=== PATIENT | male | born 1940 | race Caucasian/White ===

== ENCOUNTER 2017-10-29 14:15 | Inpatient (IN) | payer MEDICARE ==
[2017-10-29] VITALS: BP 128/65
[~2017-10-29] VITALS: Ht 185.4 cm; Wt 152.4 kg
[~2017-10-29 14:15] MED LIST: ATORVASTATIN CA20 MG PO; CARVEDILOL12.5 MG PO; DIAZEPAM10 MG; GEMFIBROZIL600 MG PO; HYDRALAZINE HCL25 MG PO; HYDROCODONE-AP1 EA23 PO; K DUR10 MEQ PO; LISINOPRIL10 MG PO; MULTAQ 400MG T400 MG PO; Z.0.DIAZEPAM5 MG PO; Z.0.GEMFIBROZIL600 M PO; Z.0.LIPITOR20 MG PO; Z.0.LOPRESSOR50 MG PO; Z.0.VOLTAREN100 GM TP; [UNRECOGNIZED DRUG - OTHER] PO; [UNRECOGNIZED DRUG - OTHER] PO; [UNRECOGNIZED DRUG - OTHER] PO
[2017-10-29 15:42] LABS: BASOPHILS % 0.2 % (0.0-1.0); EOSINOPHILS % 0.4 % (0.0-6.0); HEMATOCRIT 32.8 % (38.2-49.6); HEMOGLOBIN 10.8 g/dL (14.0-18.0); LYMPHOCYTES # (AUTO) 1.2 (1.0-3.2); MEAN CORPUSCULAR HEMOGLOBIN 31.5 pg (28-32); MEAN CORPUSCULAR HGB CONC 32.9 g/dL (31-35); MEAN CORPUSCULAR VOLUME 95.6 fL (81-99); MONOCYTES % 9.3 % (4.4-11.3); NEUTROPHILS # (AUTO) 8.6 (2.1-6.9); NEUTROPHILS % 78.4 % (38.7-80.0); PLATELET COUNT 163 x10e3/uL (140-360); RED BLOOD COUNT 3.43 x10e6/uL (4.3-5.7); RED CELL DISTRIBUTION WIDTH 16.7 % (11.7-14.4)
[2017-10-29] MEDS ORDERED: SODIUM CHLORIDE 0.9% 1000ML 1,000 ML IV SCH (15:46)
[2017-10-29] MEDS ORDERED: ONDANSETRON HCL INJ 2 MG/ML VIAL IV PRN (16:00)
[2017-10-29 16:04] LABS: ALBUMIN 3.3 g/dL (3.5-5.0); ALBUMIN/GLOBULIN RATIO 0.6 (0.8-2.0); ANION GAP 15.8 mmol/L (8-16); CALCIUM 9.1 mg/dL (8.4-10.2); CREATININE, SERUM 1.32 mg/dL (0.72-1.25); POTASSIUM 3.8 mmol/L (3.5-5.1)
[2017-10-29] MEDS: VANCOMYCIN 1GM/NS 250 ML 250 ML IV SCH (17:04)
[2017-10-29] MEDS ORDERED: RANITIDINE HCL300 M1 PO (17:07)
[2017-10-29] MEDS ORDERED: CLINDAMYCIN HC150 MG PO (17:07)
[2017-10-29] MEDS ORDERED: ASPIR 8181 MG PO (17:07)
[2017-10-29] MEDS ORDERED: DIAZEPAM5 MG PO (17:07)
[2017-10-29] MEDS ORDERED: LIPITOR20 MG PO (17:07)
[2017-10-29] MEDS ORDERED: BUMETANIDE1 MG PO (17:08)
[2017-10-29] MEDS: HYDRALAZINE HCL 25 MG TAB PO SCH (20:32)
[2017-10-29] MEDS ORDERED: NON-FORMULARY MEDICATION (Ranitidine Hcl 300 MG) PO SCH (21:00)
[2017-10-30] VITALS (7 sets, daily range): BP systolic 128–177; BP diastolic 56–86
[2017-10-30] MEDS: ACETAMINOPHEN 325 MG TAB PO PRN ×2 (00:19→17:00)
[2017-10-30] MEDS: DIAZEPAM 5 MG TAB PO SCH ×2 (00:19→21:58)
[2017-10-30] MEDS ORDERED: SODIUM CHLORIDE 0.9% 250ML 250 ML ONE (04:17)
[2017-10-30] MEDS: VANCOMYCIN 1GM/NS 250 ML 250 ML IV SCH ×2 (04:25→16:00)
--- NOTE | 2017-10-30 07:37 | History and Physical ---
A 77-year-old male comes in with right lower extremity redness, pain, tenderness, and also chills and fever. HISTORY OF PRESENT ILLNESS: This is . Kanu Baig with a history of paraplegia, history of hypertension, and history of atrial fibrillation, who was in his usual state of health until he started out with pain and redness in his left lower extremity. The patient got clindamycin and did get better. The patient came in yesterday with right lower extremity redness, erythema, and extremity swelling too. The patient also had apparent chills and fever along with this. With this in mind, the patient was admitted to the hospital for possible cellulitis of the lower extremities, right lower extremity. PAST MEDICAL HISTORY: History of back injury with paraplegia, history of hypertension, history of hyperlipidemia, history of incontinence, history of self-catheterizations, history of anxiety, history of congestive heart failure too. MEDICINES 1. Aspirin 81 mg. 2. Atorvastatin 20 mg. 3. Bumetanide 1 mg. 4. Carvedilol 12.5 mg. 5. Clindamycin which was stopped. 6. Valium 10 mg daily. 7. Gemfibrozil 600 mg twice a day. 8. Hydralazine 25 mg 3 times a day. 9. Lisinopril 10 mg daily. 10. Ranitidine 300 mg daily. SURGICAL HISTORY: Bladder surgery and also back surgery. Otherwise, negative. REVIEW OF SYSTEMS: Negative for chest pain. Positive for some shortness of breath. Positive for constipation. No rectal bleeding. No diarrhea. Positive for constipation. No diplopia. No blurry vision. No headache. Positive for paraplegia in the lower extremities. FAMILY HISTORY: Positive for hypertension and history of cancer in the family too. PHYSICAL EXAMINATION GENERAL: The patient is alert and oriented times 3. Very uncomfortable on his back. HEENT: Normocephalic and atraumatic. Face with seborrheic dermatitis. LUNGS: Clear to auscultation. ABDOMEN: Nontender and nondistended. CARDIAC: S1 and S2 normal. Regular rate and rhythm at this time. EXTREMITIES: Right lower extremity with increased swelling. Increased erythema. Increased tenderness. Increased pain. Increased redness and warmth. LABORATORY VALUES: Initial white count was 10.96, hemoglobin 10.8, hematocrit 32.8. Chemistry: Sodium was 145, potassium 3.8, BUN 41, creatinine 1.32. Estimated GFR of 52, which is baseline for the patient. Albumin is 3.3. Dopplers are pending and has been done. ASSESSMENT: Right lower extremity cellulitis. The patient has been started on vancomycin. Will go ahead and do peak and troughs on the 3rd dose. Get the patient also an air mattress. Will work on that. Will continue also on home medications. For chronic kidney disease, will continue monitoring it. Further recommendations per clinical course. Will continue monitoring the patient in the hospital. Also, Dr. Aguirre will be involved also. Put the patient on telemetry with a history of atrial fibrillation. Lovenox for DVT prophylaxis. Job#: [id number] CORY
[2017-10-30] MEDS ORDERED: BISACODYL 5 MG TAB EC PO PRN (08:00)
[2017-10-30] MEDS ORDERED: LISINOPRIL 10 MG TAB PO SCH (09:00)
[2017-10-30] MEDS ORDERED: DIAZEPAM 5 MG TAB PO SCH (09:00)
[2017-10-30] MEDS: HYDRALAZINE HCL 25 MG TAB PO SCH ×3 (09:40→21:57)
[2017-10-30] MEDS: BUMETANIDE 1 MG TAB PO SCH (09:40)
[2017-10-30] MEDS: CARVEDILOL 12.5 MG TAB PO SCH ×2 (09:40→17:27)
[2017-10-30] MEDS: ASPIRIN 81 MG CHEW TAB PO SCH (09:40)
[2017-10-30] MEDS: LISINOPRIL 20 MG TAB PO SCH (09:41)
[2017-10-30] MEDS: ATORVASTATIN 20 MG TAB PO SCH (09:41)
[2017-10-30] MEDS: FAMOTIDINE 20 MG TAB PO SCH ×2 (09:41→21:57)
[2017-10-30] MEDS: GEMFIBROZIL 600 MG TAB PO SCH ×2 (09:41→17:27)
[2017-10-30] MEDS: ENOXAPARIN SOD INJ 40 MG/0.4 ML SYR SC SCH (17:27)
[2017-10-31] VITALS: BP 142/76
[2017-10-31 04:00] VITALS: BP 149/89
[2017-10-31] MEDS: VANCOMYCIN 1GM/NS 250 ML 250 ML IV SCH ×2 (04:03→16:20)
[2017-10-31] MEDS: ACETAMINOPHEN 325 MG TAB PO PRN (07:50)
[2017-10-31 07:54] VITALS: BP 192/85
[2017-10-31] MEDS: CARVEDILOL 12.5 MG TAB PO SCH ×2 (09:22→17:49)
[2017-10-31] MEDS: BUMETANIDE 1 MG TAB PO SCH (09:22)
[2017-10-31] MEDS: HYDRALAZINE HCL 25 MG TAB PO SCH ×4 (09:22→21:40)
[2017-10-31] MEDS: ASPIRIN 81 MG CHEW TAB PO SCH (09:22)
[2017-10-31] MEDS: ATORVASTATIN 20 MG TAB PO SCH (09:22)
[2017-10-31] MEDS: GEMFIBROZIL 600 MG TAB PO SCH ×2 (09:22→17:49)
[2017-10-31] MEDS: LISINOPRIL 20 MG TAB PO SCH (09:23)
[2017-10-31 11:36] VITALS: BP 159/82
[2017-10-31] MEDS ORDERED: MINERAL OIL 132 ML BTL PR PRN (15:45)
[2017-10-31 16:06] VITALS: BP 128/63
[2017-10-31] MEDS: ENOXAPARIN SOD INJ 40 MG/0.4 ML SYR SC SCH (17:49)
[2017-10-31 20:00] VITALS: BP 137/66
[2017-10-31] MEDS: FAMOTIDINE 20 MG TAB PO SCH (21:39)
[2017-10-31] MEDS: DIAZEPAM 5 MG TAB PO SCH (21:39)
[2017-11-01] VITALS: BP 124/62
[2017-11-01] MEDS: VANCOMYCIN 1GM/NS 250 ML 250 ML IV SCH (03:11)
[2017-11-01 05:00] VITALS: BP 121/60
[2017-11-01 07:34] VITALS: BP 106/51
[2017-11-01] MEDS: LISINOPRIL 20 MG TAB PO SCH (09:00)
[2017-11-01] MEDS: HYDRALAZINE HCL 25 MG TAB PO SCH ×3 (09:00→20:10)
[2017-11-01] MEDS: CARVEDILOL 12.5 MG TAB PO SCH ×2 (09:00→17:14)
[2017-11-01] MEDS: GEMFIBROZIL 600 MG TAB PO SCH ×2 (09:22→17:14)
[2017-11-01] MEDS: BUMETANIDE 1 MG TAB PO SCH (09:22)
[2017-11-01] MEDS: ASPIRIN 81 MG CHEW TAB PO SCH (09:22)
[2017-11-01] MEDS: ATORVASTATIN 20 MG TAB PO SCH (09:22)
[2017-11-01 11:18] VITALS: BP 114/46
[2017-11-01] MEDS ORDERED: DOXYCYCLINE 100MG/NS 100ML 100 ML IV SCH (13:00)
[2017-11-01 15:32] VITALS: BP 141/78
[2017-11-01] MEDS: ENOXAPARIN SOD INJ 40 MG/0.4 ML SYR SC SCH (17:14)
[2017-11-01 20:00] VITALS: BP 143/73
[2017-11-01] MEDS: FAMOTIDINE 20 MG TAB PO SCH (20:10)
[2017-11-01] MEDS: DIAZEPAM 5 MG TAB PO SCH (20:11)
[2017-11-02] VITALS (7 sets, daily range): BP systolic 113–163; BP diastolic 58–85
[2017-11-02] MEDS: VANCOMYCIN 1GM/NS 250 ML 250 ML IV SCH ×2 (00:01→22:41)
[2017-11-02] MEDS: CEFEPIME HCL 1 GM VIAL IV SCH ×3 (00:01→22:40)
--- NOTE | 2017-11-02 00:39 | Diagnostic Imaging Report ---
FOOT RIGHT COMPLETE Comparison: None Clinical history: Osteomyelitis Findings: Decreased bone mineralization limits evaluation. No definite acute fracture or dislocation or bony destruction seen. Severe mid foot and hindfoot degenerative changes. Vascular calcifications. Diffuse soft tissues swelling. Impression: No definite radiographic evidence of osteomyelitis. If there is ongoing clinical concern, consider nonemergent MRI with and without IV contrast or follow-up radiographs. Signed by: Dr Kasey Cronin MD on 11/02/2017 12:36 AM
--- NOTE | 2017-11-02 03:58 | Consultation ---
DATE OF CONSULTATION: November 01, 2017 INFECTIOUS DISEASE CONSULT REASON FOR CONSULT: Cellulitis. HPI: This is a 77-year-old gentleman with history of paraplegia secondary to spinal injury, who presented to [facility] with bilateral leg cellulitis, left more than the right. He attests that he had erythema for several weeks. REVIEW OF SYSTEMS CONSTITUTIONAL: Fevers. No chills. CHEST: No chest pain or palpitations. RESPIRATORY: No cough. GASTROINTESTINAL: No nausea or vomiting. SKIN: Normal. MUSCULOSKELETAL: Paraplegic. PAST MEDICAL HISTORY: Paraplegia secondary to back injury, urinary incontinence with the need of self-catheterization, morbid obesity, and CHF. PAST SURGICAL HISTORY: History of bladder surgery and back surgery. FAMILY HISTORY: Hypertension. SOCIAL HISTORY: No drug use. MEDICATIONS: Includes vancomycin. PHYSICAL EXAMINATION VITAL SIGNS: Afebrile. GENERAL: Alert and in no apparent distress. NECK: Supple. HEART: Normal. ABDOMEN: Obese and nontender. EXTREMITIES: Tender and erythema with no draining wounds. LABS: Reviewed. White count 10, hemoglobin 10 and platelets 163,000. Sodium 145, potassium 3.8, creatinine 1.3. Vancomycin trough on October 30, 2017, was 5. Blood cultures all negative for 48 hours. IMPRESSION 1. Bilateral leg cellulitis. 2. Paraplegia secondary to back injury. 3. Urinary retention with the need for self-catheterization. RECOMMENDATIONS: There is no draining wounds for culture. I will add empiric doxycycline. Dr. Aguirre to follow. Thank you for the consult. Job#: [id number] IA
[2017-11-02] MEDS: ACETAMINOPHEN 325 MG TAB PO PRN ×3 (05:08→23:04)
--- NOTE | 2017-11-02 07:55 | Consultation ---
DATE OF CONSULTATION: INFECTIOUS DISEASE CONSULTATION REASON FOR CONSULTATION: Osteomyelitis. HISTORY OF PRESENT ILLNESS: This is a 77-year-old gentleman who has right lower extremity chronic dermatitis. The patient comes in with redness and swelling of his right leg, worsening condition, fever, chills. He does have history of paraplegia, hypertension, atrial fibrillation. The patient started to have this swelling to the lower extremities. He originally got clindamycin without any improvement. He came with worsening condition; so, he was admitted. PAST MEDICAL HISTORY: He has back injury and paraplegia, hypertension, hyperlipidemia, urinary incontinence, self-catheterization, anxiety, congestive heart failure. MEDICATION: He is on aspirin, atorvastatin, carvedilol, clindamycin, lisinopril. SOCIAL HISTORY: No smoking, drug abuse, alcohol abuse. PAST SURGICAL HISTORY: Bladder surgery, back surgery. REVIEW OF SYSTEMS: HEENT: There is no headache, visual change, hearing change. GI: There is no nausea, no vomiting, no diarrhea. CARDIAC: There is no arrhythmia. NEURO: No seizure activity. SKIN: There is no other rash. LABORATORY DATA: Reviewed. His white count is 10.9, hemoglobin 10.8. Creatinine 1.3. PHYSICAL EXAMINATION: GENERAL: He is alert, oriented, does not appear in acute distress. VITAL SIGNS: Stable. Currently afebrile. HEENT: Not icteric. NECK: Supple. CHEST: Clear. EXTREMITIES: The leg: There is erythema. There is edema. The foot: There is an ulcer noted on his right leg. IMPRESSION: Concerned about osteomyelitis in a patient who has right lower extremity cellulitis. Agree with vancomycin. Agree with Zosyn. Will obtain an x-ray. Will adjust for his kidney function. Recheck CBC. Recheck chem panel. May need an MRI. Concerned about osteomyelitis. Further recommendations to follow. Can discontinue doxycycline. Will follow with you. Job#: [id number] EV
[2017-11-02] MEDS: CARVEDILOL 12.5 MG TAB PO SCH ×2 (09:28→17:15)
[2017-11-02] MEDS: ATORVASTATIN 20 MG TAB PO SCH (09:28)
[2017-11-02] MEDS: HYDRALAZINE HCL 25 MG TAB PO SCH ×3 (09:28→21:02)
[2017-11-02] MEDS: BUMETANIDE 1 MG TAB PO SCH (09:28)
[2017-11-02] MEDS: ASPIRIN 81 MG CHEW TAB PO SCH (09:28)
[2017-11-02] MEDS: GEMFIBROZIL 600 MG TAB PO SCH ×2 (09:29→17:15)
[2017-11-02] MEDS: LACTOBACILLUS ACIDOPHILUS CAPSULE PO SCH ×3 (09:29→21:02)
[2017-11-02] MEDS: LISINOPRIL 20 MG TAB PO SCH (09:29)
--- NOTE | 2017-11-02 10:14 | Diagnostic Imaging Report ---
Portable chest x-ray CPT code 71104 INDICATION: Line placement COMPARISON: Chest x-ray 03/31/2016 FINDINGS: Frontal view of the chest obtained at 0728 hours. The cardiac silhouette is enlarged and stable in morphology. Right PICC line terminates in the subclavian vein, just proximal to the SVC. No pneumothorax. The pulmonary vascular marking are prominent, more severe compared to previous exam The lungs demonstrate no confluent infiltrates. Mild eventration of the right diaphragm is stable. The costophrenic angles are sharp. The osseous structures are stable. IMPRESSION: 1. Right PICC line approximates the SVC. Recommend advancement by proximally 3 cm. No pneumothorax. 2. Worsening pulmonary vascular congestion. Stable cardiomegaly. Signed by: Dr. Andreas Brewster MD on 11/02/2017 10:11 AM
[2017-11-02 10:15] LABS: BASOPHILS % 0.7 % (0.0-1.0); EOSINOPHILS # (AUTO) 0.2 (0.0-0.4); EOSINOPHILS % 4.1 % (0.0-6.0); HEMATOCRIT 29.9 % (38.2-49.6); HEMOGLOBIN 9.5 g/dL (14.0-18.0); LYMPHOCYTES % 16.7 % (18.0-39.1); MEAN CORPUSCULAR HEMOGLOBIN 30.4 pg (28-32); MEAN CORPUSCULAR HGB CONC 31.8 g/dL (31-35); MEAN CORPUSCULAR VOLUME 95.8 fL (81-99); MONOCYTES # (AUTO) 0.6 (0.2-0.8); MONOCYTES % 9.7 % (4.4-11.3); NEUTROPHILS % 67.3 % (38.7-80.0); PLATELET COUNT 169 x10e3/uL (140-360); RED BLOOD COUNT 3.12 x10e6/uL (4.3-5.7); RED CELL DISTRIBUTION WIDTH 16.1 % (11.7-14.4)
[2017-11-02 10:20] LABS: ALANINE AMINOTRANSFERASE 13 IU/L (0-55); ALBUMIN 2.4 g/dL (3.5-5.0); ALBUMIN/GLOBULIN RATIO 0.5 (0.8-2.0); ALKALINE PHOSPHATASE 78 IU/L (40-150); ANION GAP 11.9 mmol/L (8-16); BLOOD UREA NITROGEN 24 mg/dL (7-26); BUN/CREATININE RATIO 24 (6-25); CALCIUM 8.3 mg/dL (8.4-10.2); CARBON DIOXIDE 29 mmol/L (22-29); CREATININE, SERUM 1.02 mg/dL (0.72-1.25); EST GLOMERULAR FILTRATION RATE > 60 ML/MIN (60-); GLUCOSE 115 mg/dL (74-118)
[2017-11-02 10:51] LABS: CHLORIDE 103 mmol/L (98-107); SODIUM 142 mmol/L (136-145)
--- NOTE | 2017-11-02 11:34 | Diagnostic Imaging Report ---
Portable chest x-ray CPT code 59946 INDICATION: Line placement COMPARISON: X-ray 0728 hours FINDINGS: Frontal view of the chest obtained at 0903 hours. The cardiac silhouette is stable. Right PICC line has been advanced into the SVC without pneumothorax. Pulmonary vascular congestion is stable. The lungs demonstrate no new findings. The costophrenic angles are sharp. The osseous structures are stable. IMPRESSION: 1. Right PICC line terminates in the SVC. 2. Stable pulmonary vascular congestion. Signed by: Dr. Andreas Brewster MD on 11/02/2017 11:31 AM
[2017-11-02] MEDS: METRONIDAZOLE 500MG/NS 100ML 100 ML IV SCH ×2 (14:45→21:02)
[2017-11-02 17:28] LABS: BILIRUBIN,URINE NEGATIVE (NEGATIVE); KETONES,URINE NEGATIVE (NEGATIVE); LEUKOCYTE ESTERASE ,URINE NEGATIVE (NEGATIVE); NITRITE,URINE NEGATIVE (NEGATIVE); PROTEIN,URINE DIPSTICK NEGATIVE (NEGATIVE); URINE UROBILINOGEN 0.2 mg/dL (0.2 - 1)
[2017-11-02 17:37] LABS: CLARITY,URINE SL CLOUDY (CLEAR); COLOR,URINE YELLOW (YELLOW)
[2017-11-02 17:48] LABS: BACTERIA,URINE FEW /HPF; EPITHELIAL CELLS,URINE FEW /LPF; RBC,URINE >50 /HPF (0-5); WBC,URINE (MAN) 0-5 /HPF (0-5)
[2017-11-02] MEDS: DIAZEPAM 5 MG TAB PO SCH (21:02)
[2017-11-02] MEDS: FAMOTIDINE 20 MG TAB PO SCH (21:02)
[2017-11-03] VITALS: BP 145/72
[2017-11-03 04:00] VITALS: BP 145/82
[2017-11-03] MEDS: METRONIDAZOLE 500MG/NS 100ML 100 ML IV SCH ×3 (06:11→21:10)
[2017-11-03 06:38] LABS: BASOPHILS % 0.5 % (0.0-1.0); EOSINOPHILS # (AUTO) 0.3 (0.0-0.4); EOSINOPHILS % 4.9 % (0.0-6.0); HEMATOCRIT 29.1 % (38.2-49.6); HEMOGLOBIN 9.3 g/dL (14.0-18.0); LYMPHOCYTES # (AUTO) 1.3 (1.0-3.2); LYMPHOCYTES % 24.1 % (18.0-39.1); MEAN CORPUSCULAR HEMOGLOBIN 30.7 pg (28-32); MONOCYTES # (AUTO) 0.6 (0.2-0.8); MONOCYTES % 11.2 % (4.4-11.3); NEUTROPHILS # (AUTO) 3.2 (2.1-6.9); NEUTROPHILS % 57.5 % (38.7-80.0); PLATELET COUNT 180 x10e3/uL (140-360); RED BLOOD COUNT 3.03 x10e6/uL (4.3-5.7); RED CELL DISTRIBUTION WIDTH 16.2 % (11.7-14.4)
[2017-11-03 07:14] LABS: ANION GAP 9.8 mmol/L (8-16); BLOOD UREA NITROGEN 24 mg/dL (7-26); BUN/CREATININE RATIO 24 (6-25); CALCIUM 8.3 mg/dL (8.4-10.2); CREATININE, SERUM 1.01 mg/dL (0.72-1.25); EST GLOMERULAR FILTRATION RATE > 60 ML/MIN (60-); GLUCOSE 92 mg/dL (74-118)
[2017-11-03 07:55] LABS: CARBON DIOXIDE 30 mmol/L (22-29); CHLORIDE 104 mmol/L (98-107); SODIUM 143 mmol/L (136-145)
[2017-11-03 07:57] LABS: POTASSIUM 2.7 mmol/L (3.5-5.1)
[2017-11-03 08:00] VITALS: BP 154/74
[2017-11-03] MEDS: ATORVASTATIN 20 MG TAB PO SCH (08:15)
[2017-11-03] MEDS: BUMETANIDE 1 MG TAB PO SCH (08:15)
[2017-11-03] MEDS: LACTOBACILLUS ACIDOPHILUS CAPSULE PO SCH ×3 (08:15→21:00)
[2017-11-03] MEDS: GEMFIBROZIL 600 MG TAB PO SCH ×2 (08:15→16:54)
[2017-11-03] MEDS: HYDRALAZINE HCL 25 MG TAB PO SCH ×3 (08:15→21:00)
[2017-11-03] MEDS: CARVEDILOL 12.5 MG TAB PO SCH ×2 (08:15→16:54)
[2017-11-03] MEDS: ASPIRIN 81 MG CHEW TAB PO SCH (08:15)
[2017-11-03] MEDS: LISINOPRIL 20 MG TAB PO SCH (08:15)
[2017-11-03 09:00] VITALS: BP 148/77
[2017-11-03] MEDS ORDERED: POTASSIUM CHLORIDE 20 MEQ TAB CR PO ONE (09:15)
[2017-11-03] MEDS ORDERED: POTASSIUM CHL 40 MEQ in WATER STERILE 2 80 ML IV ONE (09:15)
[2017-11-03] MEDS: CEFEPIME HCL 1 GM VIAL IV SCH ×2 (12:00→23:10)
[2017-11-03 16:00] VITALS: BP 165/78
--- NOTE | 2017-11-03 17:39 | Consultation ---
DATE OF CONSULTATION: November 02, 2017 UROLOGY CONSULTATION REASON FOR CONSULTATION: Urethral trauma. HISTORY OF PRESENT ILLNESS: Kanu Baig is a 77-year-old man who has been a paraplegic since 1993 due to disk disease. The patient was initially seen by Dr. Nilson Payan; however, his office could not accommodate the patient's wheelchair and the patient changed care to Dr. Gavin Leonardo in the [facility]. Patient has been managed with intermittent catheterizations which he does utilizing a 14-Georgian catheter. The patient is admitted with bilateral lower extremity edema and cellulitis, and Pat catheter was placed on Friday. The Pat catheter did not drain today. It was irrigated and it did not drain properly; so, Pat catheter was removed with a resultant gross hematuria. The patient was attempted to be catheterized and obtained only blood. Patient has had history of urinary tract infections. He denies any previous history of urolithiasis. The patient had an excision of a right testicular tumor but reports that not the entire testicle was removed. PAST MEDICAL AND SURGICAL HISTORY 1. Paraplegia. 2. Hypertension. 3. Atrial fibrillation. 4. Bilateral lower extremity cellulitis for which he is currently admitted. 5. Status post back surgery in 1993. 6. Hyperlipidemia. 7. Anxiety. 8. Congestive heart failure. 9. Morbid obesity. ALLERGIES: PENICILLIN. SOCIAL HISTORY: The patient denies smoking, ethanol, or drug use. 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 He has supportive at the bedside. FAMILY HISTORY: Noncontributory to active urological problems. REVIEW OF SYSTEMS: As discussed above in the history of present illness and past medical history, otherwise negative for all systems. CURRENT MEDICATIONS: Please refer to the MAR. PHYSICAL EXAMINATION GENERAL: A very pleasant 77-year-old man, lying in bed in no apparent distress. VITAL SIGNS: He is currently afebrile. Vital signs are currently stable. ABDOMEN: Soft, obese, nondistended, and nontender without costovertebral angle tenderness. Kidneys are not palpable. No hepatosplenomegaly. The bladder is not palpable. GENITOURINARY: The left testis is descended and normal. In the right hemiscrotum, there is a nubbin from resection of a testicular tumor performed many years ago according to the patient at [facility]. Patient has a normal uncircumcised male phallus with normal meatus without any lesion. Digital rectal examination is deferred at the present time. EXTREMITIES: There is bilateral lower extremity cellulitis as well as edema. For the remaining physical examination of systems, please refer to the admission history and physical in the chart. PROCEDURE NOTE: I utilized [facility] coude-tip catheter and I was able to catheterize the patient's bladder. I obtained 300 mL of clear urine output upon immediate catheterization. There was blood at the urethral meatus and I expect bleeding around the catheter to continue. LABORATORY STUDIES: blood culture resulted as positive. White blood cell count is 5880, it was above 10,000, but has since normalized. The patient's hemoglobin is low at 9.5. Platelets are normal at 169,000. Patient's creatinine was elevated upon admission at 1.32, but it has since normalized at 1.02. Patient's calcium is low at 8.3. There is no urologically relevant radiographic study in the computer at the present time. ASSESSMENT 1. Neurogenic bladder. 2. Chronic urinary retention. 3. Obstructive BPH as evidenced by the fact that only a very small amount of catheter is sticking out the urethral meatus once I placed the Pat catheter into the patient's bladder. 4. Urinary tract infections. 5. Gross hematuria. 6. Bilateral lower extremity edema. 7. Leukocytosis that improved. 8. Mild anemia. 9. Acute renal failure that improved. 10. Hypocalcemia. 11. Morbid obesity. 12. Urethral trauma. PLAN 1. Leave the Pat catheter in place for at least 7 to 10 days prior to resuming intermittent catheterization. 2. The patient needs ongoing urological followup. 3. At some point, a cystoscopic examination should be considered. 4. Long-term followup including upper tract imaging is in order. Thank you very much for involving us in the care of your patient. We will be happy to follow him along with you as well as assume his ongoing urological care due to the fact that it would be more convenient for the patient to travel locally to my office than stringer the traffic in and out of the [facility]. The patient and his are eager to switch care. Despite Dr. Leonardo's excellent care, the cumbersome nature of transportation at his age is becoming a challenge. Job#: [id number] cc:ELMER GAONA MD
[2017-11-03 20:00] VITALS: BP 146/64
[2017-11-03] MEDS: FAMOTIDINE 20 MG TAB PO SCH (21:00)
[2017-11-03] MEDS: DIAZEPAM 5 MG TAB PO SCH (21:00)
[2017-11-03] MEDS: VANCOMYCIN 1GM/NS 250 ML 250 ML IV SCH (23:10)
[2017-11-04] VITALS: BP 153/73
[2017-11-04 04:00] VITALS: BP 169/77
[2017-11-04] MEDS: METRONIDAZOLE 500MG/NS 100ML 100 ML IV SCH ×2 (05:57→14:00)
[2017-11-04] MEDS: ACETAMINOPHEN 325 MG TAB PO PRN (07:30)
[2017-11-04 08:00] VITALS: BP 150/76
[2017-11-04] MEDS: HYDRALAZINE HCL 25 MG TAB PO SCH ×2 (08:49→15:00)
[2017-11-04] MEDS: ATORVASTATIN 20 MG TAB PO SCH (08:50)
[2017-11-04] MEDS: ASPIRIN 81 MG CHEW TAB PO SCH (08:50)
[2017-11-04] MEDS: BUMETANIDE 1 MG TAB PO SCH (08:50)
[2017-11-04] MEDS: LISINOPRIL 20 MG TAB PO SCH (08:50)
[2017-11-04] MEDS: CARVEDILOL 12.5 MG TAB PO SCH ×2 (08:50→17:00)
[2017-11-04] MEDS: GEMFIBROZIL 600 MG TAB PO SCH ×2 (08:50→17:00)
[2017-11-04] MEDS: LACTOBACILLUS ACIDOPHILUS CAPSULE PO SCH ×2 (08:51→15:00)
[2017-11-04] MEDS: CEFEPIME HCL 1 GM VIAL IV SCH (11:15)
[2017-11-04 12:00] VITALS: BP_SYST 146; BP_SYST 154; BP_DIAS 77; BP_DIAS 79
[2017-11-04 20:00] VITALS: BP 147/70
--- NOTE | 2017-11-05 09:30 | Diagnostic Imaging Report ---
MRI of the right foot with and without contrast. History: Cellulitis. Swelling. Decreased range of motion. Redness. Pain. Technique: Multiplanar multisequence MRI of the right foot with and without intravenous contrast. 10 cc IV gadolinium contrast material was administered Comparison: Radiographs 11/01/2017 Findings: There is no acute fracture, subluxation or avascular necrosis. No ligamentous or tendon tear is seen. Scattered degenerative changes are seen. There is diffuse muscle atrophy. There is a tibiotalar joint effusion and synovitis. There is diffuse soft tissue edema most pronounced at the dorsal lateral aspect of the foot/ankle. There is associated skin thickening. This is best seen on series 4 image 10. No well-formed drainable fluid collection/abscess is seen. No abnormal enhancing masses are seen. Impression: Findings which could be due to cellulitis. No well-formed drainable fluid collection/abscess is seen. No focal bone marrow edema or cortical destruction is seen to suggest osteomyelitis at this time. Signed by: Dr. Vishnu Suarez M.D. on 11/05/2017 9:27 AM
== END 2017-11-04 20:55 | DRG 603 ==
LOC: ER 14:15 → ERHOLD 16:13 → MED/SURG3 21:30
PROVIDERS: ADMIT Family Medicine; ATTEND Family Medicine
PROC: 02HV33Z Insertion of Infusion Device into Superior Vena Cava, Percutaneous Approach (ICD-10-PCS; principal; 2017-11-02)
PROC: 0T9B70Z Drainage of Bladder with Drainage Device, Via Natural or Artificial Opening (ICD-10-PCS; 2017-11-02)
DX: L03.116 Cellulitis of left lower limb (principal); N17.9 Acute kidney failure, unspecified; G82.20 Paraplegia, unspecified; I13.0 Hypertensive heart and chronic kidney disease with heart failure and stage 1 through stage 4 chronic kidney disease, or unspecified chronic kidney disease; I50.9 Heart failure, unspecified; Z68.41 Body mass index [BMI] 40.0-44.9, adult; L97.911 Non-pressure chronic ulcer of unspecified part of right lower leg limited to breakdown of skin; L03.115 Cellulitis of right lower limb; I48.91 Unspecified atrial fibrillation; N18.9 Chronic kidney disease, unspecified; E78.5 Hyperlipidemia, unspecified; K59.00 Constipation, unspecified; F41.9 Anxiety disorder, unspecified; E66.01 Morbid (severe) obesity due to excess calories; N40.1 Benign prostatic hyperplasia with lower urinary tract symptoms; R33.8 Other retention of urine; R31.9 Hematuria, unspecified; I89.0 Lymphedema, not elsewhere classified; N31.9 Neuromuscular dysfunction of bladder, unspecified; I25.10 Atherosclerotic heart disease of native coronary artery without angina pectoris; Z79.82 Long term (current) use of aspirin; Z88.0 Allergy status to penicillin
CPT/HCPCS: 36415; 36569; 71010; 80048; 80053; 80202; 81001; 82948; 85025; 87040; 87071; 87086; 87186; 87205; 93970; 96367; 96372; 96376; 97139; 99284; J0692; J1650; J3370; J3480; J7030; J7050

== ENCOUNTER 2018-04-07 18:18 | Inpatient (IN) | payer MEDICARE ==
[~2018-04-07] VITALS: Ht 185.4 cm; Wt 112.0 kg
[~2018-04-07 18:18] MED LIST changes: +ASPIR 8181 MG PO; +BUMETANIDE1 MG PO; +CLINDAMYCIN HC150 MG PO; +DIAZEPAM5 MG PO; +LIPITOR20 MG PO; +RANITIDINE HCL300 M1 PO
--- OUTSIDE RECORDS SUMMARY | 2018-04-07 18:21 | XMS REPORT | Clinical Summary ---
Author Author [facility] Organization [facility] Address Unknown Phone Unavailable Care Team Providers Care Assembler Crimper Name Role Phone Asked, Pcp PCP Unavailable Allergies No Known Allergies Current Medications Prescription Sig. Disp. Refills Start End Date Status Date atorvastatin (LIPITOR) 20 Take 20 mg by mouth once 5 06/03/20 Active MG tablet daily. 17 BUMETanide (BUMEX) 2 MG Take 2 mg by mouth once 10 06/24/20 Active tablet daily. 17 carvedilol (COREG) 25 MG TAKE 1&1/2 TABLETS BY 11 07/12/20 Active tablet MOUTH TWICE DAILY 17 diazePAM (VALIUM) 10 MG Take 10 mg by mouth daily 0 05/12/20 Active tablet as needed. 17 gemfibrozil (LOPID) 600 Take 600 mg by mouth 2 5 04/29/20 Active MG tablet (two) times a day. 17 hydrALAZINE (APRESOLINE) Take 100 mg by mouth 3 04/29/20 Active 100 MG tablet every 8 (eight) hours. 17 lisinopril Take 40 mg by mouth once 2 07/04/20 Active (PRINIVIL,ZESTRIL) 40 mg daily. 17 tablet Active Problems Problem Noted Date Neurogenic bladder, NOS 05/29/2016 Encounters Date Type Specialty Care Team Description 07/23/2017 Office Visit Urology Gavin Leonardo MD Urinary retention (Primary Dx); Neurogenic bladder after 04/06/2017 Family History Relation Name Status Comments Father Mother Social History Tobacco Use Types Packs/Day Years Used Date Never Smoker Smokeless Tobacco: Never Used Alcohol Use Drinks/Week oz/Week Comments No Sex Assigned at Date Recorded Not on file Last Filed Vital Signs Not on file Plan of Treatment Health Maintenance Due Date Last Done Comments SHINGRIX VACCINE (#1) 1989 ZOSTER VACCINE 1999 PNEUMOCOCCAL 01/08/2004 POLYSACCHARIDE VACCINE AGE 65 AND OVER PNEUMOCOCCAL-13 01/08/2004 INFLUENZA VACCINE 06/03/2018 Results * POC urinalysis dipstick (07/23/2017 1:30 PM) Component Value Ref Range Color urine, POC Yellow Clarity urine, POC Clear Glucose urine, POC Negative Negative Bilirubin urine, POC Negative Negative Ketones urine, POC Negative Negative Specific gravity urine, 1.015 1.005 - 1.030 POC Blood urine, POC Negative Negative pH urine, POC 7.0 5.0, 5.5, 6.0, 6.5, 7.0, 7.5, 8.0, 8.5 Protein urine, POC Negative Negative Urobilinogen urine, POC <2.0 <2.0 Nitrite urine, POC Negative Negative Leukocyte esterase urine, Negative Negative POC Specimen Performing Laboratory Urine after 04/06/2017 Insurance Payer Benefit Subscriber ID Type Phone Address Plan / Group MEDICARE MEDICARE xxxxxxxxxx Medicare [place], [place] PART A AND B AARP AARP xxxxxxxxxxx Commercial SUPPLEMENT
--- OUTSIDE RECORDS SUMMARY | 2018-04-07 18:22 | XMS REPORT ---
Author Author [facility] Address Unknown Phone Unavailable Care Team Providers Care Enamel Cracker Name Role Phone ELMER GAONA Unavailable Unavailable Problems This patient has no known problems. Allergies, Adverse Reactions, Alerts This patient has no known allergies or adverse reactions. Medications This patient has no known medications. Results Test Description Test Time Test Comments Text Results Atomic Results Result Comments MRI FOOT RIGHT WOW [place] [address] Patient Name: JHONATHAN DOMINGO MR #: [id number] : 1940 Age/Sex: 77/M Req #: [id number] [facility] Physician: ELMER GAONA MD Ordered by: MARGARITA CASTAÑEDA MD Report #: [id number] Location: MED/SURG3 Room/Bed: [facility] [facility] [employer] Procedure: [id number] MRI/MRI FOOT RIGHT WOW Exam Date: Exam Time: REPORT STATUS: Signed MRI of the right foot with and without contrast. History: Cellulitis. Swelling. Decreased range of motion. Redness. Pain. Technique: Multiplanar multisequence MRI of the right foot with and without intravenous contrast. 10 cc IV gadolinium contrast material was administered Comparison: Radiographs 11/01/2017 Findings: There is no acute fracture, subluxation or avascular necrosis. No ligamentous or tendon tear is seen. Scattered degenerative changes are seen. There is diffuse muscle atrophy. There is a tibiotalar joint effusion and synovitis. There is diffuse soft tissue edema most pronounced at the dorsal lateral aspect of the foot/ankle. There is associated skin thickening. This is best seen on series 4 image 10. No well-formed drainable fluid collection/abscess is seen. No abnormal enhancing masses are seen. Impression: Findings which could be due to cellulitis. No well-formed drainable fluid collection/abscess is seen. No focal bone marrow edema or cortical destruction is seen to suggest osteomyelitis at this time. Signed by: Dr. Vishnu Suarez M.D. on 2017 9:27 AM Dictated By: VISHNU SUAREZ MD, MD 6 Transcribed By: CHRIS on 11/05/17926 COPY TO: MARGARITA CASTAÑEDA MD CHEST XRAY LINE PLACEMENT [place] [address] Patient Name: JHONATHAN DOMINGO MR #: [id number] : 1940 Age/Sex: 77/M Req #: [id number] Adm Physician: ELMER GAONA MD Ordered by: MARGARITA CASTAÑEDA MD Report #: [id number] Location: [facility] Room/Bed: [employer] [facility] [employer] Procedure: [id number] DX/CHEST XRAY LINE PLACEMENT Exam Date: 11/02/17 Exam Time: 1120 REPORT STATUS: Signed Portable chest x-ray CPT code 85623 INDICATION: Line placement COMPARISON: X-ray 0728 hours FINDINGS: Frontal view of the chest obtained at 0903 hours. The cardiac silhouette is stable. Right PICC line has been advanced into the SVC without pneumothorax. Pulmonary vascular congestion is stable. The lungs demonstrate no new findings. The costophrenic angles are sharp. The osseous structures are stable. IMPRESSION: 1. Right PICC line terminates in the SVC. 2. Stable pulmonary vascular congestion. Signed by: Dr. Ignacio Brewster MD on 11:31 AM Dictated By: IGNACIO BREWSTER MD 1131 Transcribed By: CHRIS on 1131 COPY TO: MARGARITA CASTAÑEDA MD CHEST XRAY LINE PLACEMENT [place] [address] Patient Name: JHONATHAN DOMINGO MR #: [id number] : 1940 Age/Sex: 77/M Req #: [id number] Adm Physician: ELMER GAONA MD Ordered by: MARGARITA CASTAÑEDA MD Report #: [id number] Location: [facility]/SURG3 Room/Bed: [employer] [facility] Procedure: [id number] DX/CHEST XRAY LINE PLACEMENT Exam Date: 11/02/17 Exam Time: 0945 REPORT STATUS: Signed Portable chest x-ray CPT code 72890 INDICATION: Line placement COMPARISON: Chest x-ray 03/31/2016 FINDINGS: Frontal view of the chest obtained at 0728 hours. The cardiac silhouette is enlarged and stable in morphology. Right PICC line terminates in the subclavian vein, just proximal to the SVC. No pneumothorax. The pulmonary vascular marking are prominent, more severe compared to previous exam The lungs demonstrate no confluent infiltrates. Mild eventration of the right diaphragm is stable. The costophrenic angles are sharp. The osseous structures are stable. IMPRESSION: 1. Right PICC line approximates the SVC. Recommend advancement by proximally 3 cm. No pneumothorax. 2. Worsening pulmonary vascular congestion. Stable cardiomegaly. Signed by: Dr. Ignacio Brewster MD on 11/02/2017 10:11 AM Dictated By: IGNACIO BREWSTER MD Transcribed By : CHRIS on 11/02/171 COPY TO: MARGARITA CASTAÑEDA MD FOOT RIGHT COMPLETE [place] [address] Patient Name: JHONATHAN DOMINGO MR #: [id number] : 1940 Age/Sex: 77/M Req #: [id number] Adm Physician: ELMER GAONA MD Ordered by: MARGARITA CASTAÑEDA MD Report #: [id number] Location: [facility] Room/Bed: [employer] [facility] Procedure: [id number] DX/FOOT RIGHT COMPLETE Exam Date: 11/02/17 Exam Time: 1150 REPORT STATUS: Signed FOOT RIGHT COMPLETE Comparison: None Clinical history: Osteomyelitis Findings: Decreased bone mineralization limits evaluation. No definite acute fracture or dislocation or bony destruction seen. Severe mid foot and hindfoot degenerative changes. Vascular calcifications. Diffuse soft tissues swelling. Impression: No definite radiographic evidence of osteomyelitis. If there is ongoing clinical concern, consider nonemergent MRI with and without IV contrast or follow-up radiographs. Signed by: Dr Clark Cronin MD on 11/02/2017 12:36 AM Dictated By: CLARK CRONIN MD Transcribed By: CHRIS on 11/02/1735 COPY TO: MARGARITA CASTAÑEDA MD
[2018-04-07] MEDS ORDERED: SODIUM CHLORIDE 0.9% 1000ML 1,000 ML IV STA (18:28)
--- NOTE | 2018-04-07 19:00 | Diagnostic Imaging Report ---
PROCEDURE: A single AP view of the chest. COMPARISON: Patients [facility], DX, CHEST XRAY LINE PLACEMENT, 11/02/2017, 9:03. INDICATIONS: LOW OXYGEN, UTI FINDINGS: See Impression. IMPRESSION: 1. mildly hypoinflated lungs. No consolidation or effusion. 2. Mild prominence of the cardiac silhouette, which may be partly due to AP projection and is stable. Central pulmonary venous congestion and mild perihilar opacities, likely reflecting mild edema 3. No acute bony abnormalities.. Alejandro Foley M.D. Dictated by: Alejandro Foley M.D. on 04/07/2018 at 19:03 Electronically approved by: Alejandro Foley M.D. on 04/07/2018 at 19:03
[2018-04-07] MEDS ORDERED: IBUPROFEN 600 MG TAB PO STA (19:29)
[2018-04-07 20:25] LABS: BASOPHILS % 0.2 % (0.0-1.0); HEMOGLOBIN 10.2 g/dL (14.0-18.0); LYMPHOCYTES # (AUTO) 0.9 (1.0-3.2); LYMPHOCYTES % 6.9 % (18.0-39.1); MEAN CORPUSCULAR HEMOGLOBIN 31.9 pg (28-32); MEAN CORPUSCULAR HGB CONC 32.9 g/dL (31-35); MEAN CORPUSCULAR VOLUME 96.9 fL (81-99); MONOCYTES # (AUTO) 1.2 (0.2-0.8); MONOCYTES % 9.5 % (4.4-11.3); NEUTROPHILS # (AUTO) 10.3 (2.1-6.9); NEUTROPHILS % 82.4 % (38.7-80.0); PLATELET COUNT 116 x10e3/uL (140-360); RED CELL DISTRIBUTION WIDTH 15.2 % (11.7-14.4)
[2018-04-07 20:34] LABS: INR 1.65; PROTHROMBIN TIME 18.3 seconds (11.9-14.5)
[2018-04-07 20:35] LABS: PARTIAL THROMBOPLASTIN TIME 52.2 seconds (23.8-35.5)
[2018-04-07 20:42] LABS: ALBUMIN 3.2 g/dL (3.5-5.0); ALBUMIN/GLOBULIN RATIO 0.7 (0.8-2.0); ANION GAP 16.5 mmol/L (8-16); CALCIUM 9.2 mg/dL (8.4-10.2); CREATININE, SERUM 2.36 mg/dL (0.72-1.25); MAGNESIUM 1.8 MG/DL (1.3-2.1); POTASSIUM 3.5 mmol/L (3.5-5.1)
[2018-04-07 20:48] LABS: CREATINE KINASE MB 1.7 ng/mL (0-5.0)
[2018-04-07] MEDS ORDERED: SODIUM CHLORIDE 0.9% 1000ML 1,000 ML ONE (22:06)
[2018-04-07 22:09] LABS: CLARITY,URINE CLOUDY (CLEAR); COLOR,URINE YELLOW (YELLOW); KETONES,URINE NEGATIVE (NEGATIVE); LEUKOCYTE ESTERASE ,URINE 2+ (NEGATIVE); NITRITE,URINE NEGATIVE (NEGATIVE); PROTEIN,URINE DIPSTICK 2+ (NEGATIVE)
[2018-04-07 22:10] LABS: BILIRUBIN,URINE NEGATIVE (NEGATIVE); URINE UROBILINOGEN 0.2 mg/dL (0.2 - 1)
[2018-04-07 22:12] LABS: BACTERIA,URINE MANY /HPF; WBC,URINE (MAN) >50 /HPF (0-5)
[2018-04-07] MEDS ORDERED: FUROSEMIDE INJ 10 MG/ML 4 ML VIAL IV ONE (22:30)
[2018-04-07] MEDS ORDERED: DEXTROSE 50% SYRINGE 50 ML IV PRN (22:30)
[2018-04-07] MEDS ORDERED: CEFTRIAXONE SOD 1 GM VIAL IV ONE (22:30)
[2018-04-07] MEDS ORDERED: SODIUM CHLORIDE FLUSH 10 ML SYR INJ PRN (22:30)
[2018-04-07] MEDS ORDERED: ASPIRIN 81 MG CHEW TAB PO ONE (22:30)
--- OUTSIDE RECORDS SUMMARY | 2018-04-07 22:52 | XMS REPORT | Clinical Summary ---
Author Author [facility] Organization [facility] Address Unknown Phone Unavailable Care Team Providers Care Natural Sciences Manager Name Role Phone Asked, Pcp PCP Unavailable [...] Plan / Group MEDICARE MEDICARE xxxxxxxxxx Medicare [place], [place] PART A AND B AARP AARP xxxxxxxxxxx Commercial SUPPLEMENT
[2018-04-07] MEDS: CEFTRIAXONE SOD 1 GM VIAL IV SCH (23:33)
[2018-04-08] VITALS (9 sets, daily range): BP systolic 104–120; BP diastolic 50–63
[2018-04-08 06:24] LABS: BASOPHILS % 0.2 % (0.0-1.0); HEMATOCRIT 28.1 % (38.2-49.6); HEMOGLOBIN 8.9 g/dL (14.0-18.0); LYMPHOCYTES # (AUTO) 0.9 (1.0-3.2); LYMPHOCYTES % 6.6 % (18.0-39.1); MEAN CORPUSCULAR HEMOGLOBIN 31.7 pg (28-32); MEAN CORPUSCULAR HGB CONC 31.7 g/dL (31-35); MONOCYTES # (AUTO) 1.5 (0.2-0.8); MONOCYTES % 11.6 % (4.4-11.3); NEUTROPHILS # (AUTO) 10.5 (2.1-6.9); NEUTROPHILS % 80.5 % (38.7-80.0); PLATELET COUNT 114 x10e3/uL (140-360); RED BLOOD COUNT 2.81 x10e6/uL (4.3-5.7); RED CELL DISTRIBUTION WIDTH 15.5 % (11.7-14.4)
[2018-04-08 06:59] LABS: ALBUMIN 2.9 g/dL (3.5-5.0); ALBUMIN/GLOBULIN RATIO 0.7 (0.8-2.0); ANION GAP 13.4 mmol/L (8-16); CALCIUM 8.9 mg/dL (8.4-10.2); CREATININE, SERUM 2.54 mg/dL (0.72-1.25); POTASSIUM 3.4 mmol/L (3.5-5.1)
[2018-04-08 07:05] LABS: CREATINE KINASE MB 1.4 ng/mL (0-5.0)
[2018-04-08] MEDS ORDERED: INSULIN REGULAR, HUMAN 100 UNIT/1 ML 3ML VIAL SQ SCH (07:30)
[2018-04-08 08:15] LABS: BAND NEUTROPHILS % (MANUAL) 10 %; LYMPHOCYTES % (MANUAL) 6 % (19-48); MONOCYTES % (MANUAL) 2 % (3.4-9.0); NEUTROPHILS % (MANUAL) 81 % (40-74)
[2018-04-08 08:16] LABS: HYPOCHROMASIA SLIGHT; PLATELET ESTIMATE SLIGHTLY DECREASED; PLATELET MORPHOLOGY COMMENT NORMAL; RBC MORPHOLOGY COMMENT NORMAL
[2018-04-08] MEDS: FUROSEMIDE INJ 10 MG/ML 4 ML VIAL IV SCH ×2 (09:40→20:10)
[2018-04-08] MEDS: ACETAMINOPHEN 325 MG TAB PO PRN ×3 (13:40→23:35)
[2018-04-08 15:18] LABS: CREATINE KINASE MB 1.3 ng/mL (0-5.0)
[2018-04-08] MEDS ORDERED: POTASSIUM CHLORIDE 20 MEQ TAB CR PO ONE (19:04)
--- NOTE | 2018-04-08 20:18 | History and Physical ---
This patient is admitted to the hospital, sent from the clinic for urinary tract infection and hypoxia, history of exacerbation. HISTORY OF PRESENTING ILLNESS: Mr. Мария Baig came to the office yesterday with hypoxia and shortness of breath and also with fever. He was found to have a urinary tract infection and was sent to the emergency room for sepsis and also admitted for UTI and congestive heart failure. PAST MEDICAL HISTORY: History of hypertension, history of hyperlipidemia, history of CHF, history of anxiety, history of reflux esophagitis and also history of hyperlipidemia. History of paraplegia. HOME MEDICATIONS: Aspirin 81, atorvastatin 20, Bumex 2 mg daily, carvedilol 12.5 mg, Valium 5 mg daily, 600 mg, 25 mg, lisinopril 10 mg and ranitidine 300 mg nightly. ALLERGIES: NO KNOWN DRUG ALLERGIES. SOCIAL HISTORY: Not a smoker, no ETOH, no IV drug abuse either. REVIEW OF SYSTEMS: Negative for chest pain. No cough, no shortness of breath, no nausea, vomiting or diarrhea. No constipation. No rectal bleeding. No hematochezia, no hematemesis. No blurry vision. No diplopia. Positive for some confusion also. PHYSICAL EXAMINATION GENERAL: The patient is alert and oriented x2. The patient does have some confusion when he presented to the clinic yesterday. HEENT: Normocephalic, atraumatic. Pupils are reactive to light and accommodation. CVS: S1 and S2 normal. Irregularly irregular rate. ABDOMEN: Nontender. EXTREMITIES: No clubbing. Positive for edema and positive for erythema in the lower extremities. NEUROLOGIC: Alert and oriented x2. Positive for sensory deficits. The patient has paraplegia. LABORATORY DATA: White count 12.5 with left shift. Chemistries showed mild hyperglycemia of 148. Lactic acid negative. BUN ___, creatinine 2.36. CK and CK-MB and troponins were negative. Urinalysis showed 50,000 to 100,000 cells. ASSESSMENT: Urosepsis, possible encephalopathy, fever, chronic urinary tract infection, chronic history of catheterization, paraplegia, diabetes mellitus, hypertension and congestive heart failure, acute and chronic. PLAN: Continue with antibiotics. The patient has been started on Rocephin 1 gram. I will continue with that. White count was 13,000 today. Will probably change it to Zosyn. Microbiology preliminary urine shows no findings yet. Plan is to continue with fluid restriction and IV Lasix has been started. Will continue on with his vitals and also CBC, CMP and continue with Pat catheter. Dr. Silveira has been consulted. Further recommendations depending on clinical course. Job#: [id number]
[2018-04-08] MEDS: CEFTRIAXONE SOD 1 GM VIAL IV SCH (21:30)
[2018-04-09] VITALS (7 sets, daily range): BP systolic 98–115; BP diastolic 50–68
[2018-04-09 05:49] LABS: HEMATOCRIT 27.5 % (38.2-49.6); HEMOGLOBIN 8.8 g/dL (14.0-18.0); MEAN CORPUSCULAR HEMOGLOBIN 31.7 pg (28-32); MEAN CORPUSCULAR VOLUME 98.9 fL (81-99); NEUTROPHILS % 76.9 % (38.7-80.0); PLATELET COUNT 113 x10e3/uL (140-360); RED BLOOD COUNT 2.78 x10e6/uL (4.3-5.7); RED CELL DISTRIBUTION WIDTH 15.7 % (11.7-14.4)
[2018-04-09 05:50] LABS: BASOPHILS % 0.2 % (0.0-1.0); EOSINOPHILS % 0.1 % (0.0-6.0); LYMPHOCYTES # (AUTO) 1.1 (1.0-3.2); MONOCYTES # (AUTO) 1.1 (0.2-0.8); MONOCYTES % 11.1 % (4.4-11.3); NEUTROPHILS # (AUTO) 7.9 (2.1-6.9)
[2018-04-09 06:28] LABS: ANION GAP 14.6 mmol/L (8-16); CALCIUM 8.8 mg/dL (8.4-10.2); CREATININE, SERUM 2.72 mg/dL (0.72-1.25); POTASSIUM 3.6 mmol/L (3.5-5.1)
[2018-04-09] MEDS: POLYETHYLENE GLYCOL 3350 17 GM PACK PO SCH ×2 (09:00→17:00)
[2018-04-09] MEDS: FUROSEMIDE INJ 10 MG/ML 4 ML VIAL IV SCH ×2 (09:29→21:20)
[2018-04-09 10:30] LABS: BAND NEUTROPHILS % (MANUAL) 3 %; LYMPHOCYTES % (MANUAL) 6 % (19-48); MONOCYTES % (MANUAL) 12 % (3.4-9.0); NEUTROPHILS % (MANUAL) 79 % (40-74)
[2018-04-09 10:32] LABS: ANISOCYTOSIS SLIGHT; HYPOCHROMASIA SLIGHT; PLATELET ESTIMATE SLIGHTLY DECREASED; PLATELET MORPHOLOGY COMMENT NORMAL; RBC MORPHOLOGY COMMENT NORMAL
[2018-04-09] MEDS: ASPIRIN 81 MG CHEW TAB PO SCH (16:30)
[2018-04-09] MEDS: GEMFIBROZIL 600 MG TAB PO SCH (17:30)
[2018-04-09] MEDS ORDERED: NON-FORMULARY MEDICATION (Ranitidine Hcl 300 MG) PO SCH (21:00)
[2018-04-09] MEDS: ATORVASTATIN 20 MG TAB PO SCH (21:20)
[2018-04-09] MEDS: FAMOTIDINE 20 MG TAB PO SCH (21:20)
[2018-04-09] MEDS: CEFTRIAXONE SOD 1 GM VIAL IV SCH (21:21)
[2018-04-09] MEDS: ACETAMINOPHEN 325 MG TAB PO PRN (23:12)
[2018-04-10] VITALS (7 sets, daily range): BP systolic 113–144; BP diastolic 57–68
[2018-04-10 05:37] LABS: BASOPHILS % 0.1 % (0.0-1.0); EOSINOPHILS # (AUTO) 0.1 (0.0-0.4); EOSINOPHILS % 1.2 % (0.0-6.0); HEMOGLOBIN 8.7 g/dL (14.0-18.0); LYMPHOCYTES # (AUTO) 1.1 (1.0-3.2); LYMPHOCYTES % 13.8 % (18.0-39.1); MEAN CORPUSCULAR HEMOGLOBIN 31.8 pg (28-32); MEAN CORPUSCULAR HGB CONC 32.2 g/dL (31-35); MEAN CORPUSCULAR VOLUME 98.5 fL (81-99); MONOCYTES # (AUTO) 0.9 (0.2-0.8); MONOCYTES % 12.1 % (4.4-11.3); NEUTROPHILS # (AUTO) 5.6 (2.1-6.9); NEUTROPHILS % 71.9 % (38.7-80.0); PLATELET COUNT 117 x10e3/uL (140-360); RED BLOOD COUNT 2.74 x10e6/uL (4.3-5.7); RED CELL DISTRIBUTION WIDTH 15.5 % (11.7-14.4)
[2018-04-10 06:04] LABS: CALCIUM 8.7 mg/dL (8.4-10.2); CREATININE, SERUM 2.5 mg/dL (0.72-1.25)
[2018-04-10 06:17] LABS: THYROID STIMULATING HORMONE 1.18 uIU/mL (0.350-4.940)
[2018-04-10] MEDS: FUROSEMIDE INJ 10 MG/ML 4 ML VIAL IV SCH ×2 (09:19→21:13)
[2018-04-10] MEDS: POLYETHYLENE GLYCOL 3350 17 GM PACK PO SCH ×2 (09:19→16:33)
[2018-04-10] MEDS: GEMFIBROZIL 600 MG TAB PO SCH ×2 (09:19→16:33)
[2018-04-10] MEDS: ASPIRIN 81 MG CHEW TAB PO SCH (09:19)
[2018-04-10] MEDS ORDERED: POTASSIUM CHLORIDE 20 MEQ TAB CR PO NR ×2 (10:00→18:00)
[2018-04-10] MEDS: ATORVASTATIN 20 MG TAB PO SCH (21:13)
[2018-04-10] MEDS: FAMOTIDINE 20 MG TAB PO SCH (21:15)
[2018-04-10] MEDS: CEFTRIAXONE SOD 1 GM VIAL IV SCH (22:41)
[2018-04-11] VITALS (8 sets, daily range): BP systolic 129–138; BP diastolic 60–67
[2018-04-11 05:57] LABS: ANION GAP 17.5 mmol/L (8-16); CREATININE, SERUM 2.11 mg/dL (0.72-1.25); POTASSIUM 3.5 mmol/L (3.5-5.1)
[2018-04-11 06:02] LABS: CALCIUM 9.2 mg/dL (8.4-10.2)
[2018-04-11] MEDS: LISINOPRIL 20 MG TAB PO SCH (08:46)
[2018-04-11] MEDS: CARVEDILOL 12.5 MG TAB PO SCH ×2 (08:46→17:12)
[2018-04-11] MEDS: ASPIRIN 81 MG CHEW TAB PO SCH (08:46)
[2018-04-11] MEDS: FUROSEMIDE INJ 10 MG/ML 4 ML VIAL IV SCH ×2 (08:46→20:37)
[2018-04-11] MEDS: POLYETHYLENE GLYCOL 3350 17 GM PACK PO SCH ×2 (08:46→17:12)
[2018-04-11] MEDS: GEMFIBROZIL 600 MG TAB PO SCH ×2 (08:46→17:11)
[2018-04-11] MEDS ORDERED: DIAZEPAM 5 MG TAB PO SCH (09:00)
[2018-04-11] MEDS: ATORVASTATIN 20 MG TAB PO SCH (20:37)
[2018-04-11] MEDS: FAMOTIDINE 20 MG TAB PO SCH (20:38)
[2018-04-11] MEDS: CEFTRIAXONE SOD 1 GM VIAL IV SCH (22:16)
[2018-04-12 00:52] VITALS: BP 113/67
[2018-04-12 04:00] VITALS: BP 128/68
[2018-04-12 05:48] LABS: BASOPHILS % 0.5 % (0.0-1.0); EOSINOPHILS # (AUTO) 0.2 (0.0-0.4); EOSINOPHILS % 2.6 % (0.0-6.0); HEMATOCRIT 30.2 % (38.2-49.6); HEMOGLOBIN 9.5 g/dL (14.0-18.0); LYMPHOCYTES # (AUTO) 1.1 (1.0-3.2); LYMPHOCYTES % 18.5 % (18.0-39.1); MEAN CORPUSCULAR HEMOGLOBIN 31.6 pg (28-32); MEAN CORPUSCULAR HGB CONC 31.5 g/dL (31-35); MEAN CORPUSCULAR VOLUME 100.3 fL (81-99); MONOCYTES # (AUTO) 0.7 (0.2-0.8); MONOCYTES % 12.9 % (4.4-11.3); NEUTROPHILS # (AUTO) 3.5 (2.1-6.9); NEUTROPHILS % 61.5 % (38.7-80.0); PLATELET COUNT 167 x10e3/uL (140-360); RED BLOOD COUNT 3.01 x10e6/uL (4.3-5.7); RED CELL DISTRIBUTION WIDTH 15.2 % (11.7-14.4)
[2018-04-12 06:10] LABS: ANION GAP 13.3 mmol/L (8-16); CALCIUM 9.2 mg/dL (8.4-10.2); CREATININE, SERUM 1.79 mg/dL (0.72-1.25); POTASSIUM 3.3 mmol/L (3.5-5.1)
[2018-04-12 07:27] LABS: BAND NEUTROPHILS % (MANUAL) 2 %; EOSINOPHILS % (MANUAL) 7 % (0-7); LYMPHOCYTES % (MANUAL) 27 % (19-48); MONOCYTES % (MANUAL) 14 % (3.4-9.0); NEUTROPHILS % (MANUAL) 49 % (40-74)
[2018-04-12 07:28] LABS: PLATELET ESTIMATE ADEQUATE; PLATELET MORPHOLOGY COMMENT FEW GIANT; RBC MORPHOLOGY COMMENT NORMAL
[2018-04-12 08:00] VITALS: BP 119/73
[2018-04-12] MEDS: CARVEDILOL 12.5 MG TAB PO SCH (08:27)
[2018-04-12] MEDS: GEMFIBROZIL 600 MG TAB PO SCH (08:27)
[2018-04-12] MEDS: POLYETHYLENE GLYCOL 3350 17 GM PACK PO SCH (08:27)
[2018-04-12] MEDS: FUROSEMIDE INJ 10 MG/ML 4 ML VIAL IV SCH (08:27)
[2018-04-12] MEDS: ASPIRIN 81 MG CHEW TAB PO SCH (08:27)
[2018-04-12] MEDS: LISINOPRIL 20 MG TAB PO SCH (08:28)
[2018-04-12] MEDS ORDERED: DIAZEPAM 5 MG TAB PO PRN (09:00)
[2018-04-12 09:30] VITALS: BP 119/73
[2018-04-12] MEDS ORDERED: POTASSIUM CHLORIDE 20 MEQ TAB CR PO ONE (09:30)
[2018-04-12 12:00] VITALS: BP 110/61
[2018-04-12] MEDS ORDERED: CIPRO500 MG PO (12:51)
== END 2018-04-12 13:38 | disposition home or self-care (01) | DRG 871 ==
LOC: ER 18:18 → ERHOLD 22:49 → MED/SURG3 23:13
PROVIDERS: ADMIT Family Medicine; ATTEND Family Medicine
DX: A41.9 Sepsis, unspecified organism (principal); G93.41 Metabolic encephalopathy; I50.23 Acute on chronic systolic (congestive) heart failure; N39.0 Urinary tract infection, site not specified; G82.20 Paraplegia, unspecified; I13.0 Hypertensive heart and chronic kidney disease with heart failure and stage 1 through stage 4 chronic kidney disease, or unspecified chronic kidney disease; N17.9 Acute kidney failure, unspecified; T83.83XA Hemorrhage due to genitourinary prosthetic devices, implants and grafts, initial encounter; E78.5 Hyperlipidemia, unspecified; K21.9 Gastro-esophageal reflux disease without esophagitis; E66.9 Obesity, unspecified; Z68.32 Body mass index [BMI] 32.0-32.9, adult; E87.6 Hypokalemia; N18.9 Chronic kidney disease, unspecified; E11.22 Type 2 diabetes mellitus with diabetic chronic kidney disease; R33.9 Retention of urine, unspecified; I27.20 Pulmonary hypertension, unspecified; D64.9 Anemia, unspecified; M21.379 Foot drop, unspecified foot; E11.65 Type 2 diabetes mellitus with hyperglycemia; R09.02 Hypoxemia
CPT/HCPCS: 36415; 51700; 71045; 80048; 80053; 81001; 82550; 82553; 83605; 83735; 84443; 84484; 85025; 85610; 85730; 87040; 87086; 87186; 93005; 93306; 97139; 99284; J0696; J1940; J7030

== ENCOUNTER 2018-09-21 17:23 | Inpatient (IN) | payer MEDICARE ==
[~2018-09-21] VITALS: Ht 185.4 cm; Wt 142.9 kg
[~2018-09-21 17:23] MED LIST changes: +CIPRO500 MG PO
--- OUTSIDE RECORDS SUMMARY | 2018-09-21 17:26 | XMS REPORT | Clinical Summary ---
Author Author [facility] Address Unknown Phone Unavailable Care Team Providers Care Physiotherapy Aide Name Role Phone Justin Ryan MD PCP Allergies Comments Active Allergy Reactions Severity Noted Date Penicillins Anaphylaxis, High 08/30/2018 Hives Medications End Date Status Medication Sig Dispensed Refills Start Date Active atorvastatin (LIPITOR) 20 Take 20 mg by 5 MG tablet mouth once 7 daily. Active diazePAM (VALIUM) 10 MG Take 10 mg by 0 tablet mouth nightly 7 as needed for muscle spasms. Active gemfibrozil (LOPID) 600 Take 600 mg 5 MG tablet by mouth 2 7 (two) times a day. Active hydrALAZINE (APRESOLINE) Take 100 mg 3 100 MG tablet by mouth 7 every 8 (eight) hours. Active aspirin (ECOTRIN) 81 MG Take 81 mg by 0 enteric coated tablet mouth daily. Active polyethylene glycol Take 17 g by 0 (MIRALAX) 17 gram/dose mouth powder nightly. Active sennosides/docusate Take 1 tablet 0 sodium (SENOKOT-S ORAL) by mouth nightly. 10/03/2018 Active carvedilol (COREG) 6.25 Take 1 tablet 60 tablet 0 MG tabletIndications: (6.25 mg 8 Acute on chronic total) by congestive heart failure, mouth 2 (two) unspecified heart failure times a day type (HCC) for 30 days. 10/03/2018 Active lisinopril Take 1 tablet 30 tablet 0 (PRINIVIL,ZESTRIL) 10 mg (10 mg total) 8 tabletIndications: Acute by mouth on chronic congestive daily for 30 heart failure, days. unspecified heart failure type (HCC) 10/03/2018 Active ferrous sulfate 325 (65 Take 1 tablet 60 tablet 0 FE) MG tablet (325 mg 8 total) by mouth 2 (two) times a day with meals for 30 days. 10/03/2018 Active furosemide (LASIX) 40 mg Take 1 tablet 60 tablet 0 tablet (40 mg total) 8 by mouth 2 (two) times a day for 30 days. 09/03/2018 Discontinued BUMETanide (BUMEX) 2 MG Take 2 mg by 10 tablet mouth once 7 daily. 08/30/2018 Discontinued carvedilol (COREG) 25 MG TAKE 1&1/2 tablet TABLETS BY 7 MOUTH TWICE DAILY 09/03/2018 Discontinued lisinopril Take 40 mg by 2 (PRINIVIL,ZESTRIL) 40 mg mouth once 7 tablet daily. 09/03/2018 Discontinued carvedilol (COREG) 25 MG Take 37.5 mg 0 tablet by mouth 2 (two) times a day. 09/03/2018 Discontinued cefpodoxime (VANTIN) 200 Take 200 mg 0 MG tablet by mouth 2 (two) times a day. x14 days. Start on 08/30 in pm. Active Problems Problem Noted Date Acute exacerbation of CHF (congestive heart failure) 08/30/2018 Neurogenic bladder 05/29/2016 Encounters Care Team Description Date Type Specialty Gavin Leonardo MD 09/16/2018 Telephone Urology Chelsie Watson RN 09/03/2018 Patient Quality Outreach Emma Loredo RN 09/03/2018 [facility] [place] [facility] Jere Del Castillo Ethan A., MD Acute on chronic congestive heart failure, unspecified heart failure type (HCC) (Primary Dx); Acute on chronic combined systolic and diastolic congestive heart failure (HCC); Neurogenic bladder 08/30/2018 [facility] General Internal Medicine - Encounter 09/03/2018 Gavin Leonardo MD 04/16/2018 Telephone Urology after 09/20/2017 Family History Relation Name Status Comments Father Mother Social History Date Tobacco Use Types Packs/Day Years Used Never Smoker Smokeless Tobacco: Never Used Alcohol Use Drinks/Week oz/Week Comments No Sex Assigned at Date Recorded Not on file Industry Job Start Date Occupation Not on file Not on file Not on file Travel End Travel History Travel Start No recent travel history available. Last Filed Vital Signs Time Taken Vital Sign Reading 09/03/2018 8:00 AM CDT Blood Pressure 155/73 09/03/2018 8:00 AM CDT Pulse 62 09/03/2018 8:00 AM CDT Temperature 36.2 C (97.2 F) 09/03/2018 8:00 AM CDT Respiratory Rate 19 09/03/2018 8:00 AM CDT Oxygen Saturation 96% - Inhaled Oxygen - Concentration 09/03/2018 8:20 AM CDT Weight 139 kg (306 lb) 08/30/2018 9:50 AM CDT Height 185.4 cm (6' 1") 09/03/2018 8:20 AM CDT Body Mass Index 40.37 Plan of Treatment Health Maintenance Due Date Last Done Comments SHINGRIX VACCINE (1 of 2) 1989 ZOSTER VACCINE 1999 PNEUMOCOCCAL 01/08/2004 POLYSACCHARIDE VACCINE AGE 65 AND OVER PNEUMOCOCCAL-13 01/08/2004 INFLUENZA VACCINE 06/03/2018 Procedures Comments Procedure Name Priority Date/Time Associated Diagnosis MANUAL DIFFERENTIAL Routine 09/03/2018 4:45 AM CDT CBC WITH PLATELET AND Routine 09/03/2018 DIFFERENTIAL 4:45 AM CDT ESTIMATED GFR Routine 09/03/2018 4:00 AM CDT MAGNESIUM LEVEL Routine 09/03/2018 4:00 AM CDT BASIC METABOLIC PANEL Routine 09/03/2018 4:00 AM CDT MANUAL DIFFERENTIAL Routine 09/02/2018 6:08 AM CDT ESTIMATED GFR Routine 09/02/2018 6:08 AM CDT MAGNESIUM LEVEL Routine 09/02/2018 6:08 AM CDT BASIC METABOLIC PANEL Routine 09/02/2018 6:08 AM CDT CBC WITH PLATELET AND Routine 09/02/2018 DIFFERENTIAL 6:08 AM CDT ESTIMATED GFR Routine 09/01/2018 4:29 AM CDT MAGNESIUM LEVEL Routine 09/01/2018 4:29 AM CDT BASIC METABOLIC PANEL Routine 09/01/2018 4:29 AM CDT HC COMPLETE BLD COUNT Routine 09/01/2018 W/AUTO DIFF 4:29 AM CDT ESTIMATED GFR Routine 08/31/2018 2:38 PM CDT LACTIC ACID LEVEL, SEPSIS Timed 08/31/2018 - NOW AND REPEAT 2X EVERY 2:38 PM CDT 3 HOURS LIPID PANEL Routine 08/31/2018 2:38 PM CDT TRANSFERRIN LEVEL Routine 08/31/2018 2:38 PM CDT VITAMIN B12 LEVEL Routine 08/31/2018 2:38 PM CDT FERRITIN LEVEL Routine 08/31/2018 2:38 PM CDT TOTAL IRON BINDING Routine 08/31/2018 CAPACITY 2:38 PM CDT FRACTIONAL EXCRETION OF Routine 08/31/2018 SODIUM 2:38 PM CDT ECHOCARDIOGRAM 2D Routine 08/31/2018 COMPLETE W MMODE SPECTRAL 7:43 AM CDT COLOR DOPPLER ([id number]) MANUAL DIFFERENTIAL Routine 08/31/2018 4:30 AM CDT ESTIMATED GFR Routine 08/31/2018 4:30 AM CDT B NATRIURETIC PEPTIDE Routine 08/31/2018 4:30 AM CDT MAGNESIUM LEVEL Routine 08/31/2018 4:30 AM CDT BASIC METABOLIC PANEL Routine 08/31/2018 4:30 AM CDT PROTHROMBIN TIME WITH INR Routine 08/31/2018 4:30 AM CDT CBC WITH PLATELET AND Routine 08/31/2018 DIFFERENTIAL 4:30 AM CDT US RENAL STAT 08/30/2018 1:20 PM CDT US SCROTAL STAT 08/30/2018 1:20 PM CDT URINALYSIS SCREEN AND Routine 08/30/2018 MICROSCOPY, WITH REFLEX 11:00 AM CDT TO CULTURE URINE CULTURE Routine 08/30/2018 11:00 AM CDT ARTERIAL BLOOD GAS STAT 08/30/2018 10:55 AM CDT RESPIRATORY PATHOGEN Routine 08/30/2018 PANEL 10:55 AM CDT INFLUENZA ANTIGEN Routine 08/30/2018 10:55 AM CDT BLOOD CULTURE, AEROBIC & Routine 08/30/2018 ANAEROBIC 10:55 AM CDT ECG ED PRELIMINARY Routine 08/30/2018 INTERPRETATION 10:33 AM CDT MT CRITICAL CARE, E/M Routine 08/30/2018 30-74 MINUTES 10:33 AM CDT XR CHEST 1 VW PORTABLE STAT 08/30/2018 10:31 AM CDT ESTIMATED GFR STAT 08/30/2018 10:15 AM CDT B NATRIURETIC PEPTIDE STAT 08/30/2018 10:15 AM CDT TROPONIN STAT 08/30/2018 10:15 AM CDT LACTIC ACID LEVEL, SEPSIS STAT 08/30/2018 - NOW AND REPEAT 2X EVERY 10:15 AM CDT 3 HOURS COMPREHENSIVE METABOLIC STAT 08/30/2018 PANEL 10:15 AM CDT PARTIAL THROMBOPLASTIN STAT 08/30/2018 TIME (PTT) 10:15 AM CDT PROTHROMBIN TIME WITH INR STAT 08/30/2018 10:15 AM CDT HC COMPLETE BLD COUNT STAT 08/30/2018 W/AUTO DIFF 10:15 AM CDT BLOOD CULTURE, AEROBIC & Routine 08/30/2018 ANAEROBIC 10:15 AM CDT ECG 12-LEAD STAT 08/30/2018 10:14 AM CDT after 09/20/2017 Results * Manual differential (09/03/2018 4:45 AM CDT) Only the most recent of 3 results within the time period is included. Manual differential PERFORMED [facility] DEPARTMENT OF PATHOLOGY AND GENOMIC MEDICINE Neutrophils 52.0 39.0 - 69.0 % [facility] DEPARTMENT OF PATHOLOGY AND GENOMIC MEDICINE Lymphocytes 30.0 25.0 - 45.0 % [facility] DEPARTMENT OF PATHOLOGY AND GENOMIC MEDICINE Monocytes 14.0 (H) 0.0 - 10.0 % [facility] DEPARTMENT OF PATHOLOGY AND GENOMIC MEDICINE Eosinophils 2.0 0.0 - 5.0 % [facility] DEPARTMENT OF PATHOLOGY AND GENOMIC MEDICINE Basophils 0.0 0.0 - 1.0 % [facility] DEPARTMENT OF PATHOLOGY AND GENOMIC MEDICINE Metamyelocytes 1 % [facility] DEPARTMENT OF PATHOLOGY AND GENOMIC MEDICINE Promyelocytes 0 % [facility] DEPARTMENT OF PATHOLOGY AND GENOMIC MEDICINE Platelet slide review Christina adequate [facility] DEPARTMENT OF PATHOLOGY AND GENOMIC MEDICINE Anisocytosis Moderate [facility] DEPARTMENT OF PATHOLOGY AND GENOMIC MEDICINE Enlarged platelets Moderate (A) [facility] DEPARTMENT OF PATHOLOGY AND GENOMIC MEDICINE Performing Organization Address City/State/Zipcode Phone Number [facility] DEPARTMENT OF [address] [place] [address] PATHOLOGY AND GENOMIC MEDICINE * CBC with platelet and differential (09/03/2018 4:45 AM CDT) Only the most recent of 5 results within the time period is included. WBC 7.81 4.50 - 11.00 k/uL [facility] DEPARTMENT OF PATHOLOGY AND GENOMIC MEDICINE RBC 3.51 (L) 4.40 - 6.00 m/uL [facility] DEPARTMENT OF PATHOLOGY AND GENOMIC MEDICINE HGB 10.9 (L) 14.0 - 18.0 g/dL [facility] DEPARTMENT OF PATHOLOGY AND GENOMIC MEDICINE HCT 34.5 (L) 41.0 - 51.0 % [facility] DEPARTMENT OF PATHOLOGY AND GENOMIC MEDICINE MCV 98.3 82.0 - 100.0 fL [facility] DEPARTMENT OF PATHOLOGY AND GENOMIC MEDICINE MCH 31.1 27.0 - 34.0 pg [facility] DEPARTMENT OF PATHOLOGY AND GENOMIC MEDICINE MCHC 31.6 31.0 - 37.0 g/dL [facility] DEPARTMENT OF PATHOLOGY AND GENOMIC MEDICINE RDW - SD 55.4 (H) 37.0 - 55.0 fL [facility] DEPARTMENT OF PATHOLOGY AND GENOMIC MEDICINE MPV 10.9 8.8 - 13.2 fL [facility] DEPARTMENT OF PATHOLOGY AND GENOMIC MEDICINE Platelet count 267 150 - 400 k/uL [facility] DEPARTMENT OF PATHOLOGY AND GENOMIC MEDICINE Nucleated RBC 0.00 /100 WBC [facility] DEPARTMENT OF PATHOLOGY AND GENOMIC MEDICINE Neutrophils 52.0 39.0 - 69.0 % [facility] DEPARTMENT OF PATHOLOGY AND GENOMIC MEDICINE Lymphocytes 30.0 25.0 - 45.0 % [facility] DEPARTMENT OF PATHOLOGY AND GENOMIC MEDICINE Monocytes 14.0 (H) 0.0 - 10.0 % [facility] DEPARTMENT OF PATHOLOGY AND GENOMIC MEDICINE Eosinophils 2.0 0.0 - 5.0 % [facility] DEPARTMENT OF PATHOLOGY AND GENOMIC MEDICINE Basophils 0.0 0.0 - 1.0 % [facility] DEPARTMENT OF PATHOLOGY AND GENOMIC MEDICINE Specimen Blood Performing Organization Address City/[facility] [address] PATHOLOGY AND [employer] MEDICINE * Estimated GFR (09/03/2018 4:00 AM CDT) Only the most recent of 6 results within the time period is included. Estimated GFR 45 (A) mL/min/1.73 m2 [facility] DEPARTMENT OF Comment: PATHOLOGY AND [employer] GENOMIC MEDICINE rpretation G1 >=90 Normal or high G2 60-89Mildly decreased [id number] Mildly to moderately decreased [id number] Moderately to severely decreased G4 15-29Severely decreased G5 <15Kidney failure The eGFR was calculated using the Chronic Kidney Disease Epidemiology Collaboration (CKD-EPI) equation. Interpretation is based on recommendations of the National Kidney Foundation-Kidney Disease Outcomes Quality Initiative (NKF-KDOQI) published in 2014. Specimen Plasma specimen Performing Organization Address City/[facility] Phone Number [facility] [place] [address] PATHOLOGY AND [employer] [facility] * Magnesium level (09/03/2018 4:00 AM CDT) Only the most recent of 4 results within the time period is included. Magnesium 2.3 1.6 - 2.4 mg/dL [facility] DEPARTMENT PATHOLOGY AND GENOMIC MEDICINE Specimen Plasma specimen Performing Organization Address City/[facility] [place] [address] PATHOLOGY AND GENOMIC MEDICINE * Basic metabolic panel (09/03/2018 4:00 AM CDT) Only the most recent of 4 results within the time period is included. Sodium 142 135 - 148 mEq/L [facility] DEPARTMENT OF PATHOLOGY AND GENOMIC MEDICINE Potassium 3.8 3.5 - 5.0 mEq/L [facility] DEPARTMENT OF PATHOLOGY AND GENOMIC MEDICINE Chloride 96 (L) 98 - 112 mEq/L [facility] DEPARTMENT OF PATHOLOGY AND GENOMIC MEDICINE CO2 33 (H) 24 - 31 mEq/L [facility] DEPARTMENT OF PATHOLOGY AND GENOMIC MEDICINE Anion gap 13@ANIO 7 - 15 mEq/L [facility] DEPARTMENT OF PATHOLOGY AND GENOMIC MEDICINE BUN 59 (H) 8 - 23 mg/dL [facility] DEPARTMENT OF PATHOLOGY AND GENOMIC MEDICINE Creatinine 1.46 (H) 0.70 - 1.20 mg/dL [facility] DEPARTMENT OF PATHOLOGY AND GENOMIC MEDICINE Glucose 102 (H) 65 - 99 mg/dL [facility] DEPARTMENT OF PATHOLOGY AND GENOMIC MEDICINE Calcium 9.4 8.8 - 10.2 mg/dL [facility] DEPARTMENT OF PATHOLOGY AND GENOMIC MEDICINE Specimen Plasma specimen Performing Organization Address [facility] [place] [address] PATHOLOGY AND [employer] MEDICINE * Lactic acid level, SEPSIS - Now and repeat 2x every 3 hours (08/31/2018 2:38 PM CDT) Only the most recent of 2 results within the time period is included. Lactic acid 1.7 0.5 - 2.2 mmol/L [facility] DEPARTMENT OF PATHOLOGY AND GENOMIC MEDICINE Specimen Blood Performing Organization Address City/[facility] [place] [address] PATHOLOGY AND [employer] [facility] * Total iron binding capacity (08/31/2018 2:38 PM CDT) Iron level 36 (L) 59 - 158 ug/dL [facility] DEPARTMENT OF PATHOLOGY AND GENOMIC MEDICINE Iron binding capacity 222 200 - 400 ug/dL [facility] DEPARTMENT OF PATHOLOGY AND GENOMIC MEDICINE % Saturation 16.2 (L) 20.0 - 40.0 % [facility] DEPARTMENT OF PATHOLOGY AND GENOMIC MEDICINE Specimen Plasma specimen Performing Organization Address [facility]/[place] [address] PATHOLOGY AND GENOMIC MEDICINE * Transferrin level (08/31/2018 2:38 PM CDT) Transferrin 173 (L) 200 - 360 mg/dL [facility] DEPARTMENT OF PATHOLOGY AND GENOMIC MEDICINE Specimen Plasma specimen Performing Organization Address City/[facility] [place] [address] PATHOLOGY AND GENOMIC MEDICINE * Ferritin level (08/31/2018 2:38 PM CDT) Ferritin level 330 30 - 400 ng/mL [facility] DEPARTMENT OF PATHOLOGY AND GENOMIC MEDICINE Specimen Plasma specimen Performing Organization Address City/[facility] [place] [address] PATHOLOGY AND GENOMIC MEDICINE * Vitamin B12 level (08/31/2018 2:38 PM CDT) Vitamin B12 1,065 (H) 211 - 946 pg/mL [facility] DEPARTMENT OF Comment: PATHOLOGY AND Significant overlap exists GENOMIC MEDICINE between normal and deficiency states. However, most patients with deficiencies will have Serum B12 <200 pg/mL. Specimen Serum Performing Organization Address [facility] Phone Number [facility] [place] [address] PATHOLOGY AND GENOMIC MEDICINE * Lipid panel (08/31/2018 2:38 PM CDT) Cholesterol 137 <200 mg/dL [facility] DEPARTMENT OF PATHOLOGY AND GENOMIC MEDICINE Triglycerides 86 <150 mg/dL [facility] DEPARTMENT OF PATHOLOGY AND GENOMIC MEDICINE HDL cholesterol 39 (L) >40 mg/dL [facility] DEPARTMENT OF PATHOLOGY AND GENOMIC MEDICINE LDL cholesterol 92Comment: Result obtained by <100 mg/dL [facility] DEPARTMENT OF direct LDL measurement PATHOLOGY AND GENOMIC MEDICINE Lipid panel SeeBelow [facility] DEPARTMENT OF interpretation Comment: PATHOLOGY AND Total Cholesterol GENOMIC MEDICINE (mg/dL) <200 Desirable 200-239Borderline -high >=240High Triglycerides (mg/dL) <150 Normal 150-199Borderline -high 200-499High >=500Very high HDL Cholesterol (mg/dL) <40Low (male) <40Low (female) LDL Cholesterol (mg/dL) <100 Optimal 100-129Near or above optimal 130-159Borderline -high 160-189High >=190Very high Risk Catergories that modify LDL goals. Risk Catergories LDL goal (mg/dL) CHD and CHD risk equivalent<100 (10-year risk >20%) Multiple (2+) risk factors <130 (10-year risk=<20%) 0-1 risk factors <160 (<10-year risk) Defining levels of lipids in metabolic syndrome Triglycerides >=150 mg/dL HDL Cholesterol Men <40 mg/dL Women <40 mg/dL Non-HDL cholesterol is a second target for therapy in persons with high triglycerides (>=200 mg/dL) Specimen Plasma specimen Performing Organization Address City/State/Zipcode Phone Number [facility] DEPARTMENT OF [address] [place] [address] PATHOLOGY AND GENOMIC MEDICINE * Echocardiogram complete w contrast and 3D if needed (08/31/2018 7:43 AM CDT) Narrative Performed At [facility] Echocardiography Report [address] [place] [address] Pat.Name:KANU PITTS Pat.ID:[id number] St.Date: 08/31/2018Refer.MD:BERTA LYNN MD Exam Time: 7:07:00 AMStudy Type:Routine Echo Height:71inWeight:300lb BSA: 2.51 m2 DOBAge:1940,78Y Sex: MALEBP:133/64 HR:78 bpmSonogrphr: Dickson Lynn RDCS Pat. Stat.:Inpatient Room:[address] Study Status:Final Echo Event ID:[id number] Order ID:[id number] Reason for Study:CHF Exacerbation Procedures:2D Echo, Colorflow Doppler, Intravenous Definity Contrast SUMMARY: LV EF is normal. RV systolic function is normal. Aortic root diameter is mildly enlarged. LV filling pressure is elevated. FINDINGS: LV: LV size is upper limits of normal. There is mild concentric LVhypertrophy. LV EF is normal. Overall wall motion is normal.Estimated EF is 65-69% RV: RV size is normal. RV systolic function is normal. RV wall motionis normal. LA: LA volume is difficult to assess. RA: RA volume is difficult to assess. AO: Aortic root diameter is mildly enlarged. VIV: No pericardial effusion. AV: No structural AV abnormalities noted. Mild aortic regurgitation. MV: No structural MV abnormalities noted. Mild mitral regurgitation. PV: No structural PV abnormalities noted. A trace of pulmonic regurgitation. TV: No structural TV abnormalities noted. A trace of tricuspid regurgitation Garber: LV relaxation is impaired. LV filling pressure is elevated. Other:Estimated PA systolic pressure is 38 mmHg, assuming a mean RAPof 15 mmHg. MEASUREMENTS: 2D [place] LVOT 2.3 cmLA Ds4.1 cm LVIDd5.2 cmIndex2.1 cm/m Ao Rtd 4 cm Index1.6 cm/m LVIDs2.6 cm LV Bmqp465.7 g(122-174) LV%fs 49.5 % LVM Xtsjh049.2 g/m2 IVSd 1.4 cmRWT0.6 LVPWd1.4 cm DOPPLER LVOT Stroke Vol LVOT 2.3 cmLVOT CO5.4 l/min LVOT TVI22.2 cmLVOT CI2.1 l/m/m2 LVOT Tm343 gwfzVQ70 bpm LVOT SV 92.3 ml TV Pressure Gradient TV PkVel 242.7 cm/sTV PG 23.6 mmHg Signed 08/31/2018 12:24 PM Ania Castillo M.D. Procedure Note Interface, Radiology Results In - 08/31/2018 12:24 PM CDT Echocardiography Report [address] [address], [place] [address] [facility].Name: KANU PITTS.ID: [id number] .Date: 08/31/2018 Refer.MD: BERTA LYNN MD Exam Time: 7:07:00 AM Study Type:Routine Echo Height: 71in Weight: 300lb BSA: 2.51 m2 Age: 3 1940,78Y Sex: MALE BP: 133/64 HR: 78 bpm Sonogrphr: Dickson Lynn RDCS Pat. Stat.:Inpatient Room: [address] Study Status:Final Echo Event ID:[id number] Order ID: [id number] Reason for Study:CHF Exacerbation Procedures:2D Echo, Colorflow Doppler, Intravenous Definity Contrast SUMMARY: LV EF is normal. RV systolic function is normal. Aortic root diameter is mildly enlarged. LV filling pressure is elevated. FINDINGS: LV: LV size is upper limits of normal. There is mild concentric LV hypertrophy. LV EF is normal. Overall wall motion is normal. Estimated EF is 65-69% RV: RV size is normal. RV systolic function is normal. RV wall motion is normal. LA: LA volume is difficult to assess. RA: RA volume is difficult to assess. AO: Aortic root diameter is mildly enlarged. VIV: No pericardial effusion. AV: No structural AV abnormalities noted. Mild aortic regurgitation. MV: No structural MV abnormalities noted. Mild mitral regurgitation. PV: No structural PV abnormalities noted. A trace of pulmonic regurgitation. TV: No structural TV abnormalities noted. A trace of tricuspid regurgitation Garber: LV relaxation is impaired. LV filling pressure is elevated. Other: Estimated PA systolic pressure is 38 mmHg, assuming a mean RAP of 15 mmHg. MEASUREMENTS: 2D [place] LVOT 2.3 cm LA Ds 4.1 cm LVIDd 5.2 cm Index 2.1 cm/m Ao Rtd 4 cm Index 1.6 cm/m LVIDs 2.6 cm LV Mass 306.7 g (122-174) LV%fs 49.5 % LVM Index 122.2 g/m2 IVSd 1.4 cm RWT 0.6 LVPWd 1.4 cm DOPPLER LVOT Stroke Vol LVOT 2.3 cm LVOT CO 5.4 l/min LVOT TVI 22.2 cm LVOT CI 2.1 l/m/m2 LVOT Tm 343 msec HR 58 bpm LVOT SV 92.3 ml TV Pressure Gradient TV PkVel 242.7 cm/s TV PG 23.6 mmHg Signed 08/31/2018 12:24 PM Ania Castillo M.D. Performing Organization Address [facility] Phone Number [facility] [address] [place] [address] * Prothrombin time with INR (08/31/2018 4:30 AM CDT) Only the most recent of 2 results within the time period is included. Prothrombin time 16.9 (H) 12.0 - 15.0 sec [facility] DEPARTMENT OF PATHOLOGY AND GENOMIC MEDICINE INR 1.4 [facility] DEPARTMENT OF Comment: PATHOLOGY AND The International Normalized GENOMIC MEDICINE Ratio (INR) is a therapeutic monitoring tool for patients who are stable on oral anticoagulant therapy. An INR of 2.0-3.0 is suggested for deep vein thrombosis/pulmonary embolism. Specimen Blood Performing Organization Address [facility] Phone Number [facility] DEPARTMENT OF [address] [place] [address] PATHOLOGY AND GENOMIC MEDICINE * B natriuretic peptide (08/31/2018 4:30 AM CDT) Only the most recent of 2 results within the time period is included. BNP 618 (H) 0 - 100 pg/mL [facility] DEPARTMENT OF PATHOLOGY AND GENOMIC MEDICINE Specimen Blood Narrative Performed At results called to and read back by VIKASH CORCORAN at 08/31/2018 05:40 by [facility]. [facility] DEPARTMENT OF PATHOLOGY AND GENOMIC MEDICINE Performing Organization Address [facility] Phone Number [facility] DEPARTMENT OF [address] [place] [address] PATHOLOGY AND GENOMIC MEDICINE * US Renal (08/30/2018 1:20 PM CDT) Narrative Performed At [facility]AMIN[facility]:LIANE with hx of neurogenic bladder COMPARISON:None. FINDINGS: The kidneys are normal in size and echogenicity. There is no evidence of renal mass, calculi, or hydronephrosis. The right kidney measures 9.8 x 5.3 x 6.9 cm. The left kidney measures 12.2 x 5.8 x 6.1 cm. Incidental note is made of a 1.9 cm simple appearing renal cyst.. Pat catheter is within the bladder. IMPRESSION: Negative renal ultrasound examination. [facility]-[id number] Procedure Note Interface, Radiology Results Incoming - 08/30/2018 1:26 PM CDT EXAMINATION: US RENAL CLINICAL HISTORY: LIANE with hx of neurogenic bladder COMPARISON: None. FINDINGS: The kidneys are normal in size and echogenicity. There is no evidence of renal mass, calculi, or hydronephrosis. The right kidney measures 9.8 x 5.3 x 6.9 cm. The left kidney measures 12.2 x 5.8 x 6.1 cm. Incidental note is made of a 1.9 cm simple appearing renal cyst.. Pat catheter is within the bladder. IMPRESSION: Negative renal ultrasound examination. [facility]-[id number] Performing Organization Address [facility] [facility] Phone Number [facility] [address] [place] [address] * US Scrotal (08/30/2018 1:20 PM CDT) Narrative Performed At EXAMINATION[facility] CL[facility]ICAL H[facility]ORY: 78 years MaleScrotal painnontraumatic possible torsion COMPARISON:05/04/2014 TECHNIQUE:Sonographic evaluation of the scrotum. Real-time B mode grayscale, Doppler spectral analysis and Doppler color flow imaging was used to assess testicular vasculature. FINDINGS: RIGHT HEMISCROTUM: Status post right orchiectomy. LEFT HEMISCROTUM: The left testicle measures 3.4 x 2.8 x 2.3 cm. Testicular echogenicity is normal. No intratesticular masses are identified. There is normal color and duplex Doppler flow. An 8 mm cyst is present in the left epididymis. There is a small hydrocele. There is no evidence of varicocele. IMPRESSION: 1.No evidence of left testicular torsion. 2.8 mm epididymal cyst. No suspicious left testicular mass. 3.Status post right orchiectomy. [facility]-[id number] Procedure Note Interface, Radiology Results Incoming - 08/30/2018 1:31 PM CDT EXAMINATION: US SCROTAL CLINICAL HISTORY: 78 years Male Scrotal pain nontraumatic possible torsion COMPARISON: 05/04/2014 TECHNIQUE: Sonographic evaluation of the scrotum. Real-time B mode grayscale, Doppler spectral analysis and Doppler color flow imaging was used to assess testicular vasculature. FINDINGS: RIGHT HEMISCROTUM: Status post right orchiectomy. LEFT HEMISCROTUM: The left testicle measures 3.4 x 2.8 x 2.3 cm. Testicular echogenicity is normal. No intratesticular masses are identified. There is normal color and duplex Doppler flow. An 8 mm cyst is present in the left epididymis. There is a small hydrocele. There is no evidence of varicocele. IMPRESSION: 1. No evidence of left testicular torsion. 2. 8 mm epididymal cyst. No suspicious left testicular mass. 3. Status post right orchiectomy. [facility]-[id number] Performing Organization Address City/State/Zipcode Phone Number [facility] [address] [place] [address] * Urinalysis screen and microscopy, with reflex to culture (08/30/2018 11:00 AM CDT) Specimen site Pat [facility] DEPARTMENT OF PATHOLOGY AND GENOMIC MEDICINE Color, UA Straw [facility] DEPARTMENT OF PATHOLOGY AND GENOMIC MEDICINE Appearance, UA Clear [facility] DEPARTMENT OF PATHOLOGY AND GENOMIC MEDICINE Specific gravity, UA 1.006 1.001 - 1.035 [facility] DEPARTMENT OF PATHOLOGY AND GENOMIC MEDICINE pH, UA 6.0 5.0 - 8.5 [facility] DEPARTMENT OF PATHOLOGY AND GENOMIC MEDICINE Protein, UA Negative Negative [facility] DEPARTMENT OF PATHOLOGY AND GENOMIC MEDICINE Glucose, UA Negative Negative [facility] DEPARTMENT OF PATHOLOGY AND GENOMIC MEDICINE Ketones, UA Negative Negative [facility] DEPARTMENT OF PATHOLOGY AND GENOMIC MEDICINE Bilirubin, UA Negative Negative [facility] DEPARTMENT OF PATHOLOGY AND GENOMIC MEDICINE Blood, UA Negative Negative [facility] DEPARTMENT OF PATHOLOGY AND GENOMIC MEDICINE Nitrite, UA Negative Negative [facility] DEPARTMENT OF PATHOLOGY AND GENOMIC MEDICINE Urobilinogen, UA <2.0 <2.0 [facility] DEPARTMENT OF PATHOLOGY AND GENOMIC MEDICINE Leukocyte esterase, UA Negative Negative [facility] DEPARTMENT OF PATHOLOGY AND GENOMIC MEDICINE Epithelial cells, UA <1 /HPF [facility] DEPARTMENT OF PATHOLOGY AND GENOMIC MEDICINE WBC, UA 1 0 - 1 /HPF [facility] DEPARTMENT OF PATHOLOGY AND GENOMIC MEDICINE RBC, UA <1 0 - 5 /HPF [facility] DEPARTMENT OF PATHOLOGY AND GENOMIC MEDICINE Bacteria, UA None seen None seen [facility] DEPARTMENT OF PATHOLOGY AND GENOMIC MEDICINE Yeast, UA None seen [facility] DEPARTMENT OF PATHOLOGY AND GENOMIC MEDICINE Yeast with pseudohyphae, None seen [facility] DEPARTMENT OF UA PATHOLOGY AND GENOMIC MEDICINE Specimen Urine Performing Organization Address City/[facility] [place] [address] PATHOLOGY AND GENOMIC MEDICINE * Urine culture (08/30/2018 11:00 AM CDT) Urine culture SEE COMMENTComment: [facility] DEPARTMENT OF Bacteriuria screen negative. PATHOLOGY AND GENOMIC MEDICINE Performing Organization Address City/[facility] [place] [address] PATHOLOGY AND GENOMIC MEDICINE * Respiratory pathogen panel (08/30/2018 10:55 AM CDT) Respiratory pathogen Negative for all pathogens [facility] DEPARTMENT OF panel tested: PATHOLOGY AND Negative for Adenovirus GENOMIC MEDICINE Negative for Coronavirus HKU1 Negative for Coronavirus NL63 Negative for Coronavirus 229E Negative for Coronavirus OC43 Negative for Human Metapneumovirus Negative for Rhinovirus/Enterovirus Negative for Influenza A Negative for Influenza A/H1 Negative for Influenza A/H3 Negative for Influenza A/H1-2009 Negative for Influenza B Negative for Parainfluenza Virus 1 Negative for Parainfluenza Virus 2 Negative for Parainfluenza Virus 3 Negative for Parainfluenza Virus 4 Negative for Respiratory Syncytial Virus Negative for Bordetella pertussis Negative for Chlamydophila pneumoniae Negative for Mycoplasma pneumoniae This real-time PCR assay detects the presence of nucleic acids (RNA or DNA) for the respiratory pathogens listed. A result of "Not-detected" does not exclude the possibility of the presence of one or more pathogens at concentrations less than the detectable limits of the assay. Comment: Specimen Information Specimen Source: Nares Specimen Site: Right Specimen Nares - Right Performing Organization Address City/[facility] Phone Number [facility] [place] [address] PATHOLOGY AND GENOMIC MEDICINE * Blood culture, aerobic & anaerobic (08/30/2018 10:55 AM CDT) Only the most recent of 2 results within the time period is included. Blood culture isolate No growth after 5 days of [facility] DEPARTMENT OF incubation. PATHOLOGY AND Comment: GENOMIC MEDICINE Specimen Information Specimen Source: Blood Specimen Site: Radial, left Specimen Blood - Radial, left Performing Organization Address [facility] Phone Number [facility] [place] [address] PATHOLOGY AND GENOMIC MEDICINE * Influenza antigen (08/30/2018 10:55 AM CDT) Influenza antigen Negative for Influenza A/B [facility] DEPARTMENT OF antigen. PATHOLOGY AND Comment: GENOMIC MEDICINE Specimen Information Specimen Source: Nares Specimen Site: Right Specimen Nares - Right Performing Organization Address [facility] [place] [address] PATHOLOGY AND GENOMIC MEDICINE * Arterial blood gas (08/30/2018 10:55 AM CDT) pH, arterial 7.40 7.35 - 7.45 [facility] DEPARTMENT OF PATHOLOGY AND GENOMIC MEDICINE pCO2, arterial 38 35 - 45 mmHg [facility] DEPARTMENT OF PATHOLOGY AND GENOMIC MEDICINE pO2, arterial 151 (H) 80 - 90 mmHg [facility] DEPARTMENT OF PATHOLOGY AND GENOMIC MEDICINE Bicarbonate, arterial 23.6 21.0 - 28.0 mmol/L [facility] DEPARTMENT OF PATHOLOGY AND GENOMIC MEDICINE Base excess, arterial 0 -2 - 2 mEq/L [facility] DEPARTMENT OF PATHOLOGY AND GENOMIC MEDICINE O2 saturation, arterial 99 95 - 100 % [facility] DEPARTMENT OF PATHOLOGY AND GENOMIC MEDICINE Specimen Blood Performing Organization Address [facility] [place] Phone Number [facility] [place] [address] PATHOLOGY AND GENOMIC MEDICINE * ECG ED Preliminary Interpretation - NOT AN ORDER (08/30/2018 10:33 AM CDT) Narrative Performed At [facility] Berta Lynn MD 09/02/2018 12:24 PM ECG ED Preliminary Interpretation - Not an Order Performed by: DOROTA LYNNBERTA BERTA Authorized by: [facility] ECG reviewed by ED Physician in the absence of a management specialist: yes Previous ECG: Previous ECG:Unavailable Interpretation: Interpretation: abnormal Rate: ECG rate:68 ECG rate assessment: normal Rhythm: Rhythm: atrial fibrillation Ectopy: Ectopy: none QRS: QRS axis:Normal QRS intervals:Normal Conduction: Conduction: normal ST segments: ST segments:Normal T waves: T waves: normal * CRITICAL CARE (08/30/2018 10:33 AM CDT) Narrative Performed At [facility] MD Shane 09/02/2018 12:24 PM Critical Care Performed by: [facility] Authorized by: [facility] Critical care provider statement: Critical care time (minutes):35 Critical care start time:08/30/2018 10:35 AM Critical care end time:08/30/2018 11:10 AM Critical care time was exclusive of:Separately billable procedures and treating other patients Critical care was necessary to treat or prevent imminent or life-threatening deterioration of the following conditions:Respiratory failure Critical care was time spent personally by me on the following activities:Blood draw for specimens, development of treatment plan with patient or surrogate, discussions with consultants, evaluation of patient's response to treatment, examination of patient, interpretation of cardiac output measurements, obtaining history from patient or surrogate, ordering and performing treatments and interventions, ordering and review of laboratory studies, ordering and review of radiographic studies, pulse oximetry, re-evaluation of patient's condition and review of old charts * XR Chest 1 Vw Portable (08/30/2018 10:31 AM CDT) Narrative Performed At EXAMINATION: [facility] XR CHEST 1 VW PORTABLE CLINICAL HISTORY: Shortness of breath COMPARISON: Portable chest, obtained on 06/12/2014 at 2313 hours. FINDINGS: Bedside examination again demonstrates less than full inspiration, accentuating the bronchovascular markings and cardiac silhouette. Allowing for this, the heart remains enlarged. Pulmonary vascular congestion and interstitial edema has developed. Pleural fluid and pneumothorax are not seen. Infiltrative changes are greatest in the right upper lobe. IMPRESSION: Findings suggest volume overload or congestive heart failure. With the findings greatest in the right upper lobe, the possibility of superimposed pneumonia is raised. [facility]-[id number] Procedure Note Interface, Radiology Results Incoming - 08/30/2018 10:37 AM CDT EXAMINATION: XR CHEST 1 VW PORTABLE CLINICAL HISTORY: Shortness of breath COMPARISON: Portable chest, obtained on 06/12/2014 at 2313 hours. FINDINGS: Bedside examination again demonstrates less than full inspiration, accentuating the bronchovascular markings and cardiac silhouette. Allowing for this, the heart remains enlarged. Pulmonary vascular congestion and interstitial edema has developed. Pleural fluid and pneumothorax are not seen. Infiltrative changes are greatest in the right upper lobe. IMPRESSION: Findings suggest volume overload or congestive heart failure. With the findings greatest in the right upper lobe, the possibility of superimposed pneumonia is raised. [facility]-[id number] Performing Organization Address [facility]/[place] [address] * Troponin (08/30/2018 10:15 AM CDT) Troponin <0.30 0.00 - 0.30 ng/mL [facility] DEPARTMENT OF Comment: PATHOLOGY AND 0.30 - 1.49 GENOMIC MEDICINE ng/mlMay indicate increased risk of acute coronary syndrome. >=1.5 ng/ml Consistent with acute myocardial infarction. The diagnostic value of a single normal or non-diagnostic result is questionable.Serial samples at 2-6 hour intervals are required to rule out acute myocardial injury. Specimen Plasma specimen Performing Organization Address [facility] Hospital[place] [address] PATHOLOGY AND [employer] MEDICINE * Partial thromboplastin time, activated (08/30/2018 10:15 AM CDT) PTT 45.0 (H) 23.0 - 36.0 sec [facility] DEPARTMENT OF Comment: PATHOLOGY AND PTT therapeutic range for [facility] unfractionated heparin is 61.0-112.0 seconds which corresponds to Anti-Xa 0.3-0.7 U/ml. Specimen Blood Performing Organization Address [facility] Phone Number [facility] DEPARTMENT [facility] [place] [address] PATHOLOGY AND GENOMIC MEDICINE * Comprehensive metabolic panel (08/30/2018 10:15 AM CDT) Sodium 141 135 - 148 mEq/L [facility] DEPARTMENT OF PATHOLOGY AND GENOMIC MEDICINE Potassium 3.6 3.5 - 5.0 mEq/L [facility] DEPARTMENT OF PATHOLOGY AND GENOMIC MEDICINE Chloride 101 98 - 112 mEq/L [facility] DEPARTMENT OF PATHOLOGY AND GENOMIC MEDICINE CO2 22 (L) 24 - 31 mEq/L [facility] DEPARTMENT OF PATHOLOGY AND GENOMIC MEDICINE Anion gap 18@ANIO (H) 7 - 15 mEq/L [facility] DEPARTMENT OF PATHOLOGY AND GENOMIC MEDICINE BUN 65 (H) 8 - 23 mg/dL [facility] DEPARTMENT OF PATHOLOGY AND GENOMIC MEDICINE Creatinine 1.49 (H) 0.70 - 1.20 mg/dL [facility] DEPARTMENT OF PATHOLOGY AND GENOMIC MEDICINE Glucose 106 (H) 65 - 99 mg/dL [facility] DEPARTMENT OF PATHOLOGY AND GENOMIC MEDICINE Calcium 9.2 8.8 - 10.2 mg/dL [facility] DEPARTMENT OF PATHOLOGY AND GENOMIC MEDICINE Protein 7.5 6.3 - 8.3 g/dL [facility] DEPARTMENT OF Comment: PATHOLOGY AND [place] GENOMIC MEDICINE 4.6-7.0 g/dL 1 week 4.4-7.6 g/dL 7 months-1year 5.1-7.3 g/dL 1-2 years5.6-7 .5 g/dL >3 years6.0-8 .0 g/dL 18-150 6.3-8.3 g/dL Albumin 2.9 (L) 3.5 - 5.0 g/dL [facility] DEPARTMENT OF PATHOLOGY AND GENOMIC MEDICINE A/G ratio 0.6 (L) 0.7 - 3.8 [facility] DEPARTMENT OF PATHOLOGY AND GENOMIC MEDICINE Alkaline phosphatase 105 40 - 129 U/L [facility] DEPARTMENT OF PATHOLOGY AND GENOMIC MEDICINE AST 17 10 - 50 U/L [facility] DEPARTMENT OF PATHOLOGY AND GENOMIC MEDICINE ALT 15 5 - 50 U/L [facility] DEPARTMENT OF PATHOLOGY AND GENOMIC MEDICINE Total bilirubin 0.4 0.0 - 1.2 mg/dL [facility] DEPARTMENT OF PATHOLOGY AND GENOMIC MEDICINE Specimen Plasma specimen Performing Organization Address City[place]State[place] [place] Phone Number [facility] DEPARTMENT OF [address] [place] [address] PATHOLOGY AND GENOMIC MEDICINE * ECG 12 lead (08/30/2018 10:14 AM CDT) Ventricular rate 68 [facility] Atrial rate 250 [facility] QRSD interval 98 [facility] QT interval 422 [facility] QTC interval 448 [facility] QRS axis 1 6 [facility] MUSE T wave axis 33 [facility] EKG impression Atrial fibrillation-Abnormal [facility] ECG-In automated comparison with ECG of 30-JUN-2014 10:22,-Atrial fibrillation has replaced Sinus rhythm- Performing Organization Address City/State/Zipcode Phone Number [facility] [address] [place] [address] after 09/20/2017 Insurance Payer Benefit Subscriber ID Type Phone Address Plan / Group MEDICARE MEDICARE xxxxxxxxxx Medicare [place], [place] PART A AND B AARP AARP xxxxxxxxxxx Commercial SUPPLEMENT Advance Directives Patient has advance care planning documents on file. For more information, issac alvarado contact: Popeye Zendejas [address] [place] [address]
--- OUTSIDE RECORDS SUMMARY | 2018-09-21 17:26 | XMS REPORT | Continuity of Care Document ---
Author Author [facility] Interface Address Unknown Phone Unavailable Problems Problem Status Onset Date Classification Date Reported Comments Source FEVER Active 08/23/2018 [facility] BACTERIAL SEPSIS, COMPLICATED UTI (URINA Active 08/23/2018 [facility] SEPSIS, UNSPECIFIED ORGANISM Active [facility] URINARY TRACT INFECTION, SITE NOT SPECIF Active [facility] ELEVATED WHITE BLOOD CELL COUNT, UNSPECI Active [facility] Medications Medication Details Route Status Patient Instructions Ordering Provider Order Date Source Allergies, Adverse Reactions, Alerts Substance Category Reaction Severity Reaction type Status Date Reported Comments Source Immunizations Immunization Date Given Site Status Last Updated Comments Source Results Order Name Results Value Reference Range Date Interpretation Comments Source Chest 1view DX Chest 1view DX Clinical Indication: - fever Comparison: None FINDINGS: Single frontal radiograph of the chest is performed. Heart size is upper limits of normal. Mediastinal contours are unremarkable. Lungs are clear without infiltrate or mass. No pleural effusion or pneumothorax. No acute osseous abnormality. IMPRESSION: Borderline heart size. Otherwise no radiographic evidence for acute process in the chest. SL: [id number] 08/23/2018 - - Read by: Jaspal Murry MD Dictated Date/time: 08/23/18 23:11 Electronically Signed by: Jaspal Murry MD 08/23/18 23:11 FINAL REPORT [facility] Vital Signs Vital Sign Value Date Comments Source Encounters Location Location Details Encounter Type Encounter Number Reason For Visit Attending Provider ADM Date DC Date Status Source Procedures Procedure Code Date Perfomer Comments Source
[2018-09-21] MEDS ORDERED: FERROUS SULFAT325 MG PO (17:52)
[2018-09-21] MEDS ORDERED: HYDRALAZINE HC100 MG PO (17:52)
[2018-09-21] MEDS ORDERED: CIPROFLOXACIN250 MG PO (17:52)
[2018-09-21] MEDS ORDERED: MIRALAX17 GM (17:53)
[2018-09-21] MEDS ORDERED: SENOKOT-S TABL1 EACH (17:53)
[2018-09-21 20:26] LABS: BASOPHILS % 0.1 % (0.0-1.0); EOSINOPHILS # (AUTO) 0.1 (0.0-0.4); EOSINOPHILS % 0.9 % (0.0-6.0); HEMATOCRIT 21.9 % (38.2-49.6); HEMOGLOBIN 7.3 g/dL (14.0-18.0); LYMPHOCYTES # (AUTO) 1.6 (1.0-3.2); LYMPHOCYTES % 22.8 % (18.0-39.1); MEAN CORPUSCULAR HEMOGLOBIN 31.5 pg (28-32); MEAN CORPUSCULAR HGB CONC 33.3 g/dL (31-35); MEAN CORPUSCULAR VOLUME 94.4 fL (81-99); MONOCYTES # (AUTO) 0.6 (0.2-0.8); MONOCYTES % 9.3 % (4.4-11.3); NEUTROPHILS # (AUTO) 4.5 (2.1-6.9); NEUTROPHILS % 65.2 % (38.7-80.0); PLATELET COUNT 169 x10e3/uL (140-360); RED BLOOD COUNT 2.32 x10e6/uL (4.3-5.7); RED CELL DISTRIBUTION WIDTH 16.4 % (11.7-14.4)
[2018-09-21 20:34] LABS: INR 1.02; PROTHROMBIN TIME 14.3 seconds (11.9-14.5)
[2018-09-21 20:35] LABS: PARTIAL THROMBOPLASTIN TIME 30.3 seconds (23.8-35.5)
--- NOTE | 2018-09-21 20:47 | NUR ---
PT BOUGHT TO ER # 9 VIA WHEELCHAIR, PT ASSISTED TO TYLER, PT A&OX3, RESP EVEN AND UNLABORED, SKIN W&D AND NORMAL COLOR, NO CHANGE TO IV SITE, PT AWARE OF PLAN OF CARE AND DENIES ANY CONCERNS, WILL CONTINUE TO MONITOR
[2018-09-21 20:53] LABS: ALBUMIN 3.5 g/dL (3.5-5.0); ALBUMIN/GLOBULIN RATIO 0.9 (0.8-2.0); ANION GAP 20.6 mmol/L (8-16); CALCIUM 9.5 mg/dL (8.4-10.2); CREATININE, SERUM 2.54 mg/dL (0.72-1.25); POTASSIUM 3.6 mmol/L (3.5-5.1)
--- NOTE | 2018-09-21 21:20 | NUR ---
PT WAS STRAIGHT CATH AND 1000CC WAS DRAINED, PT TOLERATED WELL. WILL CONTINUE TO MONITOR
[2018-09-21 21:50] LABS: BILIRUBIN,URINE NEGATIVE (NEGATIVE); CLARITY,URINE CLEAR (CLEAR); COLOR,URINE YELLOW (YELLOW); KETONES,URINE NEGATIVE (NEGATIVE); LEUKOCYTE ESTERASE ,URINE NEGATIVE (NEGATIVE); NITRITE,URINE NEGATIVE (NEGATIVE); PROTEIN,URINE DIPSTICK NEGATIVE (NEGATIVE); URINE UROBILINOGEN 0.2 mg/dL (0.2 - 1)
[2018-09-21 21:51] LABS: RBC,URINE 0-5 /HPF (0-5); WBC,URINE (MAN) 0-5 /HPF (0-5)
[2018-09-21] MEDS ORDERED: FUROSEMIDE INJ 10 MG/ML 2 ML VIAL IV SCH (22:00)
[2018-09-21] MEDS ORDERED: SODIUM CHLORIDE 0.9% 250ML 250 ML IV ONE (22:00)
--- NOTE | 2018-09-21 22:37 | Diagnostic Imaging Report ---
EXAMINATION: CHEST SINGLE (PORTABLE) INDICATION: Shortness of breath COMPARISON: 11/02/2017 FINDINGS: AP view TUBES and LINES: None. LUNGS: Lungs are moderately inflated. Lungs are clear. There is no evidence of pneumonia or pulmonary edema. PLEURA: No pleural effusion or pneumothorax. HEART AND MEDIASTINUM: The cardiomediastinal silhouette is unremarkable. BONES AND SOFT TISSUES: No acute osseous lesion. Soft tissues are unremarkable. UPPER ABDOMEN: No free air under the diaphragm. IMPRESSION: No acute thoracic abnormality. Signed by: DR. Franky Garcia MD on 09/21/2018 10:34 PM
[2018-09-21] MEDS ORDERED: SODIUM CHLORIDE 0.9% 1000ML 1,000 ML IV ONE (23:00)
--- OUTSIDE RECORDS SUMMARY | 2018-09-21 23:00 | XMS REPORT | Clinical Summary ---
Author Author [facility] Address Unknown Phone Unavailable Care Team Providers Care Limb Driver Name Role Phone Justin Ryan MD PCP [...] Loredo RN 09/03/2018 [facility] Jere Del Castillo Ethan A., MD Acute on chronic congestive heart failure, unspecified heart failure type (HCC) (Primary Dx); Acute on chronic combined systolic and diastolic congestive heart failure (HCC); Neurogenic bladder 08/30/2018 [facility] General Internal Medicine - Encounter 09/03/2018 [...] MMODE SPECTRAL 7:43 AM CDT COLOR DOPPLER ([id number]) MANUAL DIFFERENTIAL Routine 08/31/2018 4:30 AM CDT [...] PRELIMINARY Routine 08/30/2018 INTERPRETATION 10:33 AM CDT DC CRITICAL CARE, E/M Routine 08/30/2018 30-74 MINUTES [...] time period is included. Manual differential PERFORMED [facility] DEPARTMENT OF PATHOLOGY AND GENOMIC MEDICINE Neutrophils 52.0 39.0 - 69.0 % [facility]PARTMENT OF PATHOLOGY AND GENOMIC MEDICINE Lymphocytes 30.0 25.0 - 45.0 % [facility] DEPARTMENT OF PATHOLOGY AND GENOMIC MEDICINE Monocytes 14.0 (H) 0.0 - 10.0 % [facility] DEPARTMENT OF PATHOLOGY AND GENOMIC MEDICINE Eosinophils 2.0 0.0 - 5.0 % [facility] DEPARTMENT OF PATHOLOGY AND GENOMIC MEDICINE Basophils 0.0 0.0 - 1.0 % [facility] DEPARTMENT OF PATHOLOGY AND GENOMIC MEDICINE Metamyelocytes 1 % [facility] DEPARTMENT OF PATHOLOGY AND GENOMIC MEDICINE Promyelocytes 0 % [facility] OF PATHOLOGY AND GENOMIC MEDICINE Platelet slide review Christina adequate [facility] OF PATHOLOGY AND GENOMIC MEDICINE Anisocytosis Moderate [facility] DEPARTMENT OF PATHOLOGY AND GENOMIC MEDICINE Enlarged platelets Moderate (A) [facility] DEPARTMENT OF PATHOLOGY AND GENOMIC MEDICINE Performing Organization Address City/State/Zipcode Phone Number [facility] DEPARTMENT OF [address] [place] [address] PATHOLOGY AND GENOMIC MEDICINE * CBC with platelet and differential (09/03/2018 4:45 AM CDT) Only the most recent of 5 results within the time period is included. WBC 7.81 4.50 - 11.00 k/uL [facility] DEPARTMENT OF PATHOLOGY AND GENOMIC MEDICINE RBC 3.51 (L) 4.40 - 6.00 m/uL [facility] DEPARTMENT OF PATHOLOGY AND GENOMIC MEDICINE HGB 10.9 (L) 14.0 - 18.0 g/dL [facility] DEPARTMENT OF PATHOLOGY AND GENOMIC MEDICINE HCT 34.5 (L) 41.0 - 51.0 % [facility] DEPARTMENT OF PATHOLOGY AND GENOMIC MEDICINE MCV 98.3 82.0 - 100.0 fL [facility] DEPARTMENT OF PATHOLOGY AND GENOMIC MEDICINE MCH 31.1 27.0 - 34.0 pg [facility] DEPARTMENT OF PATHOLOGY AND GENOMIC MEDICINE MCHC 31.6 31.0 - 37.0 g/dL [facility] DEPARTMENT OF PATHOLOGY AND GENOMIC MEDICINE RDW - SD 55.4 (H) 37.0 - 55.0 fL [facility] DEPARTMENT OF PATHOLOGY AND GENOMIC MEDICINE MPV 10.9 8.8 - 13.2 fL [facility] DEPARTMENT OF PATHOLOGY AND GENOMIC MEDICINE Platelet count 267 150 - 400 k/uL [facility] DEPARTMENT OF PATHOLOGY AND GENOMIC MEDICINE Nucleated RBC 0.00 /100 WBC [facility] DEPARTMENT OF PATHOLOGY AND GENOMIC MEDICINE Neutrophils 52.0 39.0 - 69.0 % [facility] DEPARTMENT OF PATHOLOGY AND GENOMIC MEDICINE Lymphocytes 30.0 25.0 - 45.0 % [facility] DEPARTMENT OF PATHOLOGY AND GENOMIC MEDICINE Monocytes 14.0 (H) 0.0 - 10.0 % [facility] DEPARTMENT OF PATHOLOGY AND GENOMIC MEDICINE Eosinophils 2.0 0.0 - 5.0 % [facility] DEPARTMENT OF PATHOLOGY AND GENOMIC MEDICINE Basophils 0.0 0.0 - 1.0 % [facility] DEPARTMENT OF PATHOLOGY AND GENOMIC MEDICINE Specimen Blood Performing Organization Address City/[facility] [place] [address] PATHOLOGY AND [facility] * Estimated GFR (09/03/2018 4:00 AM CDT) Only the most recent of 6 results within the time period is included. Estimated GFR 45 (A) mL/min/1.73 m2 [facility] DEPARTMENT OF Comment: PATHOLOGY AND CatergoryUnitsInte GENOMIC MEDICINE rpretation G1 >=90 Normal or high G2 60-89Mildly decreased W5a70-27 Mildly to moderately decreased P5w03-12 Moderately to severely decreased G4 15-29Severely decreased G5 <15Kidney failure The eGFR was calculated using the Chronic Kidney Disease Epidemiology Collaboration (CKD-EPI) equation. Interpretation is based on recommendations of the National Kidney Foundation-Kidney Disease Outcomes Quality Initiative (NKF-KDOQI) published in 2014. Specimen Plasma specimen Performing Organization Address City/[facility] Cent[facility]ode Phone Number [facility] [place] [address] PATHOLOGY AND [facility] * Magnesium level (09/03/2018 4:00 AM CDT) Only the most recent of 4 results within the time period is included. Magnesium 2.3 1.6 - 2.4 mg/dL [facility] DEPARTMENT PATHOLOGY AND GENOMIC MEDICINE Specimen Plasma specimen Performing Organization Address City/[facility] [place] [address] PATHOLOGY AND GENOMIC MEDICINE * Basic metabolic panel (09/03/2018 4:00 AM CDT) Only the most recent of 4 results within the time period is included. Sodium 142 135 - 148 mEq/L [facility] DEPARTMENT OF PATHOLOGY AND GENOMIC MEDICINE Potassium 3.8 3.5 - 5.0 mEq/L [facility] DEPARTMENT OF PATHOLOGY AND GENOMIC MEDICINE Chloride 96 (L) 98 - 112 mEq/L [facility] DEPARTMENT OF PATHOLOGY AND GENOMIC MEDICINE CO2 33 (H) 24 - 31 mEq/L [facility] DEPARTMENT OF PATHOLOGY AND GENOMIC MEDICINE Anion gap 13@ANIO 7 - 15 mEq/L [facility] DEPARTMENT OF PATHOLOGY AND GENOMIC MEDICINE BUN 59 (H) 8 - 23 mg/dL [facility] DEPARTMENT OF PATHOLOGY AND GENOMIC MEDICINE Creatinine 1.46 (H) 0.70 - 1.20 mg/dL [facility] DEPARTMENT OF PATHOLOGY AND GENOMIC MEDICINE Glucose 102 (H) 65 - 99 mg/dL [facility] DEPARTMENT OF PATHOLOGY AND GENOMIC MEDICINE Calcium 9.4 8.8 - 10.2 mg/dL [facility] DEPARTMENT OF PATHOLOGY AND GENOMIC MEDICINE Specimen Plasma specimen Performing Organization Address [facility] [place] [address] PATHOLOGY AND [facility] * Lactic acid level, SEPSIS - Now and repeat 2x every 3 hours (08/31/2018 2:38 PM CDT) Only the most recent of 2 results within the time period is included. Lactic acid 1.7 0.5 - 2.2 mmol/L [facility] DEPARTMENT OF PATHOLOGY AND GENOMIC MEDICINE Specimen Blood Performing Organization Address City/[facility] [place] [address] PATHOLOGY AND [facility] * Total iron binding capacity (08/31/2018 2:38 PM CDT) Iron level 36 (L) 59 - 158 ug/dL [facility] DEPARTMENT OF PATHOLOGY AND GENOMIC MEDICINE Iron binding capacity 222 200 - 400 ug/dL [facility] DEPARTMENT OF PATHOLOGY AND GENOMIC MEDICINE % Saturation 16.2 (L) 20.0 - 40.0 % [facility] DEPARTMENT OF PATHOLOGY AND GENOMIC MEDICINE Specimen Plasma specimen Performing Organization Address [facility]/[place] [address] PATHOLOGY AND GENOMIC MEDICINE * Transferrin level (08/31/2018 2:38 PM CDT) Transferrin 173 (L) 200 - 360 mg/dL [facility] DEPARTMENT OF PATHOLOGY AND GENOMIC MEDICINE Specimen Plasma specimen Performing Organization Address City/[facility] [place] [address] PATHOLOGY AND GENOMIC MEDICINE * Ferritin level (08/31/2018 2:38 PM CDT) Ferritin level 330 30 - 400 ng/mL [facility] DEPARTMENT OF PATHOLOGY AND GENOMIC MEDICINE Specimen Plasma specimen Performing Organization Address City/[facility] [place] [address] PATHOLOGY AND GENOMIC MEDICINE * Vitamin B12 level (08/31/2018 2:38 PM CDT) Vitamin B12 1,065 (H) 211 - 946 pg/mL [facility] DEPARTMENT OF Comment: PATHOLOGY AND Significant overlap exists GENOMIC MEDICINE between normal and deficiency states. However, most patients with deficiencies will have Serum B12 <200 pg/mL. Specimen Serum Performing Organization Address [facility] Centercode Phone Number [facility] [place] [address] PATHOLOGY AND GENOMIC MEDICINE * Lipid panel (08/31/2018 2:38 PM CDT) Cholesterol 137 <200 mg/dL [facility] DEPARTMENT OF PATHOLOGY AND GENOMIC MEDICINE Triglycerides 86 <150 mg/dL [facility] DEPARTMENT OF PATHOLOGY AND GENOMIC MEDICINE HDL cholesterol 39 (L) >40 mg/dL [facility] DEPARTMENT OF PATHOLOGY AND GENOMIC MEDICINE LDL cholesterol 92Comment: Result obtained by <100 mg/dL [facility] DEPARTMENT OF direct LDL measurement PATHOLOGY AND GENOMIC MEDICINE Lipid panel SeeBelow [facility] DEPARTMENT OF interpretation Comment: PATHOLOGY AND Total [...] specimen Performing Organization Address City/State/Zipcode Phone Number [facility] DEPARTMENT OF [address] [place] [address] PATHOLOGY AND GENOMIC MEDICINE * Echocardiogram complete w contrast and 3D if needed (08/31/2018 7:43 AM CDT) Narrative Performed At [facility] Echocardiography Report [address] [place] [address] Pat.Name:KANU PITTS Pat.ID:[id number] St.Date: 08/31/2018Refer.MD:BERTA LYNN MD Exam Time: 7:07:00 AMStudy Type:Routine Echo Height:71inWeight:300lb BSA: 2.51 m2 DOBAge:1940,78Y Sex: MALEBP:133/64 HR:78 bpmSonogrphr: Dickson Lynn RDCS Pat. Stat.:Inpatient Room:[address] Study Status:Final Echo Event ID:[id number] Order ID:[id number] Reason for Study:CHF Exacerbation Procedures:2D Echo, Colorflow [...] RAPof 15 mmHg. MEASUREMENTS: 2D Parasternal [place] LVOT 2.3 cmLA Ds4.1 cm LVIDd5.2 cmIndex2.1 cm/m Ao Rtd 4 cm Index1.6 cm/m LVIDs2.6 cm LV Oxkt424.7 g(122-174) LV%fs 49.5 % LVM Zawcy747.2 g/m2 IVSd 1.4 cmRWT0.6 LVPWd1.4 cm DOPPLER LVOT Stroke Vol LVOT 2.3 cmLVOT CO5.4 l/min LVOT TVI22.2 cmLVOT CI2.1 l/m/m2 LVOT Tm343 muklWC45 bpm LVOT SV 92.3 ml TV Pressure Gradient TV PkVel 242.7 cm/sTV PG 23.6 mmHg Signed 08/31/2018 12:24 PM Ania Castillo M.D. Procedure Note Interface, Radiology Results In - 08/31/2018 12:24 PM CDT Echocardiography Report [address] [address], [place] [address] [facility].Name: KANU PITTS.ID: [id number] .Date: 08/31/2018 Refer.MD: BERTA LYNN MD Exam Time: 7:07:00 AM Study Type:Routine Echo Height: 71in Weight: 300lb BSA: 2.51 m2 Age: 3 1940,78Y Sex: MALE BP: 133/64 HR: 78 bpm Sonogrphr: Dickson Lynn RDCS Pat. Stat.:Inpatient Room: [address] Study Status:Final Echo Event ID:[id number] Order ID: [id number] Reason for Study:CHF Exacerbation Procedures:2D Echo, Colorflow [...] of 15 mmHg. MEASUREMENTS: 2D Parasternal [place] LVOT 2.3 cm LA Ds 4.1 cm [...] PM Ania Castillo M.D. Performing Organization Address [facility] Centercode Phone Number [facility] [address] [place] [address] * Prothrombin time with INR (08/31/2018 4:30 AM CDT) Only the most recent of 2 results within the time period is included. Prothrombin time 16.9 (H) 12.0 - 15.0 sec [facility] DEPARTMENT OF PATHOLOGY AND GENOMIC MEDICINE INR 1.4 [facility] DEPARTMENT OF Comment: PATHOLOGY AND The International Normalized GENOMIC MEDICINE Ratio (INR) is a therapeutic monitoring tool for patients who are stable on oral anticoagulant therapy. An INR of 2.0-3.0 is suggested for deep vein thrombosis/pulmonary embolism. Specimen Blood Performing Organization Address [facility] Centercode Phone Number [facility] DEPARTMENT OF [address] [place] [address] PATHOLOGY AND GENOMIC MEDICINE * B natriuretic peptide (08/31/2018 4:30 AM CDT) Only the most recent of 2 results within the time period is included. BNP 618 (H) 0 - 100 pg/mL [facility] DEPARTMENT OF PATHOLOGY AND GENOMIC MEDICINE Specimen Blood Narrative Performed At results called to and read back by VIKASH CORCORAN at 08/31/2018 05:[address] [facility] DEPARTMENT OF PATHOLOGY AND GENOMIC MEDICINE Performing Organization Address [facility] Centercopa Phone Number [facility] DEPARTMENT OF [address] [place] [address] PATHOLOGY AND GENOMIC MEDICINE * US Renal (08/30/2018 1:20 PM CDT) Narrative Performed At [facility] CLINICAL [facility]:LIANE with hx of neurogenic bladder [...] the bladder. IMPRESSION: Negative renal ultrasound examination. [facility]-[id number] Procedure Note Interface, Radiology Results Incoming - [...] the bladder. IMPRESSION: Negative renal ultrasound examination. [facility]-[id number] Performing Organization Address [facility] Centercode Phone Number [facility] [address] [place] [address] * US Scrotal (08/30/2018 1:20 PM CDT) Narrative Performed At EXAMINATION[facility] CLINICAL H[facility]: 78 years MaleScrotal painnontraumatic possible [...] left testicular mass. 3.Status post right orchiectomy. [facility]-[id number] Procedure Note Interface, Radiology Results Incoming - [...] testicular mass. 3. Status post right orchiectomy. [facility]-[id number] Performing Organization Address City/State/Zipcode Phone Number [facility] [address] [place] [address] * Urinalysis screen and microscopy, with reflex to culture (08/30/2018 11:00 AM CDT) Specimen site Pat [facility] DEPARTMENT OF PATHOLOGY AND GENOMIC MEDICINE Color, UA Straw [facility] DEPARTMENT OF PATHOLOGY AND GENOMIC MEDICINE Appearance, UA Clear [facility] DEPARTMENT OF PATHOLOGY AND GENOMIC MEDICINE Specific gravity, UA 1.006 1.001 - 1.035 [facility] DEPARTMENT OF PATHOLOGY AND GENOMIC MEDICINE pH, UA 6.0 5.0 - 8.5 [facility] DEPARTMENT OF PATHOLOGY AND GENOMIC MEDICINE Protein, UA Negative Negative [facility] DEPARTMENT OF PATHOLOGY AND GENOMIC MEDICINE Glucose, UA Negative Negative [facility] DEPARTMENT OF PATHOLOGY AND GENOMIC MEDICINE Ketones, UA Negative Negative [facility] DEPARTMENT OF PATHOLOGY AND GENOMIC MEDICINE Bilirubin, UA Negative Negative [facility] DEPARTMENT OF PATHOLOGY AND GENOMIC MEDICINE Blood, UA Negative Negative [facility] DEPARTMENT OF PATHOLOGY AND GENOMIC MEDICINE Nitrite, UA Negative Negative [facility] DEPARTMENT OF PATHOLOGY AND GENOMIC MEDICINE Urobilinogen, UA <2.0 <2.0 [facility] DEPARTMENT OF PATHOLOGY AND GENOMIC MEDICINE Leukocyte esterase, UA Negative Negative [facility] DEPARTMENT OF PATHOLOGY AND GENOMIC MEDICINE Epithelial cells, UA <1 /HPF [facility] DEPARTMENT OF PATHOLOGY AND GENOMIC MEDICINE WBC, UA 1 0 - 1 /HPF [facility] DEPARTMENT OF PATHOLOGY AND GENOMIC MEDICINE RBC, UA <1 0 - 5 /HPF [facility] DEPARTMENT OF PATHOLOGY AND GENOMIC MEDICINE Bacteria, UA None seen None seen [facility] DEPARTMENT OF PATHOLOGY AND GENOMIC MEDICINE Yeast, UA None seen [facility] DEPARTMENT OF PATHOLOGY AND GENOMIC MEDICINE Yeast with pseudohyphae, None seen [facility] DEPARTMENT OF UA PATHOLOGY AND GENOMIC MEDICINE Specimen Urine Performing Organization Address City/[facility] [place] [address] PATHOLOGY AND GENOMIC MEDICINE * Urine culture (08/30/2018 11:00 AM CDT) Urine culture SEE COMMENTComment: [facility] DEPARTMENT OF Bacteriuria screen negative. PATHOLOGY AND GENOMIC MEDICINE Performing Organization Address City/[facility] [place] [address] PATHOLOGY AND GENOMIC MEDICINE * Respiratory pathogen panel (08/30/2018 10:55 AM CDT) Respiratory pathogen Negative for all pathogens [facility] DEPARTMENT OF panel tested: PATHOLOGY AND Negative [...] Specimen Nares - Right Performing Organization Address City/[facility] Centercode Phone Number [facility] [place] [address] PATHOLOGY AND GENOMIC MEDICINE * Blood culture, aerobic & anaerobic (08/30/2018 10:55 AM CDT) Only the most recent of 2 results within the time period is included. Blood culture isolate No growth after 5 days of [facility] DEPARTMENT OF incubation. PATHOLOGY AND Comment: GENOMIC MEDICINE Specimen Information Specimen Source: Blood Specimen Site: Radial, left Specimen Blood - Radial, left Performing Organization Address [facility] Centercode Phone Number [facility] [place] [address] PATHOLOGY AND GENOMIC MEDICINE * Influenza antigen (08/30/2018 10:55 AM CDT) Influenza antigen Negative for Influenza A/B [facility] DEPARTMENT OF antigen. PATHOLOGY AND Comment: GENOMIC MEDICINE Specimen Information Specimen Source: Nares Specimen Site: Right Specimen Nares - Right Performing Organization Address [facility] [place] [address] PATHOLOGY AND GENOMIC MEDICINE * Arterial blood gas (08/30/2018 10:55 AM CDT) pH, arterial 7.40 7.35 - 7.45 [facility] DEPARTMENT OF PATHOLOGY AND GENOMIC MEDICINE pCO2, arterial 38 35 - 45 mmHg [facility] DEPARTMENT OF PATHOLOGY AND GENOMIC MEDICINE pO2, arterial 151 (H) 80 - 90 mmHg [facility] DEPARTMENT OF PATHOLOGY AND GENOMIC MEDICINE Bicarbonate, arterial 23.6 21.0 - 28.0 mmol/L [facility] DEPARTMENT OF PATHOLOGY AND GENOMIC MEDICINE Base excess, arterial 0 -2 - 2 mEq/L [facility] DEPARTMENT OF PATHOLOGY AND GENOMIC MEDICINE O2 saturation, arterial 99 95 - 100 % [facility] DEPARTMENT OF PATHOLOGY AND GENOMIC MEDICINE Specimen Blood Performing Organization Address [facility] Phone Number [facility] [place] [address] PATHOLOGY AND GENOMIC MEDICINE * ECG ED Preliminary Interpretation - NOT AN ORDER (08/30/2018 10:33 AM CDT) Narrative Performed At [facility] Berta Lynn MD 09/02/2018 12:24 PM ECG ED Preliminary Interpretation - Not an Order Performed by: DOROTA LYNNBERTA BERTA Authorized by: [facility] ECG reviewed by ED Physician in the absence of a neurophysiologist: yes Previous ECG: Previous ECG:Unavailable Interpretation: Interpretation: abnormal Rate: ECG rate:68 ECG rate assessment: normal Rhythm: Rhythm: atrial fibrillation Ectopy: Ectopy: none QRS: QRS axis:Normal QRS intervals:Normal Conduction: Conduction: normal ST segments: ST segments:Normal T waves: T waves: normal * CRITICAL CARE (08/30/2018 10:33 AM CDT) Narrative Performed At [facility] MD Shane 09/02/2018 12:24 PM Critical Care Performed by: [facility] Authorized by: [facility] Critical care provider statement: Critical care [...] 10:31 AM CDT) Narrative Performed At EXAMINATION: [facility] XR CHEST 1 VW PORTABLE [...] the possibility of superimposed pneumonia is raised. [facility]-[id number] Procedure Note Interface, Radiology Results Incoming - [...] the possibility of superimposed pneumonia is raised. [facility]-[id number] Performing Organization Address [facility]/[place] [address] * Troponin (08/30/2018 10:15 AM CDT) Troponin <0.30 0.00 - 0.30 ng/mL [facility] DEPARTMENT OF Comment: PATHOLOGY AND 0.30 - 1.49 GENOMIC MEDICINE ng/mlMay indicate increased risk of acute coronary syndrome. >=1.5 ng/ml Consistent with acute myocardial infarction. The diagnostic value of a single normal or non-diagnostic result is questionable.Serial samples at 2-6 hour intervals are required to rule out acute myocardial injury. Specimen Plasma specimen Performing Organization Address [facility] [place] [address] PATHOLOGY AND [facility]IC[facility] * Partial thromboplastin time, activated (08/30/2018 10:15 AM CDT) PTT 45.0 (H) 23.0 - 36.0 sec [facility] DEPARTMENT OF Comment: PATHOLOGY AND PTT therapeutic range for [facility] MEDICINE unfractionated heparin is 61.0-112.0 seconds which corresponds to Anti-Xa 0.3-0.7 U/ml. Specimen Blood Performing Organization Address [facility] Centercode Phone Number [facility] DEPARTMENT [facility] [place] [address] PATHOLOGY AND GENOMIC MEDICINE * Comprehensive metabolic panel (08/30/2018 10:15 AM CDT) Sodium 141 135 - 148 mEq/L [facility] DEPARTMENT OF PATHOLOGY AND GENOMIC MEDICINE Potassium 3.6 3.5 - 5.0 mEq/L [facility] DEPARTMENT OF PATHOLOGY AND GENOMIC MEDICINE Chloride 101 98 - 112 mEq/L [facility] DEPARTMENT OF PATHOLOGY AND GENOMIC MEDICINE CO2 22 (L) 24 - 31 mEq/L [facility] DEPARTMENT OF PATHOLOGY AND GENOMIC MEDICINE Anion gap 18@ANIO (H) 7 - 15 mEq/L [facility] DEPARTMENT OF PATHOLOGY AND GENOMIC MEDICINE BUN 65 (H) 8 - 23 mg/dL [facility] DEPARTMENT OF PATHOLOGY AND GENOMIC MEDICINE Creatinine 1.49 (H) 0.70 - 1.20 mg/dL [facility] DEPARTMENT OF PATHOLOGY AND GENOMIC MEDICINE Glucose 106 (H) 65 - 99 mg/dL [facility] DEPARTMENT OF PATHOLOGY AND GENOMIC MEDICINE Calcium 9.2 8.8 - 10.2 mg/dL [facility] DEPARTMENT OF PATHOLOGY AND GENOMIC MEDICINE Protein 7.5 6.3 - 8.3 g/dL [facility] DEPARTMENT OF Comment: PATHOLOGY AND [place] GENOMIC MEDICINE 4.6-7.0 g/dL 1 week 4.4-7.6 g/dL 7 months-1year 5.1-7.3 g/dL 1-2 years5.6-7 .5 g/dL >3 years6.0-8 .0 g/dL 18-150 6.3-8.3 g/dL Albumin 2.9 (L) 3.5 - 5.0 g/dL [facility] DEPARTMENT OF PATHOLOGY AND GENOMIC MEDICINE A/G ratio 0.6 (L) 0.7 - 3.8 [facility] DEPARTMENT OF PATHOLOGY AND GENOMIC MEDICINE Alkaline phosphatase 105 40 - 129 U/L [facility] DEPARTMENT OF PATHOLOGY AND GENOMIC MEDICINE AST 17 10 - 50 U/L [facility] DEPARTMENT OF PATHOLOGY AND GENOMIC MEDICINE ALT 15 5 - 50 U/L [facility] DEPARTMENT OF PATHOLOGY AND GENOMIC MEDICINE Total bilirubin 0.4 0.0 - 1.2 mg/dL [facility] DEPARTMENT OF PATHOLOGY AND GENOMIC MEDICINE Specimen Plasma specimen Performing Organization Address City/State/[facility] Phone Number [facility] DEPARTMENT OF [address] [place] [address] PATHOLOGY AND GENOMIC MEDICINE * ECG 12 lead (08/30/2018 10:14 AM CDT) Ventricular rate 68 [facility] Atrial rate 250 [facility] QRSD interval 98 [facility] QT interval 422 [facility] QTC interval 448 [facility] QRS axis 1 6 [facility] MUSE T wave axis 33 [facility] EKG impression Atrial fibrillation-Abnormal [facility] ECG-In automated comparison with ECG of 30-JUN-2014 10:22,-Atrial fibrillation has replaced Sinus rhythm- Performing Organization Address City/State/Zipcode Phone Number [facility] [address] [place] [address] after 09/20/2017 Insurance Payer Benefit Subscriber ID Type Phone Address Plan / Group MEDICARE MEDICARE xxxxxxxxxx Medicare [place], [place] PART A AND B AARP AARP xxxxxxxxxxx Commercial SUPPLEMENT Advance Directives Patient has advance care planning documents on file. For more information, issac alvarado contact: Popeye Zendejas [address] [place] [address]
[2018-09-22] VITALS (8 sets, daily range): BP systolic 88–127; BP diastolic 45–67
[2018-09-22] MEDS: PANTOPRAZOLE INJ 80 MG in SODIUM CHLORIDE 0.9% 100 ML IV SCH ×2 (00:30→09:00)
--- NOTE | 2018-09-22 00:36 | NUR ---
received report from daria morales rn
--- NOTE | 2018-09-22 00:46 | NUR ---
PT SIGNED CONSENT TO FOR BLOOD TRANSFUSION
--- NOTE | 2018-09-22 02:05 | NUR ---
PT PLACED IN HOSPTIAL BED, PT TOLERATED WELL. WILL CONTINUE TO MONITOR
--- NOTE | 2018-09-22 03:30 | NUR ---
BLOOD TRANSFUSION STARTED TO THE 20G IN LFA INFUSION @ 75CC/HR. PT TOLERATING WELL, NO CHANGE TO IV SITE. WILL CONTINUE TO MONITOR
--- NOTE | 2018-09-22 03:45 | NUR ---
BLOOD INFUSION INCREASED TO 100CC/HR. NO CHANGE TO IV SITE, PT TOLERATING WELL. WILL CONTINUE TO MONITOR
--- NOTE | 2018-09-22 04:00 | NUR ---
PT BLOOD TRANFUSION INCREASED TO 100CC HR, PT TOLERATING WELL, NO CHANGE TO IV SITE, WILL CONTINUE TO MONITOR
--- NOTE | 2018-09-22 04:30 | NUR ---
PT BLOOD TRANFUSION INCREASED TO 125CC \HR, PT TOLERATING WELL, NO CHANGE TO IV SITE, WILL CONTINUE TO MONITOR
--- NOTE | 2018-09-22 05:30 | NUR ---
PT RESTING WITH EYES CLOSED, RESP EVEN AND UNLABORED, SKIN W&D AND NORMAL COLOR, NO CHANGE TO IV SITES, PT BLOOD TRANSFUSION INCREASED TO 150CC/HR, PT TOLERATING WELL, PT AWARE OF PLAN OF CARE AND DENIES ANY OTHER CONCERNS, WILL CONTINUE TO MONITOR
--- NOTE | 2018-09-22 06:48 | NUR ---
PT REPORT GIVEN TO YASH PENN
--- NOTE | 2018-09-22 07:01 | NUR ---
REPORT RECEIVED FROM ALIS BERRIOS. PT CARE ASSUMED. WOUND CARE CONSULT ORDERED FOR IMPAIRED SKIN INTEGRITY ON SACRUM AND HEEL
--- NOTE | 2018-09-22 07:42 | History and Physical ---
This is a 78-year-old gentleman that comes in with black stools. HISTORY OF PRESENT ILLNESS: Mr. Baig is a paraplegic man with a history of congestive heart failure, history of hypertension and hemorrhoids. The patient comes in with black tarry stools noticed by his . He had a couple of episodes at home. The patient has been recently treated for urinary tract infection with Cipro. Had gone to [facility]. Today, the patient feels weak, tired and came in after being called in the office and after being told to come to the emergency room. PAST MEDICAL HISTORY: History of hypertension, history of hyperlipidemia, history of congestive heart failure, history of paraplegia, history of intermittent catheterizations, history of chronic UTIs, history of hemorrhoids. MEDICATIONS: He takes at home are: 1. Aspirin 81 mg. 2. Atorvastatin 20 mg. 3. Bumex 1 mg 2 daily. 4. Carvedilol 12.5 mg. 5. Ciprofloxacin 250 mg twice a day. 6. Valium 5 mg. 7. Ferrous sulfate 325 mg for iron deficiency. 8. Lopid 600 mg twice a day. 9. Hydralazine 100 mg 3 times a day. 10. Senokot daily. 11. The patient does not take any PPI at home. SURGICAL HISTORY: History of back surgeries in the past. Also, removal of right testicle for testicular cancer. FAMILY HISTORY: Heart disease in both mother and brother, and also hypertension. No history of cancer in the family. REVIEW OF SYSTEMS: Negative for chest pain. Positive for some tachycardia. Positive for fatigue. No nausea or vomiting. No diarrhea. No constipation. Rectal bleeding and positive for black stools. The patient also has a history of musculoskeletal positive for bilateral hip pain and also low back pain. SOCIAL HISTORY: No ETOH. No IV drug abuse. is the primary embedder. The patient also has home health that attends to him. PHYSICAL EXAMINATION GENERAL: Alert and oriented times 3. VITAL SIGNS: Temperature is 97.4, pulse of 84, respirations of 18, blood pressure is 100/47. HEENT: Normocephalic and atraumatic. Pupils are reactive to light and accommodation. CV: S1 and S2 regular. ABDOMEN: Slight tenderness in the epigastric area. EXTREMITIES: No clubbing. No cyanosis. No edema. The patient does have a history of lymphedema, but currently the patient's legs have no edema. SKIN: Sacrum has a type 1 sacral ulcer. LABORATORY VALUES: The patient's white count is 6.9, hemoglobin of 7.3, hematocrit of 21.9. Chemistry: 139, potassium 3.6, BUN 140, creatinine of 2.54. Coags: PT 14.3, INR 1. Urine yellow, otherwise negative. MICROBIOLOGY: None sent. ASSESSMENT 1. Upper gastrointestinal bleed: Consult with Dr. Dexter De Leon is being done. The patient will be put on intravenous Protonix drip. 2. Urinary tract infection: Will recatheterize urine and check for sensitivities. 3. Paraplegia: The patient will need also for pressure ulcers and needing out of bed. 4. For his congestive heart failure, in's and out's to be monitored very carefully. Will continue monitoring it. BUN is elevated suggestive of upper gastrointestinal bleed. Fluids will be resuscitated and blood pressure will be monitored. Currently, the patient is hemodynamically stable. Needs endoscopy and upper EGD. The patient will get 2 units of PRBCs with Lasix after each unit. Post transfusion H and H will be done. Will continue monitoring the patient. Also, cardiology consult with Dr. Askew is done. His door liner helper, Dr. Valderrama, was not available to come to this hospital. Job#: [id number] CORY
--- NOTE | 2018-09-22 08:45 | NUR ---
RECEIVED PATIENT FROM ER PATIENT ARRIVED IN BED HE IS ALERT AND ORIENTED X3. PATIENT REPORTS HE IS PARAPLEGIC R/T TO BACK SURGERY, AND AT HOME IS WHEELCHAIR BOUND. HE BROUGHT HIS OWN WHEEL CHAIR. SKIN ASSESSMENT DONE PATIENT HAS NO OPEN AREAS APPLIED ALLEVYN DRESSING PROPHYLACTICALLY, AND WOUND ORDERS FOR WOUND CARE CONSULT IN PLACE. PLACED ON LOW AIR MATTRESS, AND ALSO ON THE WAFFLE. PAZ TO GRAVITY DRAINING CLEAR YELLOW URINE. ORIENTED TO ROOM AND USE OF CALL LIGHT MADE AWARE SECOND UNIT OF BLOOD TO BE GIVEN AND AFTER 2ND UNIT INFUSED HE WOULD BE GIVEN LASIX 20 MG IVP. ALSO INFORMED PATIENT OF OBTAINING INFORMED CONSENT PER DR. Yannick BURRIS'S ORDERS FOR EGD PATIENT VERBALIZED UNDERSTANDING, OF PROCEDURES AND TO CALL WHEN NEEDING ASSISTANCE. BELONGINGS AND CALL LIGHT WITHIN REACH, BED IN LOW POSITION, DECLINED BED ALARM, PATIENT USING CALL LIGHT APPROPRIATELY. AT BEDSIDE WILL CONTINUE TO MONITOR.
[2018-09-22] MEDS ORDERED: CARVEDILOL 12.5 MG TAB PO SCH (09:00)
[2018-09-22] MEDS ORDERED: HYDRALAZINE HCL 100 MG TABLET PO SCH (09:00)
[2018-09-22] MEDS ORDERED: ATORVASTATIN 20 MG TAB PO SCH (09:00)
--- NOTE | 2018-09-22 10:56 | Consultation ---
DATE OF CONSULTATION: September 22, 2018 REASON FOR CONSULTATION: Chronic AFib. HISTORY AND PHYSICAL: This is a 78-year-old male with a history of paraplegia, chronic CHF, hypertension, hyperlipidemia, frequent UTIs, chronic AFib, BPH. The patient self-catheterizes himself multiple times a day, and chronic kidney disease. Patient presents to [facility] ER with the complaints of black stools. Was brought to the ER by his . The patient reports has had epigastric pain, gnawing sensation and burning for several weeks. Currently, the patient is in AFib on monitor, rate controlled. Plan is for the patient to have an EGD per GI service. Patient denies any shortness of breath or any chest pains. SURGICAL HISTORY: L4 back surgery in 1993, right testicular cancer, status post removal. Patient self-catheterizes himself several times a day. SOCIAL HISTORY: He is . He denies any alcohol use or tobacco use. FAMILY HISTORY: Mother at age 55 from [place]. Father at the age of 88 of [place]. Brother at the age of 79 of [place]. HOME MEDICATIONS 1. Aspirin 81 mg once a day. 2. Atorvastatin 20 mg once a day. 3. Bumex 1 mg twice a day. 4. Coreg 12.5 mg twice a day. 5. Lopid 600 mg twice a day. 6. Hydralazine 100 mg 3 times a day. ALLERGIES: PENICILLIN. REVIEW OF SYSTEMS GENERAL: Denies any weight changes, any fatigue, weakness, fever, chills, night sweats. SKIN: Otherwise no rashes, sores, lumps, moles. HEENT: Denies any nausea, vomiting, vision changes, any tinnitus, vertigo, earaches, any epistaxis, any hoarseness, sore throat, swollen neck. CARDIAC: Denies any chest pains. Intermittent palpitations. Denies any orthopnea, PND or lower extremity edema. RESPIRATORY: Denies any shortness of breath, any wheezing, cough, sputum, any hemoptysis. GI: Good appetite. No nausea, vomiting, diarrhea, or constipation. Positive for epigastric pain, burning sensation, gnawing sensation for several weeks at least. URINARY: Positive for intermittent hematuria with self-catheterizations. Hence, the patient is not on blood thinners. Positive for frequent infections, UTIs. VASCULAR: Denies any lower extremity edema. MUSCULOSKELETAL: Paraplegic. No sensation below the knees. HEMATOLOGY: Positive for anemia. Denies any easy bruising. Positive for intermittent bleeding during self-catheterizations. ENDOCRINE: Denies any heat or cold intolerance, any polyuria, polydipsia or polyphagia. PHYSICAL EXAMINATION VITALS: Height 73 inches, weight 281 pounds, BMI 37. Current vital signs are temperature 97.4, pulse 84, respiratory rate 18, blood pressure 100/47, pulse ox 95. GENERAL: Appears stated age. Reliable informant. In no acute distress. SKIN: No rashes or bruises. HEENT: Normocephalic. Pupils are equal and reactive. Extraocular movements intact. Trachea midline. No JVD. Oral mucosa pink. No thyromegaly. HEART: Irregular rhythm. Soft systolic murmur heard in the right upper sternal border. LUNGS: Bilateral breath sounds clear to auscultation. No wheezes. No crackles. Diminished air flow throughout. ABDOMEN: Soft. Tender in the epigastric region. MUSCULOSKELETAL: Good muscle strength in bilateral upper extremities. Paraplegic. VASCULAR: Plus 2 bilateral radial pulses and +2 DP and PT pulses. NEUROLOGIC: Cranial nerves II-XII seem intact. Again, paraplegic. LABS: White count 6.9, hemoglobin 7.3, hematocrit 29, and platelets 169,000. Sodium 139, potassium 3.6, chloride 98, BUN 140, creatinine 2.5. Chest x-ray with no acute thoracic abnormalities. EKG with AFib, heart rate of 87. ASSESSMENT AND PLAN 1. Gastrointestinal bleed. 2. Chronic atrial fibrillation. 3. Chronic systolic heart failure. 4. Chronic kidney disease. 5. Hyperlipidemia. 6. Hypertension. 7. Paraplegia. 8. BPH: The patient self-catheterizes himself multiple times throughout the day. Reports intermittent bleeding with catheterizations. PLAN: The patient presents with GI bleed times 1 day. However, was reporting has had epigastric pain and gnawing sensation for several weeks at least. Has been taking aspirin therapy only. Hemoglobin on arrival was 7.3. The patient is to receive blood transfusion. GI has been consulted. The patient is to have EGD. Also, the patient has been placed on PPI IV therapy. Of course, no antiplatelets or anticoagulation given his GI bleed. Will get an echo to evaluate heart function structure. Heart rate is controlled currently. Continue tele monitoring. Will hold antihypertensives. Blood pressure is marginal. Thank you very much for this consult. Will continue to monitor the patient and adjust cardiac therapy as course dictates. DICTATED BY DARREN MANLEY NP Job#: [id number] RI
[2018-09-22] MEDS ORDERED: SODIUM CHLORIDE 0.9% 250ML 250 ML ONE (11:09)
--- NOTE | 2018-09-22 13:50 | NUR ---
Visit made by the Spiritual Care Department Pastoral Visitor, Arielle Guerrero. Pt sleeping soundly and no family present. Pastoral Visitor left a card describing availability of radio technician and instructions on how to contact a radio technician. KAT SIMON Contract Graphic Designer Spiritual Care Department O: [phone] Pager: [phone] ([phone] calling from)
--- NOTE | 2018-09-22 14:57 | NUR ---
WOUND CARE CONSULTATION. 78 YEAR OLD MALE ADMITTED TO [facility] WITH DX OF ANEMIA, CHRONIC ATRIAL FIBRILLATION AND GI BLEED. HEAD TO TOE SKIN ASSESSMENT PERFORMED TODAY. PT PRESENTS WITH 1X1CM ESCHAR TO LEFT HEEL. HEALED ULCER TO LEFT SECOND TOE AND LEFT BUTTOCKS. THERE ARE NO OTHER AREAS OF CONCERN. NO S/S OF INFECTION. LABS: WBC: 6.90 ALB: 3.5 RECOMMENDATIONS: MONITOR LEFT ESCHAR DAILY AND COVER WITH FOAM DRESSING. PROVIDE PT WITH BILATERAL HEEL PROTECTORS AND CONTINUE WITH PILLOW SUSPENSIONS. PLACE PT ON ALTERNATING LOW AIR LOSS MATTRESS. TURN PT EVERY TWO HOURS AND PRN. THANKS FOR THIS CONSULTATION. Addendum: 09/22/18 at 1503 by Teri Ponce RN Amended: Links added.
--- NOTE | 2018-09-22 16:37 | Operative Report ---
DATE OF PROCEDURE: September 22, 2018 REFERRING PHYSICIAN: Dr. Elmer Gaona PROCEDURE PERFORMED: Esophagogastroduodenoscopy with biopsies. INDICATIONS FOR EGD: Anemia, history of melena, nausea. MEDICATION: Patient was done under MAC. Please see anesthesiologist's note. PROCEDURE: With the patient in the left lateral decubitus position, the flexible fiberoptic Olympus gastroscope was introduced into the esophagus under direct visualization without any difficulty. There was some patchy erythema noted in the distal esophagus. The scope was then advanced with ease into the stomach, traversing a small sliding hiatal hernia. Mucosa overlying the antrum and the body revealed some diffuse erythema and moderate edema, and biopsies were obtained and sent to stain for H. pylori. The pylorus was of normal contour and shape. It was intubated with ease, and the scope was advanced all the way to the to the 2nd portion of the duodenum. The scope was then withdrawn slowly. An approximately 1.8 cm, sessile, polypoid lesion was noted in the proximal 2nd portion of the duodenum proximal to the ampulla. This was biopsied. A large polypoid lesion was also noted in the duodenal bulb, probably partially obstructing intermittently the pyloric channel. This was biopsied. The scope was then withdrawn back into the stomach and retroflexed. Mucosa overlying the fundus and the cardia appeared to be within normal limits. The scope was then straightened out. It was subsequently withdrawn. Patient tolerated the procedure well. IMPRESSION 1. Distal esophagitis, mild. 2. Small sliding hiatal hernia. 3. Gastritis, biopsied. Biopsies sent to stain for H. pylori. 4. Large polypoid lesion, bulb, biopsies obtained. The lesion probably is intermittently obstructing the pyloric channel. 5. Approximately 1.8 cm sessile lesion, proximal 2nd portion of the duodenum, proximal to the ampulla, biopsied. PLAN: Follow up histology. Continue PPI therapy. Findings do not necessarily explain the patient's melena or anemia. He will definitely need a colonoscopy if none has been done within the last 2 to 3 years prior to admission. The patient will also need a general surgical consultation. Job#: [id number] cc:ELMER GAONA MD
[2018-09-22] MEDS: CARVEDILOL 12.5 MG TAB PO SCH (17:00)
[2018-09-22 17:25] LABS: BASOPHILS % 0.4 % (0.0-1.0); EOSINOPHILS # (AUTO) 0.1 (0.0-0.4); EOSINOPHILS % 1.6 % (0.0-6.0); HEMATOCRIT 26.2 % (38.2-49.6); HEMOGLOBIN 8.8 g/dL (14.0-18.0); LYMPHOCYTES # (AUTO) 1.3 (1.0-3.2); LYMPHOCYTES % 25.8 % (18.0-39.1); MEAN CORPUSCULAR HEMOGLOBIN 31.5 pg (28-32); MEAN CORPUSCULAR HGB CONC 33.6 g/dL (31-35); MEAN CORPUSCULAR VOLUME 93.9 fL (81-99); MONOCYTES # (AUTO) 0.7 (0.2-0.8); MONOCYTES % 13.7 % (4.4-11.3); NEUTROPHILS # (AUTO) 2.9 (2.1-6.9); NEUTROPHILS % 56.4 % (38.7-80.0); PLATELET COUNT 146 x10e3/uL (140-360); RED BLOOD COUNT 2.79 x10e6/uL (4.3-5.7); RED CELL DISTRIBUTION WIDTH 16.3 % (11.7-14.4)
[2018-09-22 19:33] LABS: EOSINOPHILS % (MANUAL) 3 % (0-7); HYPOCHROMASIA SLIGHT; LYMPHOCYTES % (MANUAL) 37 % (19-48); MONOCYTES % (MANUAL) 13 % (3.4-9.0); NEUTROPHILS % (MANUAL) 47 % (40-74); PLATELET ESTIMATE ADEQUATE; PLATELET MORPHOLOGY COMMENT NORMAL; RBC MORPHOLOGY COMMENT NORMAL
[2018-09-22] MEDS: DIAZEPAM 5 MG TAB PO SCH (20:11)
[2018-09-22] MEDS ORDERED: PANTOPRAZOLE 40 MG 10ML VIAL ONE (20:25)
[2018-09-22] MEDS: PANTOPRAZOL 40MG/SOD CHL 0.9% 50 ML IV SCH (20:31)
[2018-09-22] MEDS: MORPHINE SULFATE 2 MG/ML SYR IV PRN (21:14)
[2018-09-23] VITALS (8 sets, daily range): BP systolic 94–123; BP diastolic 48–74
[2018-09-23] MEDS: MORPHINE SULFATE 2 MG/ML SYR IV PRN ×2 (01:29→07:20)
[2018-09-23] MEDS: PANTOPRAZOL 40MG/SOD CHL 0.9% 50 ML IV SCH ×6 (02:00→22:01)
[2018-09-23 05:01] LABS: BASOPHILS % 0.3 % (0.0-1.0); EOSINOPHILS # (AUTO) 0.1 (0.0-0.4); EOSINOPHILS % 1.8 % (0.0-6.0); HEMATOCRIT 26.7 % (38.2-49.6); HEMOGLOBIN 8.9 g/dL (14.0-18.0); LYMPHOCYTES # (AUTO) 1.7 (1.0-3.2); LYMPHOCYTES % 27.4 % (18.0-39.1); MEAN CORPUSCULAR HEMOGLOBIN 31.8 pg (28-32); MEAN CORPUSCULAR HGB CONC 33.3 g/dL (31-35); MEAN CORPUSCULAR VOLUME 95.4 fL (81-99); MONOCYTES # (AUTO) 0.7 (0.2-0.8); MONOCYTES % 11.8 % (4.4-11.3); NEUTROPHILS # (AUTO) 3.5 (2.1-6.9); NEUTROPHILS % 57.6 % (38.7-80.0); PLATELET COUNT 143 x10e3/uL (140-360); RED CELL DISTRIBUTION WIDTH 16.7 % (11.7-14.4)
[2018-09-23 05:28] LABS: ALBUMIN 3.2 g/dL (3.5-5.0); ALBUMIN/GLOBULIN RATIO 0.9 (0.8-2.0); ANION GAP 12.4 mmol/L (8-16); CALCIUM 9.2 mg/dL (8.4-10.2); CREATININE, SERUM 1.79 mg/dL (0.72-1.25)
[2018-09-23 05:31] LABS: POTASSIUM 2.4 mmol/L (3.5-5.1)
[2018-09-23 06:03] LABS: CHOL/HDL RATIO 4.9 (3.9-4.7)
[2018-09-23 06:08] LABS: THYROID STIMULATING HORMONE 2.319 uIU/mL (0.350-4.940)
[2018-09-23] MEDS ORDERED: POTASSIUM CHLORIDE 20MEQ/100ML 200 ML IV ONE ×2 (06:30→18:00)
--- NOTE | 2018-09-23 07:32 | NUR ---
REPORTED OFF TO Faith BELTRAN RN, PT STABLE AWAKE, JUST MEDICATED FOR PAIN, DR. GAONA SAW PT THIS MORNING AND WILL GET WITH OTHER PHYSICIANS REGARDING PLAN OF CARE.
[2018-09-23] MEDS: DIAZEPAM 5 MG TAB PO SCH (08:30)
[2018-09-23] MEDS: CARVEDILOL 12.5 MG TAB PO SCH ×2 (08:30→16:08)
--- NOTE | 2018-09-23 09:11 | Progress Note ---
DATE: September 23, 2018 SUBJECTIVE: This patient came in with acute GI bleed, melena with hemoglobin dropping. His hemoglobin is stable today. Underwent an upper endoscopy yesterday, found a large polyp blocking the pyloric antrum, possibly leading to some obstruction, biopsies were taken. The patient's anemia or melena could not be explained on yesterday's EGD, probably will need a capsule endoscopy and/or a colonoscopy. Patient is currently doing well. He is paraplegic. PHYSICAL EXAMINATION: VITAL SIGNS: Satting at 100%, blood pressure is 103/54, temperature is 97.8. GENERAL: The patient is alert and oriented x3, in no acute distress. Did complain of some abdominal pain. CVS: S1 and S2 normal. Irregular. ABDOMEN: Nontender, nondistended. EXTREMITIES: Trace edema in lower extremities. LABS: BUN was 97, creatinine of 1.79. White count of 6.09, hemoglobin of 8.9, hematocrit of 26.7. ASSESSMENT: 1. Upper gastrointestinal bleed. 2. Chronic atrial fibrillation. 3. Anemia. 4. Chronic kidney disease. 5. Paraplegia. 6. Urinary retention with intermittent catheterization needed. 7. Hypokalemia. PLAN: 1. To replace potassium. 2. The patient will need surgical evaluation for his antral polyp. For GI bleed, we might have to do a capsule endoscopy and also a colonoscopy and also a small bowel series. 3. Anemia. Continue monitoring his H and H. 4. Hypokalemia. Replace and check. 5. Atrial fibrillation. Will continue to avoid anticoagulation. Will continue him on his carvedilol and atorvastatin at this time. 6. Valium for anxiety and morphine for pain control. For further information, look in the chart. For medicines, look into the nurses notes. Job#: [id number]
[2018-09-23 12:14] LABS: BASOPHILS % 0.2 % (0.0-1.0); EOSINOPHILS # (AUTO) 0.1 (0.0-0.4); EOSINOPHILS % 1.3 % (0.0-6.0); HEMATOCRIT 26.6 % (38.2-49.6); HEMOGLOBIN 8.9 g/dL (14.0-18.0); LYMPHOCYTES # (AUTO) 1.2 (1.0-3.2); LYMPHOCYTES % 18.8 % (18.0-39.1); MEAN CORPUSCULAR HGB CONC 33.5 g/dL (31-35); MEAN CORPUSCULAR VOLUME 95.7 fL (81-99); MONOCYTES # (AUTO) 0.7 (0.2-0.8); MONOCYTES % 10.6 % (4.4-11.3); NEUTROPHILS # (AUTO) 4.2 (2.1-6.9); PLATELET COUNT 163 x10e3/uL (140-360); RED BLOOD COUNT 2.78 x10e6/uL (4.3-5.7); RED CELL DISTRIBUTION WIDTH 16.7 % (11.7-14.4)
[2018-09-23] MEDS: ONDANSETRON HCL INJ 2 MG/ML VIAL IV PRN (12:25)
--- NOTE | 2018-09-23 14:39 | NUR ---
Transfer report given to Yannick Tellez RN for room 101, per warehouse clerk's instructions.
--- NOTE | 2018-09-23 15:16 | NUR ---
Pt transferred to [facility] in stable condition; on tele monitoring; with all personal belongings. Spouse at bedside.
[2018-09-23 18:04] LABS: BASOPHILS % 0.2 % (0.0-1.0); EOSINOPHILS # (AUTO) 0.1 (0.0-0.4); EOSINOPHILS % 1.5 % (0.0-6.0); HEMATOCRIT 25.7 % (38.2-49.6); HEMOGLOBIN 8.3 g/dL (14.0-18.0); LYMPHOCYTES # (AUTO) 1.4 (1.0-3.2); LYMPHOCYTES % 26.2 % (18.0-39.1); MEAN CORPUSCULAR HEMOGLOBIN 31.3 pg (28-32); MEAN CORPUSCULAR HGB CONC 32.3 g/dL (31-35); MONOCYTES # (AUTO) 0.7 (0.2-0.8); MONOCYTES % 12.2 % (4.4-11.3); NEUTROPHILS # (AUTO) 3.1 (2.1-6.9); NEUTROPHILS % 58.8 % (38.7-80.0); PLATELET COUNT 154 x10e3/uL (140-360); RED BLOOD COUNT 2.65 x10e6/uL (4.3-5.7); RED CELL DISTRIBUTION WIDTH 16.7 % (11.7-14.4)
[2018-09-23] MEDS ORDERED: PROPOFOL IV EMULSION 10 MG/ML 20 ML VIAL ONE (19:26)
[2018-09-23] MEDS ORDERED: LIDOCAINE HCL 2% LOCAL INJ 5 ML SDV VIAL INJ ONE (19:26)
[2018-09-23] MEDS: ATORVASTATIN 20 MG TAB PO SCH (20:42)
--- NOTE | 2018-09-23 21:00 | NUR ---
REPORT GIVEN TO YASH ANGULO.PT IS IN STABLE CONDITION.
[2018-09-23] MEDS: ZOLPIDEM TARTRATE 5 MG TAB PO PRN (22:58)
[2018-09-24] VITALS (8 sets, daily range): BP systolic 110–144; BP diastolic 55–67
[2018-09-24] MEDS: PANTOPRAZOL 40MG/SOD CHL 0.9% 50 ML IV SCH ×5 (02:55→23:00)
[2018-09-24 05:06] LABS: BASOPHILS % 0.4 % (0.0-1.0); EOSINOPHILS # (AUTO) 0.2 (0.0-0.4); EOSINOPHILS % 3.6 % (0.0-6.0); HEMATOCRIT 24.9 % (38.2-49.6); LYMPHOCYTES # (AUTO) 1.4 (1.0-3.2); LYMPHOCYTES % 29.2 % (18.0-39.1); MEAN CORPUSCULAR HEMOGLOBIN 31.1 pg (28-32); MEAN CORPUSCULAR HGB CONC 32.1 g/dL (31-35); MEAN CORPUSCULAR VOLUME 96.9 fL (81-99); MONOCYTES # (AUTO) 0.6 (0.2-0.8); MONOCYTES % 12.3 % (4.4-11.3); NEUTROPHILS # (AUTO) 2.5 (2.1-6.9); NEUTROPHILS % 53.7 % (38.7-80.0); PLATELET COUNT 151 x10e3/uL (140-360); RED BLOOD COUNT 2.57 x10e6/uL (4.3-5.7); RED CELL DISTRIBUTION WIDTH 16.7 % (11.7-14.4)
[2018-09-24 05:28] LABS: ALBUMIN/GLOBULIN RATIO 0.9 (0.8-2.0); ANION GAP 11.2 mmol/L (8-16); CALCIUM 9.1 mg/dL (8.4-10.2); CREATININE, SERUM 1.6 mg/dL (0.72-1.25); POTASSIUM 3.2 mmol/L (3.5-5.1)
[2018-09-24 06:01] LABS: FOLATE 19.4 ng/mL (7.0-15.4)
[2018-09-24 06:22] LABS: FERRITIN 169.17 ng/mL (21.81-274.66)
--- NOTE | 2018-09-24 06:45 | NUR ---
Walking rounds done. Patient is resting in bed in NAD without any complaints voiced. POC discussed. Bed in lowest position, locked and call thomas within reach.
[2018-09-24] MEDS ORDERED: POTASSIUM CHLORIDE 20MEQ/100ML 100 ML IV ONE (07:30)
[2018-09-24] MEDS: CARVEDILOL 12.5 MG TAB PO SCH ×2 (08:00→17:00)
[2018-09-24] MEDS: DIAZEPAM 5 MG TAB PO SCH (08:56)
[2018-09-24 13:04] LABS: BASOPHILS % 0.2 % (0.0-1.0); EOSINOPHILS # (AUTO) 0.2 (0.0-0.4); EOSINOPHILS % 3.1 % (0.0-6.0); HEMATOCRIT 25.7 % (38.2-49.6); HEMOGLOBIN 8.3 g/dL (14.0-18.0); LYMPHOCYTES # (AUTO) 1.4 (1.0-3.2); MEAN CORPUSCULAR HEMOGLOBIN 31.9 pg (28-32); MEAN CORPUSCULAR HGB CONC 32.3 g/dL (31-35); MEAN CORPUSCULAR VOLUME 98.8 fL (81-99); MONOCYTES # (AUTO) 0.6 (0.2-0.8); MONOCYTES % 11.9 % (4.4-11.3); NEUTROPHILS # (AUTO) 2.9 (2.1-6.9); NEUTROPHILS % 56.4 % (38.7-80.0); PLATELET COUNT 151 x10e3/uL (140-360); RED CELL DISTRIBUTION WIDTH 16.7 % (11.7-14.4)
--- NOTE | 2018-09-24 19:10 | NUR ---
REPORT RECEIVED FROM OFF GOING NURSE, PT RESTING IN BED ALERT AND ORIENTED, PT POSITIONED FOR COMFORT AND SKIN BREAKDOWN PREVENTION, BED LOCKED AND LOW, PT DENIES NEEDS, CALL LIGHT IN REACH ,INSTRUCTED TO CALL WITH NEEDS, INDWELLING PAZ IN PLACE AND PATENT, TELEMETRY NOTED
[2018-09-24 19:54] LABS: BASOPHILS % 0.2 % (0.0-1.0); EOSINOPHILS # (AUTO) 0.1 (0.0-0.4); EOSINOPHILS % 2.6 % (0.0-6.0); HEMATOCRIT 25.4 % (38.2-49.6); HEMOGLOBIN 8.2 g/dL (14.0-18.0); LYMPHOCYTES # (AUTO) 1.4 (1.0-3.2); LYMPHOCYTES % 25.9 % (18.0-39.1); MEAN CORPUSCULAR HEMOGLOBIN 32.2 pg (28-32); MEAN CORPUSCULAR HGB CONC 32.3 g/dL (31-35); MEAN CORPUSCULAR VOLUME 99.6 fL (81-99); MONOCYTES # (AUTO) 0.6 (0.2-0.8); MONOCYTES % 10.7 % (4.4-11.3); NEUTROPHILS # (AUTO) 3.2 (2.1-6.9); NEUTROPHILS % 59.1 % (38.7-80.0); PLATELET COUNT 169 x10e3/uL (140-360); RED BLOOD COUNT 2.55 x10e6/uL (4.3-5.7); RED CELL DISTRIBUTION WIDTH 16.9 % (11.7-14.4)
[2018-09-24] MEDS: ATORVASTATIN 20 MG TAB PO SCH (21:00)
[2018-09-24] MEDS: ZOLPIDEM TARTRATE 5 MG TAB PO PRN (21:30)
[2018-09-25] MEDS ORDERED: PEG (High)/E-LYTE SOLN 4,000 ML BTL PO ONE ×3 (01:30→16:45)
[2018-09-25 04:00] VITALS: BP 122/58
[2018-09-25] MEDS: PANTOPRAZOL 40MG/SOD CHL 0.9% 50 ML IV SCH ×4 (04:05→21:15)
[2018-09-25 05:28] LABS: ANION GAP 12.4 mmol/L (8-16); CALCIUM 8.9 mg/dL (8.4-10.2); CREATININE, SERUM 1.69 mg/dL (0.72-1.25); POTASSIUM 3.4 mmol/L (3.5-5.1)
[2018-09-25 08:00] VITALS: BP 145/64
--- NOTE | 2018-09-25 08:30 | NUR ---
assessment complete no distress noted, updated on poc voiced understanding, whiting to bsds with yellow urine noted, pt on waffle bed, compression stocking in place, heel protectors in tact, redness noted to sacrum, unstageable wound noted to left heel with black eschar noted, wound care provided as per ordered, denies pain at this time, call light in reach will continue to monitor
[2018-09-25] MEDS: IRON SUCROSE 100 MG in SODIUM CHLORIDE 0.9% 100 ML 100 ML IV SCH (09:00)
[2018-09-25] MEDS: DIAZEPAM 5 MG TAB PO SCH (09:00)
[2018-09-25] MEDS: CARVEDILOL 12.5 MG TAB PO SCH ×2 (09:00→17:00)
--- NOTE | 2018-09-25 09:30 | NUR ---
20 g to right ac x2 sticks, pt tolerated. IV access patent.
[2018-09-25 12:00] VITALS: BP 130/60
[2018-09-25 16:00] VITALS: BP 111/56
--- NOTE | 2018-09-25 19:10 | NUR ---
REPORT RECEIVED FROM OFF GOING NURSE, PT RESTING IN BED ALERT AND ORIENTED, BOWEL PREP IN PROGRESS, NO NEEDS VOICED, PT DENIES NEEDS, HOB ELEVATED, INDWELLING PAZ IN PLACE AND PATENT, CALL LIGHT IN REACH, INSTRUCTED TO CALL WITH NEEDS
[2018-09-25 20:00] VITALS: BP 113/64
[2018-09-25] MEDS ORDERED: DIAZEPAM 5 MG TAB PO SCH (21:00)
[2018-09-25] MEDS: ATORVASTATIN 20 MG TAB PO SCH (21:00)
[2018-09-25] MEDS ORDERED: POTASSIUM CHLORIDE 20 MEQ TAB CR PO ONE (22:30)
[2018-09-26] VITALS (8 sets, daily range): BP systolic 124–141; BP diastolic 57–80
[2018-09-26] MEDS: PANTOPRAZOL 40MG/SOD CHL 0.9% 50 ML IV SCH ×5 (04:14→22:07)
--- NOTE | 2018-09-26 06:04 | NUR ---
PT RESTING IN BED ALERT AND ORIENTED,NO DISTRESS NOTED, DENIES NEEDS, CALL LIGHT IN REACH
[2018-09-26 06:07] LABS: BASOPHILS % 0.3 % (0.0-1.0); EOSINOPHILS # (AUTO) 0.3 (0.0-0.4); EOSINOPHILS % 4.5 % (0.0-6.0); HEMATOCRIT 24.2 % (38.2-49.6); HEMOGLOBIN 7.9 g/dL (14.0-18.0); LYMPHOCYTES # (AUTO) 1.8 (1.0-3.2); LYMPHOCYTES % 29.6 % (18.0-39.1); MEAN CORPUSCULAR HEMOGLOBIN 31.6 pg (28-32); MEAN CORPUSCULAR HGB CONC 32.6 g/dL (31-35); MEAN CORPUSCULAR VOLUME 96.8 fL (81-99); MONOCYTES # (AUTO) 0.6 (0.2-0.8); MONOCYTES % 9.7 % (4.4-11.3); NEUTROPHILS # (AUTO) 3.2 (2.1-6.9); NEUTROPHILS % 53.9 % (38.7-80.0); PLATELET COUNT 167 x10e3/uL (140-360); RED CELL DISTRIBUTION WIDTH 16.9 % (11.7-14.4)
[2018-09-26 06:26] LABS: ALANINE AMINOTRANSFERASE 11 IU/L (0-55); ALBUMIN 2.9 g/dL (3.5-5.0); ALBUMIN/GLOBULIN RATIO 0.9 (0.8-2.0); ALKALINE PHOSPHATASE 81 IU/L (40-150); ANION GAP 12.4 mmol/L (8-16); BLOOD UREA NITROGEN 29 mg/dL (7-26); BUN/CREATININE RATIO 25 (6-25); CALCIUM 8.8 mg/dL (8.4-10.2); CARBON DIOXIDE 29 mmol/L (22-29); CHLORIDE 106 mmol/L (98-107); CREATININE, SERUM 1.15 mg/dL (0.72-1.25); EST GLOMERULAR FILTRATION RATE > 60 ML/MIN (60-); GLUCOSE 86 mg/dL (74-118); POTASSIUM 3.4 mmol/L (3.5-5.1); SODIUM 144 mmol/L (136-145)
[2018-09-26] MEDS ORDERED: CITRATE OF MAGNESIA 300ML BOTTLE PO ONE ×2 (06:45→08:45)
[2018-09-26 07:13] LABS: EOSINOPHILS % (MANUAL) 3 % (0-7); LYMPHOCYTES % (MANUAL) 23 % (19-48); MONOCYTES % (MANUAL) 9 % (3.4-9.0); NEUTROPHILS % (MANUAL) 65 % (40-74); PLATELET ESTIMATE ADEQUATE; PLATELET MORPHOLOGY COMMENT NORMAL; RBC MORPHOLOGY COMMENT NORMAL
--- NOTE | 2018-09-26 07:40 | NUR ---
Spoke with Dr. Yannick De Leon regarding lab Hgb 7.2. No further orders given.
[2018-09-26] MEDS: IRON SUCROSE 100 MG in SODIUM CHLORIDE 0.9% 100 ML 100 ML IV SCH (09:00)
[2018-09-26] MEDS: CARVEDILOL 12.5 MG TAB PO SCH ×2 (09:15→17:00)
--- NOTE | 2018-09-26 15:34 | NUR ---
Nutrition Screen Note RD Recommendation for Physician: Advance diet as tolerated Plan of Care: RD following and monitoring for adequacy and tolerance Nutrition reason for involvement: LOS Primary Diagnose(s): Anemia, chronic atrial fibrillation, GIB Ht:73 in Wt:303lb BMI:40 kg/m2 IBW:184lb RD Assessment:(Date) Current Diet: clear liquid diet Malnutrition Evaluation (09/26/2018) The patient does not meet criteria for a specified degree of malnutrition at this time. Will re-evaluate at follow-up as appropriate. Diet Education Needs Assessment: Diet education not indicated. Diet Adequacy: Not meeting calorie needs, Not meeting protein needs Tolerance: Tolerating PO Nutrition Care Level:low Franklin Delgado RD, [facility], [facility] Addendum: 09/26/18 at 1543 by [address] Delgado DIET RD Assement : Initial encounter with patient. Pt denies any nausea, vomiting or diarrhea at this time Denies any difficulty chewing or swallowing. Reporting a good appetite and ready for diet to advance.
[2018-09-26] MEDS ORDERED: LIDOCAINE HCL 2% LOCAL INJ 5 ML SDV VIAL INJ ONE (17:44)
[2018-09-26] MEDS ORDERED: PROPOFOL IV EMULSION 10 MG/ML 50 ML VIAL ONE (17:44)
[2018-09-26] MEDS ORDERED: HYOSCYAMINE SULFATE 0.5 MG/ML INJ ONE (17:44)
[2018-09-26] MEDS ORDERED: FENTANYL CITRATE/PF 100MCG/2 ML INJ ONE (18:13)
--- NOTE | 2018-09-26 19:00 | NUR ---
REPORT RECEIVED FROM OFF GOING NURSE, PT DEPARTING UNIT TO OR, NO NEEDS VOICED, NO DISTRESS NOTED
--- NOTE | 2018-09-26 21:51 | NUR ---
PT ARRIVING BACK TO UNIT VIA HOSPITAL BED, PT ALERT AND ORIENTED, NO DISTRESS NOTED, INDWELLING PAZ IN PLACE, PT GIVEN PHONE TO CALL , HOB ELEVATED, OPTOMETRIST PLACED, PT DENIES NEEDS, BED LOCKED AND LOW, CALL LIGHT IN REACH, INSTRUCTED TO CALL WITH NEEDS
[2018-09-26] MEDS: DIAZEPAM 5 MG TAB PO SCH (22:00)
[2018-09-26] MEDS: ATORVASTATIN 20 MG TAB PO SCH (22:00)
[2018-09-27] VITALS (7 sets, daily range): BP systolic 105–152; BP diastolic 46–67
[2018-09-27] MEDS: PANTOPRAZOL 40MG/SOD CHL 0.9% 50 ML IV SCH ×4 (05:00→16:14)
[2018-09-27] MEDS: IRON SUCROSE 100 MG in SODIUM CHLORIDE 0.9% 100 ML 100 ML IV SCH (10:00)
[2018-09-27] MEDS: CARVEDILOL 12.5 MG TAB PO SCH ×2 (10:00→17:00)
--- NOTE | 2018-09-27 19:03 | NUR ---
Patient visited in room during nursing rounds. Patient alert and oriented x3. Patient states that he is paraplegic although patient still able to move both legs while lying in bed. Both legs noticeably very weak but left leg much weaker (in terms of movement) compared to right leg. Pat in place. Patient on Protonix drip at 10ml/hr. at bedside visiting. Patient's requests for Physical therapy to help with patient care. Nurse (Teja) to inform incoming dayshift or Dr. Ryan if he comes early in the morning. Patient being turned Q2hrs. Will continue to monitor patient.
--- NOTE | 2018-09-27 21:40 | NUR ---
Dr. Dexter De Leon came and visited patient in room. Dr. Yannick De Leon mentioned and explained to patient he is scheduled for Small Bowel Series next day (09/28/18). Patient agreed and understand MD instructions.
[2018-09-27] MEDS: DIAZEPAM 5 MG TAB PO SCH (23:23)
[2018-09-27] MEDS: ATORVASTATIN 20 MG TAB PO SCH (23:23)
[2018-09-28] VITALS: BP 143/68
[2018-09-28] MEDS: PANTOPRAZOL 40MG/SOD CHL 0.9% 50 ML IV SCH ×2 (01:20→05:46)
[2018-09-28 04:00] VITALS: BP 142/69
[2018-09-28] MEDS: MORPHINE SULFATE 2 MG/ML SYR IV PRN (06:10)
[2018-09-28 06:16] LABS: BASOPHILS % 0.4 % (0.0-1.0); EOSINOPHILS # (AUTO) 0.2 (0.0-0.4); EOSINOPHILS % 3.6 % (0.0-6.0); HEMOGLOBIN 7.4 g/dL (14.0-18.0); LYMPHOCYTES # (AUTO) 1.7 (1.0-3.2); LYMPHOCYTES % 30.2 % (18.0-39.1); MEAN CORPUSCULAR HEMOGLOBIN 31.8 pg (28-32); MEAN CORPUSCULAR HGB CONC 32.2 g/dL (31-35); MEAN CORPUSCULAR VOLUME 98.7 fL (81-99); MONOCYTES # (AUTO) 0.5 (0.2-0.8); MONOCYTES % 9.1 % (4.4-11.3); NEUTROPHILS % 54.3 % (38.7-80.0); PLATELET COUNT 166 x10e3/uL (140-360); RED BLOOD COUNT 2.33 x10e6/uL (4.3-5.7)
--- NOTE | 2018-09-28 06:20 | NUR ---
Dr. Ryan came and visited patient in room. aware of patient condition and aware pt is scheduled for Small Bowel Series.
[2018-09-28 06:34] LABS: ANION GAP 9.8 mmol/L (8-16); BLOOD UREA NITROGEN 17 mg/dL (7-26); BUN/CREATININE RATIO 15 (6-25); CALCIUM 8.8 mg/dL (8.4-10.2); CARBON DIOXIDE 27 mmol/L (22-29); CHLORIDE 109 mmol/L (98-107); CREATININE, SERUM 1.14 mg/dL (0.72-1.25); EST GLOMERULAR FILTRATION RATE > 60 ML/MIN (60-); GLUCOSE 88 mg/dL (74-118); SODIUM 143 mmol/L (136-145)
[2018-09-28 06:36] LABS: POTASSIUM 2.8 mmol/L (3.5-5.1)
[2018-09-28] MEDS ORDERED: POTASSIUM CHLORIDE 20MEQ/100ML 200 ML IV STA (06:36)
[2018-09-28] MEDS ORDERED: SODIUM CHLORIDE 0.9% 250ML 250 ML IV NR (07:00)
--- NOTE | 2018-09-28 07:13 | Progress Note ---
DATE: September 28, 2018 Patient is currently depressed. Has some abdominal pain, left lower quadrant, and also some groin pain and joint pain. OBJECTIVE VITAL SIGNS: Temperature is 97.6, pulse 66, blood pressure is 142/69, SpO2 of 97%, respirations of 18. GENERAL: Alert and oriented times 3. In no acute distress, but complains of some abdominal pain. Just received morphine. LUNGS: Clear to auscultation bilaterally. HEENT: Normocephalic and atraumatic. NECK: No JVD present. CARDIOVASCULAR: S1 and S2. Regular rate and rhythm. ABDOMEN: Tender in the left lower quadrant. EXTREMITIES: No clubbing. No cyanosis. Positive for edema. Multiple ecchymosis secondary to IV sticks. NEUROLOGIC: Paraplegia. Otherwise, no new deficits noted. LABS: Today's labs, white count is 5.9, hemoglobin 11.4, hematocrit of 23. No left shift present. Chemistry shows sodium of 144, potassium is 3.4, BUN 29, creatinine of 1.15. Vitamin B12 was 1168 and folate is 19.4. Patient's iron was 40 and percent saturation of 14. TIBC 276. Patient's potassium again is 3.4. ASSESSMENT 1. Acute gastrointestinal bleed: If the patient continues to bleed, will go ahead and get a small bowel series to see for any abnormalities. 2. Transfuse 1 unit of packed red blood cells today. 3. Acute kidney injury, which has resolved: Creatinine is 1.15 today. 4. Chronic atrial fibrillation: Will continue monitoring. No anticoagulation secondary to gastrointestinal bleed. 5. Iron deficiency anemia: Continue to monitor. 6. Paraplegia: Continue to monitor. 7. Hyperlipidemia: Will continue atorvastatin and pain control with morphine sulfate 1 mg q.4 h. The patient is on carvedilol and Zolpidem at nighttime. 8. The patient has iron sucrose for iron deficiency anemia. 9. Depression: The patient at this time does not warrant any medication. According to the patient, does not want any medicine at this time. I will go ahead and repeat his CBC and BMP tomorrow. Continue monitoring him. For further information, look into the chart. Job#: [id number]
[2018-09-28] MEDS: CARVEDILOL 12.5 MG TAB PO SCH ×2 (08:00→13:26)
[2018-09-28 08:52] VITALS: BP 140/64
[2018-09-28] MEDS: IRON SUCROSE 100 MG in SODIUM CHLORIDE 0.9% 100 ML 100 ML IV SCH (08:55)
--- NOTE | 2018-09-28 10:01 | NUR ---
SPOKE WITH JAIR WITH [facility]. REQUESTED A BARIATRIC AIR BED WITH [facility]. CONFIRMATION NUMBER [id number]. NURSING STAFF TO BE GIVEN BEDSIDE OPERATION INSTRUCTIONS UPON DELIVERY SET UP OF BED BY [facility].
[2018-09-28] MEDS: POTASSIUM CHLORIDE 20MEQ/100ML 100 ML IV SCH ×2 (11:00→20:45)
[2018-09-28 11:59] VITALS: BP 151/74
[2018-09-28 12:23] LABS: EOSINOPHILS % (MANUAL) 2 % (0-7); LYMPHOCYTES % (MANUAL) 26 % (19-48); MONOCYTES % (MANUAL) 6 % (3.4-9.0); NEUTROPHILS % (MANUAL) 66 % (40-74)
[2018-09-28 12:24] LABS: ANISOCYTOSIS SLIGHT; HYPOCHROMASIA MODERATE; PLATELET ESTIMATE ADEQUATE; POIKILOCYTOSIS SLIGHT
[2018-09-28 12:25] LABS: PLATELET MORPHOLOGY COMMENT NORMAL; RBC MORPHOLOGY COMMENT NORMAL
[2018-09-28] MEDS: SPIRONOLACTONE 25 MG TAB PO SCH (13:25)
--- NOTE | 2018-09-28 14:00 | NUR ---
PATIENT TRANSFERRED TO [facility] 3 ROOM 288. HAND OFF REPORT TO NURSE LACEY
--- NOTE | 2018-09-28 14:21 | Diagnostic Imaging Report ---
Small bowel follow-through dated 09/28/2018. History: Anemia. Discussion: The patient was given barium to drink. Multiple portable images images of the abdomen were obtained up to1 hour and 15 minutes. Fluoroscopic spot images were obtained of the terminal ileum and small bowel with and without compression. The small bowel motility, folds and caliber are normal. There is no evidence of intraluminal mass or extrinsic compression. Terminal ileum appears normal. Fluoroscopy time: 0.6 minutes Total dose: 34.51 mGy IMPRESSION: Normal upper GI with small bowel follow-through. Signed by: Dr. Natan Tillman DO on 09/28/2018 2:18 PM
--- NOTE | 2018-09-28 14:45 | NUR ---
PATIENT ARRIVED TO ROOM 288 AROUND 1430. HE IS IN STABLE CONDITION. PATIENT TRANSFERRED TO SPECIAL BED [facility], HE TOLERATED IT WELL. BED IN THE LOWEST POSITION. CALL LIGHT WITHIN REACH.
[2018-09-28] MEDS ORDERED: SODIUM CHLORIDE 0.9% 250ML 250 ML ONE ×2 (16:35→20:39)
--- NOTE | 2018-09-28 17:00 | NUR ---
UNIT OF BLOOD STARTED AT 1645. NO ADVERSE REACTIONS NOTED. POTASSIUM IV ON HOLD UNTIL UNIT IS TRANSFUSED.
[2018-09-28 17:10] VITALS: BP 134/77
[2018-09-28] MEDS ORDERED: POTASSIUM CHLORIDE 20MEQ/100ML 200 ML IV ONE (18:00)
--- NOTE | 2018-09-28 19:40 | NUR ---
REPORT GIVEN TO ONCOMING NURSE. PATIENT IS RESTING IN BED. NO S/S OF DISTRESS NOTED. NURSE NOTIFIED OF POTASSIUM NOT BEING GIVEN BUT NEEDS TO BE GIVEN AFTER BLOOD TRANSFUSION IS COMPLETED. CALL LIGHT WITHIN REACH. BED IN THE LOWEST POSITION.
--- NOTE | 2018-09-28 20:05 | NUR ---
prbc transfusion finished. vitals stable. no needs at this time.
[2018-09-28] MEDS: ATORVASTATIN 20 MG TAB PO SCH (20:09)
[2018-09-28 20:27] VITALS: BP 112/59
--- NOTE | 2018-09-28 22:57 | NUR ---
called dr warren. spoke with [employer] [facility]. called to clarify if he wants pt to receive dose of lasix post tranfusion. order was written on 09/21/18. no order for lasix entered today.
[2018-09-28] MEDS ORDERED: FUROSEMIDE INJ 10 MG/ML 2 ML VIAL IV ONE (23:15)
[2018-09-28] MEDS: DIAZEPAM 5 MG TAB PO SCH (23:29)
[2018-09-29] VITALS (7 sets, daily range): BP systolic 130–161; BP diastolic 60–71
[2018-09-29] MEDS: MORPHINE SULFATE 2 MG/ML SYR IV PRN ×2 (01:43→05:59)
[2018-09-29] MEDS: POTASSIUM CHLORIDE 20MEQ/100ML 100 ML IV SCH ×2 (01:44→05:50)
--- NOTE | 2018-09-29 04:52 | NUR ---
whiting/lakisha care performed. no needs at tyhis time.
--- NOTE | 2018-09-29 07:20 | NUR ---
RECEIVED PATIENT RESTING IN BED. NO S/S OF DISTRESS NOTED. DENIES PAIN OR DISCOMFORT AT THIS TIME. CALL LIGHT WITHIN REACH. BED IN THE LOWEST POSITION.
--- NOTE | 2018-09-29 07:40 | Progress Note ---
DATE: September 29, 2018 Patient is alert and oriented x3, is feeling fatigued, did sit by the bedside yesterday with physical therapy, has multiple questions, but is bleeding, ongoing bleeding, GI. OBJECTIVE VITAL SIGNS: Temperature 97.6, pulse 57, blood pressure is 154/71, respirations of 20, SpO2 of 99%. GENERAL: Patient is alert and oriented x3. LUNGS: Clear to auscultation. HEENT: Normocephalic, atraumatic. NECK: No JVD present. CARDIOVASCULAR: S1, S2. Regular. ABDOMEN: Nontender, nondistended. EXTREMITIES: No clubbing, no cyanosis, no edema. NEUROLOGIC: Baseline paraplegia. LABS: Pending today. Yesterday, potassium is 2.8. He got a total of 80 mEq of potassium yesterday. BUN of 17, creatinine of 1.4 yesterday. Hemoglobin 7.4, status post transfusion. Patient will get H and H done after transfusion. Liver enzymes are normal. ASSESSMENT 1. Gastrointestinal bleed. At this point of time, we still have not found the location of bleed. 2. 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 Possible needs surgical resection. 3. Small bowel series has been done yesterday, which showed no bleeding. 4. Chronic kidney disease, stable. 5. Congestive heart failure, stable. 6. Atrial fibrillation. Continue avoiding anticoagulant because of the bleed. 7. Paraplegia. Will continue helping the patient with his lower extremity. 8. Patient does have abdominal pain and seems to be in the suprapubic area. 9. Patient has urinary retention. Will consult Dr. Silveira for help with the Pat catheter and also, with the prostate. Further recommendation per clinical course. Medicines reviewed. For further information, look into the chart. We are going to repeat his H and H and potassium tomorrow. Job#: [id number] CQ
--- NOTE | 2018-09-29 07:45 | NUR ---
CALLED DR. OFELIA ELKINS FOR NEW CONSULT, SPOKE TO YUSRA WITH THE ANSWERING SERVICE.
[2018-09-29] MEDS: POLYETHYLENE GLYCOL 3350 17 GM PACK PO SCH (08:22)
[2018-09-29] MEDS: SENNOSIDES 8.6 MG TAB PO SCH (08:22)
[2018-09-29] MEDS: SPIRONOLACTONE 25 MG TAB PO SCH (08:22)
[2018-09-29] MEDS: CARVEDILOL 12.5 MG TAB PO SCH ×2 (08:24→16:30)
[2018-09-29] MEDS: IRON SUCROSE 100 MG in SODIUM CHLORIDE 0.9% 100 ML 100 ML IV SCH (10:21)
--- NOTE | 2018-09-29 10:48 | NUR ---
Pt sleeping soundly and no family present. KAT SIMON Robotic Weld Technician Spiritual Care Department O: [phone] Pager: [phone] ([phone] number calling from)
[2018-09-29 12:27] LABS: BASOPHILS % 0.2 % (0.0-1.0); EOSINOPHILS # (AUTO) 0.2 (0.0-0.4); EOSINOPHILS % 2.4 % (0.0-6.0); HEMOGLOBIN 8.9 g/dL (14.0-18.0); LYMPHOCYTES % 15.7 % (18.0-39.1); MEAN CORPUSCULAR HEMOGLOBIN 32.1 pg (28-32); MEAN CORPUSCULAR VOLUME 97.5 fL (81-99); MONOCYTES # (AUTO) 0.6 (0.2-0.8); MONOCYTES % 8.4 % (4.4-11.3); NEUTROPHILS # (AUTO) 4.8 (2.1-6.9); NEUTROPHILS % 72.4 % (38.7-80.0); PLATELET COUNT 157 x10e3/uL (140-360); RED BLOOD COUNT 2.77 x10e6/uL (4.3-5.7); RED CELL DISTRIBUTION WIDTH 16.6 % (11.7-14.4)
[2018-09-29 13:34] LABS: ALBUMIN 2.9 g/dL (3.5-5.0); ALBUMIN/GLOBULIN RATIO 0.8 (0.8-2.0); ANION GAP 12.1 mmol/L (8-16); CALCIUM 8.9 mg/dL (8.4-10.2); CREATININE, SERUM 1.28 mg/dL (0.72-1.25); POTASSIUM 4.1 mmol/L (3.5-5.1)
--- NOTE | 2018-09-29 19:24 | NUR ---
REPORT GIVEN TO ONCOMING NURSE. PATIENT IS RESTING IN BED. NO S/S OF DISTRESS NOTED. CALL LIGHT WITHIN REACH. BED IN THE LOWEST POSITION.
[2018-09-29] MEDS: ATORVASTATIN 20 MG TAB PO SCH (20:42)
[2018-09-29] MEDS ORDERED: POLYETHYLENE GLYCOL 3350 17 GM PACK PO ONE (22:45)
[2018-09-29] MEDS: DIAZEPAM 5 MG TAB PO SCH (22:56)
[2018-09-30] VITALS: BP 140/63
--- NOTE | 2018-09-30 03:00 | NUR ---
pt got a bedbath. whiting/lakisha care performed at this time.
[2018-09-30 04:00] VITALS: BP 176/66
[2018-09-30 05:21] LABS: BASOPHILS % 0.3 % (0.0-1.0); EOSINOPHILS # (AUTO) 0.2 (0.0-0.4); EOSINOPHILS % 3.2 % (0.0-6.0); HEMATOCRIT 26.5 % (38.2-49.6); HEMOGLOBIN 8.5 g/dL (14.0-18.0); LYMPHOCYTES # (AUTO) 1.1 (1.0-3.2); LYMPHOCYTES % 18.9 % (18.0-39.1); MEAN CORPUSCULAR HEMOGLOBIN 31.3 pg (28-32); MEAN CORPUSCULAR HGB CONC 32.1 g/dL (31-35); MEAN CORPUSCULAR VOLUME 97.4 fL (81-99); MONOCYTES # (AUTO) 0.5 (0.2-0.8); MONOCYTES % 8.6 % (4.4-11.3); NEUTROPHILS % 68.2 % (38.7-80.0); PLATELET COUNT 148 x10e3/uL (140-360); RED BLOOD COUNT 2.72 x10e6/uL (4.3-5.7); RED CELL DISTRIBUTION WIDTH 16.8 % (11.7-14.4)
[2018-09-30 05:43] LABS: ANION GAP 11.3 mmol/L (8-16); CALCIUM 8.8 mg/dL (8.4-10.2); CREATININE, SERUM 1.19 mg/dL (0.72-1.25); POTASSIUM 3.3 mmol/L (3.5-5.1)
--- NOTE | 2018-09-30 07:51 | Progress Note ---
DATE: September 30, 2018 SUBJECTIVE: This patient came in for GI bleed. Currently, the patient is alert and oriented x3. No complaints. Currently, the patient is doing well, asymptomatic. Periods of bradycardia noted on the telemetry. The patient is chest pain free and no shortness of breath. Has some depression going on. OBJECTIVE VITAL SIGNS: Temperature is 97.5, blood pressure is 176/66, SpO2 of 96%, pulse of 67. HEENT: Normocephalic, atraumatic. Pupils reactive to light and accommodation. CVS: S1, S2 regular. ABDOMEN: Nontender, nondistended. EXTREMITIES: No clubbing, no cyanosis. NEUROLOGIC: Paraplegia. LABS: Today, his hemoglobin is 8.5, hematocrit 26.5. BUN 15 and creatinine 1.19. ASSESSMENT 1. Gastrointestinal bleed, better. Will stay away from anticoagulation at this time. 2. Duodenal bulb mass, surgery to look into it. Possible resection. 3. Chronic kidney disease, stable. 4. Congestive heart failure, stable. 5. Atrial fibrillation. Continue monitoring the patient. 6. Paraplegia. Continue with physical therapy. 7. Abdominal pain and urinary retention. Dr. Silveira has been consulted. PLAN: Start SNF evaluation. Disposition will be going to SNF pending surgical evaluation. Further recommendation per clinical course. Job#: [id number] JAMEY
[2018-09-30 08:00] VITALS: BP 136/63
[2018-09-30] MEDS ORDERED: POTASSIUM CHLORIDE 20 MEQ TAB CR PO ONE (08:10)
[2018-09-30] MEDS: IRON SUCROSE 100 MG in SODIUM CHLORIDE 0.9% 100 ML 100 ML IV SCH (08:19)
[2018-09-30] MEDS: POLYETHYLENE GLYCOL 3350 17 GM PACK PO SCH (08:20)
[2018-09-30] MEDS: SPIRONOLACTONE 25 MG TAB PO SCH (08:20)
[2018-09-30] MEDS: CARVEDILOL 12.5 MG TAB PO SCH ×2 (08:20→17:17)
[2018-09-30] MEDS: SENNOSIDES 8.6 MG TAB PO SCH (08:20)
--- NOTE | 2018-09-30 08:20 | NUR ---
Pt received resting in bed. Alert and oriented x4 with h/o lower extremities paralysis. Pt's own wheelchair in room. Pt is on speciality bed that turns and repositions. Pt oriented to staff and surroundings, and encouraged to press call thomas if help needed. Pt verbalized understanding of teaching. All meds given as ordered. Fall precautions maintained. Call thomas within reach. Will monitor.
[2018-09-30 12:00] VITALS: BP 157/76
--- NOTE | 2018-09-30 12:49 | NUR ---
SPOKE WITH PATIENT ABOUT SNF ORDER. HE STATES HE HE HAS BEEN TO SNF BEFORE AND WAS NOT HAPPY WITH THE SERVICES, HE STATES THEY WILL NOT GIVE HIM HIS CATHS FOR HIS STRAIGHT CATHS NOR AN AIR MATTRESS DUE TO NOT QUALIFYING FOR ONE. HE STATES HE HAS ALL THE EQUIPMENT AT HOME HE NEEDS AND WOULD PREFER TO GO HOME. ADVISED CM OF CONVERSATION.
--- NOTE | 2018-09-30 15:38 | Diagnostic Imaging Report ---
Testicular/scrotal ultrasound CPT code: 59541, 88466 Indication:Left scrotal pain for one year. 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 Comparison: No prior studies for comparison. Findings: Right testicle: Absent. No mass in the visualized right hemiscrotum. Left testicle measures 2.1 x 2.2 x 3.5 cm. Epididymal head measures 8 x 9 x 7 mm. The testis is homogeneous in echo texture without mass. Vascular flow documented within. Blood flow: Normal color Doppler and spectral Doppler waveforms are present in the left testis. No hydrocele. No varicocele. Images of the left inguinal canal demonstrate no evidence of hernia. IMPRESSION: No mass or other abnormality to explain left testicular pain. Right orchiectomy. Signed by: Dr. Andreas Brewster MD on 09/30/2018 3:35 PM
[2018-09-30 16:00] VITALS: BP 141/63
--- NOTE | 2018-09-30 16:47 | NUR ---
CASE MANAGEMENT INITIAL ASSESSMENT Process Development Associate to bedside to discuss plan of care with patient/family. CM/SW role and care transitions discussed. Anticipated discharge plan discussed along with duration of care. CM/SW discussed patients right to make decisions in care. CM/SW work hours given. Patient lives: WITH IN A 1.5 STORY HOME. Admit/Transfer: FROM HOME POA/Emergency contact: ; HILARY DMOINGO Current/Previous Home Health: [facility]; SN 2X/WEEK FOR WOUND CARE, PT 3X/WEEK PCP/Follow-up Care: DR. 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 Areas of Concerns: NEEDS BM, NOT GETTING OOB TO WC; SELF CATH AT HOME, BUT HAS PAZ AT THIS TIME. Referral Needs: NONE AT THIS TIME. PT DOES NOT WANT SNF Education Needs: NONE AT THIS TIME IMM/GUZMAN given and signed (if applicable): NOT AT THIS TIME Goal for discharge: RETURN HOME. CM/SW left business card at the bedside with contact information. Name and number was also written on the patients whiteboard. Patient verbalized understanding of discussion. CM will follow-up with ongoing discharge and transition of care needs. Addendum: 09/30/18 at 1707 by Ashlee Horowitz CM PT REQUESTED THAT HE HAS A DIAPER ON, HIS COMPRESSION STOCKING AND BRACES ON PRIOR TO WORKING WITH PT.
--- NOTE | 2018-09-30 17:07 | NUR ---
SPOKE W KEELEY Geronimo PHYSICAL THERAPY ABOUT COORDINATING CARE FOR THE PT. PT HAD EXPRESSED HE GETS UP IN HIS WC AT HOME, BUT NEEDS A DIAPER ON, COMPRESSION STOCKINGS AND HIS BRACES PRIOR TO GETTING UP. STATES HIS ASSISTS HIM AT HOME. STATES HE HAD NOT HAD A BM SINCE FRIDAY, BECAUSE HE WAS NOT SUCCESSFUL AT GETTING OUT OF THE BED. STATES HE HAD ONLY SAT AT THE EDGE OF THE BED. KEELEY WENT TO THE BEDSIDE W CM. WAS PRESENT. ASSESSED THE PT'S NEEDS. PT STATES HE HAD BEEN UP IN THE WC TODAY. STATES HE WAS PASSING GAS, BUT NO BM YET. EXPRESSED HE FELT BETTER. KEELEY REMOVED THE BRACES FROM THE PT'S LEGS. PT STATES HE CAN TRANSFER HIMSELF FROM THE BED TO THE WC. THE STATES SHE HAS HAD TO HELP HIM WITH HIS STOCKINGS AND BRACES SINCE HIS NOVEMBER ADMISSION TO THE HOSPITAL. KEELEY STATES THEY WILL JUST HAVE TO COORDINATE THE PT'S PT VISITS WITH NURSING TO ASSURE HE HAS HIS BRACES AND HOSE ON. OFFERED TO ASSIST IF NEEDED. CM WILL CONT TO FOLLOW PT.
--- NOTE | 2018-09-30 19:30 | NUR ---
RECEIVED CHANGE OF SHIFT REPORT FROM am NURSE. WALKING ROUNDS COMPLETED.
[2018-09-30 20:00] VITALS: BP 133/63
[2018-09-30] MEDS: ATORVASTATIN 20 MG TAB PO SCH (21:00)
[2018-09-30] MEDS: DIAZEPAM 5 MG TAB PO SCH (21:00)
--- NOTE | 2018-09-30 22:00 | NUR ---
Patient in bed in sitting position. Eyes closed but respond when name is called. Patient AAOx3. Denies pain at this time. Patient states he need to have a BM. Will f/u with meds to promote BM. 20G to left AC dry, patent and intact. Patient repositioned q 2 hours and PRN. Continue monitor for changes in condition.
[2018-10-01] VITALS (7 sets, daily range): BP systolic 129–165; BP diastolic 59–70
[2018-10-01] MEDS ORDERED: BISACODYL 5 MG TAB EC PO ONE ×2 (02:30→03:30)
--- NOTE | 2018-10-01 02:35 | NUR ---
Dr De Leon on the floor to see patient. Orders written and completed as ordered.
[2018-10-01 05:13] LABS: BASOPHILS % 0.2 % (0.0-1.0); EOSINOPHILS # (AUTO) 0.1 (0.0-0.4); EOSINOPHILS % 1.8 % (0.0-6.0); HEMATOCRIT 25.5 % (38.2-49.6); HEMOGLOBIN 8.3 g/dL (14.0-18.0); LYMPHOCYTES # (AUTO) 1.3 (1.0-3.2); LYMPHOCYTES % 20.3 % (18.0-39.1); MEAN CORPUSCULAR HEMOGLOBIN 31.8 pg (28-32); MEAN CORPUSCULAR HGB CONC 32.5 g/dL (31-35); MEAN CORPUSCULAR VOLUME 97.7 fL (81-99); MONOCYTES # (AUTO) 0.7 (0.2-0.8); MONOCYTES % 10.5 % (4.4-11.3); NEUTROPHILS # (AUTO) 4.2 (2.1-6.9); NEUTROPHILS % 66.2 % (38.7-80.0); PLATELET COUNT 144 x10e3/uL (140-360); RED BLOOD COUNT 2.61 x10e6/uL (4.3-5.7); RED CELL DISTRIBUTION WIDTH 16.9 % (11.7-14.4)
[2018-10-01 05:30] LABS: ANION GAP 11.5 mmol/L (8-16); BLOOD UREA NITROGEN 17 mg/dL (7-26); BUN/CREATININE RATIO 16 (6-25); CALCIUM 8.5 mg/dL (8.4-10.2); CARBON DIOXIDE 24 mmol/L (22-29); CHLORIDE 108 mmol/L (98-107); CREATININE, SERUM 1.07 mg/dL (0.72-1.25); EST GLOMERULAR FILTRATION RATE > 60 ML/MIN (60-); GLUCOSE 90 mg/dL (74-118); POTASSIUM 3.5 mmol/L (3.5-5.1); SODIUM 140 mmol/L (136-145)
--- NOTE | 2018-10-01 06:36 | NUR ---
Patient resting quitly at this time.
--- NOTE | 2018-10-01 07:37 | Progress Note ---
DATE: October 01, 2018 Patient is alert and oriented. Has no complaints except for constipation and also left hip pain. Had an ultrasound of the scrotum, which was normal yesterday. The patient is scheduled for an EGD to really look into the duodenal mass. OBJECTIVE VITALS: Temperature is 97.8, pulse of 60, blood pressure is 129/59, SpO2 97%. GENERAL: The patient is alert and oriented times 3. LUNGS: Clear to auscultation bilaterally. CV: S1 and S2 irregular. NECK: No JVD present. ABDOMEN: Nontender and nondistended. EXTREMITIES: No clubbing. No cyanosis. No edema. NEUROLOGIC: Baseline paraplegia. MEDICATIONS 1. Atorvastatin 20 mg. 2. . 3. Valium 10 mg at nighttime. 4. Aldactone 25 mg. 5. Carvedilol 6.25 mg twice a day. LABS: Sodium is 140, potassium is 3.5, BUN is 17, creatinine 1.07. Hemoglobin is 8.3, hematocrit of 25.3. INR is 1.02. ASSESSMENT 1. Anemia secondary to gastrointestinal bleed: The patient's bleed type has not been noted. The patient's CBC is stable with a hemoglobin of 8.3 in that range. 2. The patient has a duodenal bulb polyp, quite enlarged: The patient is going to have an esophagogastroduodenoscopy with Dr. Velarde and Dr. Dexter De Leon in the morning. 3. Atrial fibrillation: No anticoagulation, high risk for bleeding. 4. Congestive heart failure: Continue on Lasix. 5. Hypertension. 6. Paraplegia. 7. Urinary retention: Continue with Pat catheter. Can remove the catheter before he goes home. PLAN: Again, would be to do EGD to visualize the polyp and whether it can be removed or not. Further recommendations per clinical course. The patient can go home. He transferred yesterday with physical therapy to bed once the EGD is done. Job#: [id number] CORY
--- NOTE | 2018-10-01 08:00 | NUR ---
Pt received resting in bed. Alert and oriented x4. Attempted to obtain consent for procedure (EGD), but pt stated that he already had breakfast. Refused to sign consent until "the doctor tells me why I have to do this procedure that I already had done". OR called. Will follow up
[2018-10-01] MEDS: CARVEDILOL 12.5 MG TAB PO SCH ×2 (09:00→17:27)
[2018-10-01] MEDS: POLYETHYLENE GLYCOL 3350 17 GM PACK PO SCH (09:00)
[2018-10-01] MEDS: SENNOSIDES 8.6 MG TAB PO SCH (09:00)
--- NOTE | 2018-10-01 09:50 | NUR ---
Dr. Мария Velarde spoke to pt, and pt will have procedure done tomorrow
--- NOTE | 2018-10-01 10:00 | NUR ---
EGD rescheduled for Am. NPO after Midnight order placed. Will endorse to oncoming shift
[2018-10-01] MEDS: IRON SUCROSE 100 MG in SODIUM CHLORIDE 0.9% 100 ML 100 ML IV SCH (10:02)
--- NOTE | 2018-10-01 10:56 | Diagnostic Imaging Report ---
Testicular/scrotal ultrasound CPT code: 34828, 74671 Indication:Left scrotal pain for one year. 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 Comparison: No prior studies for comparison. Findings: Right testicle: Absent. No mass in the visualized right hemiscrotum. Left testicle measures 2.1 x 2.2 x 3.5 cm. Epididymal head measures 8 x 9 x 7 mm. The testis is homogeneous in echo texture without mass. Vascular flow documented within. Blood flow: Normal color Doppler and spectral Doppler waveforms are present in the left testis. No hydrocele. No varicocele. Images of the left inguinal canal demonstrate no evidence of hernia. IMPRESSION: No mass or other abnormality to explain left testicular pain. Right orchiectomy. Signed by: Dr. Andreas Brewster MD on 09/30/2018 3:35 PM
--- NOTE | 2018-10-01 11:45 | NUR ---
Visit made by the Spiritual Care Department Pastoral Visitor, Luigi Overton. PV provided pastoral presence, prayer, hospitality, and supportive listening. Pastoral Visitor informed pt/family of the scope of [employer] Data Developer Services and availability. KAT SIMON Herb Counselor Spiritual Care Department O: [phone] Pager: [phone] ([phone] number calling from)
[2018-10-01] MEDS: SPIRONOLACTONE 25 MG TAB PO SCH (17:27)
--- NOTE | 2018-10-01 18:40 | NUR ---
Consent obtained for Procedure tomorrow
--- NOTE | 2018-10-01 19:33 | NUR ---
Report given to oncoming nurse. Emotional support given. Endorsed to next shift
--- NOTE | 2018-10-01 19:38 | NUR ---
Received change of shift report from AM nurse. Walking rounds completed.
[2018-10-01] MEDS: TRAZODONE HCL 50 MG TAB PO SCH (20:32)
[2018-10-01] MEDS: DIAZEPAM 5 MG TAB PO SCH (20:32)
[2018-10-01] MEDS: ATORVASTATIN 20 MG TAB PO SCH (20:32)
[2018-10-01] MEDS: BALSAM PERU/CASTOR OIL 60 GM OINT...G. TP SCH (20:33)
[2018-10-02] VITALS (7 sets, daily range): BP systolic 117–143; BP diastolic 54–69
--- NOTE | 2018-10-02 00:04 | NUR ---
Patient c/o of pain to left upper inter thigh = 08/12. Dr Connor benitez. No pain meds ordered at this time. Waiting for call back.
--- NOTE | 2018-10-02 01:46 | NUR ---
Received call back from . Received order for pain meds. Meds given as ordered by .
[2018-10-02] MEDS: MORPHINE SULFATE INJ 4 MG/ML INJ IV PRN (02:21)
[2018-10-02] MEDS: ONDANSETRON HCL INJ 2 MG/ML VIAL IV PRN (02:22)
--- NOTE | 2018-10-02 05:21 | NUR ---
Patient resting quitly at this time. Continue monitor.
--- NOTE | 2018-10-02 07:22 | NUR ---
PATIENT ASSISTED WITH DIAPER CHANGE AND REPOSITIONING, HAD A LARGE BM. ON SPECIALTY BED, PAZ WITH YELLOW URINE, HEEL PROTECTORS AND SCD IN PLACE, LEFT HEEL ESCHAR WITH FOAM DRESSING IN PLACE, REDNESS TO SACRUM. BED IN LOWER POSITION, CALL LIGHT AT REACH.
--- NOTE | 2018-10-02 07:28 | Progress Note ---
DATE: October 02, 2018 Patient comes in with acute GI bleed, atrial fibrillation. Patient is currently in pain from the hip, did receive 2 g of morphine last night secondary to the pain, is sleepy. OBJECTIVE GENERAL: Alert and oriented otherwise x3. VITALS: Temperature 98.6, pulse of 59, blood pressure is 117/54, respiration of 18, SpO2 of 95%. HEENT: Normocephalic, atraumatic. LUNGS: Clear to auscultation bilaterally. ABDOMEN: Nontender, nondistended. EXTREMITIES: No clubbing, no cyanosis, no edema. Paraplegia. CV: S1, S2, irregularly irregular. MEDS: Patient is on 1. Carvedilol 6.25 mg. 2. Iron sucrose every 24 hours. 3. Lasix 20 mg. 4. Atorvastatin 20. LAB VALUES: Yesterday's hemoglobin was 8.3, hematocrit of 25.4. BUN 17, creatinine of 1.07. Patient did not have EGD yesterday because he was fed. ASSESSMENT 1. Acute gastrointestinal bleed. Hemoglobin stable. Will continue monitoring it. Colonoscopy/endoscopy were essentially normal except for large duodenal polyp. Esophagogastroduodenoscopy to be done today to visualize with Dr. Velarde. 2. Hyperlipidemia. Continue on atorvastatin. 3. Atrial fibrillation. No anticoagulation secondary to bleed. 4. Paraplegia. Continue helping the patient and also, prevention of sacral ulcers and continue with carvedilol for atrial fibrillation. Morphine for pain control. Patient is transferring with help to bed, can be discharged home after EGD is done and/or depending on surgical plan. Job#: [id number]
[2018-10-02] MEDS: SPIRONOLACTONE 25 MG TAB PO SCH (09:00)
[2018-10-02] MEDS: POLYETHYLENE GLYCOL 3350 17 GM PACK PO SCH ×2 (09:00→16:30)
[2018-10-02] MEDS: CARVEDILOL 12.5 MG TAB PO SCH ×2 (09:00→17:45)
[2018-10-02] MEDS: SENNOSIDES 8.6 MG TAB PO SCH ×2 (09:00→16:30)
[2018-10-02] MEDS: BALSAM PERU/CASTOR OIL 60 GM OINT...G. TP SCH ×2 (09:22→21:50)
[2018-10-02] MEDS: IRON SUCROSE 100 MG in SODIUM CHLORIDE 0.9% 100 ML 100 ML IV SCH (09:44)
--- NOTE | 2018-10-02 11:51 | NUR ---
PATIENT IN BED RESTING WITH EYES CLOSED. REMAINED NPO FOR A PROCEDURE. CALL LIGHT AT REACH.
--- NOTE | 2018-10-02 13:30 | NUR ---
PATIENT OFF UNIT FOR A PROCEDURE.
[2018-10-02] MEDS ORDERED: PROPOFOL IV EMULSION 10 MG/ML 50 ML VIAL ONE (14:50)
--- NOTE | 2018-10-02 15:10 | NUR ---
PATIENT BACK TO UNIT, HAD AND EGD DONE. FINDINGS ARE HIATAL HERNIA, GASTRITIS, AND LARGE POLYPS BIOPSY, PER PACU NURSE. ALERT AND VERBALLY RESPONSIVE, DENIED PAIN AT THIS TIME. REQUESTED AND RECEIVED SOME WATER. V/S 97.7-71-18-135/63 AND 96% ON RA. BED IN LOWER POSITION, CALL LIGHT AT REACH.
--- NOTE | 2018-10-02 15:39 | Operative Report ---
DATE OF PROCEDURE: October 02, 2018 REFERRING PHYSICIAN: Dr. Justin Ryan. PROCEDURE PERFORMED: Esophagogastroduodenoscopy with polypectomy. INDICATIONS FOR PROCEDURE: History of large duodenal bulb lesion. Procedure is being carried out in the presence of Dr. Alberto Velarde, general surgeon, in case surgical intervention is in order. MEDICATION: Patient was done under MAC. Please see anesthesiologist's note. PROCEDURE: With the patient in the left lateral decubitus position, the flexible fiberoptic Olympus gastroscope was introduced into the esophagus under direct visualization without any difficulty. There was some patchy erythema noted in the distal esophagus. The scope was then advanced with ease into the stomach, traversing a small sliding hiatal hernia. Mucosa overlying the antrum and the body revealed some patchy areas of erythema. Pylorus was of normal contour and shape, was intubated with ease, and the scope was advanced all the way to the 2nd portion of the duodenum. The scope was then withdrawn slowly, and the previously described sessile lesion proximal 2nd portion was noted and it was partially resected with the snare electrocautery. The large polypoid lesion in the duodenal bulb was again noted, and it was wedge biopsied per cold polypectomy snare. It was the opinion of Dr. Velarde at the time that this might be a lipoma and probably would be best to watch the patient. The scope was then withdrawn back into the stomach and retroflexed. Mucosa overlying the fundus and the cardia appeared to be within normal limits. The scope was then straightened out. It was subsequently withdrawn. Patient tolerated the procedure well. IMPRESSION: 1. Mild distal esophagitis. 2. Small sliding hiatal hernia. 3. Gastritis, mild. 4. Large polypoid lesion duodenal bulb wedge biopsied per cold snare. 5. A previously described sessile polypoid lesion proximal 2nd portion partially resected per snare electrocautery. PLAN: Follow up histology. It was the opinion of Dr. Velarde that this could be a lipoma, and as long as the patient is doing better we will most likely follow the patient. Surgery currently is not indicated considering patient's comorbidities. Findings and plan discussed with patient's . Job#: [id number] EV cc:MD ALBERTO DAMICO MD
--- NOTE | 2018-10-02 18:18 | NUR ---
Nutrition Screen Note RD Recommendation for Physician -Advance to GI soft diet as medically appropriate -Encourage PO and hydration Plan of Care: RD following and monitoring for adequacy and tolerance Nutrition reason for involvement: Follow up Primary Diagnose(s): Anemia, chronic atrial fibrillation, GIB Ht:73 in Wt:303lb BMI:40 kg/m2 IBW:184lb RD Assessment: 10/02/2018: Chart reviewed. Colonoscopy/endoscopy were essentially normal except for large duodenal polyp. Visited pt in the room. Pt reports of some discomfort after EGD today. No complain of N/V. LBM- 10/01, no blood noted. ADA diet has been ordered. However, I do not see any hx of DM and his BG is WNL. Will continue to monitor and follow. : Initial encounter with patient. Pt denies any nausea, vomiting or diarrhea at this time Denies any difficulty chewing or swallowing. Reporting a good appetite and ready for diet to advance. Current Diet: ADA diet Malnutrition Evaluation (09/26/2018) The patient does not meet criteria for a specified degree of malnutrition at this time. Will re-evaluate at follow-up as appropriate. Diet Education Needs Assessment: Diet education not indicated. Diet Adequacy: N/A Tolerance: N/A Nutrition Care Level: low Gina Dias, MS, RD, LD
--- NOTE | 2018-10-02 19:13 | NUR ---
PT IS RESTING IN BED. NO RESPIRATORY DISTRESS NOTED. BED IN THE LOWEST POSITION, LOCKED, AND CALL LIGHT WITHIN REACH. WILL CONTINUE TO MONITOR.
--- NOTE | 2018-10-02 20:08 | NUR ---
SPOKE TO DR James ELKINS IN REGARD TO PICC LINE NO BEING PLACE. A MIDLINE WAS PLACE INSTEAD AND NOTIFIED HIM IF THAT WAS OKAY. PER DR ELKINS MIDLINE IS OKAY. WILL CONTINUE TO MONITOR.
[2018-10-02] MEDS: TRAZODONE HCL 50 MG TAB PO SCH (21:50)
[2018-10-02] MEDS: DIAZEPAM 5 MG TAB PO SCH (21:50)
[2018-10-02] MEDS: ATORVASTATIN 20 MG TAB PO SCH (21:50)
[2018-10-03] VITALS (7 sets, daily range): BP systolic 120–142; BP diastolic 57–65
[2018-10-03 05:12] LABS: BASOPHILS % 0.4 % (0.0-1.0); EOSINOPHILS # (AUTO) 0.1 (0.0-0.4); EOSINOPHILS % 1.5 % (0.0-6.0); HEMATOCRIT 26.9 % (38.2-49.6); HEMOGLOBIN 8.6 g/dL (14.0-18.0); LYMPHOCYTES # (AUTO) 0.9 (1.0-3.2); MEAN CORPUSCULAR HEMOGLOBIN 31.4 pg (28-32); MEAN CORPUSCULAR VOLUME 98.2 fL (81-99); MONOCYTES # (AUTO) 0.6 (0.2-0.8); MONOCYTES % 11.7 % (4.4-11.3); NEUTROPHILS # (AUTO) 3.8 (2.1-6.9); NEUTROPHILS % 69.5 % (38.7-80.0); PLATELET COUNT 154 x10e3/uL (140-360); RED BLOOD COUNT 2.74 x10e6/uL (4.3-5.7); RED CELL DISTRIBUTION WIDTH 16.6 % (11.7-14.4)
[2018-10-03 05:38] LABS: ANION GAP 11.3 mmol/L (8-16); BLOOD UREA NITROGEN 16 mg/dL (7-26); BUN/CREATININE RATIO 15 (6-25); CARBON DIOXIDE 24 mmol/L (22-29); CHLORIDE 108 mmol/L (98-107); CREATININE, SERUM 1.09 mg/dL (0.72-1.25); EST GLOMERULAR FILTRATION RATE > 60 ML/MIN (60-); GLUCOSE 86 mg/dL (74-118); POTASSIUM 3.3 mmol/L (3.5-5.1); SODIUM 140 mmol/L (136-145)
--- NOTE | 2018-10-03 06:30 | NUR ---
PT IS RESTING IN BED. NO ACUTE EVENT OCCURRED THROUGHOUT THE NIGHT. BED IN LOWEST POSITION, LOCKED, AND CALL LIGHT WITHIN REACH. WILL CONTINUE TO MONITOR.
--- NOTE | 2018-10-03 07:10 | NUR ---
PT RESTING IN BED AA0X3. PT IS IN NO S.S OF DISTRESS. DENIES PAIN. PT IS ON AN ROTATIONAL MATTRESS. UNABLE TO MOVE LOWER EXTREMITIES. SED ON. PT HAS A PAZ CATH WITH CLOUDY YELLOW URINE NOTED ON PAZ BAG. PT IS ON TELEMETRY READING A FIB AT A CONTROLLED RATE. PT HAS A LEFT FA 20 SL AND RIGHT UPPER ARM MIDLINE. BOTH SITES ARE DRY AND INTACT. WILL CONTINUE TO CARE FOR PT AT THIS TIME. SIDE RAILSX2, BED WHEELS LOCKED, CALL LIGHT IS WITHIN EASY REACH, INSTRUCTED TO CALL FOR ASSISTANCE IF NEEDED
[2018-10-03] MEDS: IRON SUCROSE 100 MG in SODIUM CHLORIDE 0.9% 100 ML 100 ML IV SCH (08:45)
[2018-10-03] MEDS: SPIRONOLACTONE 25 MG TAB PO SCH (08:45)
[2018-10-03] MEDS: CARVEDILOL 12.5 MG TAB PO SCH ×2 (08:45→17:48)
[2018-10-03] MEDS: POLYETHYLENE GLYCOL 3350 17 GM PACK PO SCH (08:46)
[2018-10-03] MEDS: SENNOSIDES 8.6 MG TAB PO SCH (08:46)
--- NOTE | 2018-10-03 08:48 | NUR ---
SPOKE WITH MD GAONA REGARDING LOW POTASSIUM. NEW ORDERS RECEIVED
[2018-10-03] MEDS ORDERED: POTASSIUM CHLORIDE 20 MEQ TAB CR PO SCH (09:00)
[2018-10-03] MEDS: BALSAM PERU/CASTOR OIL 60 GM OINT...G. TP SCH ×2 (09:00→21:00)
--- NOTE | 2018-10-03 10:19 | Progress Note ---
DATE: October 03, 2018 SUBJECTIVE: Patient is currently doing well. No complaints except for hip pain and some abdominal pain. Had EGD yesterday, snared a polyp. No rectal bleeding after that. OBJECTIVE: VITAL SIGNS: Temperature is 99.1, pulse of 62, blood pressure is 133/64, SpO2 of 99%. GENERAL: Alert and oriented times 3, paraplegic. LUNGS: Clear to auscultation. CVS: S1, S2 normal. Regular rhythm. ABDOMEN: Nontender. EXTREMITIES: No clubbing, no cyanosis, no edema. Possible atrophic changes. NEUROLOGIC: Paraplegia. Patient recently had a micro done and UA done showing pseudomonas which is sensitive to meropenem and also tobramycin and amikacin. Patient will be started on Merrem. ID consult has been done. We will continue to monitor the patient. Patient cannot be anticoagulated under atrial fibrillation secondary to his anemia. LABS: Hemoglobin is 8.6, hematocrit 26.9. PLAN: To continue with current medications, stop the Merrem. Possible discontinue if Dr. Aguirre is okay with treating him as an outpatient. Needs continuous physical therapy secondary to paraplegia and for his atrial fibrillation, we will continue on medications. For further information, look in the chart. Medicines as in medicine reconciliation sheet and patient is followed by Dr. Dexter De Leon who will follow up on his biopsy result and Dr. Askew for his atrial fibrillation. Job#: [id number]
[2018-10-03] MEDS: POTASSIUM CHLORIDE 20 MEQ TAB CR PO SCH ×2 (11:15→13:58)
--- NOTE | 2018-10-03 11:19 | NUR ---
SPOKE WITH MD CASTAÑEDA REGARDING UTI AND SENSITIVITY . NEW ORDERS RECEIVED
[2018-10-03] MEDS: MEROPENEM 500MG 500 MG in SODIUM CHLORIDE 0.9% 50ML 50 ML IV SCH ×2 (13:58→22:00)
--- NOTE | 2018-10-03 17:35 | NUR ---
ACCOUNTS PAYABLE TECHNICIAN and nurse entered room to get patient ready for transfer to with sliding board. Patient needed to be cleaned first. Nurse and ULTRASOUND TESTER cleaned patient. Patient began to have diahrrea. Will get him to Friday. Perlita Griffin PTA/Supervising PTМаиря Addendum: 10/03/18 at 1738 by Perlita Griffin PTA Amended: Links added.
--- NOTE | 2018-10-03 19:40 | NUR ---
RECEIVED REPORT FROM AM NURSE, ROUNDS DONE. NO DISTRESS NOTED. CALL LIGHT IN REACH. WILL CONTINUE TO MONITOR.
--- NOTE | 2018-10-03 19:43 | Consultation ---
DATE OF CONSULTATION: October 03, 2018 REASON FOR CONSULTATION: UTI. HISTORY OF PRESENT ILLNESS: This patient is a 78-year-old white male with history of obesity, history of hypertension, congestive heart failure. The patient was at home on aspirin, atorvastatin, Bumex, carvedilol, ciprofloxacin, Valium, iron sulfate. The patient has history of back surgery, history of testicular cancer. He was admitted on September 22 with black stools. He was diagnosed with upper GI bleed. The patient had EGD for abdominal pain. Urine culture showed Pseudomonas. Infectious disease was consulted. Patient is lying in bed. He had a Pat catheter which has really very thick yellow urine. Patient is not a good source of information, but he has no complaints at present time. PAST MEDICAL HISTORY: As above. PAST SURGERY HISTORY: As above. ALLERGIES: PENICILLIN. SOCIAL HISTORY: There is no smoking, drug abuse, or alcohol abuse. FAMILY HISTORY: Noncontributory. LABORATORY DATA: Reviewed. White count 6.64, hemoglobin 8.9. Sodium of 1.43, potassium 2.8, creatinine 1.14. REVIEW OF SYSTEMS: At the present time; HEENT: Negative. PULMONARY: Negative. CARDIAC: Negative. : Negative. SKIN: There is no rash. He does have Pat catheter. PHYSICAL EXAMINATION GENERAL: He is currently alert, oriented, obese. Does not seem to be in acute distress. VITALS: Stable, currently afebrile. HEENT: Not icteric. NECK: Supple. CHEST: Clear. HEART: S1, S2. No S3, S4. No murmur. ABDOMEN: Soft. Bowel sounds present. No tenderness. No hepatosplenomegaly. EXTREMITIES: No edema. IMPRESSION: Urinary tract infection with multidrug-resistant. RECOMMENDATION: Meropenem 500 q.8 hours for 2 weeks. She has Pat catheter. We will follow with you. Further recommendations to follow. Job#: [id number] VAS
[2018-10-03] MEDS: ATORVASTATIN 20 MG TAB PO SCH (20:53)
[2018-10-03] MEDS: TRAZODONE HCL 50 MG TAB PO SCH (20:53)
[2018-10-03] MEDS: DIAZEPAM 5 MG TAB PO SCH (21:45)
[2018-10-04] VITALS (8 sets, daily range): BP systolic 131–155; BP diastolic 61–76
[2018-10-04] MEDS: MEROPENEM 500MG 500 MG in SODIUM CHLORIDE 0.9% 50ML 50 ML IV SCH ×3 (05:46→21:10)
--- NOTE | 2018-10-04 07:18 | NUR ---
PATIENT IN BED WITH HEAD OF BED ELEVATED, NO RESPIRATORY DISTRESS OBSERVED. SCD IN PLACE, PAZ WITH CLEAR YELLOW URINE, ESCHAR TO LEFT HEEL WITH FOAM DRESSING, ON SPECIALTY BED. BED IN LOWER POSITION, CALL LIGHT AT REACH.
--- NOTE | 2018-10-04 08:27 | Progress Note ---
DATE: October 04, 2018 SUBJECTIVE: Patient is alert and oriented x3, no complaints. Slept well. OBJECTIVE VITAL SIGNS: Temperature is 97.5, respirations of 20, blood pressure is 134/61. HEENT: Normocephalic, atraumatic. Pupils reactive to light and accommodation. CVS: S1, S2 regular. ABDOMEN: Nontender, nondistended. EXTREMITIES: Patient has a PICC line in the right upper extremity. Lower extremity positive for trophic changes. Otherwise, no clubbing, no cyanosis, and no edema. NEUROLOGIC: Patient is paraplegic and that is baseline paraplegia. LABORATORY VALUES: Show today's hemoglobin was 8.6, hematocrit of 26.9. Chemistries; potassium was 3.3, which has been replaced. ASSESSMENT 1. Urinary tract infection with Pseudomonas. Continue with Merrem. 2. Paraplegia. Continue with physical therapy. 3. Atrial fibrillation. Continue with medication, no anticoagulation at this time. 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 5. Iron-deficiency anemia. Continue on iron infusions. 6. Disposition. Possible discharge if okay with Dr. Aguirre on Merrem as an outpatient and continue physical therapy as an outpatient. Job#: [id number] LUI
[2018-10-04] MEDS: CARVEDILOL 12.5 MG TAB PO SCH ×2 (09:00→17:43)
[2018-10-04] MEDS: IRON SUCROSE 100 MG in SODIUM CHLORIDE 0.9% 100 ML 100 ML IV SCH (09:43)
[2018-10-04] MEDS: SPIRONOLACTONE 25 MG TAB PO SCH (09:43)
[2018-10-04] MEDS: BALSAM PERU/CASTOR OIL 60 GM OINT...G. TP SCH ×2 (09:44→21:41)
[2018-10-04] MEDS: POLYETHYLENE GLYCOL 3350 17 GM PACK PO SCH (09:44)
[2018-10-04] MEDS: SENNOSIDES 8.6 MG TAB PO SCH (09:44)
--- NOTE | 2018-10-04 11:00 | NUR ---
PATIENT IN RESTING WITH NO RESPIRATORY DISTRESS. IV IRON INFUSING ORDERED. BED IN LOWER POSITION, CALL LIGHT AT REACH.
--- NOTE | 2018-10-04 15:52 | NUR ---
PATIENT NOTED WITH WATERY DIARRHEA, NOTIFIED, NEW ORDER RECEIVED.
--- NOTE | 2018-10-04 19:05 | NUR ---
PT IN ROTATIONAL AIR BED. DENIES PAIN THIS TIME. NO S/S OF RESP DISTRESS. NOTED PAZ INTACT AND DRAINING CLEAR YELLOW URINE. CALL LIGHT WITHIN REACH AND INSTRUCTED TO CALL FOR ASSISTANCE.
[2018-10-04] MEDS: TRAZODONE HCL 50 MG TAB PO SCH (20:36)
[2018-10-04] MEDS: ATORVASTATIN 20 MG TAB PO SCH (20:36)
[2018-10-04] MEDS: DIAZEPAM 5 MG TAB PO SCH (21:47)
[2018-10-05] VITALS (9 sets, daily range): BP systolic 141–163; BP diastolic 64–91
[2018-10-05] MEDS: MEROPENEM 500MG 500 MG in SODIUM CHLORIDE 0.9% 50ML 50 ML IV SCH (06:32)
--- NOTE | 2018-10-05 07:41 | Progress Note ---
DATE: October 05, 2018 The patient is here for urinary tract infection, history of GI bleed, and history of polyp on the duodenum. The patient's anemia has stabilized. He is on iron, which we will continue. Chronic kidney disease which is stable. Creatinine is 1.09. The patient is paraplegic. Will continue monitoring the patient. For hypertension, will continue medications. The patient also has pseudomonas in the urine. Will continue on the antibiotic of Merrem. Possible discharge is able to do IV therapy at home. PHYSICAL EXAMINATION GENERAL: The patient is alert and oriented times 3. Aerating well. HEENT: Anicteric. NECK: No JVD present. CARDIOVASCULAR: Regular rate and rhythm. ABDOMEN: Soft and obese. EXTREMITIES: No edema. Positive for . NEUROLOGIC: Paraplegic. ASSESSMENT AND PLAN: Continue same medications. Possible discharge depending on case management to arrange for IV therapy as an outpatient. Job#: [id number] [place]
[2018-10-05] MEDS: IRON SUCROSE 100 MG in SODIUM CHLORIDE 0.9% 100 ML 100 ML IV SCH (10:00)
[2018-10-05] MEDS: SPIRONOLACTONE 25 MG TAB PO SCH (10:00)
[2018-10-05] MEDS: CARVEDILOL 12.5 MG TAB PO SCH ×2 (10:00→17:37)
[2018-10-05] MEDS: POLYETHYLENE GLYCOL 3350 17 GM PACK PO SCH (10:00)
[2018-10-05] MEDS: SENNOSIDES 8.6 MG TAB PO SCH (10:00)
--- NOTE | 2018-10-05 10:35 | NUR ---
SPOKE W BEDSIDE NURSEMARLY, JOCELYN AM. STATES DR. GAONA WOULD LIKE TO DC THE PT TODAY IF HOME IV ABX COULD BE ARRANGED. SPOKE Juanpablo SANODVAL. STATES HE WILL LET CM KNOW.
[2018-10-05] MEDS: GEMFIBROZIL 600 MG TAB PO SCH (17:37)
--- NOTE | 2018-10-05 19:30 | NUR ---
Received patient awake on bed, alert, not in distress, with whtiing catheter in place, on a special bed air mattress, no complaints of pain at this time. Call light within reached, advised to call for assistance when needed, patient verbalized understanding. Will continue to monitor
[2018-10-05] MEDS: BALSAM PERU/CASTOR OIL 60 GM OINT...G. TP SCH ×2 (21:00→21:47)
[2018-10-05] MEDS: HYDRALAZINE HCL 25 MG TAB PO SCH ×2 (21:00→21:47)
[2018-10-05] MEDS: DIAZEPAM 5 MG TAB PO SCH (21:47)
[2018-10-05] MEDS: ZOLPIDEM TARTRATE 5 MG TAB PO PRN (21:47)
[2018-10-05] MEDS: ATORVASTATIN 20 MG TAB PO SCH (21:47)
[2018-10-05] MEDS: TRAZODONE HCL 50 MG TAB PO SCH (21:47)
[2018-10-06] VITALS (8 sets, daily range): BP systolic 120–152; BP diastolic 60–87
[2018-10-06] MEDS ORDERED: MEROPENEM 500MG 500 MG in SODIUM CHLORIDE 0.9% 50ML 50 ML IV SCH (02:00)
[2018-10-06] MEDS: MEROPENEM 500MG 500 MG in SODIUM CHLORIDE 0.9% 50ML 50 ML IV SCH ×3 (02:09→16:48)
[2018-10-06] MEDS: LOPERAMIDE HCL 2 MG CAP PO PRN (02:09)
[2018-10-06 06:29] LABS: ALANINE AMINOTRANSFERASE 11 IU/L (0-55); ALBUMIN 2.7 g/dL (3.5-5.0); ALBUMIN/GLOBULIN RATIO 0.7 (0.8-2.0); ALKALINE PHOSPHATASE 81 IU/L (40-150); ANION GAP 11.4 mmol/L (8-16); BLOOD UREA NITROGEN 18 mg/dL (7-26); BUN/CREATININE RATIO 17 (6-25); CALCIUM 8.9 mg/dL (8.4-10.2); CARBON DIOXIDE 26 mmol/L (22-29); CHLORIDE 108 mmol/L (98-107); CREATININE, SERUM 1.09 mg/dL (0.72-1.25); EST GLOMERULAR FILTRATION RATE > 60 ML/MIN (60-); GLUCOSE 87 mg/dL (74-118); POTASSIUM 3.4 mmol/L (3.5-5.1); SODIUM 142 mmol/L (136-145)
[2018-10-06 06:48] LABS: BASOPHILS % 0.6 % (0.0-1.0); EOSINOPHILS # (AUTO) 0.1 (0.0-0.4); EOSINOPHILS % 2.3 % (0.0-6.0); HEMATOCRIT 27.5 % (38.2-49.6); HEMOGLOBIN 8.9 g/dL (14.0-18.0); LYMPHOCYTES # (AUTO) 1.3 (1.0-3.2); MEAN CORPUSCULAR HEMOGLOBIN 31.6 pg (28-32); MEAN CORPUSCULAR HGB CONC 32.4 g/dL (31-35); MEAN CORPUSCULAR VOLUME 97.5 fL (81-99); MONOCYTES # (AUTO) 0.5 (0.2-0.8); MONOCYTES % 9.6 % (4.4-11.3); NEUTROPHILS % 60.5 % (38.7-80.0); PLATELET COUNT 185 x10e3/uL (140-360); RED BLOOD COUNT 2.82 x10e6/uL (4.3-5.7); RED CELL DISTRIBUTION WIDTH 16.7 % (11.7-14.4)
--- NOTE | 2018-10-06 07:44 | Progress Note ---
DATE: October 06, 2018 The patient is alert and oriented times 3. Complains of 2 excoriations on the right thigh secondary to Pat catheter which will be addressed. The patient, otherwise, is reluctant to go home because he does not have anybody taking care of him except his , who is elderly and cannot bear weight with him. Suggested retirement and also suggested possible consult with Dr. King for possible transfer to [facility]. Medications he is taking are reviewed. Microbiology showed pseudomonas, which he is getting Merrem for. The patient will continue that. PHYSICAL EXAMINATION VITALS: Temperature 98.0, pulse 61, blood pressure 146/85. HEENT: Normocephalic and atraumatic. Pupils are reactive to light and accommodation. CV: S1 and S2 irregular. ABDOMEN: Nontender and nondistended. EXTREMITIES: No clubbing. No cyanosis. No edema. Paraplegia. Excoriations as noted above on the right thigh, 2 of them, secondary to pressure from the Pat catheter. ASSESSMENT AND PLAN 1. Urinary tract infection, pseudomonas. Will continue the IV antibiotics. 2. History of gastrointestinal bleed, which has resolved. The patient will avoid anticoagulation. 3. Atrial fibrillation. Avoid anticoagulation. Continue on beta blockade. 4. Polyp, status post polyp snare. Will wait for pathology results. 5. Paraplegia with inability to transfer at this time. The patient will need aggressive therapy. Will suggest [facility] inpatient and[facility]or SNF. Will continue the IV antibiotic Merrem, and outpatient setting has been discussed with Dr. Aguirre. 1. For further information, look in the chart. Medicines have been reviewed. Job#: [id number]
[2018-10-06] MEDS: BUMETANIDE 1 MG TAB PO SCH (08:56)
[2018-10-06] MEDS: SPIRONOLACTONE 25 MG TAB PO SCH (08:57)
[2018-10-06] MEDS: GEMFIBROZIL 600 MG TAB PO SCH ×2 (08:57→16:48)
[2018-10-06] MEDS: SENNOSIDES 8.6 MG TAB PO SCH (08:58)
[2018-10-06] MEDS: HYDRALAZINE HCL 25 MG TAB PO SCH ×3 (08:58→22:18)
[2018-10-06] MEDS: POLYETHYLENE GLYCOL 3350 17 GM PACK PO SCH (08:58)
[2018-10-06] MEDS: CARVEDILOL 12.5 MG TAB PO SCH ×2 (08:58→16:48)
--- NOTE | 2018-10-06 11:25 | NUR ---
RECEIVED A CALL FOR THE PT STATING HE WILL NEED TO GO TO [facility] TO COMPLETE HIS ABX AND PHYSICAL THERAPY FOR RECONDITIONING. VERIFIED ORDER FOR [facility]. WILL FAX CLINICALS OVER. REQUESTED PACKET FROM [employer]; [employer].
[2018-10-06] MEDS: MUPIROCIN 2% OINT 22 GM TUBE TOP SCH ×3 (16:49→22:17)
--- NOTE | 2018-10-06 18:30 | NUR ---
PT REMAINED STABLE ,NO S/S OF RESP DISTRESS NOTED, DENIES PAIN THROUGHOUT SHIFT. CONTINUE WITH IV ANTIBIOTICS AND REMAINED AFEBRILE.
--- NOTE | 2018-10-06 19:15 | NUR ---
Received patient awake on bed, not in distress, no complaints of pain at this time. Call light within reached , advised to call for assistance when needed. Will continue to monitor
[2018-10-06] MEDS: BALSAM PERU/CASTOR OIL 60 GM OINT...G. TP SCH ×2 (21:00→22:17)
[2018-10-06] MEDS: ZOLPIDEM TARTRATE 5 MG TAB PO PRN (22:18)
[2018-10-06] MEDS: TRAZODONE HCL 50 MG TAB PO SCH (22:18)
[2018-10-06] MEDS: ATORVASTATIN 20 MG TAB PO SCH (22:18)
[2018-10-06] MEDS: DIAZEPAM 5 MG TAB PO SCH (22:18)
--- NOTE | 2018-10-06 22:40 | NUR ---
Bedbath done, pt. gown and linens changed
[2018-10-07] VITALS (8 sets, daily range): BP systolic 114–150; BP diastolic 57–72
[2018-10-07] MEDS: MORPHINE SULFATE INJ 4 MG/ML INJ IV PRN (00:23)
[2018-10-07] MEDS: ONDANSETRON HCL INJ 2 MG/ML VIAL IV PRN (00:23)
[2018-10-07] MEDS: LOPERAMIDE HCL 2 MG CAP PO PRN (00:23)
[2018-10-07] MEDS: MEROPENEM 500MG 500 MG in SODIUM CHLORIDE 0.9% 50ML 50 ML IV SCH ×3 (01:08→18:42)
[2018-10-07] MEDS ORDERED: SODIUM CHLORIDE 0.9% 250ML 250 ML ONE (03:39)
--- NOTE | 2018-10-07 07:22 | NUR ---
PATIENT IN BED RESTING WITH EYES CLOSED, NO RESPIRATORY DISTRESS OBSERVED. PAZ CATHETER WITH CLEAR YELLOW URINE, OLD BLISTERS TO RIGHT THIGH, LEFT HEEL ESCHAR WITH FOAM DRESSING, SCD IN PLACE. BED IN LOWER POSITION, CALL LIGHT AT REACH.
[2018-10-07] MEDS: GEMFIBROZIL 600 MG TAB PO SCH ×2 (08:10→16:59)
--- NOTE | 2018-10-07 08:15 | Progress Note ---
DATE: October 07, 2018 SUBJECTIVE: Patient is here for GI bleed, which has resolved, but did develop probable catheter-induced urinary tract infection with pseudomonas. Patient is alert and oriented x3 and has no complaints except for constipation. PHYSICAL EXAMINATION: VITAL SIGNS: Temperature is 97, pulse of 58, blood pressure is 146/66. HEENT: Normocephalic, atraumatic. Pupils react to light and accommodation. CARDIOVASCULAR: S1, S2 normal. Regular rate and rhythm. ABDOMEN: Nontender, nondistended. EXTREMITIES: Positive for 2 excoriations on the right thigh. Positive for atrophic changes on the lower extremities. MEDICINES: The patient is on Merrem right now q.8h., will continue on that. Patient is also on his regular maintenance medicines for cardiovascular disease, hypertension, and hyperlipidemia. Will continue those too. ASSESSMENT: 1. For his atrial fibrillation, anticoagulation is not indicated because of anemia, iron deficiency. Iron has been transfused, will continue with that. 2. Constipation. Will restart his and his MiraLAX as per protocol. 3. Insomnia. Continue on Zolpidem and trazodone. DISPOSITION: Patient is a paraplegic and cannot transfer especially with the days spent in the hospital. Patient has generalized weakness with weakness in his upper limbs and needs help with transfer. RECOMMENDATION: To go to a rehab facility to work his upper body strength for transfer again, and will continue to monitor the patient in the rehab. Patient also needs IV antibiotic continuously, so rehab would be recommended. A consult with Dr. King has been done and will follow up with the consult and possible discharge to rehab depending on insurance clearance. Job#: [id number]
[2018-10-07] MEDS: CARVEDILOL 12.5 MG TAB PO SCH ×2 (09:00→17:00)
[2018-10-07] MEDS: HYDRALAZINE HCL 25 MG TAB PO SCH ×3 (09:25→22:27)
[2018-10-07] MEDS: SPIRONOLACTONE 25 MG TAB PO SCH (09:25)
[2018-10-07] MEDS: POLYETHYLENE GLYCOL 3350 17 GM PACK PO SCH (09:25)
[2018-10-07] MEDS: SENNOSIDES 8.6 MG TAB PO SCH (09:25)
[2018-10-07] MEDS: BUMETANIDE 1 MG TAB PO SCH (09:25)
[2018-10-07] MEDS: MUPIROCIN 2% OINT 22 GM TUBE TOP SCH ×2 (10:04→17:09)
[2018-10-07] MEDS: BALSAM PERU/CASTOR OIL 60 GM OINT...G. TP SCH ×2 (10:04→22:27)
--- NOTE | 2018-10-07 10:37 | NUR ---
CM SPOKE WITH PT AND CONFIRMED HIS CHOICE FOR [facility] CHOICE LETTER SIGNED AND ON CHART [facility] WITH [facility] HERE TO GATHER CLINICAL STRESSED TO PT THE IMPORTANCE OF PARTICIPATING BEST HE CAN WITH P.T. P.T. RE-EVAL TODAY
--- NOTE | 2018-10-07 11:15 | NUR ---
PATIENT IN BED EXERCISING WITH PHYSICAL THERAPY, NO COMPLAIN VOICED. WILL CONTINUE TO MONITOR.
[2018-10-07] MEDS ORDERED: POTASSIUM CHLORIDE 20 MEQ TAB CR PO NR (16:00)
--- NOTE | 2018-10-07 16:00 | NUR ---
PATIENT TRANSFERRED FROM BED TO WHEEL CHAIR BY PHYSICAL THERAPY. SITTING UP WATCHING TV, CALL LIGHT AT REACH.
--- NOTE | 2018-10-07 18:14 | NUR ---
CM SPOKE WITH AL, DR CASTAÑEDA'S PA WHO STATES THEY ARE RECOMMENDING LTAC FOR THIS PT ANTIBIOTICS CHANGED TODAY CALL PLACED TO DR GAONA TO NOTIFY HIM THAT I.D. RECOMMENDS LTAC OVER ACUTE REHAB AWAIT CALL BACK FROM DR GANOA
--- NOTE | 2018-10-07 20:23 | NUR ---
RECEIVED PT IN BED AOX3 .RESPIRATIONS ARE EVEN AND UNLABORED PT HAS PAZ CATHETER WITH CLEAR YELLOW URINE, , LEFT HEEL ESCHAR WITH FOAM DRESSING, SCD IN PLACE.TELE [id number] WITH AFIB .RT UPPER MIDLINE WITH S/L .DENIES PAIN CALL LIGHT WITH IN REACH
[2018-10-07] MEDS: TRAZODONE HCL 50 MG TAB PO SCH (21:00)
[2018-10-07] MEDS: ATORVASTATIN 20 MG TAB PO SCH (21:00)
[2018-10-07] MEDS: DIAZEPAM 5 MG TAB PO SCH (22:26)
[2018-10-08] VITALS (7 sets, daily range): BP systolic 99–137; BP diastolic 54–67
[2018-10-08] MEDS: MEROPENEM 500MG 500 MG in SODIUM CHLORIDE 0.9% 50ML 50 ML IV SCH ×3 (02:00→18:00)
[2018-10-08 05:42] LABS: BASOPHILS % 0.4 % (0.0-1.0); EOSINOPHILS # (AUTO) 0.1 (0.0-0.4); EOSINOPHILS % 1.8 % (0.0-6.0); HEMATOCRIT 27.4 % (38.2-49.6); HEMOGLOBIN 8.8 g/dL (14.0-18.0); LYMPHOCYTES # (AUTO) 1.4 (1.0-3.2); MEAN CORPUSCULAR HEMOGLOBIN 31.4 pg (28-32); MEAN CORPUSCULAR HGB CONC 32.1 g/dL (31-35); MEAN CORPUSCULAR VOLUME 97.9 fL (81-99); MONOCYTES # (AUTO) 0.5 (0.2-0.8); MONOCYTES % 9.5 % (4.4-11.3); NEUTROPHILS # (AUTO) 3.1 (2.1-6.9); NEUTROPHILS % 60.7 % (38.7-80.0); PLATELET COUNT 194 x10e3/uL (140-360); RED CELL DISTRIBUTION WIDTH 16.5 % (11.7-14.4)
[2018-10-08 06:03] LABS: ANION GAP 12.6 mmol/L (8-16); BLOOD UREA NITROGEN 22 mg/dL (7-26); BUN/CREATININE RATIO 20 (6-25); CALCIUM 8.8 mg/dL (8.4-10.2); CARBON DIOXIDE 26 mmol/L (22-29); CHLORIDE 106 mmol/L (98-107); CREATININE, SERUM 1.09 mg/dL (0.72-1.25); EST GLOMERULAR FILTRATION RATE > 60 ML/MIN (60-); GLUCOSE 87 mg/dL (74-118); POTASSIUM 3.6 mmol/L (3.5-5.1); SODIUM 141 mmol/L (136-145)
--- NOTE | 2018-10-08 06:32 | NUR ---
PT RESTING .TURNED THE PT Q2HRS .NO C/O PAIN CALL LIGHT WITH IN REACH
--- NOTE | 2018-10-08 07:10 | NUR ---
REPORT GIVEN TO THE ONCOMING NURSE .CALL LIGHT WITH IN REACH
--- NOTE | 2018-10-08 07:16 | NUR ---
NOTED CLEAR THICK LIQUID FROM THE RECTUM NOTIFIED DR JIMENEZ GAONA TOLD TO NOTIFY Irineo BURRIS .REPORT GIVEN TO DAY NURSE .
--- NOTE | 2018-10-08 07:29 | Progress Note ---
DATE: October 08, 2018 Patient comes in with acute GI bleed, which has resolved. Currently, the patient is complaining of some constipation. Has been taking MiraLAX, but according to the nursing staff the patient has had semi-solid stools with mucous on a constant basis. Patient is complaining of some hip pain too. Otherwise, no complaints. OBJECTIVE VITAL SIGNS: Temperature is 96, pulse of 60, respirations of 18, blood pressure is 137/63, and pulse ox 97%. HEENT: Normocephalic and atraumatic. Pupils are reactive to light and accommodation. CV: S1 irregular. LUNGS: Clear to auscultation bilaterally. ABDOMEN: Nontender. EXTREMITIES: No clubbing. No cyanosis. No edema. Positive for atrophic changes. NEUROLOGIC: Positive for paraplegia, which is baseline for him. LABORATORY VALUES: Today's white count is 5.4, hemoglobin of 8.8, hematocrit of 27.4. Chemistry: Sodium 141, potassium is 3.6, chloride of 106. Creatinine was 1.09. MICROBIOLOGY: As mentioned before, Pseudomonas aeruginosa with sensitivity to Merrem. ASSESSMENT 1. Gastrointestinal bleed, resolved: Patient had a duodenal polyp, which has been resected partially. 2. Paraplegia, baseline. 3. Debility: Patient needs detention facility versus long-term acute care versus rehab facility. Case management is working on that. The patient absolutely refuses [facility] at this time. 4. Urinary tract infection. 5. Urinary retention which he has a Pat catheter for. 6. The patient also has Dr. Silveira on the case. DISPOSITION: Depending on case management. Further recommendations per clinical course. Medications reviewed. The patient is currently on Merrem, Bumex, Aldactone, and morphine for pain control, and carvedilol for atrial fibrillation. Job#: [id number] RI
[2018-10-08] MEDS: GEMFIBROZIL 600 MG TAB PO SCH ×2 (07:51→16:44)
--- NOTE | 2018-10-08 08:00 | NUR ---
PATIENT C/O CATHETER LEAKING, DR ELKINS NOTIFIED, IN AT THIS TIME TO SEE PATIENT, STATED THAT THE CATHETER IS FINE. PATIENT REPOSITIONED, CALL LIGHT AT REACH.
[2018-10-08] MEDS: SPIRONOLACTONE 25 MG TAB PO SCH (09:43)
[2018-10-08] MEDS: CARVEDILOL 12.5 MG TAB PO SCH ×2 (09:44→17:18)
[2018-10-08] MEDS: SENNOSIDES 8.6 MG TAB PO SCH (09:44)
[2018-10-08] MEDS: MUPIROCIN 2% OINT 22 GM TUBE TOP SCH ×2 (09:44→17:18)
[2018-10-08] MEDS: BUMETANIDE 1 MG TAB PO SCH (09:44)
[2018-10-08] MEDS: POLYETHYLENE GLYCOL 3350 17 GM PACK PO SCH (09:44)
[2018-10-08] MEDS: HYDRALAZINE HCL 25 MG TAB PO SCH ×3 (09:44→21:00)
[2018-10-08] MEDS: BALSAM PERU/CASTOR OIL 60 GM OINT...G. TP SCH ×2 (09:45→21:52)
--- NOTE | 2018-10-08 12:26 | NUR ---
RECEIVED A CALL FROM THE PT. STATING HE WAS DECLINED BY [facility]. INFORMED THE PATIENT I WOULD CALL [facility] TO F/U ON THIS CHANGE. CALL MADE TO CESIA [facility] THIS AM. STATES THE PT. WAS ACCEPTED, BUT NO BED WAS AVAILABLE. NOTED IN DR. IVY' NOTE PT REFUSED [facility]. [facility] WILL CALL WHEN RM IS AVAILABLE. MET W THE PT AT THE BEDSIDE. INFORMED PT HE WAS STILL OK TO TRANSFER TO [facility]. PT VERBALIZED UNDERSTANDING.
--- NOTE | 2018-10-08 15:09 | NUR ---
PATIENT TRANSFERRED BACK TO BED BY THERAPY, DIAPER CHANGED, SCD APPLIED. BED IN LOWER POSITION, CALL LIGHT AT REACH.
--- NOTE | 2018-10-08 21:29 | NUR ---
Dr. De Leon, paged for patient"s complains of constipation. Day nurse endorsed paged md immediately before shift change. patient assessed, no any form of abdominal distension. will follow up.
[2018-10-08] MEDS: DIAZEPAM 5 MG TAB PO SCH (21:51)
[2018-10-08] MEDS: ATORVASTATIN 20 MG TAB PO SCH (21:51)
[2018-10-08] MEDS: TRAZODONE HCL 50 MG TAB PO SCH (21:54)
[2018-10-09] VITALS (7 sets, daily range): BP systolic 97–136; BP diastolic 52–68
--- NOTE | 2018-10-09 02:17 | NUR ---
Received patient from day nurse, patient is alert and oriented x3, safety and fall precautions maintained at this time: bed in lowest postition and locked, needed items beside bed and call thomas placed close to patient, patient instructed to use it to call nurses for any assistance needed, patient verbalized understanding. patient is currently stable will continue to monitor.
[2018-10-09] MEDS: MEROPENEM 500MG 500 MG in SODIUM CHLORIDE 0.9% 50ML 50 ML IV SCH ×3 (02:48→18:04)
[2018-10-09] MEDS ORDERED: IRON SUCROSE 100 MG in SODIUM CHLORIDE 0.9% 100 ML 100 ML IV SCH (05:30)
[2018-10-09] MEDS ORDERED: BISACODYL 5 MG TAB EC PO STA (06:01)
[2018-10-09 06:18] LABS: BASOPHILS % 0.6 % (0.0-1.0); EOSINOPHILS # (AUTO) 0.2 (0.0-0.4); EOSINOPHILS % 3.2 % (0.0-6.0); HEMATOCRIT 30.4 % (38.2-49.6); HEMOGLOBIN 9.6 g/dL (14.0-18.0); LYMPHOCYTES # (AUTO) 1.5 (1.0-3.2); MEAN CORPUSCULAR HEMOGLOBIN 30.7 pg (28-32); MEAN CORPUSCULAR HGB CONC 31.6 g/dL (31-35); MEAN CORPUSCULAR VOLUME 97.1 fL (81-99); MONOCYTES # (AUTO) 0.5 (0.2-0.8); MONOCYTES % 9.2 % (4.4-11.3); NEUTROPHILS # (AUTO) 3.1 (2.1-6.9); NEUTROPHILS % 57.7 % (38.7-80.0); PLATELET COUNT 223 x10e3/uL (140-360); RED BLOOD COUNT 3.13 x10e6/uL (4.3-5.7); RED CELL DISTRIBUTION WIDTH 16.7 % (11.7-14.4)
[2018-10-09 06:44] LABS: % IRON SATURATION 20 % (15-50); IRON 48 ug/dL (65-175); TOTAL IRON BINDING CAPACITY 235 ug/dL (261-478); TRANSFERRIN 168 mg/dL (174-364)
--- NOTE | 2018-10-09 07:15 | NUR ---
PATIENT IN BED RESTING WITH NO S/S OF PAIN OR DISCOMFORT. PAZ IN PLACE WITH YELLOW URINE. BED IN LOWER POSITION, CALL LIGHT AT REACH.
--- NOTE | 2018-10-09 07:25 | Progress Note ---
DATE: October 09, 2018 Patient is currently doing well. Patient is being admitted for GI bleed, which has resolved. Continues to have a urinary tract infection and taking Merrem. The patient has been given the green light to be admitted to rehab facility at [facility]. Will transfer when a bed is available. OBJECTIVE VITAL SIGNS: Temperature is 97, pulse 60, respirations of 18, blood pressure is 135/63. HEENT: Normocephalic and atraumatic. Pupils reactive to light and accommodation. CV: S1 and S2 irregular. ABDOMEN: Nontender and nondistended. EXTREMITIES: No clubbing. Positive for atrophic changes. Positive for paraplegia. LABS: The patient's laboratory values show hemoglobin of 9.6, hematocrit 30.4. None has been done today. Chemistry is the same from yesterday. Potassium is 3.6. ASSESSMENT 1. Gastrointestinal bleed, resolved. 2. History of duodenal polyp which has been resected. 3. Debility: The patient has been accepted to [facility] rehab for continued therapy. 4. Urinary tract infection: Continue on Merrem. 5. Urinary retention: Pat catheter. 6. Paraplegia: Continue with physical therapy. 7. Constipation: The patient did get a bowel prep and has been successful to have multiple bowel movements. For further information, look in the chart. For medicines, look into the medicine sheet. Job#: [id number] CORY
[2018-10-09] MEDS: GEMFIBROZIL 600 MG TAB PO SCH ×2 (07:30→16:45)
--- NOTE | 2018-10-09 07:30 | NUR ---
patient endorsed to next shift for continuity of care.
[2018-10-09] MEDS: CARVEDILOL 12.5 MG TAB PO SCH ×2 (09:16→17:00)
[2018-10-09] MEDS: HYDRALAZINE HCL 25 MG TAB PO SCH ×3 (09:16→21:00)
[2018-10-09] MEDS: BALSAM PERU/CASTOR OIL 60 GM OINT...G. TP SCH ×2 (09:16→21:39)
[2018-10-09] MEDS: BUMETANIDE 1 MG TAB PO SCH (09:16)
[2018-10-09] MEDS: SENNOSIDES 8.6 MG TAB PO SCH (09:16)
[2018-10-09] MEDS: SPIRONOLACTONE 25 MG TAB PO SCH (09:16)
[2018-10-09] MEDS: POLYETHYLENE GLYCOL 3350 17 GM PACK PO SCH (09:16)
[2018-10-09] MEDS: MUPIROCIN 2% OINT 22 GM TUBE TOP SCH ×2 (09:16→17:18)
--- NOTE | 2018-10-09 10:45 | NUR ---
PATIENT IN ED RESTING WITH NO RESPIRATORY DISTRESS. REFUSED HER MEDICATIONS AFTER 3 ATTEMPTS STATING " I DON'T WANT IT". BED IN LOWER POSITION, CALL LIGHT AT REACH. WILL CLOSELY MONITOR. Addendum: 10/09/18 at 1213 by Miguel Slade RN WRONG PATIENT.
--- NOTE | 2018-10-09 10:47 | NUR ---
NOTIFIED BY CESIA THE BED AND AIR MATTRESS HAVE BEEN DELIVERED. AWAITING BED ASSIGNMENT.
--- NOTE | 2018-10-09 11:20 | NUR ---
PATIENT OUT OF BED TO CHAIR WHEELING SELF IN THE HALLWAY, NO COMPLAIN VOICED. WILL CONTINUE TO MONITOR.
--- NOTE | 2018-10-09 15:34 | NUR ---
PATIENT ASSISTED BACK TO BED, DIAPER CHANGED, HAD A LARGE BM. CALL LIGHT AT REACH.
--- NOTE | 2018-10-09 19:59 | NUR ---
Received patient from the day nurse, patient is alert and oriented x3, introduced self to patient and patient encouraged to call for help. patient verbalized understanding. safety and fall precaution maintained as per hospital protocol: bed in lowest position and locked, needed items beside bed and call thomas placed within patient reach, patient instructed to use it to call nurses for help, needed items close to patient, bed in lowest position and locked, patient on bed alarm now. patient is currently stable will continue to monitor.
[2018-10-09] MEDS: ATORVASTATIN 20 MG TAB PO SCH (21:55)
[2018-10-09] MEDS: TRAZODONE HCL 50 MG TAB PO SCH (21:55)
[2018-10-09] MEDS: DIAZEPAM 5 MG TAB PO SCH (21:56)
[2018-10-10] VITALS (8 sets, daily range): BP systolic 104–136; BP diastolic 58–60
[2018-10-10] MEDS: MEROPENEM 500MG 500 MG in SODIUM CHLORIDE 0.9% 50ML 50 ML IV SCH ×3 (02:43→16:59)
--- NOTE | 2018-10-10 07:08 | NUR ---
Patient endorsed to next shift for continuity of care.
--- NOTE | 2018-10-10 07:09 | NUR ---
Patient endorsed to next shift for continuity of care.
--- NOTE | 2018-10-10 07:30 | NUR ---
Pt in bed with eyes open. Aox4 and able to verbalize needs. Denies any pain at this time. Right upper arm PICC line in place and dressing is dry and intact. pt continues on IV ABT therapy he is afebrile. Pending placement at [facility]. Pat in place and draining light yellow clear urine.
[2018-10-10] MEDS: HYDRALAZINE HCL 25 MG TAB PO SCH ×3 (08:43→21:15)
[2018-10-10] MEDS: CARVEDILOL 12.5 MG TAB PO SCH ×2 (08:43→16:59)
[2018-10-10] MEDS: SPIRONOLACTONE 25 MG TAB PO SCH (08:51)
[2018-10-10] MEDS: POLYETHYLENE GLYCOL 3350 17 GM PACK PO SCH (08:51)
[2018-10-10] MEDS: GEMFIBROZIL 600 MG TAB PO SCH ×2 (08:51→16:59)
[2018-10-10] MEDS: BUMETANIDE 1 MG TAB PO SCH (08:51)
[2018-10-10] MEDS: BALSAM PERU/CASTOR OIL 60 GM OINT...G. TP SCH (08:52)
[2018-10-10] MEDS: SENNOSIDES 8.6 MG TAB PO SCH (08:52)
[2018-10-10] MEDS: MUPIROCIN 2% OINT 22 GM TUBE TOP SCH ×2 (08:52→16:59)
--- NOTE | 2018-10-10 10:00 | Consultation ---
DATE OF CONSULTATION: October 10, 2018 REFERRING PHYSICIAN: Dr. Justin Ryan. I would like to thank Dr. Ryan for asking me to see Mr. Baig in consultation. I was just consulted a short while ago. HISTORY: The patient is a 78-year-old male with history of paraplegia, CHF, hypertension, neurogenic bladder, but good bowel movements who came in with GI bleed, chronic AFib, systolic heart failure, and anemia of chronic disease. Patient is being treated for his infection, but is overall doing better, has been treated for his UTI and his GI bleed has resolved. PAST MEDICAL HISTORY: Includes recent GI bleed, history of AFib, heart failure, CKD, hyperlipidemia, hypertension, paraplegia, and neurogenic bladder. PAST SURGICAL HISTORY: Include back surgery in 1993, right testicular cancer status post orchiectomy. SOCIAL HISTORY: Lives with his . He self catheterizes. He is not really ambulatory, but he does do slight board transfers and his is able to assist him . FAMILY HISTORY: Mother had PA. Father had an PA. Brother has also had an PA. ALLERGIES: PENICILLIN. REVIEW OF SYSTEMS GENERAL: Denies any weight change. SKIN: No rashes, although he has some skin breakdown. HEENT: Denies. CARDIAC: Denies. GI: Says he has good BMs. He catheterizes himself few times a day and . CARDIOVASCULAR: Denies. Rest of review of system is negative. LABORATORY DATA: White cell count of 5.3, hemoglobin 9.6, hematocrit 30.4, and platelets of 223. Sodium is 141, potassium 3.6, BUN 22, and creatinine 1.0. IMAGING: Patient's ultrasound of the scrotum showed no mass or abnormalities to the left testicular area. X-ray of the bowels, KUB showed normal upper GI with small bowel follow through. PHYSICAL EXAMINATION GENERAL: The patient is awake, alert, and pleasant, in no apparent distress at this time, follows commands. HEENT: Eyes; gaze is conjugate. Oral; tongue is midline. NECK: Supple. HEART: Regular. LUNGS: Fair air entry. ABDOMEN: Obese. EXTREMITIES: Functional range of motion to the upper extremities. He can flex his hips bilaterally, but no real active movement in ankles. He has a little bit of movement in knees. Sensory segura, has diminished sensation around the hips down to his feet and basically he says from his knees down, he cannot move them on his own. Upper extremities, he demonstrates 4/5 strength and the hip flexion and extension demonstrates 3+/5 strength, ankle dorsiflexion and plantar flexion 0/5 strength is unchanged. IMPRESSION 1. Paraplegia. 2. Recent gastrointestinal bleed. 3. Complicated urinary tract infection. 4. History of congestive heart failure. 5. Sacral wound skin breakdown per his report. 6. Hypertension. PLAN: Good inpatient rehab candidate, could benefit from multidisciplinary patient rehab program medically healthy, infection, which will need to be address while he is in rehab. Our goals are tried again to the point where we can transfer safely with his again. He is not back at that point yet. We will follow along with you. Thank you once again for allowing me to participate in the care of this pleasant, but unfortunate person. Patient is working on transfer to rehab. Job#: [id number] JORGE
[2018-10-10] MEDS: DIAZEPAM 5 MG TAB PO SCH (21:15)
[2018-10-10] MEDS: TRAZODONE HCL 50 MG TAB PO SCH (21:15)
[2018-10-10] MEDS: ATORVASTATIN 20 MG TAB PO SCH (21:15)
--- NOTE | 2018-10-10 21:48 | NUR ---
Pt D/C to [facility] via EMS. No distress noted. left with personal belongings, including wheelchair. Paperwork with pt. Report given to [facility] nurse and EMS for transport.
--- NOTE | 2018-10-19 02:22 | Discharge Summary ---
This patient came into the hospital with anemia, chronic atrial fibrillation, and GI bleed. Patient initial consult was done with Dr. Askew and also Dr. Dexter De Leon. Patient underwent endoscopy for the GI bleed. All anticoagulation was stopped. Patient was kept on the floor, and once anticoagulation was stopped, the patient underwent an endoscopy. Patient was found to have a large duodenal bulb mass and the patient was watched for this. Daily labs were checked. Patient also had blood loss anemia. We transfused the patient 2 units of PRBCs initially. Echocardiogram was done, showed EF of 50% to 55% with left ventricular hypertrophy. Patient also on EGD revealed distal esophagitis. A consult with Dr. Alberto Velarde, was done, surgery, for possible removal of the polyp. Patient again underwent a second EGD where a resection of the polyp was done under endoscopy and sent for pathology. Patient in the meantime did show debility and also urine culture grew gram-negative rods. The patient was started on IV antibiotics, and with his declining health and his debility, a physical therapy order was done. The patient was not deemed to go home. A consult with Dr. King in [place] was done. The patient was transferred to [place] for physical therapy and rehabilitation. FINAL DIAGNOSES: 1. Gastrointestinal bleed. Anemia, status post transfusion. 2. Duodenal polyp, status post biopsy. 3. Hypertension. 4. Chronic kidney disease. 5. Morbid obesity. 6. Paraplegia. 7. Urinary tract infection with urinary retention. Patient was transferred to Dr. King's service for continued therapy and also for IV antibiotic Merrem at the facility. For further information, look in the chart. For medicines on discharge, look in the medical reconciliation sheet. ELMER GAONA MD Job#: [id number]
--- NOTE | 2018-11-19 11:46 | Operative Report ---
DATE OF PROCEDURE: September 26, 2018 REFERRING PHYSICIAN: Dr. Elmer Gaona. PROCEDURE PERFORMED: Colonoscopy and polypectomy. INDICATIONS FOR COLONOSCOPY: Anemia, occult blood in stools. MEDICATION: Patient was done under MAC. Please see anesthesiologist's note. PROCEDURE: With patient in left lateral decubitus position, a flexible fiberoptic Olympus colonoscope was inserted into the rectum with ease and advanced all the way to the cecum. 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 The mucosa overlying the cecum appeared to be within normal limits. An approximately 8-mm sessile polyp was noted in the proximal ascending colon that was removed per snare electrocautery. The rest of the ascending colon, transverse, descending, sigmoid and rectum, other than for melanosis coli, appeared to be within normal limits. The scope was then retroflexed into the distal rectum and internal hemorrhoids were noted, none of which was actively bleeding. The scope was then straightened out. It was subsequently withdrawn. Patient tolerated the procedure well. IMPRESSIONS 1. Melanosis coli. 2. Ascending colon polyp, snared. 3. Internal hemorrhoids, none actively bleeding. PLAN: Follow up histology. Findings do not necessarily explain patient's anemia. Patient will need a small bowel series and, if negative, possibly a capsule endoscopy. Job#: [id number] TA cc:ELMER GAONA MD,
== END 2018-10-10 21:53 | DRG 378 ==
LOC: ER 17:23 → ERHOLD 22:57 → IMCU 09-22 08:41 → MED/SURG 09-23 15:18 → MED/SURG3 09-28 14:37
PROVIDERS: ADMIT Family Medicine; ATTEND Family Medicine
PROC: 30233N1 Transfusion of Nonautologous Red Blood Cells into Peripheral Vein, Percutaneous Approach (ICD-10-PCS; 2018-09-22)
PROC: 0DB98ZX Excision of Duodenum, Via Natural or Artificial Opening Endoscopic, Diagnostic (ICD-10-PCS; 2018-09-22)
PROC: 0DB78ZX Excision of Stomach, Pylorus, Via Natural or Artificial Opening Endoscopic, Diagnostic (ICD-10-PCS; 2018-09-22)
PROC: 0DB68ZX Excision of Stomach, Via Natural or Artificial Opening Endoscopic, Diagnostic (ICD-10-PCS; 2018-09-22)
PROC: 0DBK8ZX Excision of Ascending Colon, Via Natural or Artificial Opening Endoscopic, Diagnostic (ICD-10-PCS; 2018-09-26)
PROC: 0DB98ZX Excision of Duodenum, Via Natural or Artificial Opening Endoscopic, Diagnostic (ICD-10-PCS; principal; 2018-10-02 13:59)
PROC: 02HV33Z Insertion of Infusion Device into Superior Vena Cava, Percutaneous Approach (ICD-10-PCS; 2018-10-02 13:59)
DX: K92.2 Gastrointestinal hemorrhage, unspecified (principal); T83.511A Infection and inflammatory reaction due to indwelling urethral catheter, initial encounter; G82.20 Paraplegia, unspecified; N39.0 Urinary tract infection, site not specified; I13.0 Hypertensive heart and chronic kidney disease with heart failure and stage 1 through stage 4 chronic kidney disease, or unspecified chronic kidney disease; N17.9 Acute kidney failure, unspecified; D62 Acute posthemorrhagic anemia; I50.32 Chronic diastolic (congestive) heart failure; I48.2 Chronic atrial fibrillation; Z79.01 Long term (current) use of anticoagulants; N40.0 Benign prostatic hyperplasia without lower urinary tract symptoms; K20.9 Esophagitis, unspecified; K44.9 Diaphragmatic hernia without obstruction or gangrene; K29.70 Gastritis, unspecified, without bleeding; K31.7 Polyp of stomach and duodenum; N18.3 Chronic kidney disease, stage 3 (moderate); E87.6 Hypokalemia; R33.9 Retention of urine, unspecified; E83.41 Hypermagnesemia; B96.5 Pseudomonas (aeruginosa) (mallei) (pseudomallei) as the cause of diseases classified elsewhere; C62.90 Malignant neoplasm of unspecified testis, unspecified whether descended or undescended; Z16.24 Resistance to multiple antibiotics; F41.9 Anxiety disorder, unspecified; D50.9 Iron deficiency anemia, unspecified; L89.159 Pressure ulcer of sacral region, unspecified stage; K63.89 Other specified diseases of intestine; K59.00 Constipation, unspecified; E78.5 Hyperlipidemia, unspecified
CPT/HCPCS: 36415; 43239; 43251; 45385; 51700; 71045; 74250; 76870; 80048; 80053; 80061; 81001; 82607; 82728; 82746; 83540; 83735; 84443; 84466; 85014; 85018; 85025; 85045; 85610; 85730; 86850; 86900; 86920; 87086; 87186; 88305; 88312; 93005; 93306; 93976; 97139; 99284; J1756; J1940; J1980; J2001; J2185; J2270; J2405; J3480; J7030; J7050; P9016

== ENCOUNTER 2018-12-27 16:23 | Inpatient (IN) | payer MEDICARE ==
[~2018-12-27] VITALS: Ht 185.4 cm; Wt 142.9 kg
[~2018-12-27 16:23] MED LIST changes: +CIPROFLOXACIN250 MG PO; +FERROUS SULFAT325 MG PO; +HYDRALAZINE HC100 MG PO; +MIRALAX17 GM PO; +SENOKOT-S TABL1 EACH PO
--- OUTSIDE RECORDS SUMMARY | 2018-12-27 16:26 | XMS REPORT | Clinical Summary ---
Author Author [facility] Organization [facility] Address Unknown Phone Unavailable Care Team Providers Care Warehouse Checker Name Role Phone Justin Ryan MD PCP [...] 0 sodium (SENOKOT-S ORAL) by mouth nightly. Active lisinopril Take 1 tablet 30 tablet 0 (PRINIVIL,ZESTRIL) 10 mg (10 mg total) 8 tabletIndications: Acute by mouth on chronic congestive daily for 30 heart failure, days. unspecified heart failure type (HCC) 09/03/2018 Discontinued BUMETanide (BUMEX) 2 MG Take [...] x14 days. Start on 08/30 in pm. 10/03/2018 carvedilol (COREG) 6.25 Take 1 tablet 60 tablet 0 MG tabletIndications: (6.25 mg 8 Acute on chronic total) by congestive heart failure, mouth 2 (two) unspecified heart failure times a day type (HCC) for 30 days. 10/03/2018 ferrous sulfate 325 (65 Take 1 tablet 60 tablet 0 FE) MG tablet (325 mg 8 total) by mouth 2 (two) times a day with meals for 30 days. 10/03/2018 furosemide (LASIX) 40 mg Take 1 tablet 60 tablet 0 tablet (40 mg total) 8 by mouth 2 (two) times a day for 30 days. Active Problems Problem Noted Date Acute exacerbation of CHF (congestive heart failure) 08/30/2018 Neurogenic bladder 05/29/2016 Encounters Care Team Description Date Type Specialty Gavin Leonardo MD 10/01/2018 Telephone Urology Gavin Leonardo MD 09/16/2018 Telephone Urology Chelsie Watson RN 09/03/2018 Patient Quality Outreach Emma Loredo RN 09/03/2018 Patient Quality Outreach Dorota LynnBerta MD Jere Del Castillo Ethan A., MD Acute on chronic congestive heart failure, unspecified heart failure type (HCC) (Primary Dx); Acute on chronic combined systolic and diastolic congestive heart failure (HCC); Neurogenic bladder 08/30/2018 [facility] Internal Medicine - Encounter 09/03/2018 Gavin Leonardo MD 04/16/2018 Telephone Urology after 12/26/2017 Family History Relation Name Status Comments Father [...] Health Maintenance Due Date Last Done Comments SHINGLES VACCINES (#1) 1989 65+ PNEUMOCOCCAL VACCINE 01/08/2004 (1 of 2 - PCV13) PNEUMOCOCCAL 01/08/2004 POLYSACCHARIDE VACCINE AGE 65 AND OVER INFLUENZA VACCINE 06/03/2018 Procedures Comments Procedure Name [...] MMODE SPECTRAL 7:43 AM CDT COLOR DOPPLER (19434) MANUAL DIFFERENTIAL Routine 08/31/2018 4:30 AM CDT [...] PRELIMINARY Routine 08/30/2018 INTERPRETATION 10:33 AM CDT MS CRITICAL CARE, E/M Routine 08/30/2018 30-74 MINUTES [...] 12-LEAD STAT 08/30/2018 10:14 AM CDT after 12/26/2017 Results * Manual differential (09/03/2018 4:45 AM CDT) Only the most recent of 3 results within the time period is included. Manual differential PERFORMED [facility] OF PATHOLOGY AND GENOMIC MEDICINE Neutrophils 52.0 39.0 - 69.0 % [facility]OLOGY AND GENOMIC MEDICINE Lymphocytes 30.0 25.0 - 45.0 % [facility] OF PATHOLOGY AND GENOMIC MEDICINE Monocytes 14.0 (H) 0.0 - 10.0 % [facility] OF PATHOLOGY AND GENOMIC MEDICINE Eosinophils 2.0 0.0 - 5.0 % [facility] PATHOLOGY AND GENOMIC MEDICINE Basophils 0.0 0.0 - 1.0 % [facility]OLOGY AND GENOMIC MEDICINE Metamyelocytes 1 % [facility]OLOGY AND GENOMIC MEDICINE Promyelocytes 0 % [facility]OLOGY AND GENOMIC MEDICINE Platelet slide review Christina adequate [facility] OF PATHOLOGY AND GENOMIC MEDICINE Anisocytosis Moderate [facility] OF PATHOLOGY AND GENOMIC MEDICINE Enlarged platelets Moderate (A) [facility] OF PATHOLOGY AND GENOMIC MEDICINE Performing Organization Address City/State/Zipcode Phone Number [facility] OF [address] [place] [address] PATHOLOGY AND GENOMIC MEDICINE * CBC with platelet and differential (09/03/2018 4:45 AM CDT) Only the most recent of 5 results within the time period is included. WBC 7.81 4.50 - 11.00 k/uL [facility] OF PATHOLOGY AND GENOMIC MEDICINE RBC 3.51 (L) 4.40 - 6.00 m/uL [facility] OF PATHOLOGY AND GENOMIC MEDICINE HGB 10.9 (L) 14.0 - 18.0 g/dL [facility] OF PATHOLOGY AND GENOMIC MEDICINE HCT 34.5 (L) 41.0 - 51.0 % [facility] OF PATHOLOGY AND GENOMIC MEDICINE MCV 98.3 82.0 - 100.0 fL [facility] OF PATHOLOGY AND GENOMIC MEDICINE MCH 31.1 27.0 - 34.0 pg [facility] OF PATHOLOGY AND GENOMIC MEDICINE MCHC 31.6 31.0 - 37.0 g/dL [facility] OF PATHOLOGY AND GENOMIC MEDICINE RDW - SD 55.4 (H) 37.0 - 55.0 fL [facility] OF PATHOLOGY AND GENOMIC MEDICINE MPV 10.9 8.8 - 13.2 fL [facility]OLOGY AND GENOMIC MEDICINE Platelet count 267 150 - 400 k/uL [facility] OF PATHOLOGY AND GENOMIC MEDICINE Nucleated RBC 0.00 /100 WBC [facility] OF PATHOLOGY AND GENOMIC MEDICINE Neutrophils 52.0 39.0 - 69.0 % [facility] OF PATHOLOGY AND GENOMIC MEDICINE Lymphocytes 30.0 25.0 - 45.0 % [facility] OF PATHOLOGY AND GENOMIC MEDICINE Monocytes 14.0 (H) 0.0 - 10.0 % [facility] OF PATHOLOGY AND GENOMIC MEDICINE Eosinophils 2.0 0.0 - 5.0 % [facility] OF PATHOLOGY AND GENOMIC MEDICINE Basophils 0.0 0.0 - 1.0 % [facility] OF PATHOLOGY AND GENOMIC MEDICINE Specimen Blood Performing Organization Address City/[facility] [place] [address] [facility] * Estimated GFR (09/03/2018 4:00 AM CDT) Only the most recent of 6 results within the time period is included. Estimated GFR 45 (A) mL/min/1.73 m2 [facility] OF Comment: PATHOLOGY AND [employer] GENOMIC MEDICINE rpretation G1 >=90 Normal or high G2 60-89Mildly decreased [id number] Mildly to moderately decreased [id number] Moderately to severely decreased G4 15-29Severely decreased G5 <15Kidney failure The eGFR was calculated using the Chronic Kidney Disease Epidemiology Collaboration (CKD-EPI) equation. Interpretation is based on recommendations of the National Kidney Foundation-Kidney Disease Outcomes Quality Initiative (NKF-KDOQI) published in 2014. Specimen Plasma specimen Performing Organization Address City/State/[place] [address] [facility] * Magnesium level (09/03/2018 4:00 AM CDT) Only the most recent of 4 results within the time period is included. Magnesium 2.3 1.6 - 2.4 mg/dL [facility] DEPARTMENT OF PATHOLOGY AND GENOMIC MEDICINE Specimen Plasma specimen Performing Organization Address [facility] [place] [address] PATHOLOGY AND [facility] * Basic metabolic panel (09/03/2018 4:00 AM CDT) Only the most recent of 4 results within the time period is included. Sodium 142 135 - 148 mEq/L [facility] OF PATHOLOGY AND GENOMIC MEDICINE Potassium 3.8 3.5 - 5.0 mEq/L [facility] OF PATHOLOGY AND GENOMIC MEDICINE Chloride 96 (L) 98 - 112 mEq/L [facility] OF PATHOLOGY AND GENOMIC MEDICINE CO2 33 (H) 24 - 31 mEq/L [facility] OF PATHOLOGY AND GENOMIC MEDICINE Anion gap 13@ANIO 7 - 15 mEq/L [facility] OF PATHOLOGY AND GENOMIC MEDICINE BUN 59 (H) 8 - 23 mg/dL [facility] OF PATHOLOGY AND GENOMIC MEDICINE Creatinine 1.46 (H) 0.70 - 1.20 mg/dL [facility] OF PATHOLOGY AND GENOMIC MEDICINE Glucose 102 (H) 65 - 99 mg/dL [facility]MENT OF PATHOLOGY AND GENOMIC MEDICINE Calcium 9.4 8.8 - 10.2 mg/dL [facility] OF PATHOLOGY AND GENOMIC MEDICINE Specimen Plasma specimen Performing Organization Address [facility] [place] [address] [facility] * Lactic acid level, SEPSIS - Now and repeat 2x every 3 hours (08/31/2018 2:38 PM CDT) Only the most recent of 2 results within the time period is included. Lactic acid 1.7 0.5 - 2.2 mmol/L [facility] OF PATHOLOGY AND GENOMIC MEDICINE Specimen Blood Performing Organization Address City/[facility] [place] [address] [facility] * Total iron binding capacity (08/31/2018 2:38 PM CDT) Iron level 36 (L) 59 - 158 ug/dL [facility] OF PATHOLOGY AND GENOMIC MEDICINE Iron binding capacity 222 200 - 400 ug/dL [facility] OF PATHOLOGY AND GENOMIC MEDICINE % Saturation 16.2 (L) 20.0 - 40.0 % [facility] OF PATHOLOGY AND GENOMIC MEDICINE Specimen Plasma specimen Performing Organization Address City/[facility]/Zipcode Phone [place] [address] PATHOLOGY AND GENOMIC MEDICINE * Transferrin level (08/31/2018 2:38 PM CDT) Transferrin 173 (L) 200 - 360 mg/dL [facility] DE[facility]MENT OF PATHOLOGY AND GENOMIC MEDICINE Specimen Plasma specimen Performing Organization Address City/[facility]/Zipcode Phone Number [facility] [address] PATHOLOGY AND GENOMIC MEDICINE * Ferritin level (08/31/2018 2:38 PM CDT) Ferritin level 330 30 - 400 ng/mL [facility] DEPARTMENT OF PATHOLOGY AND GENOMIC MEDICINE Specimen Plasma specimen Performing Organization Address [facility]/[place] [address] PATHOLOGY AND GENOMIC MEDICINE * Vitamin B12 level (08/31/2018 2:38 PM CDT) Vitamin B12 1,065 (H) 211 - 946 pg/mL [facility] OF Comment: PATHOLOGY AND Significant overlap exists GENOMIC MEDICINE between normal and deficiency states. However, most patients with deficiencies will have Serum B12 <200 pg/mL. Specimen Serum Performing Organization Address [facility] Phone Number [place] [address] PATHOLOGY AND GENOMIC MEDICINE * Lipid panel (08/31/2018 2:38 PM CDT) Cholesterol 137 <200 mg/dL [facility] OF PATHOLOGY AND GENOMIC MEDICINE Triglycerides 86 <150 mg/dL [facility]MENT OF PATHOLOGY AND GENOMIC MEDICINE HDL cholesterol 39 (L) >40 mg/dL [facility] DEPARTMENT OF PATHOLOGY AND GENOMIC MEDICINE LDL cholesterol 92Comment: Result obtained by <100 mg/dL [facility] DEPARTMENT OF direct LDL measurement PATHOLOGY AND GENOMIC MEDICINE [facility] interpretation Comment: PATHOLOGY AND Total [...] specimen Performing Organization Address City/State/Zipcode Phone Number [facility] OF [address] [place] [address] PATHOLOGY AND GENOMIC MEDICINE * Echocardiogram complete w contrast and 3D if needed (08/31/2018 7:43 AM CDT) Narrative Performed At [facility] Echocardiography Report [address] [place] [address] Pat.Name:KANU PITTS [facility].ID:[id number] .Date: 08/31/2018Refer.MD:BERTA LYNN MD Exam Time: 7:07:00 AMStudy Type:Routine Echo Height:71inWeight:300lb BSA: 2.51 m2 DOBAge:1940,78Y Sex: MALEBP:133/64 HR:78 bpmSonogrphr: Dickson Lynn RDCS Pat. Stat.:Inpatient Room:[address] Study Status:Final Echo Event ID:[id number] Order ID:[id number] Reason for Study:CHF Exacerbation Procedures:2D Echo, Colorflow [...] RAPof 15 mmHg. MEASUREMENTS: 2D Parasternal [place] LVOT 2.3 cmLA Ds4.1 cm LVIDd5.2 cmIndex2.1 cm/m Ao Rtd 4 cm Index1.6 cm/m LVIDs2.6 cm LV Zugm475.7 g(122-174) LV%fs 49.5 % LVM Zsyad461.2 g/m2 IVSd 1.4 cmRWT0.6 LVPWd1.4 cm DOPPLER LVOT Stroke Vol LVOT 2.3 cmLVOT CO5.4 l/min LVOT TVI22.2 cmLVOT CI2.1 l/m/m2 LVOT Tm343 keysTV77 bpm LVOT SV 92.3 ml TV Pressure Gradient TV PkVel 242.7 cm/sTV PG 23.6 mmHg Signed 08/31/2018 12:24 PM Ania Castillo M.D. Procedure Note Interface, Radiology Results In - 08/31/2018 12:24 PM CDT Echocardiography Report [address] [address], [place] [address] Pat.Name: KANU PITTS Pat.ID: [id number] .Date: 08/31/2018 Refer.MD: BERTA LYNN MD Exam Time: 7:07:00 AM Study Type:Routine Echo Height: 71in Weight: 300lb BSA: 2.51 m2 Age: 3 1940,78Y Sex: MALE BP: 133/64 HR: 78 bpm Sonogrphr: Dickson Lynn RDCS Pat. Stat.:Inpatient Room: [address] Study Status:Final Echo Event ID:[id number] Order ID: [id number] Reason for Study:CHF Exacerbation Procedures:2D Echo, Colorflow [...] of 15 mmHg. MEASUREMENTS: 2D Parasternal [place] LVOT 2.3 cm LA Ds 4.1 cm [...] PM Ania Castillo M.D. Performing Organization Address [facility]/[employer] Phone Number [facility] [address] [place] [address] * Prothrombin time with INR (08/31/2018 4:30 AM CDT) Only the most recent of 2 results within the time period is included. Prothrombin time 16.9 (H) 12.0 - 15.0 sec [facility] DEPARTMENT OF PATHOLOGY AND GENOMIC MEDICINE INR 1.4 [facility] OF Comment: PATHOLOGY AND The International Normalized GENOMIC MEDICINE Ratio (INR) is a therapeutic monitoring tool for patients who are stable on oral anticoagulant therapy. An INR of 2.0-3.0 is suggested for deep vein thrombosis/pulmonary embolism. Specimen Blood Performing Organization Address [facility]/Zipcode Phone Number [facility] DEPARTMENT OF [address] [place] [address] PATHOLOGY AND GENOMIC MEDICINE * B natriuretic peptide (08/31/2018 4:30 AM CDT) Only the most recent of 2 results within the time period is included. BNP 618 (H) 0 - 100 pg/mL [facility] DEPARTMENT OF PATHOLOGY AND GENOMIC MEDICINE Specimen Blood Narrative Performed At results called to and read back by VIKASH CORCORAN at 08/31/2018 05:40 by [facility]. [facility]MENT OF PATHOLOGY AND GENOMIC MEDICINE Performing Organization Address [facility] Phone Number [facility] OF [address] [place] [address] PATHOLOGY AND GENOMIC MEDICINE * US Renal (08/30/2018 1:20 PM CDT) Narrative Performed At EXAMINATION:US RENAL [facility] [place] CLINICAL HISTORY:LIANE with hx of neurogenic bladder [...] the bladder. IMPRESSION: Negative renal ultrasound examination. [facility]-[id number] Procedure Note [facility], Radiology Results Incoming - 08/30/2018 1:26 PM [...] the bladder. IMPRESSION: Negative renal ultrasound examination. [facility]-[id number] Performing Organization Address [facility]/Zipcode Phone Number [facility] [address] [place] [address] * US Scrotal (08/30/2018 1:20 PM CDT) Narrative Performed At EXAMINATION:US SCROTAL [facility] [place] CLINICAL HISTORY: 78 years MaleScrotal painnontraumatic possible [...] left testicular mass. 3.Status post right orchiectomy. [facility]-[id number] Procedure Note Interface, Radiology Results Incoming - [...] testicular mass. 3. Status post right orchiectomy. [facility]-[id number] Performing Organization Address City/State/Zipcode Phone Number [facility] [address] [place] [address] * Urinalysis screen and microscopy, with reflex to culture (08/30/2018 11:00 AM CDT) Specimen site Pat [facility]MENT OF PATHOLOGY AND GENOMIC MEDICINE Color, UA Straw [facility] DEPARTMENT OF PATHOLOGY AND GENOMIC MEDICINE Appearance, UA Clear [facility] DEPARTMENT OF PATHOLOGY AND GENOMIC MEDICINE Specific gravity, UA 1.006 1.001 - 1.035 [facility] DEPARTMENT OF PATHOLOGY AND GENOMIC MEDICINE pH, UA 6.0 5.0 - 8.5 [facility] DE[facility]MENT OF PATHOLOGY AND GENOMIC MEDICINE Protein, UA Negative Negative [facility] DEPARTMENT OF PATHOLOGY AND GENOMIC MEDICINE Glucose, UA Negative Negative [facility] DE[facility]MENT OF PATHOLOGY AND GENOMIC MEDICINE Ketones, UA Negative Negative [facility] DE[facility]MENT OF PATHOLOGY AND GENOMIC MEDICINE Bilirubin, UA Negative Negative [facility] DEPARTMENT OF PATHOLOGY AND GENOMIC MEDICINE Blood, UA Negative Negative [facility] DEPARTMENT OF PATHOLOGY AND GENOMIC MEDICINE Nitrite, UA Negative Negative [facility] DE[facility]MENT OF PATHOLOGY AND GENOMIC MEDICINE Urobilinogen, UA <2.0 <2.0 [facility] DE[facility]MENT OF PATHOLOGY AND GENOMIC MEDICINE Leukocyte esterase, UA Negative Negative [facility] DEPARTMENT OF PATHOLOGY AND GENOMIC MEDICINE Epithelial cells, UA <1 /HPF [facility] DE[facility]MENT OF PATHOLOGY AND GENOMIC MEDICINE WBC, UA 1 0 - 1 /HPF [facility] DEPARTMENT OF PATHOLOGY AND GENOMIC MEDICINE RBC, UA <1 0 - 5 /HPF [facility] DE[facility]MENT OF PATHOLOGY AND GENOMIC MEDICINE Bacteria, UA None seen None seen [facility] DE[facility]MENT OF PATHOLOGY AND GENOMIC MEDICINE Yeast, UA None seen [facility] DE[facility]MENT OF PATHOLOGY AND GENOMIC MEDICINE Yeast with pseudohyphae, None seen [facility]MENT OF UA PATHOLOGY AND GENOMIC MEDICINE Specimen Urine Performing Organization Address City/State/Zipcode Phone Number [place] [address] PATHOLOGY AND GENOMIC MEDICINE * Urine culture (08/30/2018 11:00 AM CDT) Urine culture SEE COMMENTComment: [facility] OF Bacteriuria screen negative. PATHOLOGY AND GENOMIC MEDICINE Performing Organization Address City/[facility] [place] [address] PATHOLOGY AND GENOMIC MEDICINE * Respiratory pathogen panel (08/30/2018 10:55 AM CDT) Respiratory pathogen Negative for all pathogens [facility] DE[facility]MENT OF panel tested: PATHOLOGY AND Negative [...] Specimen Nares - Right Performing Organization Address [facility] Phone Number [facility] [address] PATHOLOGY AND GENOMIC MEDICINE * Blood culture, aerobic & anaerobic (08/30/2018 10:55 AM CDT) Only the most recent of 2 results within the time period is included. Blood culture isolate No growth after 5 days of [facility] DEPARTMENT OF incubation. PATHOLOGY AND Comment: GENOMIC MEDICINE Specimen Information Specimen Source: Blood Specimen Site: Radial, left Specimen Blood - Radial, left Performing Organization Address [facility] Phone Number [facility] [address] PATHOLOGY AND GENOMIC MEDICINE * Influenza antigen (08/30/2018 10:55 AM CDT) Influenza antigen Negative for Influenza A/B [facility] DEPARTMENT OF antigen. PATHOLOGY AND Comment: GENOMIC MEDICINE Specimen Information Specimen Source: Nares Specimen Site: Right Specimen Nares - Right Performing Organization Address [facility] Phone Number [facility] [address] PATHOLOGY AND GENOMIC MEDICINE * Arterial blood gas (08/30/2018 10:55 AM CDT) pH, arterial 7.40 7.35 - 7.45 [facility] DEPARTMENT OF PATHOLOGY AND GENOMIC MEDICINE pCO2, arterial 38 35 - 45 mmHg [facility]MENT OF PATHOLOGY AND GENOMIC MEDICINE pO2, arterial 151 (H) 80 - 90 mmHg [facility]MENT OF PATHOLOGY AND GENOMIC MEDICINE Bicarbonate, arterial 23.6 21.0 - 28.0 mmol/L [facility] DE[facility]MENT OF PATHOLOGY AND GENOMIC MEDICINE Base excess, arterial 0 -2 - 2 mEq/L [facility]MENT OF PATHOLOGY AND GENOMIC MEDICINE O2 saturation, arterial 99 95 - 100 % [facility] DEPARTMENT OF PATHOLOGY AND GENOMIC MEDICINE Specimen Blood Performing Organization Address [facility] Phone Number [facility] [address] PATHOLOGY AND GENOMIC MEDICINE * ECG ED Preliminary Interpretation - NOT AN ORDER (08/30/2018 10:33 AM CDT) Narrative Performed At [facility] MD Shane 09/02/2018 12:24 PM ECG ED Preliminary Interpretation - Not an Order Performed by: [facility] Authorized by: [facility] ECG reviewed by ED Physician in the absence of a airplane navigator: yes Previous ECG: Previous ECG:Unavailable Interpretation: Interpretation: abnormal Rate: ECG rate:68 ECG rate assessment: normal Rhythm: Rhythm: atrial fibrillation Ectopy: Ectopy: none QRS: QRS axis:Normal QRS intervals:Normal Conduction: Conduction: normal ST segments: ST segments:Normal T waves: T waves: normal * CRITICAL CARE (08/30/2018 10:33 AM CDT) Narrative Performed At [facility] MD Shane 09/02/2018 12:24 PM Critical Care Performed by: [facility] Authorized by: [facility] Critical care provider statement: Critical care [...] 10:31 AM CDT) Narrative Performed At EXAMINATION: [facility] [place] XR CHEST 1 VW PORTABLE CLINICAL HISTORY: [...] the possibility of superimposed pneumonia is raised. [facility]-[id number] Procedure Note Interface, Radiology Results Incoming - [...] the possibility of superimposed pneumonia is raised. [facility]-[id number] Performing Organization Address [facility]/Zipcode Phone Number [address] [address] * Troponin (08/30/2018 10:15 AM CDT) Troponin <0.30 0.00 - 0.30 ng/mL [facility]PARTMENT OF Comment: PATHOLOGY AND 0.30 - 1.49 GENOMIC MEDICINE ng/mlMay indicate increased risk of acute coronary syndrome. >=1.5 ng/ml Consistent with acute myocardial infarction. The diagnostic value of a single normal or non-diagnostic result is questionable.Serial samples at 2-6 hour intervals are required to rule out acute myocardial injury. Specimen Plasma specimen Performing Organization Address [facility] Phone Number [place] [phone] PATHOLOGY AND [facility] * Partial thromboplastin time, activated (08/30/2018 10:15 AM CDT) PTT 45.0 (H) 23.0 - 36.0 sec [facility] OF Comment: PATHOLOGY AND PTT therapeutic range for GENOMIC MEDICINE unfractionated heparin is 61.0-112.0 seconds which corresponds to Anti-Xa 0.3-0.7 U/ml. Specimen Blood Performing Organization Address [facility]/Zipcode Phone Number [address] [address] PATHOLOGY AND [facility] * Comprehensive metabolic panel (08/30/2018 10:15 AM CDT) Sodium 141 135 - 148 mEq/L [facility] DEPARTMENT OF PATHOLOGY AND GENOMIC MEDICINE Potassium 3.6 3.5 - 5.0 mEq/L [facility] DEPARTMENT OF PATHOLOGY AND GENOMIC MEDICINE Chloride 101 98 - 112 mEq/L [facility] DEPARTMENT OF PATHOLOGY AND GENOMIC MEDICINE CO2 22 (L) 24 - 31 mEq/L [facility] DE[facility]MENT OF PATHOLOGY AND GENOMIC MEDICINE Anion gap 18@ANIO (H) 7 - 15 mEq/L [facility] DEPARTMENT OF PATHOLOGY AND GENOMIC MEDICINE BUN 65 (H) 8 - 23 mg/dL [facility] DE[facility]MENT OF PATHOLOGY AND GENOMIC MEDICINE Creatinine 1.49 (H) 0.70 - 1.20 mg/dL [facility] DE[facility]MENT OF PATHOLOGY AND GENOMIC MEDICINE Glucose 106 (H) 65 - 99 mg/dL [facility] DEPARTMENT OF PATHOLOGY AND GENOMIC MEDICINE Calcium 9.2 8.8 - 10.2 mg/dL [facility] DEPARTMENT OF PATHOLOGY AND GENOMIC MEDICINE Protein 7.5 6.3 - 8.3 g/dL [facility] OF Comment: PATHOLOGY AND [place] GENOMIC MEDICINE 4.6-7.0 g/dL 1 week 4.4-7.6 g/dL 7 months-1year 5.1-7.3 g/dL 1-2 years5.6-7 .5 g/dL >3 years6.0-8 .0 g/dL 18-150 6.3-8.3 g/dL Albumin 2.9 (L) 3.5 - 5.0 g/dL [facility] DEPARTMENT OF PATHOLOGY AND GENOMIC MEDICINE A/G ratio 0.6 (L) 0.7 - 3.8 [facility] DEPARTMENT OF PATHOLOGY AND GENOMIC MEDICINE Alkaline phosphatase 105 40 - 129 U/L [facility] DEPARTMENT OF PATHOLOGY AND GENOMIC MEDICINE AST 17 10 - 50 U/L [facility] DEPARTMENT OF PATHOLOGY AND GENOMIC MEDICINE ALT 15 5 - 50 U/L [facility] DEPARTMENT OF PATHOLOGY AND GENOMIC MEDICINE Total bilirubin 0.4 0.0 - 1.2 mg/dL [facility] DEPARTMENT OF PATHOLOGY AND GENOMIC MEDICINE Specimen Plasma specimen Performing Organization Address [place] [place] Number [facility] DEPARTMENT OF [address] [place] [address] PATHOLOGY AND GENOMIC MEDICINE * ECG 12 lead (08/30/2018 10:14 AM CDT) Ventricular rate 68 [facility] Atrial rate 250 [facility] QRSD interval 98 [facility] QT interval 422 [facility] QTC interval 448 [facility] QRS axis 1 6 [facility] T wave axis 33 [facility] EKG impression Atrial fibrillation-Abnormal [facility] ECG-In automated comparison with ECG of 30-JUN-2014 10:22,-Atrial fibrillation has replaced Sinus rhythm- Performing Organization Address City/State/Zipcode Phone Number [facility] [address] [place] [address] after 12/26/2017 Insurance Payer Benefit Subscriber ID Type Phone Address Plan / Group MEDICARE MEDICARE xxxxxxxxxx Medicare [place] PART A [place] B AARP AARP xxxxxxxxxxx Commercial SUPPLEMENT Advance Directives Patient has advance care planning documents on file. For more information, issac alvarado contact: Popeye Zendejas [address] [place] [address]
[2018-12-27] MEDS ORDERED: ASPIRIN 325 MG TAB PO NR (17:15)
--- NOTE | 2018-12-27 18:21 | Diagnostic Imaging Report ---
EXAMINATION: CHEST SINGLE (PORTABLE) INDICATION: Dizziness, decreased appetite. COMPARISON: Chest radiograph 09/21/18. FINDINGS: The patient's chin partially obscures visualization of the right lung apex. TUBES and LINES: None. LUNGS: Lungs are well inflated. Lungs are clear. There is no evidence of pneumonia or pulmonary edema. PLEURA: No pleural effusion or pneumothorax. HEART AND MEDIASTINUM: The cardiomediastinal silhouette is unremarkable. BONES AND SOFT TISSUES: No acute osseous lesion. Soft tissues are unremarkable. UPPER ABDOMEN: No free air under the diaphragm. IMPRESSION: No acute radiographic abnormality. Signed by: Dr. Pallavi Almeida MD on 12/27/2018 6:17 PM
[2018-12-27 18:47] LABS: BASOPHILS % 0.3 % (0.0-1.0); EOSINOPHILS # (AUTO) 0.1 (0.0-0.4); EOSINOPHILS % 1.5 % (0.0-6.0); HEMATOCRIT 36.5 % (38.2-49.6); HEMOGLOBIN 12.1 g/dL (14.0-18.0); LYMPHOCYTES # (AUTO) 1.6 (1.0-3.2); LYMPHOCYTES % 20.4 % (18.0-39.1); MEAN CORPUSCULAR HEMOGLOBIN 31.3 pg (28-32); MEAN CORPUSCULAR HGB CONC 33.2 g/dL (31-35); MEAN CORPUSCULAR VOLUME 94.6 fL (81-99); MONOCYTES # (AUTO) 0.8 (0.2-0.8); MONOCYTES % 10.1 % (4.4-11.3); NEUTROPHILS # (AUTO) 5.3 (2.1-6.9); NEUTROPHILS % 67.2 % (38.7-80.0); PLATELET COUNT 192 x10e3/uL (140-360); RED BLOOD COUNT 3.86 x10e6/uL (4.3-5.7); RED CELL DISTRIBUTION WIDTH 15.7 % (11.7-14.4)
--- NOTE | 2018-12-27 18:48 | NUR ---
VERBAL REPORT GIVEN TO CLAYTON ARAMBULA.
[2018-12-27 18:57] LABS: BILIRUBIN,URINE NEGATIVE (NEGATIVE); CLARITY,URINE CLEAR (CLEAR); COLOR,URINE YELLOW (YELLOW); KETONES,URINE NEGATIVE (NEGATIVE); LEUKOCYTE ESTERASE ,URINE TRACE (NEGATIVE); NITRITE,URINE NEGATIVE (NEGATIVE); PROTEIN,URINE DIPSTICK NEGATIVE (NEGATIVE); URINE UROBILINOGEN 0.2 mg/dL (0.2 - 1)
[2018-12-27 18:58] LABS: BACTERIA,URINE MODERATE /HPF; EPITHELIAL CELLS,URINE FEW /LPF
[2018-12-27 19:00] LABS: INR 0.95; PROTHROMBIN TIME 13.6 seconds (11.9-14.5)
[2018-12-27 19:03] LABS: ANION GAP 15.9 mmol/L (8-16); CREATININE, SERUM 2.02 mg/dL (0.72-1.25); POTASSIUM 3.9 mmol/L (3.5-5.1)
[2018-12-27 19:10] LABS: CREATINE KINASE MB 1.5 ng/mL (0-5.0)
[2018-12-27] MEDS ORDERED: MEROPENEM 1GRAM 1 GM in SODIUM CHLORIDE 0.9% 100 ML 100 ML IV SCH (19:45)
[2018-12-27] MEDS ORDERED: SODIUM CHLORIDE 0.9% 500ML 500 ML IV ONE (19:45)
[2018-12-27] MEDS ORDERED: SODIUM CHLORIDE 0.9% 1000ML 1,000 ML IV ONE ×2 (20:00→23:15)
[2018-12-27] MEDS ORDERED: ONDANSETRON HCL INJ 2MG/ML 2ML 2 MG/ML VIAL IV PRN (20:00)
[2018-12-27] MEDS ORDERED: QUETIAPINE FUMARATE 25 MG TAB PO SCH ×2 (21:00→23:14)
--- OUTSIDE RECORDS SUMMARY | 2018-12-27 21:18 | XMS REPORT | Clinical Summary ---
Author Author Nye [facility] Organization [facility] Address Unknown Phone Unavailable Care Team Providers Care Political Anthropologist Name Role Phone Justin Ryan MD PCP [...] heart failure (HCC); Neurogenic bladder 08/30/2018 [facility] Internal Medicine - Encounter 09/03/2018 Gavin Leonardo [...] MMODE SPECTRAL 7:43 AM CDT COLOR DOPPLER ([id number]) MANUAL DIFFERENTIAL Routine 08/31/2018 4:30 AM CDT [...] PRELIMINARY Routine 08/30/2018 INTERPRETATION 10:33 AM CDT WI CRITICAL CARE, E/M Routine 08/30/2018 30-74 MINUTES [...] time period is included. Manual differential PERFORMED [facility] DEPARTMENT OF PATHOLOGY AND GENOMIC MEDICINE Neutrophils 52.0 39.0 - 69.0 % [facility] DEPARTMENT OF PATHOLOGY AND GENOMIC MEDICINE Lymphocytes 30.0 25.0 - 45.0 % [facility] DEPARTMENT OF PATHOLOGY AND GENOMIC MEDICINE Monocytes 14.0 (H) 0.0 - 10.0 % [facility] DEPARTMENT OF PATHOLOGY AND GENOMIC MEDICINE Eosinophils 2.0 0.0 - 5.0 % [facility] DEPARTMENT OF PATHOLOGY AND GENOMIC MEDICINE Basophils 0.0 0.0 - 1.0 % [facility] DEPARTMENT OF PATHOLOGY AND GENOMIC MEDICINE Metamyelocytes 1 % [facility] DEPARTMENT OF PATHOLOGY AND GENOMIC MEDICINE Promyelocytes 0 % [facility] DEPARTMENT OF PATHOLOGY AND GENOMIC MEDICINE Platelet slide review Christina adequate [facility] DEPARTMENT OF PATHOLOGY AND GENOMIC MEDICINE Anisocytosis Moderate [facility] DEPARTMENT OF PATHOLOGY AND GENOMIC MEDICINE Enlarged platelets Moderate (A) [facility] DEPARTMENT OF PATHOLOGY AND GENOMIC MEDICINE Performing Organization Address City/State/Zipcode Phone Number [facility] DEPARTMENT OF [address] [place] [address] PATHOLOGY AND GENOMIC MEDICINE * CBC with platelet and differential (09/03/2018 4:45 AM CDT) Only the most recent of 5 results within the time period is included. WBC 7.81 4.50 - 11.00 k/uL [facility] DEPARTMENT OF PATHOLOGY AND GENOMIC MEDICINE RBC 3.51 (L) 4.40 - 6.00 m/uL [facility] DEPARTMENT OF PATHOLOGY AND GENOMIC MEDICINE HGB 10.9 (L) 14.0 - 18.0 g/dL [facility] DEPARTMENT OF PATHOLOGY AND GENOMIC MEDICINE HCT 34.5 (L) 41.0 - 51.0 % [facility] DEPARTMENT OF PATHOLOGY AND GENOMIC MEDICINE MCV 98.3 82.0 - 100.0 fL [facility] DEPARTMENT OF PATHOLOGY AND GENOMIC MEDICINE MCH 31.1 27.0 - 34.0 pg [facility] DEPARTMENT OF PATHOLOGY AND GENOMIC MEDICINE MCHC 31.6 31.0 - 37.0 g/dL [facility] DEPARTMENT OF PATHOLOGY AND GENOMIC MEDICINE RDW - SD 55.4 (H) 37.0 - 55.0 fL [facility] DEPARTMENT OF PATHOLOGY AND GENOMIC MEDICINE MPV 10.9 8.8 - 13.2 fL [facility] DEPARTMENT OF PATHOLOGY AND GENOMIC MEDICINE Platelet count 267 150 - 400 k/uL [facility] DEPARTMENT OF PATHOLOGY AND GENOMIC MEDICINE Nucleated RBC 0.00 /100 WBC [facility] DEPARTMENT OF PATHOLOGY AND GENOMIC MEDICINE Neutrophils 52.0 39.0 - 69.0 % [facility] DEPARTMENT OF PATHOLOGY AND GENOMIC MEDICINE Lymphocytes 30.0 25.0 - 45.0 % [facility] DEPARTMENT OF PATHOLOGY AND GENOMIC MEDICINE Monocytes 14.0 (H) 0.0 - 10.0 % [facility] DEPARTMENT OF PATHOLOGY AND GENOMIC MEDICINE Eosinophils 2.0 0.0 - 5.0 % [facility] DEPARTMENT OF PATHOLOGY AND GENOMIC MEDICINE Basophils 0.0 0.0 - 1.0 % [facility] DEPARTMENT OF PATHOLOGY AND GENOMIC MEDICINE Specimen Blood Performing Organization Address City/[facility] [place] Number [place] [address] PATHOLOGY [facility] [employer] [facility] * Estimated GFR (09/03/2018 4:00 AM CDT) Only the most recent of 6 results within the time period is included. Estimated GFR 45 (A) mL/min/1.73 m2 [facility] DEPARTMENT OF Comment: PATHOLOGY AND [employer] GENOMIC MEDICINE rpretation G1 >=90 Normal or high G2 60-89Mildly decreased [id number] Mildly to moderately decreased H8q53-20 Moderately to severely decreased G4 15-29Severely decreased G5 <15Kidney failure The eGFR was calculated using the Chronic Kidney Disease Epidemiology Collaboration (CKD-EPI) equation. Interpretation is based on recommendations of the National Kidney Foundation-Kidney Disease Outcomes Quality Initiative (NKF-KDOQI) published in 2014. Specimen Plasma specimen Performing Organization Address City/State/Zipcode [place] [address] PATHOLOGY [facility] [employer] [facility] * Magnesium level (09/03/2018 4:00 AM CDT) Only the most recent of 4 results within the time period is included. Magnesium 2.3 1.6 - 2.4 mg/dL [facility] DEPARTMENT OF PATHOLOGY AND GENOMIC MEDICINE Specimen Plasma specimen Performing Organization Address [facility] [place] [address] PATHOLOGY AND [employer] [facility] * Basic metabolic panel (09/03/2018 4:00 AM CDT) Only the most recent of 4 results within the time period is included. Sodium 142 135 - 148 mEq/L [facility] DEPARTMENT OF PATHOLOGY AND GENOMIC MEDICINE Potassium 3.8 3.5 - 5.0 mEq/L [facility] DEPARTMENT OF PATHOLOGY AND GENOMIC MEDICINE Chloride 96 (L) 98 - 112 mEq/L [facility] DEPARTMENT OF PATHOLOGY AND GENOMIC MEDICINE CO2 33 (H) 24 - 31 mEq/L [facility] DEPARTMENT OF PATHOLOGY AND GENOMIC MEDICINE Anion gap 13@ANIO 7 - 15 mEq/L [facility] DEPARTMENT OF PATHOLOGY AND GENOMIC MEDICINE BUN 59 (H) 8 - 23 mg/dL [facility] DEPARTMENT OF PATHOLOGY AND GENOMIC MEDICINE Creatinine 1.46 (H) 0.70 - 1.20 mg/dL [facility] DEPARTMENT OF PATHOLOGY AND GENOMIC MEDICINE Glucose 102 (H) 65 - 99 mg/dL [facility] DEPARTMENT OF PATHOLOGY AND GENOMIC MEDICINE Calcium 9.4 8.8 - 10.2 mg/dL [facility] DEPARTMENT OF PATHOLOGY AND GENOMIC MEDICINE Specimen Plasma specimen Performing Organization Address [facility] [place] Number [place] [address] PATHOLOGY [facility] [employer] [facility] * Lactic acid level, SEPSIS - Now and repeat 2x every 3 hours (08/31/2018 2:38 PM CDT) Only the most recent of 2 results within the time period is included. Lactic acid 1.7 0.5 - 2.2 mmol/L [facility] DEPARTMENT OF PATHOLOGY AND GENOMIC MEDICINE Specimen Blood Performing Organization Address City/[facility] Hospital[facility] [place] [address] PATHOLOGY [facility] [employer] [facility] * Total iron binding capacity (08/31/2018 2:38 PM CDT) Iron level 36 (L) 59 - 158 ug/dL [facility] DEPARTMENT OF PATHOLOGY AND GENOMIC MEDICINE Iron binding capacity 222 200 - 400 ug/dL [facility] DEPARTMENT OF PATHOLOGY AND GENOMIC MEDICINE % Saturation 16.2 (L) 20.0 - 40.0 % [facility] DEPARTMENT OF PATHOLOGY AND GENOMIC MEDICINE Specimen Plasma specimen Performing Organization Address City/[facility]/Zipcode Phone Number [place] [address] PATHOLOGY AND GENOMIC MEDICINE * Transferrin level (08/31/2018 2:38 PM CDT) Transferrin 173 (L) 200 - 360 mg/dL [facility] DEPARTMENT OF PATHOLOGY AND GENOMIC MEDICINE Specimen Plasma specimen Performing Organization Address City/[facility]/Zipcode Phone Number [facility] [place] [address] PATHOLOGY AND GENOMIC MEDICINE * Ferritin level (08/31/2018 2:38 PM CDT) Ferritin level 330 30 - 400 ng/mL [facility] DEPARTMENT OF PATHOLOGY AND GENOMIC MEDICINE Specimen Plasma specimen Performing Organization Address [facility]/Zipcode [place] [address] PATHOLOGY AND GENOMIC MEDICINE * Vitamin B12 level (08/31/2018 2:38 PM CDT) Vitamin B12 1,065 (H) 211 - 946 pg/mL [facility] DEPARTMENT OF Comment: PATHOLOGY AND Significant overlap exists GENOMIC MEDICINE between normal and deficiency states. However, most patients with deficiencies will have Serum B12 <200 pg/mL. Specimen Serum Performing Organization Address [facility] Phone Number [facility] [place] [address] PATHOLOGY AND GENOMIC MEDICINE * Lipid panel (08/31/2018 2:38 PM CDT) Cholesterol 137 <200 mg/dL [facility] DEPARTMENT OF PATHOLOGY AND GENOMIC MEDICINE Triglycerides 86 <150 mg/dL [facility] DEPARTMENT OF PATHOLOGY AND GENOMIC MEDICINE HDL cholesterol 39 (L) >40 mg/dL [facility] DEPARTMENT OF PATHOLOGY AND GENOMIC MEDICINE LDL cholesterol 92Comment: Result obtained by <100 mg/dL [facility] DEPARTMENT OF direct LDL measurement PATHOLOGY AND GENOMIC MEDICINE Lipid panel [facility] DEPARTMENT OF interpretation Comment: PATHOLOGY AND Total [...] specimen Performing Organization Address City/State/Zipcode Phone Number [facility] DEPARTMENT OF [address] [place] [address] PATHOLOGY AND GENOMIC MEDICINE * Echocardiogram complete w contrast and 3D if needed (08/31/2018 7:43 AM CDT) Narrative Performed At [facility] Echocardiography Report [address] [place] [address] Pat.Name:KANU PITTS [facility].ID:[id number] .Date: 08/31/2018Refer.MD:BERTA LYNN MD Exam Time: 7:07:00 AMStudy Type:Routine Echo Height:71inWeight:300lb BSA: 2.51 m2 DOBAge:1940,78Y Sex: MALEBP:133/64 HR:78 bpmSonogrphr: Dickson Lynn RDCS Pat. Stat.:Inpatient Room:[address] Study Status:Final Echo Event ID:[id number] Order ID:[id number] Reason for Study:CHF Exacerbation Procedures:2D Echo, Colorflow [...] RAPof 15 mmHg. MEASUREMENTS: 2D Parasternal [place] LVOT 2.3 cmLA Ds4.1 cm LVIDd5.2 cmIndex2.1 cm/m Ao Rtd 4 cm Index1.6 cm/m LVIDs2.6 cm LV Fsaz655.7 g(122-174) LV%fs 49.5 % LVM Oqmte058.2 g/m2 IVSd 1.4 cmRWT0.6 LVPWd1.4 cm DOPPLER LVOT Stroke Vol LVOT 2.3 cmLVOT CO5.4 l/min LVOT TVI22.2 cmLVOT CI2.1 l/m/m2 LVOT Tm343 lyrkMD83 bpm LVOT SV 92.3 ml TV Pressure Gradient TV PkVel 242.7 cm/sTV PG 23.6 mmHg Signed 08/31/2018 12:24 PM Ania Castillo M.D. Procedure Note Interface, Radiology Results In - 08/31/2018 12:24 PM CDT Echocardiography Report [address] [address], [place] [address] Pat.Name: KANU PITTS Pat.ID: [id number] .Date: 08/31/2018 Refer.MD: BERTA LYNN MD Exam Time: 7:07:00 AM Study Type:Routine Echo Height: 71in Weight: 300lb BSA: 2.51 m2 Age: 3 1940,78Y Sex: MALE BP: 133/64 HR: 78 bpm Sonogrphr: Dickson Lynn RDCS Pat. Stat.:Inpatient Room: [address] Study Status:Final Echo Event ID:[id number] Order ID: [id number] Reason for Study:CHF Exacerbation Procedures:2D Echo, Colorflow [...] of 15 mmHg. MEASUREMENTS: 2D Parasternal [place] LVOT 2.3 cm LA Ds 4.1 cm [...] PM Ania Castillo M.D. Performing Organization Address [facility]/[employer] Phone Number [facility] [address] [place] [address] * Prothrombin time with INR (08/31/2018 4:30 AM CDT) Only the most recent of 2 results within the time period is included. Prothrombin time 16.9 (H) 12.0 - 15.0 sec [facility] DEPARTMENT OF PATHOLOGY AND GENOMIC MEDICINE INR 1.4 [facility] DEPARTMENT OF Comment: PATHOLOGY AND The International Normalized GENOMIC MEDICINE Ratio (INR) is a therapeutic monitoring tool for patients who are stable on oral anticoagulant therapy. An INR of 2.0-3.0 is suggested for deep vein thrombosis/pulmonary embolism. Specimen Blood Performing Organization Address [facility]/Zipcode Phone Number [facility] DEPARTMENT OF [address] [place] [address] PATHOLOGY AND GENOMIC MEDICINE * B natriuretic peptide (08/31/2018 4:30 AM CDT) Only the most recent of 2 results within the time period is included. BNP 618 (H) 0 - 100 pg/mL [facility] DEPARTMENT OF PATHOLOGY AND GENOMIC MEDICINE Specimen Blood Narrative Performed At results called to and read back by VIKASH CORCORAN at 08/31/2018 05:40 by [facility]. [facility] DEPARTMENT OF PATHOLOGY AND GENOMIC MEDICINE Performing Organization Address [facility] Hospital[facility] Phone Number [facility] DEPARTMENT OF [address] [place] [address] PATHOLOGY AND GENOMIC MEDICINE * US Renal (08/30/2018 1:20 PM CDT) Narrative Performed At EXAMINATION:[facility] CLINICAL HISTORY:LIANE with hx of neurogenic bladder [...] the bladder. IMPRESSION: Negative renal ultrasound examination. [facility]-[id number] Procedure Note [facility], Radiology Results Incoming - 08/30/2018 1:26 PM [...] the bladder. IMPRESSION: Negative renal ultrasound examination. [facility]-[id number] Performing Organization Address [facility]/Zipcode Phone Number [facility] [address] [place] [address] * US Scrotal (08/30/2018 1:20 PM CDT) Narrative Performed At EXAMINATION:US SCROTAL [facility] CLINICAL HISTORY: 78 years MaleScrotal painnontraumatic possible [...] left testicular mass. 3.Status post right orchiectomy. [facility]-[id number] Procedure Note Interface, Radiology Results Incoming - [...] testicular mass. 3. Status post right orchiectomy. [facility]-[id number] Performing Organization Address City/State/Zipcode Phone Number [facility] [address] [place] [address] * Urinalysis screen and microscopy, with reflex to culture (08/30/2018 11:00 AM CDT) Specimen site Pat [facility] DEPARTMENT OF PATHOLOGY AND GENOMIC MEDICINE Color, UA Straw [facility] DEPARTMENT OF PATHOLOGY AND GENOMIC MEDICINE Appearance, UA Clear [facility] DEPARTMENT OF PATHOLOGY AND GENOMIC MEDICINE Specific gravity, UA 1.006 1.001 - 1.035 [facility] DEPARTMENT OF PATHOLOGY AND GENOMIC MEDICINE pH, UA 6.0 5.0 - 8.5 [facility] DEPARTMENT OF PATHOLOGY AND GENOMIC MEDICINE Protein, UA Negative Negative [facility] DEPARTMENT OF PATHOLOGY AND GENOMIC MEDICINE Glucose, UA Negative Negative [facility] DEPARTMENT OF PATHOLOGY AND GENOMIC MEDICINE Ketones, UA Negative Negative [facility] DEPARTMENT OF PATHOLOGY AND GENOMIC MEDICINE Bilirubin, UA Negative Negative [facility] DEPARTMENT OF PATHOLOGY AND GENOMIC MEDICINE Blood, UA Negative Negative [facility] DEPARTMENT OF PATHOLOGY AND GENOMIC MEDICINE Nitrite, UA Negative Negative [facility] DEPARTMENT OF PATHOLOGY AND GENOMIC MEDICINE Urobilinogen, UA <2.0 <2.0 [facility] DEPARTMENT OF PATHOLOGY AND GENOMIC MEDICINE Leukocyte esterase, UA Negative Negative [facility] DEPARTMENT OF PATHOLOGY AND GENOMIC MEDICINE Epithelial cells, UA <1 /HPF [facility] DEPARTMENT OF PATHOLOGY AND GENOMIC MEDICINE WBC, UA 1 0 - 1 /HPF [facility] DEPARTMENT OF PATHOLOGY AND GENOMIC MEDICINE RBC, UA <1 0 - 5 /HPF [facility] DEPARTMENT OF PATHOLOGY AND GENOMIC MEDICINE Bacteria, UA None seen None seen [facility] DEPARTMENT OF PATHOLOGY AND GENOMIC MEDICINE Yeast, UA None seen [facility] DEPARTMENT OF PATHOLOGY AND GENOMIC MEDICINE Yeast with pseudohyphae, None seen [facility] DEPARTMENT OF UA PATHOLOGY AND GENOMIC MEDICINE Specimen Urine Performing Organization Address City/State/Zipcode Phone Number [facility] [place] [place] [address] PATHOLOGY AND GENOMIC MEDICINE * Urine culture (08/30/2018 11:00 AM CDT) Urine culture SEE COMMENTComment: [facility] DEPARTMENT OF Bacteriuria screen negative. PATHOLOGY AND GENOMIC MEDICINE Performing Organization Address City/[facility] Hospital[facility] [place] [address] PATHOLOGY AND GENOMIC MEDICINE * Respiratory pathogen panel (08/30/2018 10:55 AM CDT) Respiratory pathogen Negative for all pathogens [facility] DEPARTMENT OF panel tested: PATHOLOGY AND [...] Specimen Nares - Right Performing Organization Address [facility] Phone Number [facility] [place] [place] [address] PATHOLOGY AND GENOMIC MEDICINE * Blood culture, aerobic & anaerobic (08/30/2018 10:55 AM CDT) Only the most recent of 2 results within the time period is included. Blood culture isolate No growth after 5 days of [facility] DEPARTMENT OF incubation. PATHOLOGY AND Comment: GENOMIC MEDICINE Specimen Information Specimen Source: Blood Specimen Site: Radial, left Specimen Blood - Radial, left Performing Organization Address [facility] Phone Number [facility] [place] [address] PATHOLOGY AND GENOMIC MEDICINE * Influenza antigen (08/30/2018 10:55 AM CDT) Influenza antigen Negative for Influenza A/B [facility] DEPARTMENT OF antigen. PATHOLOGY AND Comment: GENOMIC MEDICINE Specimen Information Specimen Source: Nares Specimen Site: Right Specimen Nares - Right Performing Organization Address [facility] Phone Number [facility] [place] [address] PATHOLOGY AND GENOMIC MEDICINE * Arterial blood gas (08/30/2018 10:55 AM CDT) pH, arterial 7.40 7.35 - 7.45 [facility] DEPARTMENT OF PATHOLOGY AND GENOMIC MEDICINE pCO2, arterial 38 35 - 45 mmHg [facility] DEPARTMENT OF PATHOLOGY AND GENOMIC MEDICINE pO2, arterial 151 (H) 80 - 90 mmHg [facility] DEPARTMENT OF PATHOLOGY AND GENOMIC MEDICINE Bicarbonate, arterial 23.6 21.0 - 28.0 mmol/L [facility] DEPARTMENT OF PATHOLOGY AND GENOMIC MEDICINE Base excess, arterial 0 -2 - 2 mEq/L [facility] DEPARTMENT OF PATHOLOGY AND GENOMIC MEDICINE O2 saturation, arterial 99 95 - 100 % [facility] DEPARTMENT OF PATHOLOGY AND GENOMIC MEDICINE Specimen Blood Performing Organization Address [facility] Phone Number [facility] [place] [address] PATHOLOGY AND GENOMIC MEDICINE * ECG ED Preliminary Interpretation - NOT AN ORDER (08/30/2018 10:33 AM CDT) Narrative Performed At [facility] MD Shane 09/02/2018 12:24 PM ECG ED Preliminary Interpretation - Not an Order Performed by: [facility] Authorized by: [facility] ECG reviewed by ED Physician in the absence of a adult daycare coordinator: yes Previous ECG: Previous ECG:Unavailable Interpretation: Interpretation: abnormal Rate: ECG rate:68 ECG rate assessment: normal Rhythm: Rhythm: atrial fibrillation Ectopy: Ectopy: none QRS: QRS axis:Normal QRS intervals:Normal Conduction: Conduction: normal ST segments: ST segments:Normal T waves: T waves: normal * CRITICAL CARE (08/30/2018 10:33 AM CDT) Narrative Performed At [facility] MD Shane 09/02/2018 12:24 PM Critical Care Performed by: [facility] Authorized by: [facility] Critical care provider statement: Critical care time [...] 10:31 AM CDT) Narrative Performed At EXAMINATION: [facility] XR CHEST 1 VW PORTABLE CLINICAL HISTORY: [...] the possibility of superimposed pneumonia is raised. [facility]-[id number] Procedure Note Interface, Radiology Results Incoming - [...] the possibility of superimposed pneumonia is raised. [facility]-[id number] Performing Organization Address [facility]/Zipcode Phone Number [address] [address] * Troponin (08/30/2018 10:15 AM CDT) Troponin <0.30 0.00 - 0.30 ng/mL [facility] DEPARTMENT OF Comment: PATHOLOGY AND 0.30 - 1.49 GENOMIC MEDICINE ng/mlMay indicate increased risk of acute coronary syndrome. >=1.5 ng/ml Consistent with acute myocardial infarction. The diagnostic value of a single normal or non-diagnostic result is questionable.Serial samples at 2-6 hour intervals are required to rule out acute myocardial injury. Specimen Plasma specimen Performing Organization Address [facility] Phone Number [place] [phone] PATHOLOGY AND [employer] MEDICINE * Partial thromboplastin time, activated (08/30/2018 10:15 AM CDT) PTT 45.0 (H) 23.0 - 36.0 sec [facility] DEPARTMENT OF Comment: PATHOLOGY AND PTT therapeutic range for GENOMIC MEDICINE unfractionated heparin is 61.0-112.0 seconds which corresponds to Anti-Xa 0.3-0.7 U/ml. Specimen Blood Performing Organization Address [facility]/Zipcode Phone Number [address] [address] PATHOLOGY AND [employer] MEDICINE * Comprehensive metabolic panel (08/30/2018 10:15 AM CDT) Sodium 141 135 - 148 mEq/L [facility] DEPARTMENT OF PATHOLOGY AND GENOMIC MEDICINE Potassium 3.6 3.5 - 5.0 mEq/L [facility] DEPARTMENT OF PATHOLOGY AND GENOMIC MEDICINE Chloride 101 98 - 112 mEq/L [facility] DEPARTMENT OF PATHOLOGY AND GENOMIC MEDICINE CO2 22 (L) 24 - 31 mEq/L [facility] DEPARTMENT OF PATHOLOGY AND GENOMIC MEDICINE Anion gap 18@ANIO (H) 7 - 15 mEq/L [facility] DEPARTMENT OF PATHOLOGY AND GENOMIC MEDICINE BUN 65 (H) 8 - 23 mg/dL [facility] DEPARTMENT OF PATHOLOGY AND GENOMIC MEDICINE Creatinine 1.49 (H) 0.70 - 1.20 mg/dL [facility] DEPARTMENT OF PATHOLOGY AND GENOMIC MEDICINE Glucose 106 (H) 65 - 99 mg/dL [facility] DEPARTMENT OF PATHOLOGY AND GENOMIC MEDICINE Calcium 9.2 8.8 - 10.2 mg/dL [facility] DEPARTMENT OF PATHOLOGY AND GENOMIC MEDICINE Protein 7.5 6.3 - 8.3 g/dL [facility] DEPARTMENT OF Comment: PATHOLOGY AND [place] GENOMIC MEDICINE 4.6-7.0 g/dL 1 week 4.4-7.6 g/dL 7 months-1year 5.1-7.3 g/dL 1-2 years5.6-7 .5 g/dL >3 years6.0-8 .0 g/dL 18-150 6.3-8.3 g/dL Albumin 2.9 (L) 3.5 - 5.0 g/dL [facility] DEPARTMENT OF PATHOLOGY AND GENOMIC MEDICINE A/G ratio 0.6 (L) 0.7 - 3.8 [facility] DEPARTMENT OF PATHOLOGY AND GENOMIC MEDICINE Alkaline phosphatase 105 40 - 129 U/L [facility] DEPARTMENT OF PATHOLOGY AND GENOMIC MEDICINE AST 17 10 - 50 U/L [facility] DEPARTMENT OF PATHOLOGY AND GENOMIC MEDICINE ALT 15 5 - 50 U/L [facility] DEPARTMENT OF PATHOLOGY AND GENOMIC MEDICINE Total bilirubin 0.4 0.0 - 1.2 mg/dL [facility] DEPARTMENT OF PATHOLOGY AND GENOMIC MEDICINE Specimen Plasma specimen Performing Organization Address City/State/[facility] Association Phone Number [facility] DEPARTMENT OF [address] [place] [address] PATHOLOGY AND GENOMIC MEDICINE * ECG 12 lead (08/30/2018 10:14 AM CDT) Ventricular rate 68 [facility] M[facility] Atrial rate 250 [facility] QRSD interval 98 [facility] QT interval 422 [facility] QTC interval 448 [facility] QRS axis 1 6 [facility]USE T wave axis 33 [facility] EKG impression Atrial fibrillation-Abnormal [facility] ECG-In automated comparison with ECG of 30-JUN-2014 10:22,-Atrial fibrillation has replaced Sinus rhythm- Performing Organization Address City/State/Zipcode Phone Number [facility] [address] [place] [address] after 12/26/2017 Insurance Payer Benefit Subscriber ID Type Phone Address Plan / Group MEDICARE MEDICARE xxxxxxxxxx Medicare [place] PART A [place] B AARP AARP xxxxxxxxxxx Commercial SUPPLEMENT Advance Directives Patient has advance care planning documents on file. For more information, issac alvarado contact: Popeye Zendejas [address] [place] [address]
--- OUTSIDE RECORDS SUMMARY | 2018-12-27 21:33 | XMS REPORT | Clinical Summary ---
Author Author [facility] Organization [place] [facility] Address Unknown Phone Unavailable Care Team Providers Care Office Executive Name Role Phone Justin Ryan MD PCP [...] congestive heart failure (HCC); Neurogenic bladder 08/30/2018 [facility] Internal Medicine - Encounter 09/03/2018 Gavin Leonardo [...] MMODE SPECTRAL 7:43 AM CDT COLOR DOPPLER ([id number]) MANUAL DIFFERENTIAL Routine 08/31/2018 4:30 AM CDT [...] PRELIMINARY Routine 08/30/2018 INTERPRETATION 10:33 AM CDT [facility], E/M Routine 08/30/2018 30-74 MINUTES [...] time period is included. Manual differential PERFORMED [facility] DEPARTMENT OF PATHOLOGY AND GENOMIC MEDICINE Neutrophils 52.0 39.0 - 69.0 % [facility] DEPARTMENT OF PATHOLOGY AND GENOMIC MEDICINE Lymphocytes 30.0 25.0 - 45.0 % [facility] DEPARTMENT OF PATHOLOGY AND GENOMIC MEDICINE Monocytes 14.0 (H) 0.0 - 10.0 % [facility] DEPARTMENT OF PATHOLOGY AND GENOMIC MEDICINE Eosinophils 2.0 0.0 - 5.0 % [facility] DEPARTMENT OF PATHOLOGY AND GENOMIC MEDICINE Basophils 0.0 0.0 - 1.0 % [facility] DEPARTMENT OF PATHOLOGY AND GENOMIC MEDICINE Metamyelocytes 1 % [facility] DEPARTMENT OF PATHOLOGY AND GENOMIC MEDICINE Promyelocytes 0 % [facility] DEPARTMENT OF PATHOLOGY AND GENOMIC MEDICINE Platelet slide review Christina adequate [facility] DEPARTMENT OF PATHOLOGY AND GENOMIC MEDICINE Anisocytosis Moderate [facility] DEPARTMENT OF PATHOLOGY AND GENOMIC MEDICINE Enlarged platelets Moderate (A) [facility] DEPARTMENT OF PATHOLOGY AND GENOMIC MEDICINE Performing Organization Address City/State/Zipcode Phone Number [facility] DEPARTMENT OF [address] [place] [address] PATHOLOGY AND GENOMIC MEDICINE * CBC with platelet and differential (09/03/2018 4:45 AM CDT) Only the most recent of 5 results within the time period is included. WBC 7.81 4.50 - 11.00 k/uL [facility] DEPARTMENT OF PATHOLOGY AND GENOMIC MEDICINE RBC 3.51 (L) 4.40 - 6.00 m/uL [facility] DEPARTMENT OF PATHOLOGY AND GENOMIC MEDICINE HGB 10.9 (L) 14.0 - 18.0 g/dL [facility] DEPARTMENT OF PATHOLOGY AND GENOMIC MEDICINE HCT 34.5 (L) 41.0 - 51.0 % [facility] DEPARTMENT OF PATHOLOGY AND GENOMIC MEDICINE MCV 98.3 82.0 - 100.0 fL [facility] DEPARTMENT OF PATHOLOGY AND GENOMIC MEDICINE MCH 31.1 27.0 - 34.0 pg [facility] DEPARTMENT OF PATHOLOGY AND GENOMIC MEDICINE MCHC 31.6 31.0 - 37.0 g/dL [facility] DEPARTMENT OF PATHOLOGY AND GENOMIC MEDICINE RDW - SD 55.4 (H) 37.0 - 55.0 fL [facility] DEPARTMENT OF PATHOLOGY AND GENOMIC MEDICINE MPV 10.9 8.8 - 13.2 fL [facility] DEPARTMENT OF PATHOLOGY AND GENOMIC MEDICINE Platelet count 267 150 - 400 k/uL [facility] DEPARTMENT OF PATHOLOGY AND GENOMIC MEDICINE Nucleated RBC 0.00 /100 WBC [facility] DEPARTMENT OF PATHOLOGY AND GENOMIC MEDICINE Neutrophils 52.0 39.0 - 69.0 % [facility] DEPARTMENT OF PATHOLOGY AND GENOMIC MEDICINE Lymphocytes 30.0 25.0 - 45.0 % [facility] DEPARTMENT OF PATHOLOGY AND GENOMIC MEDICINE Monocytes 14.0 (H) 0.0 - 10.0 % [facility] DEPARTMENT OF PATHOLOGY AND GENOMIC MEDICINE Eosinophils 2.0 0.0 - 5.0 % [facility] DEPARTMENT OF PATHOLOGY AND GENOMIC MEDICINE Basophils 0.0 0.0 - 1.0 % [facility] DEPARTMENT OF PATHOLOGY AND GENOMIC MEDICINE Specimen Blood Performing Organization Address City/[facility] [place] [address] PATHOLOGY [facility] [employer] [facility] * Estimated GFR (09/03/2018 4:00 AM CDT) Only the most recent of 6 results within the time period is included. Estimated GFR 45 (A) mL/min/1.73 m2 [facility] DEPARTMENT OF Comment: PATHOLOGY AND [employer] GENOMIC MEDICINE rpretation G1 >=90 Normal or high G2 60-89Mildly decreased [id number] Mildly to moderately decreased [id number] Moderately to severely decreased G4 15-29Severely decreased G5 <15Kidney failure The eGFR was calculated using the Chronic Kidney Disease Epidemiology Collaboration (CKD-EPI) equation. Interpretation is based on recommendations of the National Kidney Foundation-Kidney Disease Outcomes Quality Initiative (NKF-KDOQI) published in 2014. Specimen Plasma specimen Performing Organization Address City/State/[place] [address] PATHOLOGY [facility] [employer] [facility] * Magnesium level (09/03/2018 4:00 AM CDT) Only the most recent of 4 results within the time period is included. Magnesium 2.3 1.6 - 2.4 mg/dL [facility] DEPARTMENT OF PATHOLOGY AND GENOMIC MEDICINE Specimen Plasma specimen Performing Organization Address [facility] [place] [address] PATHOLOGY AND [employer] [facility] * Basic metabolic panel (09/03/2018 4:00 AM CDT) Only the most recent of 4 results within the time period is included. Sodium 142 135 - 148 mEq/L [facility] DEPARTMENT OF PATHOLOGY AND GENOMIC MEDICINE Potassium 3.8 3.5 - 5.0 mEq/L [facility] DEPARTMENT OF PATHOLOGY AND GENOMIC MEDICINE Chloride 96 (L) 98 - 112 mEq/L [facility] DEPARTMENT OF PATHOLOGY AND GENOMIC MEDICINE CO2 33 (H) 24 - 31 mEq/L [facility] DEPARTMENT OF PATHOLOGY AND GENOMIC MEDICINE Anion gap 13@ANIO 7 - 15 mEq/L [facility] DEPARTMENT OF PATHOLOGY AND GENOMIC MEDICINE BUN 59 (H) 8 - 23 mg/dL [facility] DEPARTMENT OF PATHOLOGY AND GENOMIC MEDICINE Creatinine 1.46 (H) 0.70 - 1.20 mg/dL [facility] DEPARTMENT OF PATHOLOGY AND GENOMIC MEDICINE Glucose 102 (H) 65 - 99 mg/dL [facility] DEPARTMENT OF PATHOLOGY AND GENOMIC MEDICINE Calcium 9.4 8.8 - 10.2 mg/dL [facility] DEPARTMENT OF PATHOLOGY AND GENOMIC MEDICINE Specimen Plasma specimen Performing Organization Address [facility] [place] Number [place] [address] PATHOLOGY [facility] [employer] [facility] * Lactic acid level, SEPSIS - Now and repeat 2x every 3 hours (08/31/2018 2:38 PM CDT) Only the most recent of 2 results within the time period is included. Lactic acid 1.7 0.5 - 2.2 mmol/L [facility] DEPARTMENT OF PATHOLOGY AND GENOMIC MEDICINE Specimen Blood Performing Organization Address City/[facility] [place] [address] PATHOLOGY [facility] [employer] [facility] * Total iron binding capacity (08/31/2018 2:38 PM CDT) Iron level 36 (L) 59 - 158 ug/dL [facility] DEPARTMENT OF PATHOLOGY AND GENOMIC MEDICINE Iron binding capacity 222 200 - 400 ug/dL [facility] DEPARTMENT OF PATHOLOGY AND GENOMIC MEDICINE % Saturation 16.2 (L) 20.0 - 40.0 % [facility] DEPARTMENT OF PATHOLOGY AND GENOMIC MEDICINE Specimen Plasma specimen Performing Organization Address City/[facility]/Zipcode Phone Number [place] [address] PATHOLOGY AND GENOMIC MEDICINE * Transferrin level (08/31/2018 2:38 PM CDT) Transferrin 173 (L) 200 - 360 mg/dL [facility] DEPARTMENT OF PATHOLOGY AND GENOMIC MEDICINE Specimen Plasma specimen Performing Organization Address City/[facility]/Zipcode Phone Number [facility] [place] [place] [address] PATHOLOGY AND GENOMIC MEDICINE * Ferritin level (08/31/2018 2:38 PM CDT) Ferritin level 330 30 - 400 ng/mL [facility] DEPARTMENT OF PATHOLOGY AND GENOMIC MEDICINE Specimen Plasma specimen Performing Organization Address [facility]/[place] [address] PATHOLOGY AND GENOMIC MEDICINE * Vitamin B12 level (08/31/2018 2:38 PM CDT) Vitamin B12 1,065 (H) 211 - 946 pg/mL [facility] DEPARTMENT OF Comment: PATHOLOGY AND Significant overlap exists GENOMIC MEDICINE between normal and deficiency states. However, most patients with deficiencies will have Serum B12 <200 pg/mL. Specimen Serum Performing Organization Address [facility] Services[facility] Phone Number [facility] [place] [address] PATHOLOGY AND GENOMIC MEDICINE * Lipid panel (08/31/2018 2:38 PM CDT) Cholesterol 137 <200 mg/dL [facility] DEPARTMENT OF PATHOLOGY AND GENOMIC MEDICINE Triglycerides 86 <150 mg/dL [facility] DEPARTMENT OF PATHOLOGY AND GENOMIC MEDICINE HDL cholesterol 39 (L) >40 mg/dL [facility] DEPARTMENT OF PATHOLOGY AND GENOMIC MEDICINE LDL cholesterol 92Comment: Result obtained by <100 mg/dL [facility] DEPARTMENT OF direct LDL measurement PATHOLOGY AND GENOMIC MEDICINE Lipid panel [facility] DEPARTMENT OF interpretation Comment: PATHOLOGY AND Total [...] specimen Performing Organization Address City/State/Zipcode Phone Number [facility] DEPARTMENT OF [address] [place] [address] PATHOLOGY AND GENOMIC MEDICINE * Echocardiogram complete w contrast and 3D if needed (08/31/2018 7:43 AM CDT) Narrative Performed At [facility] Echocardiography Report [address] [place] [address] Pat.Name:AKNU PITTS [facility].ID:[id number] .Date: 08/31/2018Refer.MD:BERTA LYNN MD Exam Time: 7:07:00 AMStudy Type:Routine Echo Height:71inWeight:300lb BSA: 2.51 m2 DOBAge:1940,78Y Sex: MALEBP:133/64 HR:78 bpmSonogrphr: Dickson Lynn RDCS Pat. Stat.:Inpatient Room:[address] Study Status:Final Echo Event ID:[id number] Order ID:[id number] Reason for Study:CHF Exacerbation Procedures:2D Echo, Colorflow [...] RAPof 15 mmHg. MEASUREMENTS: 2D Parasternal Long Seth LVOT 2.3 cmLA Ds4.1 cm LVIDd5.2 cmIndex2.1 cm/m Ao Rtd 4 cm Index1.6 cm/m LVIDs2.6 cm LV Aptk374.7 g(122-174) LV%fs 49.5 % LVM Qjtnv982.2 g/m2 IVSd 1.4 cmRWT0.6 LVPWd1.4 cm DOPPLER LVOT Stroke Vol LVOT 2.3 cmLVOT CO5.4 l/min LVOT TVI22.2 cmLVOT CI2.1 l/m/m2 LVOT Tm343 jvnvNA07 bpm LVOT SV 92.3 ml TV Pressure Gradient TV PkVel 242.7 cm/sTV PG 23.6 mmHg Signed 08/31/2018 12:24 PM Ania Castillo M.D. Procedure Note Interface, Radiology Results In - 08/31/2018 12:24 PM CDT Echocardiography Report [address] [address], [address] Pat.Name: KANU PITTS Pat.ID: [id number] .Date: 08/31/2018 Refer.MD: BERTA LYNN MD Exam Time: 7:07:00 AM Study Type:Routine Echo Height: 71in Weight: 300lb BSA: 2.51 m2 Age: 3 1940,78Y Sex: MALE BP: 133/64 HR: 78 bpm Sonogrphr: Dickson Lynn RDCS Pat. Stat.:Inpatient Room: [address] Study Status:Final Echo Event ID:[id number] Order ID: [id number] Reason for Study:CHF Exacerbation Procedures:2D Echo, Colorflow [...] of 15 mmHg. MEASUREMENTS: 2D Parasternal Long Seth LVOT 2.3 cm LA Ds 4.1 cm [...] PM Ania Castillo M.D. Performing Organization Address [facility]/[employer] Phone Number [facility] [address] [place] [address] * Prothrombin time with INR (08/31/2018 4:30 AM CDT) Only the most recent of 2 results within the time period is included. Prothrombin time 16.9 (H) 12.0 - 15.0 sec [facility] DEPARTMENT OF PATHOLOGY AND GENOMIC MEDICINE INR 1.4 [facility] DEPARTMENT OF Comment: PATHOLOGY AND The International Normalized GENOMIC MEDICINE Ratio (INR) is a therapeutic monitoring tool for patients who are stable on oral anticoagulant therapy. An INR of 2.0-3.0 is suggested for deep vein thrombosis/pulmonary embolism. Specimen Blood Performing Organization Address [facility]/Zipcode Phone Number [facility] DEPARTMENT OF [address] [place] [address] PATHOLOGY AND GENOMIC MEDICINE * B natriuretic peptide (08/31/2018 4:30 AM CDT) Only the most recent of 2 results within the time period is included. BNP 618 (H) 0 - 100 pg/mL [facility] DEPARTMENT OF PATHOLOGY AND GENOMIC MEDICINE Specimen Blood Narrative Performed At results called to and read back by VIKASH CORCORAN at 08/31/2018 05:40 by [facility]. [facility] DEPARTMENT OF PATHOLOGY AND GENOMIC MEDICINE Performing Organization Address [facility] Services[facility] Phone Number [facility] DEPARTMENT OF [address] [place] [address] PATHOLOGY AND GENOMIC MEDICINE * US Renal (08/30/2018 1:20 PM CDT) Narrative Performed At [facility]INATION[facility] CL[facility]:LIANE with hx of neurogenic [...] the bladder. IMPRESSION: Negative renal ultrasound examination. [facility]-[id number] Procedure Note [facility], Radiology Results Incoming - 08/30/2018 1:26 PM [...] the bladder. IMPRESSION: Negative renal ultrasound examination. [facility]-[id number] Performing Organization Address [facility]/Zipcode Phone Number [facility] [address] [place] [address] * US Scrotal (08/30/2018 1:20 PM CDT) Narrative Performed At EXAMINATION:[facility] CLINICAL H[facility]ORY: 78 years MaleScrotal painnontraumatic [...] left testicular mass. 3.Status post right orchiectomy. [facility]-[id number] Procedure Note Interface, Radiology Results Incoming - [...] testicular mass. 3. Status post right orchiectomy. [facility]-[id number] Performing Organization Address City/State/Zipcode Phone Number [facility] [address] [place] [address] * Urinalysis screen and microscopy, with reflex to culture (08/30/2018 11:00 AM CDT) Specimen site Pat [facility] DEPARTMENT OF PATHOLOGY AND GENOMIC MEDICINE Color, UA Straw [facility] DEPARTMENT OF PATHOLOGY AND GENOMIC MEDICINE Appearance, UA Clear [facility] DEPARTMENT OF PATHOLOGY AND GENOMIC MEDICINE Specific gravity, UA 1.006 1.001 - 1.035 [facility] DEPARTMENT OF PATHOLOGY AND GENOMIC MEDICINE pH, UA 6.0 5.0 - 8.5 [facility] DEPARTMENT OF PATHOLOGY AND GENOMIC MEDICINE Protein, UA Negative Negative [facility] DEPARTMENT OF PATHOLOGY AND GENOMIC MEDICINE Glucose, UA Negative Negative [facility] DEPARTMENT OF PATHOLOGY AND GENOMIC MEDICINE Ketones, UA Negative Negative [facility] DEPARTMENT OF PATHOLOGY AND GENOMIC MEDICINE Bilirubin, UA Negative Negative [facility] DEPARTMENT OF PATHOLOGY AND GENOMIC MEDICINE Blood, UA Negative Negative [facility] DEPARTMENT OF PATHOLOGY AND GENOMIC MEDICINE Nitrite, UA Negative Negative [facility] DEPARTMENT OF PATHOLOGY AND GENOMIC MEDICINE Urobilinogen, UA <2.0 <2.0 [facility] DEPARTMENT OF PATHOLOGY AND GENOMIC MEDICINE Leukocyte esterase, UA Negative Negative [facility] DEPARTMENT OF PATHOLOGY AND GENOMIC MEDICINE Epithelial cells, UA <1 /HPF [facility] DEPARTMENT OF PATHOLOGY AND GENOMIC MEDICINE WBC, UA 1 0 - 1 /HPF [facility] DEPARTMENT OF PATHOLOGY AND GENOMIC MEDICINE RBC, UA <1 0 - 5 /HPF [facility] DEPARTMENT OF PATHOLOGY AND GENOMIC MEDICINE Bacteria, UA None seen None seen [facility] DEPARTMENT OF PATHOLOGY AND GENOMIC MEDICINE Yeast, UA None seen [facility] DEPARTMENT OF PATHOLOGY AND GENOMIC MEDICINE Yeast with pseudohyphae, None seen [facility] DEPARTMENT OF UA PATHOLOGY AND GENOMIC MEDICINE Specimen Urine Performing Organization Address City/State/Zipcode Phone Number [facility] [place] [address] PATHOLOGY AND GENOMIC MEDICINE * Urine culture (08/30/2018 11:00 AM CDT) Urine culture SEE COMMENTComment: [facility] DEPARTMENT OF Bacteriuria screen negative. PATHOLOGY AND GENOMIC MEDICINE Performing Organization Address City/[facility] [place] [address] PATHOLOGY AND GENOMIC MEDICINE * Respiratory pathogen panel (08/30/2018 10:55 AM CDT) Respiratory pathogen Negative for all pathogens [facility] DEPARTMENT OF panel tested: PATHOLOGY AND [...] Specimen Nares - Right Performing Organization Address [facility] Services[facility] Phone Number [facility] [place] [address] PATHOLOGY AND GENOMIC MEDICINE * Blood culture, aerobic & anaerobic (08/30/2018 10:55 AM CDT) Only the most recent of 2 results within the time period is included. Blood culture isolate No growth after 5 days of [facility] DEPARTMENT OF incubation. PATHOLOGY AND Comment: GENOMIC MEDICINE Specimen Information Specimen Source: Blood Specimen Site: Radial, left Specimen Blood - Radial, left Performing Organization Address [facility] Services[facility] Phone Number [facility] [place] [address] PATHOLOGY AND GENOMIC MEDICINE * Influenza antigen (08/30/2018 10:55 AM CDT) Influenza antigen Negative for Influenza A/B [facility] DEPARTMENT OF antigen. PATHOLOGY AND Comment: GENOMIC MEDICINE Specimen Information Specimen Source: Nares Specimen Site: Right Specimen Nares - Right Performing Organization Address [facility] Phone Number [facility] [place] [address] PATHOLOGY AND GENOMIC MEDICINE * Arterial blood gas (08/30/2018 10:55 AM CDT) pH, arterial 7.40 7.35 - 7.45 [facility] DEPARTMENT OF PATHOLOGY AND GENOMIC MEDICINE pCO2, arterial 38 35 - 45 mmHg [facility] DEPARTMENT OF PATHOLOGY AND GENOMIC MEDICINE pO2, arterial 151 (H) 80 - 90 mmHg [facility] DEPARTMENT OF PATHOLOGY AND GENOMIC MEDICINE Bicarbonate, arterial 23.6 21.0 - 28.0 mmol/L [facility] DEPARTMENT OF PATHOLOGY AND GENOMIC MEDICINE Base excess, arterial 0 -2 - 2 mEq/L [facility] DEPARTMENT OF PATHOLOGY AND GENOMIC MEDICINE O2 saturation, arterial 99 95 - 100 % [facility] DEPARTMENT OF PATHOLOGY AND GENOMIC MEDICINE Specimen Blood Performing Organization Address [facility] Services[facility] Phone Number [facility] [place] [address] PATHOLOGY AND GENOMIC MEDICINE * ECG ED Preliminary Interpretation - NOT AN ORDER (08/30/2018 10:33 AM CDT) Narrative [facility] MD Shane 09/02/2018 12:24 PM ECG ED Preliminary Interpretation - Not an Order Performed by: [facility] Authorized by: [facility] ECG reviewed by ED Physician in the absence of a commercial lending vice president: yes Previous ECG: Previous ECG:Unavailable Interpretation: Interpretation: abnormal Rate: ECG rate:68 ECG rate assessment: normal Rhythm: Rhythm: atrial fibrillation Ectopy: Ectopy: none QRS: QRS axis:Normal QRS intervals:Normal Conduction: Conduction: normal ST segments: ST segments:Normal T waves: T waves: normal * CRITICAL CARE (08/30/2018 10:33 AM CDT) Narrative [facility]formed At [facility] MD Shane 09/02/2018 12:24 PM Critical Care Performed by: [facility] Authorized by: [facility] Critical care provider statement: Critical care time [...] 10:31 AM CDT) Narrative Performed At [facility] CHEST 1 VW PORTABLE CLINICAL HISTORY: [...] the possibility of superimposed pneumonia is raised. [facility]-[id number] Procedure Note Interface, Radiology Results Incoming - [...] the possibility of superimposed pneumonia is raised. [facility]-[id number] Performing Organization Address [facility]/Zipcode Phone Number [address] [address] * Troponin (08/30/2018 10:15 AM CDT) Troponin <0.30 0.00 - 0.30 ng/mL [facility] DEPARTMENT OF Comment: PATHOLOGY AND 0.30 - 1.49 GENOMIC MEDICINE ng/mlMay indicate increased risk of acute coronary syndrome. >=1.5 ng/ml Consistent with acute myocardial infarction. The diagnostic value of a single normal or non-diagnostic result is questionable.Serial samples at 2-6 hour intervals are required to rule out acute myocardial injury. Specimen Plasma specimen Performing Organization Address [facility] Services[facility] Phone Number [place] [phone] PATHOLOGY AND [employer] MEDICINE * Partial thromboplastin time, activated (08/30/2018 10:15 AM CDT) PTT 45.0 (H) 23.0 - 36.0 sec [facility] DEPARTMENT OF Comment: PATHOLOGY AND PTT therapeutic range for GENOMIC MEDICINE unfractionated heparin is 61.0-112.0 seconds which corresponds to Anti-Xa 0.3-0.7 U/ml. Specimen Blood Performing Organization Address [facility]/Zipcode Phone Number [address] [address] PATHOLOGY AND [employer] MEDICINE * Comprehensive metabolic panel (08/30/2018 10:15 AM CDT) Sodium 141 135 - 148 mEq/L [facility] DEPARTMENT OF PATHOLOGY AND GENOMIC MEDICINE Potassium 3.6 3.5 - 5.0 mEq/L [facility] DEPARTMENT OF PATHOLOGY AND GENOMIC MEDICINE Chloride 101 98 - 112 mEq/L [facility] DEPARTMENT OF PATHOLOGY AND GENOMIC MEDICINE CO2 22 (L) 24 - 31 mEq/L [facility] DEPARTMENT OF PATHOLOGY AND GENOMIC MEDICINE Anion gap 18@ANIO (H) 7 - 15 mEq/L [facility] DEPARTMENT OF PATHOLOGY AND GENOMIC MEDICINE BUN 65 (H) 8 - 23 mg/dL [facility] DEPARTMENT OF PATHOLOGY AND GENOMIC MEDICINE Creatinine 1.49 (H) 0.70 - 1.20 mg/dL [facility] DEPARTMENT OF PATHOLOGY AND GENOMIC MEDICINE Glucose 106 (H) 65 - 99 mg/dL [facility] DEPARTMENT OF PATHOLOGY AND GENOMIC MEDICINE Calcium 9.2 8.8 - 10.2 mg/dL [facility] DEPARTMENT OF PATHOLOGY AND GENOMIC MEDICINE Protein 7.5 6.3 - 8.3 g/dL [facility] DEPARTMENT OF Comment: PATHOLOGY AND [facility] GENOMIC MEDICINE 4.6-7.0 g/dL 1 week 4.4-7.6 g/dL 7 months-1year 5.1-7.3 g/dL 1-2 years5.6-7 .5 g/dL >3 years6.0-8 .0 g/dL 18-150 6.3-8.3 g/dL Albumin 2.9 (L) 3.5 - 5.0 g/dL [facility] DEPARTMENT OF PATHOLOGY AND GENOMIC MEDICINE A/G ratio 0.6 (L) 0.7 - 3.8 [facility] DEPARTMENT OF PATHOLOGY AND GENOMIC MEDICINE Alkaline phosphatase 105 40 - 129 U/L [facility] DEPARTMENT OF PATHOLOGY AND GENOMIC MEDICINE AST 17 10 - 50 U/L [facility] DEPARTMENT OF PATHOLOGY AND GENOMIC MEDICINE ALT 15 5 - 50 U/L [facility] DEPARTMENT OF PATHOLOGY AND GENOMIC MEDICINE Total bilirubin 0.4 0.0 - 1.2 mg/dL [facility] DEPARTMENT OF PATHOLOGY AND GENOMIC MEDICINE Specimen Plasma specimen Performing Organization Address City/State/[facility] Phone Number [facility] DEPARTMENT OF [address] [place] [address] PATHOLOGY AND GENOMIC MEDICINE * ECG 12 lead (08/30/2018 10:14 AM CDT) Ventricular rate 68 [facility] MUSE Atrial rate 250 [facility] MUSE QRSD interval 98 [facility] MUSE QT interval 422 [facility] MUSE QTC interval 448 [facility] M[facility] QRS axis 1 6 HM MUSE T wave axis 33 [facility] M[facility] EKG impression Atrial fibrillation-Abnormal [facility] ECG-In automated comparison with ECG of 30-JUN-2014 10:22,-Atrial fibrillation has replaced Sinus rhythm- Performing Organization Address City/State/Zipcode Phone Number [facility] [address] [place] [address] after 12/26/2017 Insurance Payer Benefit Subscriber ID Type Phone Address Plan / Group MEDICARE MEDICARE xxxxxxxxxx Medicare [place], [place] PART A AND B AARP AARP xxxxxxxxxxx Commercial SUPPLEMENT Advance Directives Patient has advance care planning documents on file. For more information, issac alvarado contact: Popeye Zendejas [phone] [place] [address]
[2018-12-27] MEDS ORDERED: HYDRALAZINE HCL25 MG PO (21:39)
[2018-12-27] MEDS ORDERED: CARVEDILOL6.25 MG PO (21:45)
[2018-12-27] MEDS ORDERED: BUMETANIDE1 MG PO (21:49)
[2018-12-27] MEDS ORDERED: SODIUM CHLORIDE 0.9% 500ML 500 ML ONE (22:22)
[2018-12-27] MEDS ORDERED: MEROPENEM 1 GM VIAL ONE (22:29)
[2018-12-27] MEDS: MEROPENEM 1GRAM 1 GM in SODIUM CHLORIDE 0.9% 100 ML 100 ML IV SCH (22:29)
[2018-12-27] MEDS ORDERED: SODIUM CHLORIDE 0.9% 100 ML ONE (22:30)
[2018-12-27 22:38] VITALS: BP 145/71
--- NOTE | 2018-12-27 22:38 | NUR ---
Pt received from ER. Pt A&O and in no apparent distress. Pt on RA, no tele, and has whiting cath. Pt came with IV abx hung while in ER. All safety measures ensured and pt call thomas near. Pt encouraged to use call thomas for assistance.
[2018-12-27 22:58] VITALS: BP 145/71
[2018-12-28 04:00] VITALS: BP 134/62
[2018-12-28 06:10] LABS: BASOPHILS % 0.5 % (0.0-1.0); EOSINOPHILS # (AUTO) 0.1 (0.0-0.4); EOSINOPHILS % 1.9 % (0.0-6.0); HEMATOCRIT 35.1 % (38.2-49.6); HEMOGLOBIN 11.5 g/dL (14.0-18.0); LYMPHOCYTES # (AUTO) 1.7 (1.0-3.2); LYMPHOCYTES % 26.6 % (18.0-39.1); MEAN CORPUSCULAR HEMOGLOBIN 31.2 pg (28-32); MEAN CORPUSCULAR HGB CONC 32.8 g/dL (31-35); MEAN CORPUSCULAR VOLUME 95.1 fL (81-99); MONOCYTES # (AUTO) 0.7 (0.2-0.8); MONOCYTES % 11.7 % (4.4-11.3); NEUTROPHILS # (AUTO) 3.7 (2.1-6.9); PLATELET COUNT 179 x10e3/uL (140-360); RED BLOOD COUNT 3.69 x10e6/uL (4.3-5.7); RED CELL DISTRIBUTION WIDTH 15.5 % (11.7-14.4)
[2018-12-28 06:33] LABS: ALBUMIN 3.5 g/dL (3.5-5.0); ANION GAP 12.8 mmol/L (8-16); CALCIUM 9.4 mg/dL (8.4-10.2); CREATININE, SERUM 1.52 mg/dL (0.72-1.25)
[2018-12-28 06:49] LABS: POTASSIUM 2.8 mmol/L (3.5-5.1)
--- NOTE | 2018-12-28 07:04 | NUR ---
report given and walking rounds complete. pt resting in bed and in no apparent distress.
--- NOTE | 2018-12-28 07:25 | NUR ---
PT UP IN BED AWAKE NO DISTRESS NTOED,DENIES PAIN,DR GAONA HERE ORDERS WRITTEN.
[2018-12-28 07:35] VITALS: BP 140/67
[2018-12-28 07:53] VITALS: BP 140/67
[2018-12-28] MEDS ORDERED: POTASSIUM CHLORIDE 20 MEQ TAB CR PO ONE ×2 (08:00→17:00)
[2018-12-28] MEDS: BUMETANIDE 1 MG TAB PO SCH (08:42)
[2018-12-28] MEDS: ASPIRIN 81 MG CHEW TAB PO SCH (08:42)
[2018-12-28] MEDS: POLYETHYLENE GLYCOL 3350 17 GM PACK PO SCH (08:43)
[2018-12-28] MEDS: FERROUS SULFATE 325 MG TAB PO SCH ×2 (08:43→17:00)
[2018-12-28] MEDS: SENNA-S TABLET PO SCH (08:43)
[2018-12-28] MEDS: GEMFIBROZIL 600 MG TAB PO SCH ×2 (08:43→17:00)
[2018-12-28] MEDS: CARVEDILOL 3.125 MG TAB PO SCH ×2 (08:43→17:00)
--- NOTE | 2018-12-28 09:56 | NUR ---
CM SPOKE TO PATIENT AT BEDSIDE REGARDING IMM LETTER. IMM LETTER GIVEN WITH EXPLANATION BASED ON ANTICIPATED DISCHARGE DATE WITHIN 48 HOURS. ORIGINAL SIGNED BY PATIENT. COPY OF ORIGINAL PLACED IN CHART; COPY OF ORIGINAL DOCUMENT GIVEN TO PATIENT AT BEDSIDE AND PLACED IN CARE TRANSITION FOLDER. CM CONTACT INFORMATION GIVEN TO PATIENT FOR ANY NEEDS OR CONCERNS. PATIENT WITH NO FURTHER QUESTIONS.
[2018-12-28] MEDS: MEROPENEM 1GRAM 1 GM in SODIUM CHLORIDE 0.9% 100 ML 100 ML IV SCH (11:00)
--- NOTE | 2018-12-28 12:00 | NUR ---
SPECIALTY BED HERE TRANSPFERRRED PT OVER TOLERATED WELL
[2018-12-28 12:13] VITALS: BP 111/59
--- NOTE | 2018-12-28 13:08 | History and Physical ---
The patient comes in with urinary tract infection and also generalized fatigue. HISTORY OF PRESENTING ILLNESS: Mr. Kanu Baig is a 78-year-old gentleman with a history of paraplegia and history of self-catheterization and with history of multiple urinary tract infections secondary to repeated catheterization, who was in usual state of health until about three days ago. The patient complains of dizziness, blurry visions, insomnia, decreased appetite, fatigue, and generalized weakness. The patient came in with this and was found to have gram-negative bacilli in the urine and was admitted for urinary tract infection and also for ongoing care. PAST MEDICAL HISTORY: History of atrial fibrillation. 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 The patient also has diastolic congestive heart failure. PAST SURGICAL HISTORY: History of multiple back surgeries, history of carpal tunnel repair, history of hernia repair, history of tonsillectomy, and history of adenoidectomy and has had also right testicular tumor removed. MEDICATIONS: Medications he takes at home are aspirin 81 mg, atorvastatin 20 mg, Bumex 2 mg daily, carvedilol 6.25 mg daily, ferrous sulfate 325 mg daily, gemfibrozil 600 mg daily, hydralazine 25 mg daily, polyethylene glycol one packet daily. The patient also takes Senokot daily. REVIEW OF SYSTEMS: Negative for chest pain. Positive for fatigue plus generalized weakness. No nausea, vomiting, or diarrhea. No constipation. No rectal bleeding. No hematochezia or hematemesis. The patient has baseline paraplegia. FAMILY HISTORY: Noncontributory. ALLERGIES: THE PATIENT IS ALLERGIC TO PENICILLINS. PHYSICAL EXAMINATION: VITAL SIGNS: Temperature is 97.6, pulse of 78, respirations of 18, blood pressure is 134/62, and pulse oximetry is 94% on room air. GENERAL: The patient is obese, paraplegic, in bed. CVS: S1, S2 are normal. Regular rate and rhythm. HEENT: Normocephalic, atraumatic. GI: The patient does have some tenderness in the suprapubic area. EXTREMITIES: No clubbing, no cyanosis, no edema. NEURO: Positive for senescent changes and the patient does also have trophic changes in the lower extremities. LABORATORY VALUES: Initial white count was 7.93, hemoglobin of 12.1, hematocrit of 36.5 with RDW of 15.7. Chemistry shows sodium of 140, potassium of 3.9, BUN 48, creatinine of 2.02. BNP was 318.9. Today's potassium is 2.8. Microbiology, gram-negative bacilli identified in the UA and the urine did show leukocyte esterase. ASSESSMENT: A 78-year-old paraplegic man with: 1. Urinary tract infection. The patient is currently on Merrem 1 g q.12 hours. We will continue the same. 2. Acute kidney injury. The patient is on sodium chloride. Being repleted. 3. Hypokalemia. The patient's lytes will be repleted. 4. Iron-deficiency anemia. We will continue monitoring the patient's H and H. 5. Atrial fibrillation. The patient was asked to be on anticoagulant, but the patient refuses. He does not want anticoagulation on account of his repeated self-catheterization. 6. Urinary retention and paraplegia. Continue with Pat catheter. A consult with Dr. Silveira has been done. The patient will be followed with Urology too. Further recommendation and clinical course, we will continue to monitor the patient and await urine sensitivity. The patient also has a diagnosis of stage I sacral decubitus. Plan is to get a big boy bed and also air mattress and local care to the sacrum. MD DAMARIS Mar/DENISEL /[id number]
[2018-12-28] MEDS: HYDRALAZINE HCL 25 MG TAB PO SCH ×2 (14:00→22:00)
[2018-12-28 16:06] VITALS: BP 126/68
[2018-12-28] MEDS ORDERED: TRAZODONE HCL 50 MG TAB PO SCH (17:00)
--- NOTE | 2018-12-28 17:47 | NUR ---
PT UP IN BED NO DISTRESS NOTED,DENIES PAIN,PAZ TO BSD CLEAR YELLOW URINE
--- NOTE | 2018-12-28 19:49 | NUR ---
RECEIVED PT IN BED AOX3 RESPIRATIONS ARE EVEN AND UNLABORED DENIES PAIN .PT HAS F/C NS AT75 CC/HR CALL LIGHT WITH IN REACH .CONTINUE TO MONITOR
[2018-12-28 20:00] VITALS: BP 122/58
[2018-12-28] MEDS: ATORVASTATIN 20 MG TAB PO SCH (20:50)
[2018-12-28] MEDS: QUETIAPINE FUMARATE 25 MG TAB PO SCH (21:01)
[2018-12-28] MEDS: MEROPENEM 1GM 100 ML IV SCH (22:00)
[2018-12-29] VITALS (8 sets, daily range): BP systolic 100–122; BP diastolic 55–68
[2018-12-29] MEDS: HYDRALAZINE HCL 25 MG TAB PO SCH ×3 (06:00→21:03)
[2018-12-29 06:08] LABS: BASOPHILS % 0.3 % (0.0-1.0); EOSINOPHILS # (AUTO) 0.1 (0.0-0.4); EOSINOPHILS % 1.9 % (0.0-6.0); HEMATOCRIT 33.7 % (38.2-49.6); LYMPHOCYTES % 32.7 % (18.0-39.1); MEAN CORPUSCULAR HEMOGLOBIN 31.4 pg (28-32); MEAN CORPUSCULAR HGB CONC 32.6 g/dL (31-35); MEAN CORPUSCULAR VOLUME 96.3 fL (81-99); MONOCYTES # (AUTO) 0.7 (0.2-0.8); MONOCYTES % 11.6 % (4.4-11.3); NEUTROPHILS # (AUTO) 3.3 (2.1-6.9); NEUTROPHILS % 52.9 % (38.7-80.0); PLATELET COUNT 168 x10e3/uL (140-360); RED CELL DISTRIBUTION WIDTH 15.7 % (11.7-14.4)
[2018-12-29 06:35] LABS: ANION GAP 12.3 mmol/L (8-16); CALCIUM 8.9 mg/dL (8.4-10.2); CREATININE, SERUM 1.42 mg/dL (0.72-1.25); POTASSIUM 3.3 mmol/L (3.5-5.1)
[2018-12-29] MEDS ORDERED: POTASSIUM CHLORIDE 10MEQ EA PO ONE (07:00)
--- NOTE | 2018-12-29 07:11 | NUR ---
PT HAD DIFFICULTY SLEEPING DURING THE NIGHT .NOTIFIED THE DOCTOR .CALL LIGHT WITH IN REACH .CONTINUE TO MONITOR .REPORT GIVEN TO THE ONCOMING NURSE
--- NOTE | 2018-12-29 07:35 | NUR ---
PT UP IN BED NO DISTRESS,PT STATES UNABLE TO SLEEP AGAIN ,DR GAONA AWARE
[2018-12-29] MEDS: SENNA-S TABLET PO SCH (08:30)
[2018-12-29] MEDS: BUMETANIDE 1 MG TAB PO SCH (08:30)
[2018-12-29] MEDS: CARVEDILOL 3.125 MG TAB PO SCH ×2 (08:30→17:00)
[2018-12-29] MEDS: POLYETHYLENE GLYCOL 3350 17 GM PACK PO SCH (08:30)
[2018-12-29] MEDS: LACTOBACILLUS ACIDOPHILUS CAPSULE PO SCH ×3 (08:30→21:00)
[2018-12-29] MEDS: GEMFIBROZIL 600 MG TAB PO SCH ×2 (08:30→17:00)
[2018-12-29] MEDS: FERROUS SULFATE 325 MG TAB PO SCH ×2 (08:30→17:00)
[2018-12-29] MEDS: ASPIRIN 81 MG CHEW TAB PO SCH (08:30)
[2018-12-29] MEDS: MEROPENEM 1GM 100 ML IV SCH ×2 (10:00→21:02)
[2018-12-29] MEDS: BALSAM PERU/CASTOR OIL 60 GM OINT...G. TP SCH ×2 (10:00→17:00)
--- NOTE | 2018-12-29 10:24 | Progress Note ---
DATE: SUBJECTIVE: The patient is a 78-year-old male, who comes in with urinary tract infection, insomnia, and also generalized fatigue. The patient is currently afebrile. The patient did not sleep last night. Still complains of some abdominal pain. Did have some palpitations last night and no chest pain. OBJECTIVE: VITAL SIGNS: Temperature is 96.7, pulse is 62, respirations of 20, blood pressure is 122/59, pulse oximetry of 98%. HEENT: Normocephalic, atraumatic. Pupils are reactive to light and accommodation. CVS: Irregularly irregular. ABDOMEN: Tender in suprapubic area. EXTREMITIES: No clubbing, no cyanosis. Trophic changes and also vascular changes present. LABORATORY VALUES: The patient's white count is 6.23, hemoglobin of 11, hematocrit of 33.7. Chemistries; sodium is 142, potassium of 3.3, BUN 37, creatinine of 1.42. BNP was 318.9. Microbiology still shows gram-negative bacilli, identification and susceptibility to follow. ASSESSMENT: A 78-year-old paraplegic man with: 1. Urinary tract infection. The patient is currently on Merrem. We will continue monitoring and waiting for susceptibility. 2. Acute kidney injury on chronic kidney injury. We will continue monitoring it. Potassium being repleted and we will replete some of it again today. 3. Iron-deficiency anemia. Continue on iron tablets. 4. Atrial fibrillation. We will put the patient on monitor to see if there is any rapid ventricular response. The patient refuses anticoagulation, but is on aspirin 81 mg and we will continue with that. 5. Urinary retention. Continue with urinary catheterization. 6. The patient has sleep apnea seen as per sleep study. We will put the patient on a BiPAP. 7. Insomnia. We will increase the trazodone to 300 mg. 8. Sacral decubitus. Continue with air bed and management of pressure ulcers with air bed and local care. MD DAMARIS Mar/MODL /[id number]
--- NOTE | 2018-12-29 10:52 | NUR ---
TELE APPLIED ORDERED
[2018-12-29] MEDS ORDERED: TRAZODONE HCL 50 MG TAB PO SCH (17:00)
--- NOTE | 2018-12-29 18:11 | NUR ---
NO CHANGE IN STATUS DENIES PAIN.
--- NOTE | 2018-12-29 19:30 | NUR ---
patient received awake, alert, lying quietly in bed. no c/o pain noted. pm assessment complete. call thomas placed within reach. patient instructed to call for assistance when needed.
[2018-12-29] MEDS: ATORVASTATIN 20 MG TAB PO SCH (21:00)
[2018-12-29] MEDS: QUETIAPINE FUMARATE 25 MG TAB PO SCH (21:00)
[2018-12-30] VITALS: BP 99/62
[2018-12-30 04:00] VITALS: BP 107/73
--- NOTE | 2018-12-30 04:15 | NUR ---
cpap off at this time per patients request.
[2018-12-30] MEDS: HYDRALAZINE HCL 25 MG TAB PO SCH (05:19)
[2018-12-30 07:15] LABS: ANION GAP 14.7 mmol/L (8-16); CALCIUM 9.3 mg/dL (8.4-10.2); CREATININE, SERUM 1.55 mg/dL (0.72-1.25); POTASSIUM 3.7 mmol/L (3.5-5.1)
--- NOTE | 2018-12-30 07:20 | NUR ---
PATIENT IN BED RESTING WITH NO RESPIRATORY DISTRESS OBSERVED. PAZ CATHETER WITH CLEAR YELLOW URINE, BOOT TO FEET, TELEMETRY IN PLACE. PATIENT IN SPECIALTY BED. BED IN LOWER POSITION, CALL LIGHT AT REACH.
[2018-12-30 07:30] VITALS: BP 124/61
[2018-12-30 07:41] VITALS: BP 124/61
[2018-12-30] MEDS: ASPIRIN 81 MG CHEW TAB PO SCH (09:19)
[2018-12-30] MEDS: BUMETANIDE 1 MG TAB PO SCH (09:19)
[2018-12-30] MEDS: FERROUS SULFATE 325 MG TAB PO SCH (09:19)
[2018-12-30] MEDS: LACTOBACILLUS ACIDOPHILUS CAPSULE PO SCH (09:19)
[2018-12-30] MEDS: CARVEDILOL 3.125 MG TAB PO SCH (09:19)
[2018-12-30] MEDS: GEMFIBROZIL 600 MG TAB PO SCH (09:19)
[2018-12-30] MEDS: SENNA-S TABLET PO SCH (09:19)
[2018-12-30] MEDS: POLYETHYLENE GLYCOL 3350 17 GM PACK PO SCH (09:19)
[2018-12-30] MEDS: BALSAM PERU/CASTOR OIL 60 GM OINT...G. TP SCH (09:19)
--- NOTE | 2018-12-30 10:07 | Progress Note ---
DATE: SUBJECTIVE: A 78-year-old male comes in with generalized debility and was found to have urinary tract infection, currently growing Klebsiella pneumoniae with ESBL. The patient is currently asymptomatic. Did not sleep yesterday despite being given Seroquel and trazodone. The patient has a Pat catheter. Urine culture grew Klebsiella ESBL. The patient is on meropenem at this time for the same. OBJECTIVE: VITAL SIGNS: Temperature is 97.5, pulse of 67, respirations of 19, blood pressure is 107/73, pulse oximetry 100% on room air. The patient also received BiPAP for sleep apnea yesterday. HEENT: Normocephalic, atraumatic. Pupils are reactive to light and accommodation. The patient is paraplegic. CVS: S1, S2 normal. Regular rhythm. ABDOMEN: Nontender, nondistended. EXTREMITIES: No clubbing, no cyanosis, no edema. SKIN: Sacral type 1 decubitus is better as local wound care has been applied. LABORATORY VALUES: White count was normal yesterday, hemoglobin of 11, hematocrit of 33.7. Today's chemistry shows sodium of 142, potassium of 3.3, and BUN and creatinine of 37 and 1.42. The patient's microbiology, as mentioned above ESBL sensitive to Merrem. ASSESSMENT: A 78-year-old paraplegic man with: 1. Urinary tract infection. Currently continue Merrem. The patient can be discharged home on Bactrim DS twice a day. 2. Acute kidney injury on chronic kidney injury, better. We will continue monitoring the patient. 3. Anemia. Continue with iron replacement. 4. Atrial fibrillation. The patient is resistant to anticoagulation, is currently on 81 mg of aspirin, we will continue. 5. Urinary retention. We will continue with self-catheterization. 6. Sleep apnea, BiPAP. 7. Insomnia. We will continue with trazodone, Valium, and Seroquel. 8. Sacral decubitus, better. Continue with local care. The patient can be discharged on Bactrim and will follow up with me in about a week's time. Further recommendation per clinical course. Justin Ryan MD ASJ/MODL /[id number]
[2018-12-30] MEDS ORDERED: VALIUM10 MG PO (10:55)
[2018-12-30] MEDS ORDERED: SEROQUEL25 MG PO (10:57)
[2018-12-30] MEDS ORDERED: CIPROFLOXACIN500 M1 PO (10:57)
[2018-12-30] MEDS ORDERED: TRAZODONE HCL50 MG PO (10:59)
--- NOTE | 2018-12-30 11:15 | NUR ---
PATIENT HAS BEEN DISCHARGED, AWAITING FOR FOR TRANSPORTATION. CALL LIGHT AT REACH.
[2018-12-30 11:29] VITALS: BP 133/69
--- NOTE | 2018-12-30 12:50 | NUR ---
PATIENT DISCHARGED HOME. DISCHARGE INSTRUCTIONS, PRESCRIPTIONS, AND FOLLOW UP GIVEN TO PATIENT. SHE VERBALIZED UNDERSTANDING. IV TO LEFT AC REMOVED WITH TIP INTACT. ALL PERSONAL ITEMS TAKEN WITH PATIENT. LEFT UNIT PER WHEEL CHAIR TO FRONT LOBBY.
== END 2018-12-30 12:50 | disposition home or self-care (01) | DRG 690 ==
LOC: ER 16:23 → UNDOADMOB 21:15 → ERHOLD 21:15 → MED/SURG3 22:38
PROVIDERS: ADMIT Family Medicine; ATTEND Family Medicine
DX: N39.0 Urinary tract infection, site not specified (principal); N17.9 Acute kidney failure, unspecified; G82.20 Paraplegia, unspecified; I50.32 Chronic diastolic (congestive) heart failure; E87.6 Hypokalemia; R33.9 Retention of urine, unspecified; L89.151 Pressure ulcer of sacral region, stage 1; E78.5 Hyperlipidemia, unspecified; I11.0 Hypertensive heart disease with heart failure; D50.9 Iron deficiency anemia, unspecified; B96.1 Klebsiella pneumoniae [K. pneumoniae] as the cause of diseases classified elsewhere; Z16.12 Extended spectrum beta lactamase (ESBL) resistance; I48.91 Unspecified atrial fibrillation; Z79.01 Long term (current) use of anticoagulants; G47.30 Sleep apnea, unspecified
CPT/HCPCS: 36415; 51700; 71045; 80048; 80053; 81001; 82550; 82553; 82948; 83880; 84484; 85025; 85610; 85730; 87086; 87186; 93005; 94660; 99284; J2185; J7030; J7040; J7050

== ENCOUNTER 2020-06-06 14:31 | Emergency (ER) | payer MEDICARE ==
[~2020-06-06] VITALS: Ht 185.4 cm; Wt 142.9 kg
[~2020-06-06 14:31] MED LIST changes: +CARVEDILOL6.25 MG PO; +CIPROFLOXACIN500 M1 PO; +SEROQUEL25 MG PO; +TRAZODONE HCL50 MG PO; +VALIUM10 MG PO
--- OUTSIDE RECORDS SUMMARY | 2020-06-06 14:58 | XMS REPORT | Summary of Care ---
Author Author [facility] Organization [facility] Address Unknown Phone Unavailable Encounter ABIEL Christensen(HUMBERTO) [id number] Date(s): 08/23/18 - 08/29/18 [facility] [address] [place] [address]- Encounter Diagnosis Other postprocedural complications and disorders of genitourinary system (Final) - 09/03/18 Sepsis, unspecified organism (Final) - Acute kidney failure with tubular necrosis (Final) - Encounter for immunization (Final) - Severe sepsis without septic shock (Final) - Acute cystitis without hematuria (Final) - Paraplegia, unspecified (Final) - Other obstructive and reflux uropathy (Final) - Unspecified atrial fibrillation (Final) - Pressure ulcer of unspecified site, unspecified stage (Final) - Hyperlipidemia, unspecified (Final) - 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) - Benign prostatic hyperplasia with lower urinary tract symptoms (Final) - Neuromuscular dysfunction of bladder, unspecified (Final) - Proteus (mirabilis) (morganii) as the cause of diseases classified elsewhere (Final) - Other streptococcus as the cause of diseases classified elsewhere (Final) - Heart failure, unspecified (Final) - Personal history of urinary (tract) infections (Final) - Discharge Disposition: Home or Self Care Attending Physician: Natty Rivera MD Admitting Physician: Natty Rivera MD Vital Signs 1 2 3 Most recent to oldest [Reference Range]: 185.42 cm (08/24/18 3:59 AM) Height 97.5 DegF (08/29/18 11:34 AM) 98.0 DegF (08/29/18 7:30 AM) 98.1 DegF (08/29/18 3:30 AM) Temperature Oral [96.4-99.1 DegF] 131/58 mmHg (08/29/18 11:34 AM) 122/66 mmHg (08/29/18 7:30 AM) 105/63 mmHg (08/29/18 3:30 AM) Blood Pressure [90-140/60-90 mmHg] 17 BRMIN (08/29/18 11:34 AM) 17 BRMIN (08/29/18 7:30 AM) 16 BRMIN (08/29/18 3:30 AM) Respiratory Rate [14-20 BRMIN] 56 bpm *LOW* (08/29/18 11:34 AM) 55 bpm *LOW* (08/29/18 7:30 AM) 54 bpm *LOW* (08/29/18 3:30 AM) Peripheral Pulse Rate [60-100 bpm] 136.136 kg (08/24/18 3:59 AM) 141.818 kg (08/23/18 8:51 PM) Weight 39.6 m2 (08/24/18 3:59 AM) Body Mass Index Problem List Condition Effective Dates Status Health Status Informan t BPH (benign Active prostatic hyperplasia)(Confirm ed) Hematuria(Confirmed) Active Cellulitis of lower Active extremity(Confirmed) CHF (congestive Active heart failure)(Confirmed) Hypertension(Confirm Active ed) Osteomyelitis of Active left lower extremity.(Confirmed ) Morbid Active obesity(Confirmed) Neurogenic Active bladder(Confirmed) Neurogenic Active bowel(Confirmed) Obesity(Confirmed) Active Paraplegia(Confirmed Active ) Urinary Active retention(Confirmed) Allergies, Adverse Reactions, Alerts Substance Reaction Severity Status penicillin Active Medications acetaminophen 650 mg, 2 tab, Route: PO, Drug form: TAB, Q6H, Dosing Weight 141.818, kg, PRN Pa in 1-3/Temp > 100.4 F, Start date: 08/24/18 1:29:00 CDT, Duration: 30 day, Stop date: 09/23/18 1:28:00 MASTER PRINTER Notes: Do not exceed 4 gm/day. (Same as: Tylenol) Start Date: 08/24/18 Stop Date: 08/29/18 Status: Discontinued atorvastatin 20 mg, 2 tab, Route: PO, Drug form: TAB, Bedtime, Dosing Weight 136.136, kg, Sta rt date: 08/24/18 21:00:00 CDT, Duration: 30 day, Stop date: 09/22/18 21:00:[address] Notes: (Same As: Lipitor) Start Date: 08/24/18 Stop Date: 08/29/18 Status: Discontinued atorvastatin 20 mg oral tablet 20 mg = 1 tab, PO, Bedtime, # 90 tab, 0 Refill(s) Start Date: 08/24/18 Status: Ordered Beneprotein 7 gm pkt 1 pkt, Route: PO, Drug Form: PWDR, Dosing Weight 136.136, kg, TID-Meals, Start d ate: 08/24/18 17:00:00 CDT, Duration: 30 day, Stop date: 09/23/18 12:00:00 MASTER PRINTER Notes: (Same as: Beneprotein) Start Date: 08/24/18 Stop Date: 08/29/18 Status: Discontinued bumetanide 2 mg oral tablet 2 mg = 1 tab, PO, Daily, # 90 tab, 0 Refill(s) Start Date: 08/24/18 Status: Ordered calcium gluconate + Sodium Chloride 0.9% IV 100 mL 2 gm, 20 mL, Route: IVPB, PRN, Dosing Weight 136.136, kg, PRN Abnormal Lab Resul t, For NON-ICU Patients Only., Start date: 08/27/18 15:41:00 CDT, Duration: 30 d ay, Stop date: 09/26/18 14:40:00 MASTER PRINTER Notes: WASTE: F/P - Sink; E - Municipal Trash Bin Start Date: 08/27/18 Stop Date: 08/29/18 Status: Discontinued calcium gluconate + Sodium Chloride 0.9% IV 100 mL 3 gm, 30 mL, Route: IVPB, PRN, Dosing Weight 136.136, kg, PRN Abnormal Lab Resul t, For NON-ICU Patients Only., Start date: 08/27/18 15:41:00 CDT, Duration: 30 d ay, Stop date: 09/26/18 14:40:00 MASTER PRINTER Notes: WASTE: F/P - Sink; E - Municipal Trash Bin Start Date: 08/27/18 Stop Date: 08/29/18 Status: Discontinued carvedilol 37.5 mg, 3 tab, Route: PO, Drug form: TAB, BID, Dosing Weight 136.136, kg, Start date: 08/25/18 21:00:00 CDT, Duration: 30 day, Stop date: 09/24/18 9:00:00 MASTER PRINTER Notes: Give with food. (Same As: Coreg) Start Date: 08/25/18 Stop Date: 08/29/18 Status: Discontinued carvedilol 37.5 mg, PO, BID, 25mg tab 1.5 tabs BID, 0 Refill(s) Start Date: 08/24/18 Status: Ordered cefTRIAXone + sterile water 10 mL 1 gm, Route: IVP, ONCE, Dosing Weight 141.818, kg, Priority: STAT, Start date: 1 22:08:00 CDT, Stop date: 08/23/18 22:08:00 CDT, ABX Indication: Urinary Tract Infection Notes: (Same As: Rocephin).Use with 100 mL NS and infuse over 30 min MEDICA TION WASTE Product Size: 1000 mgProduct Wasted: ___ mg Start Date: 08/23/18 Stop Date: 08/23/18 Status: Completed cefTRIAXone + sterile water 10 mL 1 gm, Route: IVP, [id number], Dosing Weight 141.818, kg, Start date: 08/24/18 21:00 :00 CDT, Duration: 30 day, Stop date: 09/22/18 21:00:00 MASTER PRINTER, ABX Indication: Uri nary Tract Infection Notes: (Same As: Rocephin).Use with 100 mL NS and infuse over 30 min MEDICA TION WASTE Product Size: 1000 mgProduct Wasted: ___ mg Start Date: 08/24/18 Stop Date: 08/24/18 Status: Canceled cefTRIAXone + sterile water 20 mL 2 gm, Route: IVP, [id number], Dosing Weight 136.136, kg, Start date: 08/24/18 18:00 :00 CDT, Duration: 10 day, Stop date: 09/02/18 21:00:00 CDT, ABX Indication: Uri nary Tract Infection Notes: (Same As: Rocephin).Use with 100 mL NS and infuse over 30 min MEDICA TION WASTE Product Size: 2000 mgProduct Wasted: ___ mg Start Date: 08/24/18 Stop Date: 08/29/18 Status: Discontinued Dextrose 50% Syringe 25 gm, 50 mL, Route: IVP, Drug Form: INJ, Dosing Weight 141.818, kg, PRN, PRN Bl ood Glucose Results, Start date: 08/24/18 1:29:00 CDT, Duration: 30 day, Stop da te: 09/23/18 0:28:00 MASTER PRINTER Start Date: 08/24/18 Stop Date: 08/29/18 Status: Discontinued Dextrose 50% Syringe 12.5 gm, 25 mL, Route: IVP, Drug Form: INJ, Dosing Weight 141.818, kg, PRN, PRN Blood Glucose Results, Start date: 08/24/18 1:29:00 CDT, Duration: 30 day, Stop date: 09/23/18 0:28:00 MASTER PRINTER Start Date: 08/24/18 Stop Date: 08/29/18 Status: Discontinued diazepam 10 mg, 2 tab, Route: PO, Drug form: TAB, Daily, Dosing Weight 136.136, kg, PRN S pasm, Start date: 08/24/18 4:00:00 CDT, Duration: 30 day, Stop date: 09/23/18 3: 59:00 MASTER PRINTER Notes: (Same as: Valium) Start Date: 08/24/18 Stop Date: 08/29/18 Status: Discontinued diazepam 10 mg, PO, Daily, PRN Spasm, 0 Refill(s) Start Date: 08/24/18 Status: Ordered docusate 100 mg, 1 cap, Route: PO, Drug form: CAP, BID, Dosing Weight 141.818, kg, Start date: 08/24/18 9:00:00 CDT, Duration: 30 day, Stop date: 09/22/18 17:00:00 MASTER PRINTER Notes: (Same as: Colace) (Do Not Crush) Start Date: 08/24/18 Stop Date: 08/29/18 Status: Discontinued gemfibrozil 600 mg, 1 tab, Route: PO, Drug form: TAB, BID, Dosing Weight 136.136, kg, Start date: 08/24/18 9:00:00 CDT, Duration: 30 day, Stop date: 09/22/18 17:00:00 MASTER PRINTER Notes: (Same as: Lopid) Start Date: 08/24/18 Stop Date: 08/29/18 Status: Discontinued gemfibrozil 600 mg oral tablet 600 mg = 1 tab, PO, BID, # 180 tab, 0 Refill(s) Start Date: 08/24/18 Status: Ordered glucagon 1 mg, Route: IM, Drug form: PDR/INJ, PRN, Dosing Weight 141.818, kg, PRN Blood G lucose Results, Start date: 08/24/18 1:29:00 CDT, Duration: 30 day, Stop date: 1 11/23/17 0:28:00 MASTER PRINTER Start Date: 08/24/18 Stop Date: 08/29/18 Status: Discontinued heparin 5,000 unit, 1 mL, Route: SUB-Q, Drug form: INJ, Q8H, Dosing Weight 136.136, kg, Start date: 08/24/18 8:00:00 CDT, Duration: 30 day, Stop date: 09/23/18 0:00:00 MASTER PRINTER Notes: porcine heparin Start Date: 08/24/18 Stop Date: 08/27/18 Status: Discontinued hydrALAZINE 100 mg, 2 tab, Route: PO, Drug form: TAB, Q8Hnow, Dosing Weight 136.136, kg, Sta rt date: 08/25/18 21:00:00 CDT, Duration: 30 day, Stop date: 09/24/18 13:00:[address] Notes: (Same as: Apresoline) May interfere w/enteral feedings Take With Food Start Date: 08/25/18 Stop Date: 08/29/18 Status: Discontinued hydrALAZINE 100 mg, PO, Q8H, 0 Refill(s) Start Date: 08/24/18 Status: Ordered lisinopril 40 mg, 2 tab, Route: PO, Drug form: TAB, Daily, Dosing Weight 136.136, kg, Start date: 08/26/18 9:00:00 CDT, Duration: 30 day, Stop date: 09/24/18 9:00:00 MASTER PRINTER Notes: (Same as: Prinivil, Zestril) Start Date: 08/26/18 Stop Date: 08/29/18 Status: Discontinued lisinopril 40 mg, PO, Daily, 0 Refill(s) Start Date: 08/24/18 Status: Ordered magnesium oxide 800 mg, 2 tab, Route: PO, Drug form: TAB, PRN, Dosing Weight 136.136, kg, PRN Ab normal Lab Result, For NON-ICU Patients Only., Start date: 08/27/18 15:41:00 CDT , Duration: 30 day, Stop date: 09/26/18 14:40:00 MASTER PRINTER Notes: (Same as: Mag-Ox 400)Magnesium oxide [id number] elemental magnesiumDose= ____mg magnesium oxide (___mg elemental magnesium) Start Date: 08/27/18 Stop Date: 08/29/18 Status: Discontinued magnesium sulfate 2 gm, 50 mL, Route: IVPB, Drug form: INJ, PRN, Dosing Weight 136.136, kg, PRN Ab normal Lab Result, For NON-ICU Patients Only., Start date: 08/27/18 15:41:00 CDT , Duration: 30 day, Stop date: 09/26/18 14:40:00 MASTER PRINTER Notes: WASTE: F/P - Sink; E - Municipal Trash Bin Start Date: 08/27/18 Stop Date: 08/29/18 Status: Discontinued magnesium sulfate 1 gm, 100 mL, Route: IVPB, Drug form: INJ, PRN, Dosing Weight 136.136, kg, PRN A bnormal Lab Result, For NON-ICU Patients Only., Start date: 08/27/18 15:41:00 CD T, Duration: 30 day, Stop date: 09/26/18 14:40:00 MASTER PRINTER Notes: WASTE: F/P - Sink; E - Municipal Trash Bin Start Date: 08/27/18 Stop Date: 08/29/18 Status: Discontinued melatonin 3 mg, 1 tab, Route: PO, Drug form: TAB, Bedtime, Dosing Weight 141.818, kg, PRN Insomnia, Start date: 08/24/18 1:29:00 CDT, Duration: 30 day, Stop date: 8 1:28:00 MASTER PRINTER Notes: (Same as: Melatonin) Start Date: 08/24/18 Stop Date: 08/29/18 Status: Discontinued MiraLax 17 gm, 1 pkt, Route: PO, Drug form: PWDR, Daily, Dosing Weight 136.136, kg, Star t date: 08/27/18 9:00:00 CDT, Duration: 30 day, Stop date: 09/25/18 9:00:00 MASTER PRINTER Notes: Dissolve in 8 oz of water or juice.(Same as: Miralax) Start Date: 08/27/18 Stop Date: 08/29/18 Status: Discontinued NS (Bolus) IV 500 mL, 500 ml/hr, Infuse Over: 1 hr, Route: IV, 500, Drug form: INJ, ONCE, Prio rity: STAT, Dosing Weight 136.136 kg, Start date: 08/24/18 4:00:00 CDT, Stop steven e: 08/24/18 4:00:00 CDT Start Date: 08/24/18 Stop Date: 08/24/18 Status: Completed NS 1,000 mL 1,000 mL, Rate: 150 ml/hr, Infuse over: 6.7 hr, Route: IV, Dosing Weight 141.818 kg, Total Volume: 1,000, Start date: 08/24/18 0:14:00 CDT, Duration: 30 day, St op date: 09/23/18 0:13:00 MASTER PRINTER, 2.73, m2 Start Date: 08/24/18 Stop Date: 08/25/18 Status: Discontinued ondansetron 4 mg, 2 mL, Route: IVP, Drug form: INJ, Q8H, Dosing Weight 141.818, kg, PRN Naus ea & Vomiting, Start date: 08/24/18 1:29:00 CDT, Duration: 30 day, Stop date: 09/23/18 1:28:00 MASTER PRINTER Notes: (Same as: Zofran) MEDICATION WASTE Product Size: 4 mgProduct Was main: ___ mg Start Date: 08/24/18 Stop Date: 08/29/18 Status: Discontinued potassium chloride 20 mEq, 15 mL, Route: NJ, Drug form: LIQ, PRN, Dosing Weight 136.136, kg, PRN Ab normal Lab Result, For NON-ICU Patients Only, Start date: 08/27/18 15:41:00 CDT, Duration: 30 day, Stop date: 09/26/18 14:40:00 MASTER PRINTER Notes: (Same as: Potassium Chloride) Start Date: 08/27/18 Stop Date: 08/29/18 Status: Discontinued potassium chloride 20 mEq, 1 tab, Route: PO, Drug form: ERTAB, PRN, Dosing Weight 136.136, kg, PRN Abnormal Lab Result, For NON-ICU Patients Only, Start date: 08/27/18 15:41:00 CD T, Duration: 30 day, Stop date: 09/26/18 14:40:00 MASTER PRINTER Notes: (Same as: K-Dur 20)"Do Not Crush"For patients unable to swallow tablet, d issolve in one half glass of water. Allow about 2 minutes for the tablets to dis integrate. Stir before giving to prepare slurry and administer.Please exclude Pa tients with feeding tube less than 14 [place]e (Dobhoff, J-tube etc) and pediat vivi and patients. With food and full glass of water Start Date: 08/27/18 Stop Date: 08/29/18 Status: Discontinued potassium chloride 10 mEq, 100 mL, Route: IVPB, Drug form: INJ, PRN, Dosing Weight 136.136, kg, PRN Abnormal Lab Result, For NON-ICU Patients Only, Start date: 08/27/18 15:41:00 C DT, Duration: 30 day, Stop date: 09/26/18 14:40:00 MASTER PRINTER Notes: Infuse at a rate of 10 mEq/hr.(Same as: KCL) Start Date: 08/27/18 Stop Date: 08/29/18 Status: Discontinued potassium chloride 40 mEq, 2 tab, Route: PO, Drug form: ERTAB, ONCE, Dosing Weight 136.136, kg, Sta rt date: 08/27/18 14:44:00 CDT, Stop date: 08/27/18 14:44:00 CDT Notes: (Same as: K-Dur 20)"Do Not Crush"For patients unable to swallow tablet, d issolve in one half glass of water. Allow about 2 minutes for the tablets to dis integrate. Stir before giving to prepare slurry and administer.Please exclude Pa tients with feeding tube less than 14 [place]amese (Dobhoff, J-tube etc) and pediat vivi and patients. With food and full glass of water Start Date: 08/27/18 Stop Date: 08/27/18 Status: Completed potassium phosphate + Sodium Chloride 0.9% IV 250 mL 30 mmol, 10 mL, Route: IVPB, PRN, Dosing Weight 136.136, kg, PRN Abnormal Lab Re sult, For NON-ICU Patients Only., Start date: 08/27/18 15:41:00 CDT, Duration: 3 0 day, Stop date: 09/26/18 14:40:00 MASTER PRINTER Notes: (Same as: K Phosphate.)Do not infuse phosphorous concurrently in the same line as TPN or IVF that contains calcium. For double lumen central lines, phosp horous may be infused in a separate lumen from TPN. 1 mMol phoshate has 1.47 mE q potassium Infuse over 4 hours Start Date: 08/27/18 Stop Date: 08/29/18 Status: Discontinued potassium phosphate + Sodium Chloride 0.9% IV 250 mL 15 mmol, 5 mL, Route: IVPB, PRN, Dosing Weight 136.136, kg, PRN Abnormal Lab Res ult, For NON-ICU Patients Only., Start date: 08/27/18 15:41:00 CDT, Duration: 30 day, Stop date: 09/26/18 14:40:00 MASTER PRINTER Notes: (Same as: K Phosphate.)Do not infuse phosphorous concurrently in the same line as TPN or IVF that contains calcium. For double lumen central lines, phosp horous may be infused in a separate lumen from TPN. 1 mMol phoshate has 1.47 mE q potassium Infuse over 4 hours Start Date: 08/27/18 Stop Date: 08/29/18 Status: Discontinued potassium phosphate-sodium phosphate 250 mg-280 mg-160 mg oral powder for recons titution 2 pkt, Route: PO, Drug Form: PDR/REC, Dosing Weight 136.136, kg, PRN, PRN Abnorm al Lab Result, For NON-ICU Patients Only, Start date: 08/27/18 15:41:00 CDT, Dur ation: 30 day, Stop date: 09/26/18 14:40:00 MASTER PRINTER Notes: (Same as: Phos-NaK) Each 1.5 gm pkt has 250mg phosphorous. Mix w/2.5oz w ater and stir. Start Date: 08/27/18 Stop Date: 08/29/18 Status: Discontinued senna 17.2 mg, 2 tab, Route: PO, Drug Form: TAB, Dosing Weight 141.818, kg, Bedtime, S tart date: 08/24/18 21:00:00 CDT, Duration: 30 day, Stop date: 09/22/18 21:00:00 MASTER PRINTER Notes: (Same as: Senokot) Start Date: 08/24/18 Stop Date: 08/29/18 Status: Discontinued Senokot 8.6 mg, 1 tab, Route: PO, Drug Form: TAB, Dosing Weight 136.136, kg, Daily, PRN Constipation, Start date: 08/26/18 13:24:00 CDT, Duration: 30 day, Stop date: 13:23:00 MASTER PRINTER Notes: (Same as: Senokot) Start Date: 08/26/18 Stop Date: 08/29/18 Status: Discontinued sodium phosphate + Dextrose 5% in Water IV 250 mL 30 mmol, 10 mL, Route: IVPB, PRN, Dosing Weight 136.136, kg, PRN Abnormal Lab Re sult, For NON-ICU Patients Only., Start date: 08/27/18 15:41:00 CDT, Duration: 3 0 day, Stop date: 09/26/18 14:40:00 MASTER PRINTER Notes: Infuse over 4 hour. Do not infuse phosphorous concurrently in the same li ne as TPN or IVF that contains calcium. For double lumen central lines, phosphor ous may be infused in a separate lumen from TPN. Start Date: 08/27/18 Stop Date: 08/29/18 Status: Discontinued sodium phosphate + Dextrose 5% in Water IV 250 mL 15 mmol, 5 mL, Route: IVPB, PRN, Dosing Weight 136.136, kg, PRN Abnormal Lab Res ult, For NON-ICU Patients Only., Start date: 08/27/18 15:41:00 CDT, Duration: 30 day, Stop date: 09/26/18 14:40:00 MASTER PRINTER Notes: Infuse over 4 hour. Do not infuse phosphorous concurrently in the same li ne as TPN or IVF that contains calcium. For double lumen central lines, phosphor ous may be infused in a separate lumen from TPN. Start Date: 08/27/18 Stop Date: 08/29/18 Status: Discontinued Tylenol 975 mg, 3 tab, Route: PO, Drug form: TAB, ONCE, Dosing Weight 141.818, kg, Prior ity: STAT, Start date: 08/23/18 22:08:00 CDT, Stop date: 08/23/18 22:08:00 CDT Notes: Do not exceed 4 gm/day. (Same as: Tylenol) Start Date: 08/23/18 Stop Date: 08/23/18 Status: Completed Vantin 200 mg oral tablet 200 mg = 1 tab, PO, Q12H, X 14 day, # 28 tab, 0 Refill(s) Start Date: 08/29/18 Stop Date: 09/12/18 Status: Completed Results 1 2 3 Most recent to oldest [Reference Range]: 5.8 K/CMM (08/27/18 4:42 AM) 9.1 K/CMM *HI* (08/26/18 3:32 AM) 15.8 K/CMM *HI* (08/23/18 10:56 PM) Neutrophils # [1.5-8.1 K/CMM] 0.9 K/CMM *LOW* (08/27/18 4:42 AM) 1.1 K/CMM (08/26/18 3:32 AM) 0.8 K/CMM *LOW* (08/23/18 10:56 PM) Lymphocytes # [1.0-5.5 K/CMM] 0.7 K/CMM (08/27/18 4:42 AM) 0.8 K/CMM (08/26/18 3:32 AM) 0.8 K/CMM (08/23/18 10:56 PM) Monocytes # [0.0-0.8 K/CMM] Not Detected (08/23/18 10:57 PM) E. faecalis [Not Detected] Not Detected (08/23/18 10:57 PM) E. faecium [Not Detected] Not Detected (08/23/18 10:57 PM) Listeria spp. [Not Detected] Not Detected (08/23/18 10:57 PM) mecA Methicillin Resistance [Not Detected] Not Detected (08/23/18 10:57 PM) S. agalactiae [Not Detected] Not Detected (08/23/18 10:57 PM) S. anginosus grp [Not Detected] Not Detected (08/23/18 10:57 PM) S. aureus [Not Detected] Not Detected (08/23/18 10:57 PM) S. epidermidis [Not Detected] Not Detected (08/23/18 10:57 PM) S. lugdunensis [Not Detected] Not Detected (08/23/18 10:57 PM) S. pneumoniae [Not Detected] Not Detected (08/23/18 10:57 PM) S. pyogenes [Not Detected] Not Detected (08/23/18 10:57 PM) Staphylococcus spp. [Not Detected] Detected *ABN* (08/23/18 10:57 PM) Streptococcus spp. [Not Detected] Not Detected (08/23/18 10:57 PM) Duncan Vancomycin Resistance [Not Detected] Not Detected (08/23/18 10:57 PM) vanB Vancomycin Resistance [Not Detected] 39 mL/min/1.73m2 1 *NA* (08/27/18 4:42 AM) 53 mL/min/1.73m2 2 *NA* (08/26/18 3:32 AM) 37 mL/min/1.73m2 3 *NA* (08/23/18 10:58 PM) eGFR 17.2 mEq/L (08/27/18 4:42 AM) 12.4 mEq/L (08/26/18 3:32 AM) 12.9 mEq/L (08/23/18 10:58 PM) AGAP [10.0-20.0 mEq/L] 0.3 % (08/27/18 4:42 AM) 0.1 % (08/26/18 3:32 AM) 0.2 % (08/23/18 10:56 PM) Basophils [0.0-1.0 %] 43 mg/dL *HI* (08/27/18 4:42 AM) 36 mg/dL *HI* (08/26/18 3:32 AM) 49 mg/dL *HI* (08/23/18 10:58 PM) BUN [7-22 mg/dL] 8.3 mg/dL *LOW* (08/27/18 4:42 AM) 8.2 mg/dL *LOW* (08/26/18 3:32 AM) 9.2 mg/dL (08/23/18 10:58 PM) Calcium Lvl [8.5-10.5 mg/dL] 103 mEq/L (08/27/18 4:42 AM) 101 mEq/L (08/26/18 3:32 AM) 101 mEq/L (08/23/18 10:58 PM) Chloride Lvl [95-109 mEq/L] 24 mEq/L (08/27/18 4:42 AM) 25 mEq/L (08/26/18 3:32 AM) 31 mEq/L (08/23/18 10:58 PM) CO2 [24-32 mEq/L] 1.65 mg/dL *HI* (08/27/18 4:42 AM) 1.27 mg/dL (08/26/18 3:32 AM) 1.71 mg/dL *HI* (08/23/18 10:58 PM) Creatinine Lvl [0.50-1.40 mg/dL] 0.2 % (08/27/18 4:42 AM) 0.1 % (08/26/18 3:32 AM) 0.1 % (08/23/18 10:56 PM) Eosinophils [0.0-4.0 %] 101 mg/dL *HI* (08/27/18 4:42 AM) 128 mg/dL *HI* (08/26/18 3:32 AM) 96 mg/dL (08/23/18 10:58 PM) Glucose Lvl [70-99 mg/dL] 28.3 % *LOW* (08/27/18 4:42 AM) 31.6 % *LOW* (08/26/18 3:32 AM) 36.9 % *LOW* (08/23/18 10:56 PM) Hct [42.0-54.0 %] 9.4 g/dL *LOW* (08/27/18 4:42 AM) 10.5 g/dL *LOW* (08/26/18 3:32 AM) 12.4 g/dL *LOW* (08/23/18 10:56 PM) Hgb [14.0-18.0 g/dL] 3.2 mEq/L *LOW* (08/27/18 4:42 AM) 3.4 mEq/L *LOW* (08/26/18 3:32 AM) 3.9 mEq/L (08/23/18 10:58 PM) Potassium Lvl [3.5-5.1 mEq/L] 1.3 mMol/L (08/24/18 12:02 PM) 2.1 mMol/L (08/24/18 9:34 AM) 2.0 mMol/L (08/23/18 10:58 PM) Lactic Acid Lvl [0.5-2.2 mMol/L] 12.5 % *LOW* (08/27/18 4:42 AM) 9.8 % *LOW* (08/26/18 3:32 AM) 4.6 % *LOW* (08/23/18 10:56 PM) Lymphocytes [20.0-40.0 %] 31.8 pg *HI* (08/27/18 4:42 AM) 31.9 pg *HI* (08/26/18 3:32 AM) 32.3 pg *HI* (08/23/18 10:56 PM) MCH [27.0-31.0 pg] 33.4 g/dL (08/27/18 4:42 AM) 33.3 g/dL (08/26/18 3:32 AM) 33.5 g/dL (08/23/18 10:56 PM) MCHC [32.0-36.0 g/dL] 95.3 fL *HI* (08/27/18 4:42 AM) 95.8 fL *HI* (08/26/18 3:32 AM) 96.3 fL *HI* (08/23/18 10:56 PM) MCV [80.0-94.0 fL] 9.1 % (08/27/18 4:42 AM) 7.6 % (08/26/18 3:32 AM) 4.8 % (08/23/18 10:56 PM) Monocytes [2.0-12.0 %] 10.6 fL *HI* (08/27/18 4:42 AM) 10.6 fL *HI* (08/26/18 3:32 AM) 10.5 fL *HI* (08/23/18 10:56 PM) MPV [7.4-10.4 fL] 141 mEq/L (08/27/18 4:42 AM) 135 mEq/L (08/26/18 3:32 AM) 141 mEq/L (08/23/18 10:58 PM) Sodium Lvl [135-145 mEq/L] 97 K/CMM *LOW* (08/27/18 4:42 AM) 101 K/CMM *LOW* (08/26/18 3:32 AM) 142 K/CMM (08/23/18 10:56 PM) Platelet [133-450 K/CMM] 77.9 % *HI* (08/27/18 4:42 AM) 82.4 % *HI* (08/26/18 3:32 AM) 90.3 % *HI* (08/23/18 10:56 PM) Segs [45.0-75.0 %] 2.97 M/CMM *LOW* (08/27/18 4:42 AM) 3.30 M/CMM *LOW* (08/26/18 3:32 AM) 3.83 M/CMM *LOW* (08/23/18 10:56 PM) RBC [4.70-6.10 M/CMM] 16.3 % *HI* (08/27/18 4:42 AM) 15.9 % *HI* (08/26/18 3:32 AM) 16.4 % *HI* (08/23/18 10:56 PM) RDW [11.5-14.5 %] Occasional /HPF *NA* (08/23/18 10:57 PM) UA Bacteria [None Seen /HPF] Negative *NA* (08/23/18 10:57 PM) UA Bili [Negative] Negative (08/23/18 10:57 PM) UA Blood [Negative] Ltyellow *NA* (08/23/18 10:57 PM) UA Color Negative mg/dL *NA* (08/23/18 10:57 PM) UA Glucose [Negative mg/dL] Negative mg/dL *NA* (08/23/18 10:57 PM) UA Ketones [Negative mg/dL] Large *ABN* (08/23/18 10:57 PM) UA Leuk Est [Negative] Positive *ABN* (08/23/18 10:57 PM) UA Nitrite [Negative] 7.0 (08/23/18 10:57 PM) UA pH [5.0-8.0] Negative mg/dL (08/23/18 10:57 PM) UA Protein [Negative mg/dL] 3 /HPF *HI* (08/23/18 10:57 PM) UA RBC [0-2 /HPF] 1.012 (08/23/18 10:57 PM) UA Spec Grav [<=1.030] None Seen *NA* (08/23/18 10:57 PM) UA Sq Epi Clear (08/23/18 10:57 PM) UA Turbidity [Clear] <=1.0 mg/dL *NA* (08/23/18 10:57 PM) UA Urobilinogen [0.1-1.0 mg/dL] 38 /HPF *HI* (08/23/18 10:57 PM) UA WBC [0-5 /HPF] 7.5 K/CMM (08/27/18 4:42 AM) 11.1 K/CMM *HI* (08/26/18 3:32 AM) 17.5 K/CMM *HI* (08/23/18 10:56 PM) WBC [3.7-10.4 K/CMM] 1Result Comment: The eGFR is calculated using the CKD-EPI formula. In most young, healthy individuals the eGFR will be >90 mL/min/1.73m2. The eGFR declines with age. An eGFR of 60-89 may be normal in some populations, particularly the elderly, for whom the CKD-EPI formula has not been extensively validated. Use of the eGFR is not recommended in the following populations: Individuals with unstable creatinine concentrations, including patients and those with serious co-morbid conditions. Patients with extremes in muscle mass or diet. The data above are obtained from the [employer] ( [employer]) which additionally recommends that when the eGFR is used in patients with extremes of body mass index for purposes of drug dosing, the eGFR should be mul tiplied by the estimated BMI. 2Result Comment: The eGFR is calculated using the CKD-EPI formula. In most young, healthy individuals the eGFR will be >90 mL/min/1.73m2. The eGFR declines with age. An eGFR of 60-89 may be normal in some populations, particularly the elderly, for whom the CKD-EPI formula has not been extensively validated. Use of the eGFR is not recommended in the following populations: Individuals with unstable creatinine concentrations, including patients and those with serious co-morbid conditions. Patients with extremes in muscle mass or diet. The data above are obtained from the National Kidney Disease Education Program ( NKDEP) which additionally recommends that when the eGFR is used in patients with extremes of body mass index for purposes of drug dosing, the eGFR should be mul tiplied by the estimated BMI. 3Result Comment: The eGFR is calculated using the CKD-EPI formula. In most young, healthy individuals the eGFR will be >90 mL/min/1.73m2. The eGFR declines with age. An eGFR of 60-89 may be normal in some populations, particularly the elderly, for whom the CKD-EPI formula has not been extensively validated. Use of the eGFR is not recommended in the following populations: Individuals with unstable creatinine concentrations, including patients and those with serious co-morbid conditions. Patients with extremes in muscle mass or diet. The data above are obtained from the National Kidney Disease Education Program ( NKDEP) which additionally recommends that when the eGFR is used in patients with extremes of body mass index for purposes of drug dosing, the eGFR should be mul tiplied by the estimated BMI. Microbiology Reports TEST: Culture: Urine STATUS: Auth (Verified) BODY SITE: SOURCE: Urine, Catheterized COLLECTED DATE/TIME: 08/23/18 10:58 PM FINAL REPORT >100,000 CFU/mL Citrobacter braakii 10,000 - 50,000 CFU/mL Proteus mirabilis ORGANISM:Citrobacter braakii ORGANISM:Proteus mirabilis Immunizations Given and Recorded Vaccine Date Status Refusal Reason influenza virus vaccine, inactivated 08/26/18 G iven pneumococcal 13-valent vaccine 08/26/18 Given Procedures No data available for this section Social History Social History Type Response Smoking Status Never smoker; Exposure to T obacco Smoke None; Cigarette Smoking Last 365 Days No; Reg Smoking Cessation Counseli ng No entered on: 08/24/18 Assessment and Plan Extracted from: Title: Clinical Document Author: Shan Lezama MD Date: 08/29/18 INFECTIOUS DISEASES PROGRESS NOTE SHAN LEZAMA M.D. Reason For Follow up: Sepsis SUBJECTIVE: Seen and examined. Events noted. Allergies (1) ActiveReaction penicillinNone Documented VITAL SIGNS: VitalsTmp(F)[id number] 08/29 11:[id number]/[id number]--- 08/29 07:[id number]--- 08/29 03:[id number]/[id number]--- 08/28 23:[id number]--- 08/28 19:[id number]--- 24 Hr Tmax: 98.1F (36.72c) at 08/29 03:3 0Vital Signs are the last 5 in the past 48 hours. Input/Output RecordInOutBal 08/2324hr Tot 0 0 0 08/2224hr Tot 2160 440 1720 Lines and catheters: MEDICATIONS: Scheduled Meds (7): 08/24/18 atorvastatin 20 mg PO Bedtime 08/24/18 cefTRIAXone + sterile water 20 mL 2 gm IVP [id number] 240 ml/hr 08/24/18 docusate 100 mg PO BID 08/24/18 gemfibrozil 600 mg PO BID 08/24/18 heparin 5,000 unit SUB-Q Q8H 08/24/18 nutritional supplement (Benepro tein 7 gm pkt) 1 pkt PO TID-Meals 08/24/18 senna 17.2 mg PO Bedtime ROS: NAD PHYSICAL EXAMINATION: GEN: awake HEENT: no thrush mucosa moist no ulcer no scleral icterus NECK:supple HEART: RRR S1 and S2 no murmur or gallop LUNG: CTAB to auscaultate and purcussion GI: soft NT/ND BS +ve EXT: NO clubing, cyanosis edema LABORATORY DATA: Labs (Last four charted values) WBC 7.5(AUG 27)H 11.1(AUG 26)H 17.5(AUG 23) Hgb L 9.4(AUG 27)L 10.5(AUG 26)L 12.4(AUG 23) Hct L 28.3(AUG 27)L 31.6(AUG 26)L 36.9(AUG 23) Plt L 97(AUG 27)L 101(AUG 26)142(AUG 23) Na 141(AUG 27)135(AUG 24)141(AUG 23) K L 3.2(AUG 27)L 3.4(AUG 26)3.9(AUG 23) CO2 24(AUG 27)25(OCT 24)31(AUG 23) Cl 103(AUG 27)101(AUG 26)101(AUG 23) Cr H 1.65(AUG 27)1.27(AUG 26)H 1.71(AUG 23) BUN H 43(AUG 27)H 36(AUG 26)H 49(AUG 23) Glucose Random H 101(AUG 27)H 128(AUG 26)96(AUG 23) Ca L 8.3(AUG 27)L 8.2(AUG 26)9.2(AUG 23) CULTURES: DATE/SOURCE/RESULT/ SENSITIVITIES: IMAGING: ASSESMENT AND PLAN: 78-year-old male with 1. Sepsis 2. Acute cystitis 3. Obstructive uropathy 4. Leukocytosis 5. Suspected pyelonephritis 6. Paraplegia Continue IV ceftriaxone for now follow closely Cultures with Citrobacter Proteus and Streptococcus group F Antibiotics can be changed to p.o. Vantin 200 mg twice a day to finish 14 days of therapy. self catheterization by nursing ANTIMICROBIALS: ceftriaxone # 05/16 ID follow up on discharge call Dr Lezama [phone] Extracted from: Title: Clinical Document Author: Natty Rivera MD Date: 08/28/18 Discharge Summary [facility] Natty Rivera MD Discharge Diagnosis: Sepsis with urinary tract infection UTI secondary to self-catheterization Paraplegia Obstructive uropathy Acute renal failure Atrial fibrillation Hypertension Brief Hospital Course: The patient is a 78-year-old male who has a history of paraplegia following lumbar surgery who presented to the hospital with increased fever chills and dysuria. The patient had a temperature up to 102.9. The patient self catheterizes at home. He was noted to have a urine tract infection in the emergency room and was admitted. Patient was started on IV antibiotics and infectious disease consultation was placed. His urine did show Citrobacter as well as Pseudomonas in his blood culture was positive for group F strep. Antibiotics were ordered by infectious disease and he has been cleared for dis charge and he can discharge home on p.o. Vantin VitalsTmp(F)[id number] 08/28 08:[id number]--- 08/28 06:23-------92/54-------- 08/28 04:[id number]/[id number]--- 08/28 00:0097.792574/[id number]--- 08/27 20:[id number]--- 24 Hr Tmax: 98.4F (36.89c) at 08/27 12:0 0Vital Signs are the last 5 in the past 48 hours. Discharge home See Med reconciliation form F/U with PCP in 2 weeks, medical specialists as necessary Diet: cont same diet Activity as opal Labs (Last four charted values) WBC 7.5(AUG 27)H 11.1(AUG 26)H 17.5(AUG 23) Hgb L 9.4(AUG 27)L 10.5(AUG 26)L 12.4(AUG 23) Hct L 28.3(AUG 27)L 31.6(AUG 26)L 36.9(AUG 23) Plt L 97(AUG 27)L 101(AUG 26)142(AUG 23) Na 141(AUG 27)135(AUG 26)141(AUG 23) K L 3.2(AUG 27)L 3.4(AUG 26)3.9(AUG 23) CO2 24(AUG 27)25(AUG 26)31(AUG 23) Cl 103(AUG 27)101(AUG 26)101(AUG 23) Cr H 1.65(AUG 27)1.27(AUG 26)H 1.71(AUG 23) BUN H 43(AUG 27)H 36(AUG 26)H 49(AUG 23) Glucose Random H 101(AUG 27)H 128(AUG 26)96(AUG 23) Ca L 8.3(AUG 27)L 8.2(AUG 26)9.2(AUG 23)Medications (31) Active Scheduled: (10) atorvastatin 10 mg TAB 20 mg 2 tab, PO, Bedtime carvedilol 12.5 mg TAB 37.5 mg 3 tab, PO, BID cefTRIAXone 2 gm INJ VL + water for injection, sterile 20 mL 2 gm, IVP, [id number] docusate sodium 100 mg CAP 100 mg 1 cap, PO, BID gemfibrozil 600 mg TAB 600 mg 1 tab, PO, BID hydrALAZINE 50 mg TAB 100 mg 2 tab, PO, Q8Hnow lisinopril 20 mg TAB 40 mg 2 tab, PO, Daily polyethylene glycol 17 gm packet 17 gm 1 pkt, PO, Daily senna 8.6 mg TAB 17.2 mg 2 tab, PO, Bedtime whey protein isolate - soy lecithin (Beneprotein) 7 gm pkt 1 pkt, PO, TID-Meals Continuous: (0) PRN: (21) acetaminophen 325 mg TABLET 650 mg 2 tab, PO, Q6H calcium gluconate 100mg/ml 10ml VL + sodium chloride 0.9% INJ 100 mL 2 gm 20 mL, IVPB, PRN calcium gluconate 100mg/ml 10ml VL + sodium chloride 0.9% INJ 100 mL 3 gm 30 mL, IVPB, PRN Dextrose 50% 50 ml INJ syringe 12.5 gm 25 mL, IVP, PRN Dextrose 50% 50 ml INJ syringe 25 gm 50 mL, IVP, PRN diazepam 5 mg TAB 10 mg 2 tab, PO, Daily glucagon recombinant 1 mg PDR 1 mg, IM, PRN magnesium oxide (242 mg elemental) tab 800 mg 2 tab, PO, PRN magnesium sulfate 1gm/100ml D5W premix 1 gm 100 mL, IVPB, PRN magnesium sulfate 2 gm/H20 50ml soln 2 gm 50 mL, IVPB, PRN melatonin 3 mg TAB 3 mg 1 tab, PO, Bedtime ondansetron 4 mg/2ml INJ VL 4 mg 2 mL, IVP, Q8H potassium chloride 10 mEq/100 ml PB 10 mEq 100 mL, IVPB, PRN potassium chloride 20 mEq ERT 20 mEq 1 tab, PO, PRN potassium chloride 20mEq/15ml LIQ ud 20 mEq 15 mL, NJ, PRN potassium phosphate 3mmol/1ml 15ml VL + sodium chloride 0.9% INJ 250 mL 15 mmol 5 mL, IVPB, PRN potassium phosphate 3mmol/1ml 15ml VL + sodium chloride 0.9% INJ 250 mL 30 mmol 10 mL, IVPB, PRN potassium phosphate-sodium phosphate 1.5 gm pkt 2 pkt, PO, PRN senna 8.6 mg TAB 8.6 mg 1 tab, PO, Daily sodium phosphate 3 mmol/1 ml 15 ml vial + D5W 250 mL 15 mmol 5 mL, IVPB, PRN sodium phosphate 3 mmol/1 ml 15 ml vial + D5W 250 mL 30 mmol 10 mL, IVPB, PRN Medications (32) Active Scheduled Meds (10): 08/24/18 atorvastatin 20 mg PO Bedtime 08/25/18 carvedilol 37.5 mg PO BID 08/24/18 cefTRIAXone + sterile water 20 mL 2 gm IVP [id number] 240 ml/hr 08/24/18 docusate 100 mg PO BID 08/24/18 gemfibrozil 600 mg PO BID 08/25/18 hydrALAZINE 100 mg PO Q8Hnow 08/26/18 lisinopril 40 mg PO Daily 08/24/18 nutritional supplement (Benepro tein 7 gm pkt) 1 pkt PO TID-Meals 08/27/18 polyethylene glycol 3350 (Jessie ax) 17 gm PO Daily 08/24/18 senna 17.2 mg PO Bedtime Unscheduled Meds: None PRN Meds (21): 08/24/18 Dextrose 50% in Water IV (Dextr ose 50% Syringe) 12.5 gm IVP PRN 08/24/18 Dextrose 50% in Water IV (Dextr ose 50% Syringe) 25 gm IVP PRN 08/24/18 acetaminophen 650 mg PO Q6H 08/27/18 calcium gluconate + Sodium Chlo ride 0.9% IV 100 mL 2 gm IVPB PRN 240 ml/hr 08/27/18 calcium gluconate + Sodium Chlo ride 0.9% IV 100 mL 3 gm IVPB PRN 260 ml/hr 08/24/18 diazepam 10 mg PO Daily 08/24/18 glucagon 1 mg IM PRN 08/27/18 magnesium oxide 800 mg PO PRN 08/27/18 magnesium sulfate 1 gm IVPB PRN 100 ml/hr 08/27/18 magnesium sulfate 2 gm IVPB PRN 25 ml/hr 08/24/18 melatonin 3 mg PO Bedtime 08/24/18 ondansetron 4 mg IVP Q8H 08/27/18 potassium chloride 20 mEq PO MI N 08/27/18 potassium chloride 20 mEq NJ MI N 08/27/18 potassium chloride 10 mEq IVPB PRN 100 ml/hr 08/27/18 potassium phosphate + Sodium Ch loride 0.9% IV 250 mL 15 mmol IVPB PRN 63.75 ml/hr 08/27/18 potassium phosphate + Sodium Ch loride 0.9% IV 250 mL 30 mmol IVPB PRN 65 ml/hr 08/27/18 potassium phosphate-sodium phos phate (potassium phosphate-sodium phosphate 250 mg-280 mg-160 mg oral powder for reconstitution) 2 pkt PO PRN 08/26/18 senna (Senokot) 8.6 mg PO Daily 08/27/18 sodium phosphate + Dextrose 5% in Water IV 250 mL 15 mmol IVPB PRN 63.75 ml/hr 08/27/18 sodium phosphate + Dextrose 5% in Water IV 250 mL 30 mmol IVPB PRN 65 ml/hr One Time Meds (1): 08/27/18 (Completed) potassium chloride 40 mEq PO ONCE Continuous Infusions: None Extracted from: Title: Clinical Document Author: Shan Lezama MD Date: 08/24/18 INFECTIOUS DISEASES CONSULTATION NOTE Shan Lezama M.D. Attending: Natty Rivera MDPhone: Service: Internal Medicine Code status: Full Code Reason for Admission: BACTERIAL SEPSIS, COMPLICATED UTI (URINARY TRACT INFECT Working DRG: Isolation: No Isolation/Standard Precautions Consulting Physicians: Shan Lezama MDOffice: Service: Infectious Disease HPI: Digestive heart failure history of hypertension morbid obesity history of neurogenic bladderThis is a 78-year-old gentleman who is a known past medical history significant for BPH, history of an bowel who has also history of paraplegia presented to [facility] with temperature of 102.9. Patient reported recurrent history of urinary tract infection in the past he also performs self-catheterization at home he was noted to have dysuria subjective fever and chills of his not feeling good he was very weak and tired with all these concern he presented to [facility] for further workup temperature noted to be 102.9 and blood pressure was 103/61 immediate blood work showed a white count of 17.5 creatinine was 1.7 lactic acid was 2.0 segmented neutrophils were 90.3 segmented bands 15.8 urinalysis came back positive for 38 WBCs in the urine along with leukocyte Estrace. He underwent diagnostic workup chest x-ray was done so far that showed borderline heart size. Blood cultures and urine culture in the lab and pending infectious disease consultation was called to give recommendation. PAST MEDICAL HISTORY: Hypertension, hyperlipidemia, hematuria, BPH, cellulitis, CHF, neurogenic bladder, morbid obesity, paraplegia. SURGICAL HISTORY: No qualifying data available FAMILY HISTORY: No qualifying data available Allergies (1) ActiveReaction penicillinNone documented SOCIAL HISTORY: Tobacco Details: Use: Never smoker. Tobacco smoke exposure: None. Did the Patient Smoke Cigarettes Anytime During the Last 365 Days? No. Cessation Counseling Provided? No. ROS: GENERAL: No appetite, energy or weight. Positive fever and chills. HEENT: No auditory or visual complaints. No tinnitus. No pharyngeal complaints RESPIRATORY: [place], SOB. CARDIOVASCULAR: No chest pain or pressure. No palpitations GASTROINTESTINAL: No dysphagia, odynophagia, heartburn, diarrhea or constipation. No nausea or vomiting. MUSCULOSKELETAL: No myalgias, arthralgias, joint swelling. NEUROLOGICAL: No vertigo or disturbance of balance or coordination.No motor or sensory complaints. No headache. GENITOURINARY: Self-catheterization MEDICATIONS: Scheduled Meds (7): 08/24/18 atorvastatin 20 mg PO Bedtime 08/24/18 cefTRIAXone + sterile water 10 mL 1 gm IVP [id number] 120 ml/hr 08/24/18 docusate 100 mg PO BID 08/24/18 gemfibrozil 600 mg PO BID 08/24/18 heparin 5,000 unit SUB-Q Q8H 08/24/18 nutritional supplement (Benepro tein 7 gm pkt) 1 pkt PO TID-Meals 08/24/18 senna 17.2 mg PO Bedtime VITAL SIGNS: VitalsTmp(F)[id number] 08/24 12:[id number]--- 08/24 08:[id number]/[id number]--- 08/24 04:2899.198986/64--94--- 08/24 02:[id number]/[id number]--- 08/24 01:27----77681/[id number]--- 24 Hr Tmax: 102.9F (39.39c) at 08/23 20: 51Vital Signs are the last 5 in the past 48 hours. PHYSICAL EXAMINATION: GENERAL: Well-developed, well-nourished in no apparent distress. HEENT: Head is normocephalic and atraumatic. PERRLA, EOMI, NECK: Supple. No carotid bruits. No lymphadenopathy or thyromegaly. CHEST: Symmetrical with equal expansion. LUNGS: CTA HEART: RRR, no murmurs. . GASTROINTESTINAL: Bowel sounds are normal. Soft, NT, ND. No guarding or rebound tenderness. EXTREMITIES: No edema or varicosities. Pulses 2+ symmetric. LABS: Labs (Last four charted values) WBC H 17.5(AUG 23) Hgb L 12.4(AUG 23) Hct L 36.9(AUG 23) Plt 142(AUG 23) Na 141(AUG 23) K 3.9(AUG 23) CO2 31(AUG 23) Cl 101(AUG 23) Cr H 1.71(AUG 23) BUN H 49(AUG 23) Glucose Random 96(AUG 23) Ca 9.2(AUG 23) CULTURES: DATE/SOURCE/RESULT/ SENSITIVITIES: IMAGING: ASSESMENT AND PLAN: 78-year-old male with 1. Sepsis 2. Acute cystitis 3. Obstructive uropathy 4. Leukocytosis 5. Suspected pyelonephritis 6. Paraplegia RECOMMENDATIONS: As per infectious disease standpoint patient seen and evaluated. Case discussed with attending physician Dr. Bryan. Presentation is consistent with obstructive uropathy with need of self-catheterization that put him at high risk of recurrent urinary tract infection. We have form received specimen for the urine and the blood, Patient has been given empiric antibiotics in the form of ceftriaxone we will increase the dosage to 2 g every 24 as we do not have any isolate from the past we will continue to monitor closely and tailor antibiotic accordingly. We will continue to follow. Thank you for providing me the opportunity to take care of this patient. Extracted from: Title: History and Physical Author: Roselyn Aguilera MD Date: 08/24/18 78-year-old male with history of paraple giafollowing alumbar surgeryin 1993,A. fib, recurrent UTIs who presented to the EDwithfever, chills, decreased appetiteand dysuria. Sepsis due to UTI -Continue ceftriaxone -Blood and urine cultures pending -IV fluid resuscitation Acute kidney injury -LikelyATNplus prerenal azotemia - IV fluid as above Pressure sores -Wound care Atrial fibrillation -Not on anticoagulation -Holding Coreg in settingof sepsis Hypertension -Holding antihypertensives in setting of sepsis Hyperlipidemia -Continue home medications Heparin Anticipate 2 midnights
--- OUTSIDE RECORDS SUMMARY | 2020-06-06 14:58 | XMS REPORT | Continuity of Care Document ---
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 Role Phone [employer] Unavailable Un available Problems Problem Status Onset Date Classification Date Reported Comments Source Other postprocedural complications and d isorders of genitourinary system 09/04/2018 03/18/2019 [facility] FEVER Active 08/23/2018 [facility] BACTERIAL SEPSIS, COMPLICATED UTI (URINA Active 08/23/2018 [facility] Sepsis, unspecified organism 03/18/2019 [facility] Acute kidney failure with tubular necrosis 03/18/2019 [facility] Encounter for immunization 03/18/2019 [facility] Severe sepsis without septic shock 03/18/2019 [facility] Acute cystitis without hematuria 03/18/2019 [facility] Paraplegia, unspecified 03/18/2019 [facility] Other obstructive and reflux uropathy 03/18/2019 [facility] Unspecified atrial fibrillation 03/18/2019 [facility] Pressure ulcer of unspecified site, unspecified stage 03/18/2019 [facility] Hyperlipidemia, unspecified 03/18/2019 [facility] Hypertensive heart disease with heart failure 03/18/2019 [facility] Enlarged prostate with lower urinary tract symptoms 03/18/2019 [facility] Neuromuscular dysfunction of bladder, unspecified 03/18/2019 [facility] Proteus (mirabilis) (morganii) as the ca use of diseases classified elsewhere 03/18/2019 [facility] Other streptococcus as the cause of dise ases classified elsewhere 03/18/2019 [facility] Heart failure, unspecified 03/18/2019 [facility] Personal history of urinary (tract) infections 03/18/2019 [facility] Benign prostatic hyperplasia (disorder) Active Problem 03/18/2019 [facility] Blood in urine (finding) Active Problem 03/18/2019 [facility] Cellulitis of lower limb (disorder) Active Problem [facility] Congestive heart failure (disorder) Active Problem [facility] Hypertensive disorder, systemic arterial (disorder) Active Problem 03/18/2019 [facility] Inflammatory disorder of extremity (disorder) Active Problem 03/18/2019 [facility] Morbid obesity (disorder) Acti ve Problem [facility] Neurogenic bladder (finding) A ctive Problem [facility] Neurogenic bowel (disorder) Ac tive Problem [facility] Obesity (disorder) Active Problem 03/18/2019 [facility] Paraplegia (disorder) Active Problem 03/18/2019 [facility] Retention of urine (disorder) Active Problem [facility] SEPSIS, UNSPECIFIED ORGANISM A ctive [facility] URINARY TRACT INFECTION, SITE NOT SPECIF Active [facility] ELEVATED WHITE BLOOD CELL COUNT, UNSPECI Active [facility] Medications Medication Details Route Status Patient Instructions Ordering Provider Order Date Source Vantin 200 mg oral tablet 200 mg = 1 tab, PO, Q12H, X 14 day, # 28 tab, 0 Refill(s) No Longer Active 08/29/2018 [facility] potassium phosphate Notes: ([facility] as: K Phosphate.) Do not infuse phosphorous concurrently in the same line as TPN or IVF that contains calcium. For double lumen central lines, phosphorous may be infused in a separate lumen from TPN. 1 mMol phoshate has 1.47 mEq potassium Infuse over 4 hours No Longer Active 08/27/2018 [facility] sodium phosphate Notes: Infuse over 4 hour. Do not infuse phosphorous concurrently in the same line as TPN or IVF that contains calcium. For double lumen central lines, phosphorous may be infused in a separate lumen from TPN. No Longer Active 08/27/2018 [facility] Magnesium Sulfate Notes: WASTE : F/P - Sink; E - Municipal Trash Bin No Longer Active 08/27/2018 [facility] Calcium Gluconate Notes: WASTE : F/P - Sink; E - Municipal Trash Bin No Longer Active 08/27/2018 [facility] Magnesium Oxide Notes: (Same a s: Mag-Ox 400) Magnesium oxide [id number] elemental magnesium Dose=____mg magnesium oxide (___mg elemental magnesium) No Longer Active 08/27/2018 [facility] Potassium Chloride Notes: (Jesus e as: Potassium Chloride) No Longer Active 08/27/2018 [facility] potassium phosphate-sodium phosphate 250 mg-280 mg-160 mg oral powder for reconstitution Notes: (Same as: Phos-NaK) Each 1.5 gm pkt has 250mg phosphorous. Mix w/2.5oz water and stir. No Longer Active 08/27/2018 [facility] Potassium Chloride Notes: (Jesus e as: K-Dur 20) "Do Not Crush" For patients unable to swallow tablet, dissolve in one half glass of water. Allow about 2 minutes for the tablets to disintegrate. Stir before giving to prepare slurry and administer. Please exclude Patients with feeding tube less than 14 Telugu (Dobhoff, J-tube etc) and pediatric and patients. With food and full glass of water Inactive 08/27/2018 [facility] Miralax Notes: Dissolve in 8 o z of water or juice. (Same as: Miralax) No Longer Active 08/27/2018 [facility] Senokot Notes: (Same as: Senok ot) No Longer Active 08/26/2018 [facility] Lisinopril Notes: (Same as: Pr inivil, Zestril) No Longer Active 08/26/2018 [facility] Hydralazine Notes: (Same as: A presoline) May interfere w/enteral feedings Take With Food No Longer Active 08/26/2018 [facility] carvedilol Notes: Give with fo od. (Same As: Coreg) No Longer Active 08/26/2018 [facility] sennosides, HALFWAY Notes: (Same a s: Senokot) No Longer Active 08/25/2018 [facility] atorvastatin Notes: (Same As: Lipitor) No Longer Active 08/25/2018 [facility] Ceftriaxone Notes: (Same As: Jennie dozier). Use with 100 mL NS and infuse over 30 min MEDICATION WASTE Product Size: 1000 mg Product Wasted: ___ mg Inactive 08/25/2018 [facility] Ceftriaxone Notes: (Same As: Jennie villegasphin). Use with 100 mL NS and infuse over 30 min MEDICATION WASTE Product Size: 2000 mg Product Wasted: ___ mg No Longer Active 08/24/2018 [facility] Beneprotein 7 gm pkt Notes: (S t[place] as: Beneprotein) No Longer Active 08/24/2018 [facility] Docusate Notes: (Same as: Cola ce) (Do Not Crush) No Longer Active 08/24/2018 [facility] Gemfibrozil Notes: (Same as: L opid) No Longer Active 08/24/2018 [facility] heparin Notes: porcine heparin No Longer Active 08/24/2018 [facility] Diazepam Notes: (Same as: Wily um) No Longer Active 08/24/2018 [facility] NS (Bolus) IV 500 mL, 500 ml/h r, Infuse Over: 1 hr, Route: IV, 500, Drug form: INJ, ONCE, Priority: STAT, Dosing Weight 136.136 kg, Start date: 08/24/18 4:00:00 CDT, Stop date: 08/24/18 4:00:00 CDT Inactive 08/24/2018 [facility] atorvastatin 20 mg oral tablet 20 mg = 1 tab, PO, Bedtime, # 90 tab, 0 Refill(s) Active 08/24/2018 [facility] gemfibrozil 600 mg oral tablet 600 mg = 1 tab, PO, BID, # 180 tab, 0 Refill(s) Active 08/24/2018 [facility] Hydralazine 100 mg, PO, Q8H, 0 Refill(s) Active 08/24/2018 [facility] Diazepam 10 mg, PO, Daily, PRN Spasm, 0 Refill(s) Active 08/24/2018 [facility] carvedilol 37.5 mg, PO, BID, 2 5mg tab 1.5 tabs BID, 0 Refill(s) Active 08/24/2018 [facility] bumetanide 2 mg oral tablet 2 mg = 1 tab, PO, Daily, # 90 tab, 0 Refill(s) Active 08/24/2018 [facility] Lisinopril 40 mg, PO, Daily, 0 Refill(s) Active 08/24/2018 [facility] Ondansetron Notes: (Same as: Patrizia wright) MEDICATION WASTE Product Size: 4 mg Product Wasted: ___ mg No Longer Active 08/24/2018 [facility] Melatonin Notes: (Same as: Charla atonin) No Longer Active 08/24/2018 [facility] Dextrose 50% Syringe 25 gm, 50 mL, Route: IVP, Drug Form: INJ, Dosing Weight 141.818, kg, PRN, PRN Blood Glucose Results, Start date: 08/24/18 1:29:00 CDT, Duration: 30 day, Stop date: 09/23/18 0:28:00 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 (Same as: Tylenol) No Longer Active 08/24/2018 [facility] NS 1,000 mL 1,000 mL, Rate: 15 0 ml/hr, Infuse over: 6.7 hr, Route: IV, Dosing Weight 141.818 kg, Total Volume: 1,000, Start date: 08/24/18 0:14:00 CDT, Duration: 30 day, Stop date: 09/23/18 0:13:00 REFINERY OPERATOR, 2.73, m2 No Longer Active 08/24/2018 [facility] Tylenol Notes: Do not exceed 4 gm/day. (Same as: Tylenol) Inactive 08/24/2018 [facility] Ceftriaxone Notes: (Same As: Jennie ocephin). Use with 100 mL NS and infuse over 30 min MEDICATION WASTE Product Size: 1000 mg Product Wasted: ___ mg Inactive 08/24/2018 [facility] Allergies, Adverse Reactions, Alerts Substance Category Reaction Severity Reaction type Status Date Reported Comments Source penicillin Assertion Drug allergy Active [facility] Immunizations Immunization Date Given Site Status Last Updated Comments Source influenza virus vaccine, inactivated 08/26/2018 Left Deltoid completed [facility] pneumococcal 13-valent vaccine 08/26/2018 Right deltoid completed [facility] Results Order Name Results Value Reference Range Date Interpretation Comments Source CHEM PANEL eGFR 39 08/27/2018 Result Comment: The eGFR is calculated using the [...] from the National Kidney Disease Education Program (NKDEP) which additionally recommends that when the eGFR is used in patients with extremes of body mass index for purposes of drug dosing, the eGFR should be multiplied by the estimated BMI. [facility] CHEM PANEL Calcium Lvl 8.3 8.5 - 10.5 08/27/2018 [facility] CHEM PANEL CO2 24 24 - 32 08/27/2018 [facility] CHEM PANEL Chloride Lvl 103 95 - 109 08/27/2018 [facility] CHEM PANEL Sodium Lvl 141 135 - 145 08/27/2018 [facility] CHEM PANEL Potassium Lvl 3.2 3.5 - 5.1 08/27/2018 [facility] CHEM PANEL Creatinine Lvl 1.65 0.50 - 1.40 08/27/2018 [facility] CHEM PANEL BUN 43 7 - 22 08/27/2018 [facility] CHEM PANEL Glucose Lvl 101 70 - 99 08/27/2018 [facility] CHEM PANEL AGAP 17.2 10.0 - 20.0 08/27/2018 [facility] HEMATOLOGY Segs 77.9 45.0 - 75.0 08/27/2018 [facility] HEMATOLOGY Lymphocytes 12.5 20.0 - 40.0 08/27/2018 [facility] HEMATOLOGY Basophils 0.3 0.0 - 1.0 08/27/2018 [facility] Neutrophils # 5.8 1.5 - 8.1 08/27/2018 [facility] HEMATOLOGY Monocytes 9.1 2.0 - 12.0 08/27/2018 [facility] HEMATOLOGY Eosinophils 0.2 0.0 - 4.0 08/27/2018 [facility] Lymphocytes # 0.9 1.0 - 5.5 08/27/2018 [facility] HEMATOLOGY Monocytes # 0.7 0.0 - 0.8 08/27/2018 [facility] HEMATOLOGY RDW 16.3 11.5 - 14.5 08/27/2018 [facility] HEMATOLOGY MPV 10.6 7.4 - 10.4 08/27/2018 [facility] Platelet 97 133 - 450 08/27/2018 [facility] MCHC 33.4 32.0 - 36.0 08/27/2018 [facility] Hgb 9.4 14.0 - 18.0 08/27/2018 [facility] RBC 2.97 4.70 - 6.10 08/27/2018 [facility] MCH 31.8 27.0 - 31.0 08/27/2018 [facility] HEMATOLOGY MCV 95.3 80.0 - 94.0 08/27/2018 [facility] HEMATOLOGY Hct 28.3 42.0 - 54.0 08/27/2018 [facility] HEMATOLOGY WBC 7.5 3.7 - 10.4 08/27/2018 [facility] CHEM PANEL eGFR 53 08/26/2018 Result Comment: The eGFR is calculated using the [...] from the National Kidney Disease Education Program (NKDEP) which additionally recommends that when the eGFR is used in patients with extremes of body mass index for purposes of drug dosing, the eGFR should be multiplied by the estimated BMI. [facility] CHEM PANEL Calcium Lvl 8.2 8.5 - 10.5 08/26/2018 [facility] CHEM PANEL CO2 25 24 - 32 08/26/2018 [facility] CHEM PANEL Chloride Lvl 101 95 - 109 08/26/2018 [facility] CHEM PANEL Sodium Lvl 135 135 - 145 08/26/2018 [facility] CHEM PANEL Potassium Lvl 3.4 3.5 - 5.1 08/26/2018 [facility] CHEM PANEL Glucose Lvl 128 70 - 99 08/26/2018 [facility] CHEM PANEL Creatinine Lvl 1.27 0.50 - 1.40 08/26/2018 [facility] CHEM PANEL BUN 36 7 - 22 08/26/2018 [facility] CHEM PANEL AGAP 12.4 10.0 - 20.0 08/26/2018 [facility] HEMATOLOGY Monocytes 7.6 2.0 - 12.0 08/26/2018 [facility] HEMATOLOGY Segs 82.4 45.0 - 75.0 08/26/2018 [facility] HEMATOLOGY Lymphocytes 9.8 20.0 - 40.0 08/26/2018 [facility] HEMATOLOGY Eosinophils 0.1 0.0 - 4.0 08/26/2018 [facility] Lymphocytes # 1.1 1.0 - 5.5 08/26/2018 [facility] Monocytes # 0.8 0.0 - 0.8 08/26/2018 [facility] HEMATOLOGY Neutrophils # 9.1 1.5 - 8.1 08/26/2018 [facility] HEMATOLOGY Basophils 0.1 0.0 - 1.0 08/26/2018 [facility] RBC 3.30 4.70 - 6.10 08/26/2018 [facility] Hct 31.6 42.0 - 54.0 08/26/2018 [facility] Hgb 10.5 14.0 - 18.0 08/26/2018 [facility] WBC 11.1 3.7 - 10.4 08/26/2018 [facility] MCHC 33.3 32.0 - 36.0 08/26/2018 [facility] MPV 10.6 7.4 - 10.4 08/26/2018 [facility] Platelet 101 133 - 450 08/26/2018 [facility] RDW 15.9 11.5 - 14.5 08/26/2018 [facility] MCH 31.9 27.0 - 31.0 08/26/2018 [facility] MCV 95.8 80.0 - 94.0 08/26/2018 [facility] CHEM PANEL Lactic Acid Lvl 1.3 0.5 - 2.2 08/24/2018 [facility] CHEM PANEL Lactic Acid Lvl 2.1 0.5 - 2.2 08/24/2018 [facility] CEFAZOLIN:SUSC:PT:ISOLATE:ORDQN:MARIAN Culture: Urine >100,000 CFU/mL Citrobacter braakii 10,000 - 50,000 CFU/mL Proteus mirabilis 08/24/2018 [facility] CEFAZOLIN:SUSC:PT:ISOLATE:ORDQN:MARIAN Proteus mirabilis Proteus mirabilis 08/24/2018 [facility] CEFAZOLIN:SUSC:PT:ISOLATE:ORDQN:MARIAN Citrobacter braakii Citrobacter braakii 08/24/2018 [facility] CHEM PANEL Lactic Acid Lvl 2.0 0.5 - 2.2 08/24/2018 [facility] ELECTROLYTES AGAP 12.9 10.0 - 20.0 08/24/2018 [facility] ELECTROLYTES eGFR 37 08/24/2018 Result Comment: The eGFR is calculated using the [...] from the National Kidney Disease Education Program (NKDEP) which additionally recommends that when the eGFR is used in patients with extremes of body mass index for purposes of drug dosing, the eGFR should be multiplied by the estimated BMI. [facility] ELECTROLYTES Glucose Lvl 96 70 - 99 08/24/2018 [facility] ELECTROLYTES Potassium Lvl 3.9 3.5 - 5.1 08/24/2018 [facility] ELECTROLYTES BUN 49 7 - 22 08/24/2018 [facility] ELECTROLYTES Creatinine Lvl 1.7 1 0.50 - 1.40 08/24/2018 [facility] ELECTROLYTES Sodium Lvl 141 135 - 145 08/24/2018 [facility] ELECTROLYTES Chloride Lvl 101 95 - 109 08/24/2018 [facility] ELECTROLYTES CO2 31 24 - 32 08/24/2018 [facility] ELECTROLYTES Calcium Lvl 9.2 8.5 - 10.5 08/24/2018 [facility] DIAGNOSTIC E. faecalis Not Detected (08/23/18 10:57 PM) Not Detect ed 08/24/2018 [facility] S. pyogenes Not Detected (08/23/18 10:57 PM) Not Detect ed 08/24/2018 [facility] E. faecium Not Detected (08/23/18 10:57 PM) Not Detect ed 08/24/2018 [facility] DIAGNOSTIC Staphylococcus spp. Not Detected (08/23/18 10:57 PM) Not Detect ed 08/24/2018 [facility] DIAGNOSTIC Streptococcus s pp. Detected *ABN* (08/23/18 10:57 PM) Not Detect ed 08/24/2018 [facility] DIAGNOSTIC Listeria spp. Not Detected (08/23/18 10:57 PM) Not Detect ed 08/24/2018 [facility] mecA Methicilli n Resistance Not Detected (08/23/18 10:57 PM) Not Detect ed 08/24/2018 [facility] DIAGNOSTIC vanB Vancomycin Resistance Not Detected (08/23/18 10:57 PM) Not Detect ed 08/24/2018 [facility] DIAGNOSTIC Duncan Vancomycin Resistance Not Detected (08/23/18 10:57 PM) Not Detect ed 08/24/2018 [facility] DIAGNOSTIC S. anginosus gr p Not Detected (08/23/18 10:57 PM) Not Detect ed 08/24/2018 [facility] DIAGNOSTIC S. epidermidis Not Detected (08/23/18 10:57 PM) Not Detect ed 08/24/2018 [facility] DIAGNOSTIC S. lugdunensis Not Detected (08/23/18 10:57 PM) Not Detect ed 08/24/2018 [facility] DIAGNOSTIC S. agalactiae Not Detected (08/23/18 10:57 PM) Not Detect ed 08/24/2018 [facility] DIAGNOSTIC S. pneumoniae Not Detected (08/23/18 10:57 PM) Not Detect ed 08/24/2018 [facility] DIAGNOSTIC S. aureus Not Detected (08/23/18 10:57 PM) Not Detect ed 08/24/2018 [facility] URINE AND STOOL UA Nitrite Positive *ABN* (08/23/18 10:57 PM) Negative 08/24/2018 [facility] URINE AND STOOL UA Blood Negative (08/23/18 10:57 PM) Negative 08/24/2018 [facility] URINE AND STOOL UA WBC 38 0 - 5 08/24/2018 [facility] URINE AND STOOL UA Leuk Est Large *ABN* (08/23/18 10:57 PM) Negative 08/24/2018 [facility] URINE AND STOOL UA RBC 3 0 - 2 08/24/2018 [facility] URINE AND STOOL UA Sq Epi None Seen 08/24/2018 [facility] URINE AND STOOL UA Bacteria Occasional /HPF None Seen /HPF 08/24/[address] [facility] [address] URINE AND STOOL UA Color Ltyellow 08/24/2018 [facility] URINE AND STOOL UA Urobilinogen <=1.0 mg/dL 0.1 - 1.0 08/24/2018 [facility] URINE AND STOOL UA Ketones Negative mg/dL Negative mg/dL 08/24/[address] [facility] [address] URINE AND STOOL UA Glucose Negative mg/dL Negative mg/dL 08/24/[address] [facility] [address] URINE AND STOOL UA Bili Negative *NA* (08/23/18 10:57 PM) Negative 08/24/2018 [facility] URINE AND STOOL UA Spec Grav 1.012 <=1.030 08/24/2018 [facility] URINE AND STOOL UA pH 7.0 5.0 - 8.0 08/24/2018 [facility] URINE AND STOOL UA Protein Negative mg/dL Negative mg/dL 08/24/2018 [facility] URINE AND STOOL UA Turbidity Clear (08/23/18 10:57 PM) Clear 08/24/2018 [facility] MCV 96.3 80.0 - 94.0 08/24/2018 [facility] Hgb 12.4 14.0 - 18.0 08/24/2018 [facility] RBC 3.83 4.70 - 6.10 08/24/2018 [facility] Hct 36.9 42.0 - 54.0 08/24/2018 [facility] MCH 32.3 27.0 - 31.0 08/24/2018 [facility] RDW 16.4 11.5 - 14.5 08/24/2018 [facility] Platelet 142 133 - 450 08/24/2018 [facility] MCHC 33.5 32.0 - 36.0 08/24/2018 [facility] MPV 10.5 7.4 - 10.4 08/24/2018 [facility] WBC 17.5 3.7 - 10.4 08/24/2018 [facility] Monocytes 4.8 2.0 - 12.0 08/24/2018 [facility] Lymphocytes 4.6 20.0 - 40.0 08/24/2018 [facility] Segs 90.3 45.0 - 75.0 08/24/2018 [facility] Lymphocytes # 0.8 1.0 - 5.5 08/24/2018 [facility] Neutrophils # 15.8 1.5 - 8.1 08/24/2018 [facility] HEMATOLOGY Basophils 0.2 0.0 - 1.0 08/24/2018 [facility] HEMATOLOGY Eosinophils 0.1 0.0 - 4.0 08/24/2018 [facility] Monocytes # 0.8 0.0 - 0.8 08/24/2018 [facility] Pathology Reports No Data Provided for This Section Diagnostic Reports Report Value Date Source Chest 1view DX Clinical Indica tion: - fever Comparison: None FINDINGS: Single frontal radiograph of the chest is performed. Heart size is upper limits of normal. Mediastinal contours are unremarkable. Lungs are clear without infiltrate or mass. No pleural effusion or pneumothorax. No acute osseous abnormality. IMPRESSION: Borderline heart size. Otherwise no radiographic evidence for acute process in the chest. SL: [id number] 08/23/2018 [facility] Consultation Notes No Data Provided for This Section Discharge Summaries No Data Provided for This Section History and Physicals No Data Provided for This Section Vital Signs Vital Sign Value Date Comments Source Temperature Oral (F) 97.5 F 08/29/2018 [facility] Heart Rate 56 08/29/2018 [facility] Respitory Rate 17 08/29/2018 [facility] Systolic (mm Hg) 131 08/29/2018 [facility] Diastolic (mm Hg) 58 08/29/2018 [facility] Temperature Oral (F) 98.0 F 08/29/2018 [facility] Heart Rate 55 08/29/2018 [facility] Respitory Rate 17 08/29/2018 [facility] Systolic (mm Hg) 122 08/29/2018 [facility] Diastolic (mm Hg) 66 08/29/2018 [facility] Systolic (mm Hg) 105 08/29/2018 [facility] Diastolic (mm Hg) 63 08/29/2018 [facility] Respitory Rate 16 08/29/2018 [facility] Heart Rate 54 08/29/2018 [facility] Temperature Oral (F) 98.1 F 08/29/2018 [facility] BMI Calculated 39.6 08/24/2018 [facility] Weight 136.136 08/24/2018 [facility] Height 185.42 cm 08/24/2018 [facility] Weight 141.818 08/24/2018 [facility] Encounters Location Location Details Encounter Type Encounter Number Reason For Visit Attending Provider ADM Date DC Date Status Source [facility] Inpatient [id number] Katherino Mougouris 08/24/2018 08/29/2018 [facility] Procedures No Data Provided for This Section Assessment and Plan Assessment and Plan Date Source Extracted from:Title: Clinical Document Author: Tiburcio Lezama MD Date: 08/29/18 INFECTIOUS DISEASES PROGRESS NOTE TIBURCIO LEZAMA M.D. Reason For Follow up: Sepsis SUBJECTIVE: Seen and examined. Events noted. Allergies (1) Active Reaction penicillin None Documented VITAL SIGNS: Vitals Tmp(F) Pulse BP RR SpO2 FIO2 08/29 11:34 97.5 56 131/58 1 7 95 --- 08/29 07:30 98.0 55 122/66 1 7 100 --- 08/29 03:30 98.1 54 105/63 1 6 99 --- 08/28 23:46 97.8 55 108/64 1 6 100 --- 08/28 19:04 97.4 56 107/62 1 6 100 --- 24 Hr Tmax: 98.1F (36.72c) at 08/29 03:3 0 Vital Signs are the last 5 in the past 48 hours. Input/Output Record In Out Bal 08/25 24hr Tot 0 0 0 08/24 24hr Tot [phone] Lines and catheters: MEDICATIONS: Scheduled Meds (7): 08/24/18 atorvastatin 20 mg PO Bedtime 08/24/18 cefTRIAXone + sterile water 20 mL 2 gm IVP [id number] 240 ml/hr 08/24/18 docusate 100 mg PO [...] DATA: Labs (Last four charted values) WBC 7.5 (AUG 27) H 11.1 (AUG 26) H 17.5 (AUG 23) Hgb L 9.4 (AUG 27) L 10.5 (AUG 26) L 12.4 (AUG 23) Hct L 28.3 (AUG 27) L 31.6 (AUG 24) L 36.9 (AUG 23) Plt L 97 (AUG 27) L 101 (AUG 26) 142 (AUG 23) Na 141 (AUG 27) 135 (AUG 26) 141 (AUG 23) K L 3.2 (AUG 27) L 3.4 (AUG 24) 3.9 (AUG 23) CO2 24 (AUG 27) 25 (OCT 24) 31 (AUG 23) Cl 103 (AUG 27) 101 (AUG 26) 101 (AUG 23) Cr H 1.65 (AUG 27) 1.27 (AUG 26) H 1.71 (AUG 23) BUN H 43 (AUG 27) H 36 (AUG 26) H 49 (AUG 23) Glucose Random H 101 (AUG 27) H 128 (AUG 26) 96 (AUG 23) Ca L 8.3 (AUG 27) L 8.2 (AUG 26) 9.2 (AUG 23) CULTURES: DATE/SOURCE/RESULT/ SENSITIVITIES: IMAGING: ASSESMENT AND [...] follow up on discharge call Dr Lezama [phone] Extracted from:Title: Clinical Document Author: Natty Rivera MD Date: 08/28/18 Discharge Summary [facility] Natty Rivera MD Discharge Diagnosis: Sepsis with [...] he can discharge home on p.o. Vantin Vitals Tmp(F) Pulse BP RR SpO2 FIO2 08/28 08:00 98.3 60 116/66 1 6 99 --- 08/28 06:23 ---- --- 92/54 - - --- --- 08/28 04:05 98.2 56 108/65 1 8 99 --- 08/28 00:00 97.6 54 114/54 1 8 99 --- 08/27 20:00 97.9 63 117/58 1 8 100 --- 24 Hr Tmax: 98.4F (36.89c) at 08/27 12:0 0 Vital Signs are the last 5 in the past 48 hours. Discharge home See Med reconciliation form F/U with PCP in 2 weeks, medical specialists as necessary Diet: cont same diet Activity as opal Labs (Last four charted values) WBC 7.5 (AUG 27) H 11.1 (AUG 26) H 17.5 (AUG 23) Hgb L 9.4 (AUG 27) L 10.5 (AUG 26) L 12.4 (AUG 23) Hct L 28.3 (AUG 27) L 31.6 (AUG 26) L 36.9 (AUG 23) Plt L 97 (AUG 27) L 101 (AUG 26) 142 (AUG 23) Na 141 (AUG 27) 135 (AUG 26) 141 (AUG 23) K L 3.2 (AUG 27) L 3.4 (AUG 26) 3.9 (AUG 23) CO2 24 (AUG 27) 25 (AUG 26) 31 (AUG 23) Cl 103 (AUG 27) 101 (AUG 26) 101 (AUG 23) Cr H 1.65 (AUG 27) 1.27 (AUG 26) H 1.71 (AUG 23) BUN H 43 (AUG 27) H 36 (AUG 26) H 49 (AUG 23) Glucose Random H 101 (AUG 27) H 128 (AUG 26) 96 (AUG 23) Ca L 8.3 (AUG 27) L 8.2 (AUG 26) 9.2 (AUG 23) Medications (31) Active Scheduled: (10) atorvastatin 10 mg TAB 20 mg 2 tab, PO, Bedtime carvedilol 12.5 mg TAB 37.5 mg 3 tab, PO, BID cefTRIAXone 2 gm INJ VL + water for injection, sterile 20 mL 2 gm, IVP, [id number] docusate sodium 100 mg CAP 100 mg [...] sterile water 20 mL 2 gm IVP [id number] 240 ml/hr 08/24/18 docusate 100 mg PO [...] Q8H 08/27/18 potassium chloride 20 mEq PO OH N 08/27/18 potassium chloride 20 mEq NJ OH N 08/27/18 potassium chloride 10 mEq IVPB [...] mEq PO ONCE Continuous Infusions: None Extracted from:Title: Clinical Document Author: Tiburcio Lezama MD Date: 08/24/18 INFECTIOUS DISEASES CONSULTATION NOTE Tiburcio Lezama M.D. Attending: Natty Rivera MD Service: Internal Medicine Code status: Full Code Reason for Admission: BACTERIAL SEPSIS, COMPLICATED UTI (URINARY TRACT INFECT Working DRG: Isolation: No Isolation/Standard Precautions Consulting Physicians: Tiburcio Lezama MD Office: Service: Infectious Disease HPI: Digestive heart failure history of hypertension morbid obesity history of neurogenic bladderThis is a 78-year-old gentleman who is a known past medical history significant for BPH, history of an bowel who has also history of paraplegia presented to [facility] with temperature of 102.9. Patient reported recurrent history of urinary tract infection in the past he also performs self-catheterization at home he was noted to have dysuria subjective fever and chills of his not feeling good he was very weak and tired with all these concern he presented to [facility] for further workup temperature noted to be [...] HISTORY: No qualifying data available Allergies (1) Active Reaction penicillin None documented SOCIAL HISTORY: Tobacco Details: Use: Never [...] sterile water 10 mL 1 gm IVP [id number] 120 ml/hr 08/24/18 docusate 100 mg PO BID 08/24/18 gemfibrozil 600 mg PO BID 08/24/18 heparin 5,000 unit SUB-Q Q8H 08/24/18 nutritional supplement (Benepro tein 7 gm pkt) 1 pkt PO TID-Meals 08/24/18 senna 17.2 mg PO Bedtime VITAL SIGNS: Vitals Tmp(F) Pulse BP RR SpO2 FIO2 08/24 12:00 98 75 115/60 18 98 --- 08/24 08:00 98.8 56 103/53 1 8 98 --- 08/24 04:28 99.8 77 146/64 - - 94 --- 08/24 02:10 100.2 74 114/78 18 97 --- 08/24 01:27 ---- 79 112/47 1 1 96 --- 24 Hr Tmax: 102.9F (39.39c) at 08/23 20: 51 Vital Signs are the last 5 in the [...] Labs (Last four charted values) WBC H 17.5 (AUG 23) Hgb L 12.4 (AUG 23) Hct L 36.9 (AUG 23) Plt 142 (AUG 23) Na 141 (AUG 23) K 3.9 (AUG 23) CO2 31 (AUG 23) Cl 101 (AUG 23) Cr H 1.71 (AUG 23) BUN H 49 (AUG 23) Glucose Random 96 (AUG 23) Ca 9.2 (AUG 23) CULTURES: DATE/SOURCE/RESULT/ SENSITIVITIES: IMAGING: ASSESMENT AND [...] to take care of this patient. Extracted from:Title: History and Physical Author: Roselyn Aguilera MD [...] -Continue home medications Heparin Anticipate 2 midnights 08/29/2018 [facility] Plan of Care No Data Provided for This Section Social History Social History Date Source Social History TypeResponse Smoking Status Never smoker; Exposure to Tobacco Smoke None; Cigarette Smoking Last 365 Days No; Reg Smoking Cessation Counseling No entered on: 08/24/18 08/24/2018 [facility] Family History No Data Provided for This Section Advance Directives No Data Provided for This Section Functional Status No Data Provided for This Section
--- NOTE | 2020-06-06 15:05 | Emergency Department Note ---
History of Present Illnes History of Present Illness Chief Complaint: General Medicine Complaints History of Present Illness This is a 80 year old male SENT BY DR ROBLES. PT WITH FEVER ONSET FRIDAY. HX OF SELF CATHS. PT WITH MULTIPLE UTI'S. PT SEE'S DR ROBLES. PT GIVEN RX YESTERDAY BY DR GAONA FOR ANTIBIOTICS FOR UTI OF CIPRO. PT STATES FEVER TODAY OF 102 AND TOOK TYLENOL AT 0900. PT AAOX4. W/C. PT IN NO RESPIRATORY DISTRESS OR S/S OF COVID OTHER THAN FEVER.. Historian: Patient Arrival Mode: Car Past Medical/Family History Physician Review I have reviewed the patient's past medical and family history. Any updates have been documented here. Past Medical History Recent Fever: Yes Clinical Suspicion of Infectio: Yes New/Unexplained Change in Ment: No Past Medical History: Hypertension, CHF, A-Fib, UTI's, GERD, Hyperlipedemia Other Medical History: IRREGULAR HEART RATE Past Surgical History: Hernia Repair Other Surgery: CARPAL TUNNEL, RIGHT TESTICLE TUMOR REMOVAL, SPINAL CORD SURGERY Other Last Tetanus: UNKNOWN Review of Systems Review of Systems Constitutional: Denies no symptoms, Denies as per HPI, Denies chills, Denies diaphoresis, Denies fever, Denies malaise, Denies weakness, Denies other EENTM: Denies no symptoms, Denies as per HPI, Denies eye pain, Denies blurred vision, Denies tearing, Denies double vision, Denies ear pain, Denies ear di scharge, Denies nose pain, Denies nose congestion, Denies throat pain, Denies throat swelling, Denies mouth pain, Denies mouth swelling, Denies other Cardiovascular: Denies no symptoms, Denies as per HPI, Denies chest pain, Denies edema, Denies palpitations, Denies syncope, Denies other Respiratory: Denies no symptoms, Denies as per HPI, Denies change in phlegm color, Denies chest congestion, Denies cough, Denies hemoptysis, Denies excessive phlegm production, Denies pain on inspiration, Denies pain with cough, Denies dyspnea, Denies dyspnea on exertion, Denies snoring, Denies stridor, Den ies wheezing, Denies other Gastrointestinal: Denies no symptoms, Denies as per HPI, Denies abdominal pain, Denies constipation, Denies diarrhea, Denies nausea, Denies vomiting, Denies other Genitourinary: Reports dysuria; Denies no symptoms, Denies as per HPI, Denies discharge, Denies frequency, Denies hematuria, Denies pain, Denies other Musculoskeletal: Reports other (Bilateral leg pain (states this happens when he has a UTI)); Denies no symptoms, Denies as per HPI, Denies back pain, Denies gout, Denies joint pain, Denies joint swelling, Denies muscle pain, Denies muscle stiffness, Denies neck pain Neurological: Denies no symptoms, Denies as per HPI, Denies headache, Denies numbness, Denies paresthesia, Denies pre-existing deficit, Denies seizure, Denies tingling, Denies tremors, Denies weakness, Denies other Psychological: Denies no symptoms, Denies as per HPI, Denies anxiety, Denies depressed, Denies emotional problems, Denies other Endocrine: Denies no symptoms, Denies as per HPI, Denies excessive sweating, Denies flushing, Denies intolerance to cold, Denies intolerance to heat, Denies increased hunger, Denies increased thirst, Denies increased urination, Denies unexplained weight gain, Denies unexplained weight loss, Denies other Hematological/Lymphatic: Denies no symptoms, Denies as per HPI, Denies anemia, Denies blood clots, Denies easy bleeding, Denies easy bruising, Denies swollen glands, Denies other Physical Exam Related Data Allergies: Coded Allergies: Penicillins (Verified Allergy, Severe, RASH, 12/27/18) Triage Vital Signs Vital Signs Date Time Temp Pulse Resp B/P (MAP) Pulse Ox O2 Delivery O2 Flow Rate FiO2 06/06/20 14:46 99.4 80 16 135/91 98 Room Air Physical Exam CONSTITUTIONAL Constitutional: Present well-developed, Present well-nourished HENT HENT: Present normocephalic, Present atraumatic, Present oropharynx clear/moist, Present nose normal HENT L/R: Present left ext ear normal, Present right ext ear normal EYES Eyes: Reports PERRL, Reports conjunctivae normal NECK Neck: Present ROM normal PULMONARY Pulmonary: Present effort normal, Present breath sounds normal CARDIOVASCULAR Cardiovascular: Present regular rhythm, Present heart sounds normal, Present capillary refill normal, Present normal rate GASTROINTESTINAL Abdominal: Present soft, Present nontender, Present bowel sounds normal GENITOURINARY Genitourinary: Present exam deferred SKIN Skin: Present warm, Present dry MUSCULOSKELETAL Musculoskeletal: Present ROM normal NEUROLOGICAL Neurological: Present alert, Present oriented x 3, Present no gross motor or sensory deficits PSYCHOLOGICAL Psychological: Present mood/affect normal, Present judgement normal Results Laboratory Lab results reviewed: Yes Assessment & Plan Medical Decision Making MDM 80 y.o M here for concerns for UTI. States had fever and took tylenol. Afebrile here, patient otherwise well appearing, VSS, within acceptable limits. Initial differential includes PNA, viral illness, UTI. W/u shows UTI. Given Rocephin in ED and Keflex for home use. He will f/u w/ his PCP or return to ED for new/worsening symptoms. Patient appropriate for DC. Reassessment Reassessment time: 18:15 Reassessment Well appearing, NAD Assessment & Plan Final Impression: (1) UTI (urinary tract infection) Depart Disposition: HOME, SELF-CARE Last Vital Signs Date Time Temp Pulse Resp B/P (MAP) Pulse Ox O2 Delivery O2 Flow Rate FiO2 06/06/20 14:46 99.4 80 16 135/91 98 Room Air Home Meds Active Scripts Cephalexin Monohydrate (KEFLEX) 500 Mg Capsule, 500 MG PO TID for 10 Days, #30 TAB 0 Refills Prov:RANDI ARREAGA MD 06/06/20 Reported Medications Trazodone Hcl (TRAZODONE HCL) 50 Mg Tablet, 300 MG PO DAILY@0600, #30 TAB 12/30/18 Quetiapine Fumarate (SEROQUEL) 25 Mg Tablet, 50 MG PO HS, #60 TAB 12/30/18 Ciprofloxacin/Ciprofloxa Hcl (CIPROFLOXACIN ER 500 MG TABLET) 500 Mg Tbmp.24hr, PO BID 12/30/18 Diazepam (VALIUM) 10 Mg Tablet, PO Q6H PRN for ANXIETY 12/30/18 Bumetanide (BUMETANIDE) 1 Mg Tablet, 2 MG PO DAILY, #30 TAB 12/27/18 Carvedilol (CARVEDILOL) 6.25 Mg Tablet, 1.5 TAB PO BID 12/27/18 Hydralazine Hcl (HYDRALAZINE HCL) 25 Mg Tab, 50 MG PO Q8H, TAB 12/27/18 Sennosides/Docusate Sodium (SENOKOT-S TABLET) 1 Each Tablet, 1 TAB PO DAILY 09/21/18 Polyethylene Glycol 3350 (MIRALAX) 17 Gm Powd.pack, 1 PACKET PO DAILY 09/21/18 Ferrous Sulfate (FERROUS SULFATE) 325 Mg Tablet, 325 MG PO BID 09/21/18 Aspirin (ASPIR 81) 81 Mg Tablet.dr, 81 MG PO DAILY 10/29/17 Atorvastatin Calcium (LIPITOR) 20 Mg Tablet, 20 MG PO DAILY, #30 TAB 10/29/17 Gemfibrozil (GEMFIBROZIL) 600 Mg Tablet, 600 MG PO BID 03/31/16 RANDI ARREAGA MD Jun 06, 2020 15:05
[2020-06-06 16:06] LABS: BASOPHILS % 0.3 % (0.0-1.0); EOSINOPHILS # (AUTO) 0.1 (0.0-0.4); EOSINOPHILS % 1.4 % (0.0-6.0); HEMATOCRIT 30.5 % (38.2-49.6); HEMOGLOBIN 9.5 g/dL (14.0-18.0); LYMPHOCYTES # (AUTO) 1.4 (1.0-3.2); LYMPHOCYTES % 20.8 % (18.0-39.1); MEAN CORPUSCULAR HEMOGLOBIN 28.6 pg (28-32); MEAN CORPUSCULAR HGB CONC 31.1 g/dL (31-35); MEAN CORPUSCULAR VOLUME 91.9 fL (81-99); MONOCYTES % 13.7 % (4.4-11.3); NEUTROPHILS # (AUTO) 4.4 (2.1-6.9); NEUTROPHILS % 63.2 % (38.7-80.0); PLATELET COUNT 184 x10e3/uL (140-360); RED BLOOD COUNT 3.32 x10e6/uL (4.3-5.7); RED CELL DISTRIBUTION WIDTH 16.7 % (11.7-14.4)
[2020-06-06 16:25] LABS: ALBUMIN 2.9 g/dL (3.5-5.0); ALBUMIN/GLOBULIN RATIO 0.5 (0.8-2.0); ANION GAP 13.6 mmol/L (8-16); CALCIUM 8.9 mg/dL (8.4-10.2); CREATININE, SERUM 1.93 mg/dL (0.72-1.25); POTASSIUM 3.6 mmol/L (3.5-5.1)
--- NOTE | 2020-06-06 16:25 | Diagnostic Imaging Report ---
X-ray chest frontal view History: Fever, UTI Comparison: None Findings: Central airways: Unremarkable Cardiac silhouette: Unremarkable Mediastinal silhouettes: Unremarkable Pleura: No pleural effusion, pneumothorax or thickening Diaphragms: Unremarkable Lungs: No focal lung disease Skeletal structures: Unremarkable Extrathoracic soft tissues: Unremarkable Impression: As above. Signed by: Reinaldo Waggoner MD on 06/06/2020 4:22 PM
[2020-06-06 17:42] LABS: BILIRUBIN,URINE NEGATIVE (NEGATIVE); CLARITY,URINE CLOUDY (CLEAR); COLOR,URINE YELLOW (YELLOW); KETONES,URINE NEGATIVE (NEGATIVE); LEUKOCYTE ESTERASE ,URINE 2+ (NEGATIVE); NITRITE,URINE NEGATIVE (NEGATIVE); PROTEIN,URINE DIPSTICK 2+ (NEGATIVE); URINE UROBILINOGEN 0.2 mg/dL (0.2 - 1)
[2020-06-06 17:50] LABS: WBC,URINE (MAN) >50 /HPF (0-5)
[2020-06-06 17:51] LABS: BACTERIA,URINE MODERATE /HPF
[2020-06-06] MEDS ORDERED: CEFTRIAXONE SOD 2 GM/NS 100 ML 100 ML IV ONE (18:00)
[2020-06-06] MEDS ORDERED: KEFLEX500 MG PO (18:02)
[2020-06-06] MEDS ORDERED: CEFTRIAXONE SOD 2 GM VIAL ONE (18:19)
[2020-06-06] MEDS ORDERED: SODIUM CHLORIDE 0.9% 100 ML ONE (18:20)
== END 2020-06-06 18:59 | disposition home or self-care (01) ==
LOC: ER 14:55
DX: N39.0 Urinary tract infection, site not specified (principal); I10 Essential (primary) hypertension; I50.9 Heart failure, unspecified; I48.91 Unspecified atrial fibrillation; E78.5 Hyperlipidemia, unspecified; K21.9 Gastro-esophageal reflux disease without esophagitis
CPT/HCPCS: 36415; 71045; 80053; 81001; 85025; 87086; 87186; 99284; J0696 ×2; J7050

== ENCOUNTER 2021-01-09 14:22 | Emergency (ER) | payer MEDICARE ==
[~2021-01-09] VITALS: Ht 185.4 cm; Wt 142.9 kg
[~2021-01-09 14:22] MED LIST changes: +KEFLEX500 MG PO
[2021-01-09 15:36] LABS: COLOR,URINE YELLOW (YELLOW)
[2021-01-09 15:37] LABS: CLARITY,URINE SL CLOUDY (CLEAR); KETONES,URINE NEGATIVE (NEGATIVE); LEUKOCYTE ESTERASE ,URINE LARGE (NEGATIVE); NITRITE,URINE NEGATIVE (NEGATIVE); PROTEIN,URINE DIPSTICK 1+ (NEGATIVE); URINE UROBILINOGEN 0.2 mg/dL (0.2 - 1)
[2021-01-09 15:43] LABS: BASOPHILS % 0.4 % (0.0-1.0); EOSINOPHILS # (AUTO) 0.2 (0.0-0.4); EOSINOPHILS % 2.2 % (0.0-6.0); HEMATOCRIT 36.2 % (38.2-49.6); HEMOGLOBIN 11.6 g/dL (14.0-18.0); LYMPHOCYTES # (AUTO) 1.3 (1.0-3.2); LYMPHOCYTES % 17.3 % (18.0-39.1); MEAN CORPUSCULAR HEMOGLOBIN 30.6 pg (28-32); MEAN CORPUSCULAR VOLUME 95.5 fL (81-99); MONOCYTES # (AUTO) 0.9 (0.2-0.8); MONOCYTES % 11.3 % (4.4-11.3); NEUTROPHILS # (AUTO) 5.1 (2.1-6.9); NEUTROPHILS % 67.7 % (38.7-80.0); PLATELET COUNT 174 x10e3/uL (140-360); RED BLOOD COUNT 3.79 x10e6/uL (4.3-5.7); RED CELL DISTRIBUTION WIDTH 16.1 % (11.7-14.4)
[2021-01-09] MEDS ORDERED: CEFUROXIME250 MG PO (15:48)
[2021-01-09 15:51] LABS: BACTERIA,URINE MODERATE /HPF; RBC,URINE 0-5 /HPF (0-5); WBC,URINE (MAN) >50 /HPF (0-5)
[2021-01-09 16:02] LABS: ALBUMIN 3.3 g/dL (3.5-5.0); ALBUMIN/GLOBULIN RATIO 0.6 (0.8-2.0); CALCIUM 8.9 mg/dL (8.4-10.2); CREATININE, SERUM 1.47 mg/dL (0.72-1.25)
[2021-01-12] MEDS ORDERED: MULTI-VITAMIN1 EACH PO (14:49)
[2021-01-12] MEDS ORDERED: NEURONTIN100 MG PO (14:49)
[2021-01-12] MEDS ORDERED: PANTOPRAZOLE SO40 MG PO (14:49)
[2021-01-12] MEDS ORDERED: TEMAZEPAM30 MG (14:49)
[2021-01-12] MEDS ORDERED: METHENAMINE HIPP1 GM (14:49)
[2021-01-12] MEDS ORDERED: PROBIOTIC & AC1 EACH PO (14:49)
[2021-01-12] MEDS ORDERED: CHOLECALCIFEROL1 GM (14:53)
== END 2021-01-09 17:40 | disposition home or self-care (01) ==
LOC: ER 14:25
DX: N39.0 Urinary tract infection, site not specified (principal); R53.1 Weakness; R53.81 Other malaise; I10 Essential (primary) hypertension; E78.5 Hyperlipidemia, unspecified; I50.9 Heart failure, unspecified; K21.9 Gastro-esophageal reflux disease without esophagitis
CPT/HCPCS: 36415; 51700; 80053; 81001; 85025; 87086; 87186; 99283

== ENCOUNTER 2021-07-26 15:51 | Emergency (ER) | payer MEDICARE ==
[~2021-07-26] VITALS: Ht 185.4 cm; Wt 136.1 kg
[~2021-07-26 15:51] MED LIST changes: +CEFUROXIME250 MG PO; +CHOLECALCIFEROL1 GM; +METHENAMINE HIPP1 GM; +MULTI-VITAMIN1 EACH PO; +NEURONTIN100 MG PO; +PANTOPRAZOLE SO40 MG PO; +PROBIOTIC & AC1 EACH PO; +TEMAZEPAM30 MG
[2021-07-26 16:52] LABS: BASOPHILS % 0.4 % (0.0-1.0); EOSINOPHILS # (AUTO) 0.2 (0.0-0.4); EOSINOPHILS % 3.3 % (0.0-6.0); HEMATOCRIT 34.4 % (38.2-49.6); HEMOGLOBIN 10.6 g/dL (14.0-18.0); LYMPHOCYTES # (AUTO) 1.2 (1.0-3.2); LYMPHOCYTES % 23.9 % (18.0-39.1); MEAN CORPUSCULAR HGB CONC 30.8 g/dL (31-35); MEAN CORPUSCULAR VOLUME 97.5 fL (81-99); MONOCYTES # (AUTO) 0.5 (0.2-0.8); NEUTROPHILS # (AUTO) 3.1 (2.1-6.9); NEUTROPHILS % 61.2 % (38.7-80.0); PLATELET COUNT 145 x10e3/uL (140-360); RED BLOOD COUNT 3.53 x10e6/uL (4.3-5.7); RED CELL DISTRIBUTION WIDTH 17.7 % (11.7-14.4)
[2021-07-26 16:53] LABS: CLARITY,URINE HAZY (CLEAR); COLOR,URINE YELLOW (YELLOW); KETONES,URINE NEGATIVE (NEGATIVE); LEUKOCYTE ESTERASE ,URINE LARGE (NEGATIVE); NITRITE,URINE NEGATIVE (NEGATIVE); PROTEIN,URINE DIPSTICK 2+ (NEGATIVE); URINE UROBILINOGEN 0.2 mg/dL (0.2 - 1)
[2021-07-26 17:05] LABS: BACTERIA,URINE MODERATE /HPF; WBC,URINE (MAN) 21-50 /HPF (0-5)
[2021-07-26 17:08] LABS: ANION GAP 14.3 mmol/L (8-16); CALCIUM 8.8 mg/dL (8.4-10.2); CREATININE, SERUM 1.46 mg/dL (0.72-1.25); POTASSIUM 4.3 mmol/L (3.5-5.1)
[2021-07-26] MEDS ORDERED: CEFTRIAXONE 1 GM VIAL IV ONE (17:30)
[2021-07-26] MEDS ORDERED: CEFTRIAXONE 1 GM in SODIUM CHLORIDE 0.9% 50ML 50 ML IV ONE (17:30)
[2021-07-26] MEDS ORDERED: CEFDINIR300 MG PO (18:25)
[2021-07-26 18:31] VITALS: BP 168/83
== END 2021-07-26 18:32 | disposition home or self-care (01) ==
LOC: ER 17:16
DX: Z46.6 Encounter for fitting and adjustment of urinary device (principal); N39.0 Urinary tract infection, site not specified; I10 Essential (primary) hypertension; I50.9 Heart failure, unspecified; I48.91 Unspecified atrial fibrillation; E78.5 Hyperlipidemia, unspecified
CPT/HCPCS: 36415; 51702; 80048; 81001; 85025; 99283; J0696; 51700

== ENCOUNTER 2021-08-08 10:01 | Inpatient (IN) | payer MEDICARE ==
[~2021-08-08] VITALS: Ht 185.4 cm; Wt 144.2 kg
[~2021-08-08 10:01] MED LIST changes: +CEFDINIR300 MG PO
[2021-08-08 10:16] LABS: BASOPHILS % 0.3 % (0.0-1.0); EOSINOPHILS # (AUTO) 0.2 (0.0-0.4); EOSINOPHILS % 2.7 % (0.0-6.0); HEMATOCRIT 32.3 % (38.2-49.6); HEMOGLOBIN 9.7 g/dL (14.0-18.0); LYMPHOCYTES # (AUTO) 0.9 (1.0-3.2); LYMPHOCYTES % 13.1 % (18.0-39.1); MEAN CORPUSCULAR HEMOGLOBIN 29.6 pg (28-32); MEAN CORPUSCULAR VOLUME 98.5 fL (81-99); MONOCYTES # (AUTO) 0.6 (0.2-0.8); MONOCYTES % 9.5 % (4.4-11.3); NEUTROPHILS # (AUTO) 4.9 (2.1-6.9); PLATELET COUNT 175 x10e3/uL (140-360); RED BLOOD COUNT 3.28 x10e6/uL (4.3-5.7); RED CELL DISTRIBUTION WIDTH 17.7 % (11.7-14.4)
[2021-08-08 10:22] LABS: CLARITY,URINE CLEAR (CLEAR); COLOR,URINE YELLOW (YELLOW); KETONES,URINE NEGATIVE (NEGATIVE); LEUKOCYTE ESTERASE ,URINE NEGATIVE (NEGATIVE); NITRITE,URINE NEGATIVE (NEGATIVE); PROTEIN,URINE DIPSTICK 2+ (NEGATIVE); URINE UROBILINOGEN 0.2 mg/dL (0.2 - 1)
[2021-08-08 10:38] LABS: WBC,URINE (MAN) 0-5 /HPF (0-5)
[2021-08-08 10:39] LABS: BACTERIA,URINE MODERATE /HPF; EPITHELIAL CELLS,URINE MODERATE /LPF
[2021-08-08 10:40] LABS: ALBUMIN 3.3 g/dL (3.5-5.0); ALBUMIN/GLOBULIN RATIO 0.6 (0.8-2.0); CALCIUM 9.1 mg/dL (8.4-10.2); CREATININE, SERUM 1.56 mg/dL (0.72-1.25)
[2021-08-08 10:56] LABS: INR 1.17; PROTHROMBIN TIME 15.1 seconds (11.9-14.5)
[2021-08-08 11:00] LABS: B-TYPE NATRIURETIC PEPTIDE2 703.4 pg/mL (0-100); THYROID STIMULATING HORMONE 3.23 uIU/mL (0.350-4.940)
[2021-08-08] MEDS ORDERED: Vancomycin IV 1 GM in SODIUM CHLORIDE 0.9% 250ML 250 ML IV STA (14:24)
[2021-08-08] MEDS: CIPROFLOXACIN 400 MG/D5W 200ML 200 ML IV SCH (17:15)
[2021-08-08] MEDS ORDERED: CEFEPIME 1 GM in SODIUM CHLORIDE 0.9% 50ML 50 ML IV SCH (18:00)
[2021-08-08 18:31] LABS: CREATINE KINASE 50 IU/L (30-200)
[2021-08-08 19:25] VITALS: BP 114/79
[2021-08-08 20:00] VITALS: BP 114/79
[2021-08-08] MEDS ORDERED: FUROSEMIDE INJ 10 MG/ML 2 ML VIAL IV ONE (21:30)
[2021-08-08 22:48] LABS: ABG HCO3 29 mmol/L (22-26); ABG PCO2 59 mmHg (35-45); ABG PO2 103 mmHg (80-105); ABG TCO2 31
[2021-08-09] VITALS (23 sets, daily range): BP systolic 95–150; BP diastolic 41–83
[2021-08-09 01:04] LABS: CREATINE KINASE 43 IU/L (30-200)
[2021-08-09 04:59] LABS: BASOPHILS % 0.2 % (0.0-1.0); EOSINOPHILS # (AUTO) 0.1 (0.0-0.4); EOSINOPHILS % 1.1 % (0.0-6.0); HEMATOCRIT 29.6 % (38.2-49.6); HEMOGLOBIN 9.1 g/dL (14.0-18.0); LYMPHOCYTES # (AUTO) 0.6 (1.0-3.2); LYMPHOCYTES % 9.6 % (18.0-39.1); MEAN CORPUSCULAR HEMOGLOBIN 30.1 pg (28-32); MEAN CORPUSCULAR HGB CONC 30.7 g/dL (31-35); MONOCYTES # (AUTO) 0.7 (0.2-0.8); MONOCYTES % 11.3 % (4.4-11.3); PLATELET COUNT 183 x10e3/uL (140-360); RED BLOOD COUNT 3.02 x10e6/uL (4.3-5.7); RED CELL DISTRIBUTION WIDTH 17.5 % (11.7-14.4)
[2021-08-09] MEDS: CIPROFLOXACIN 400 MG/D5W 200ML 200 ML IV SCH (05:00)
[2021-08-09 05:19] LABS: ALBUMIN/GLOBULIN RATIO 0.7 (0.8-2.0); ANION GAP 13.6 mmol/L (8-16); CALCIUM 8.8 mg/dL (8.4-10.2); CREATININE, SERUM 1.34 mg/dL (0.72-1.25); POTASSIUM 3.6 mmol/L (3.5-5.1)
[2021-08-09 06:17] LABS: CREATINE KINASE 46 IU/L (30-200)
[2021-08-09] MEDS ORDERED: CEFEPIME 1 GM in SODIUM CHLORIDE 0.9% 50ML 50 ML IV SCH (09:00)
[2021-08-09] MEDS ORDERED: Vancomycin IV 1 GM in SODIUM CHLORIDE 0.9% 250ML 250 ML IV SCH (09:00)
[2021-08-09] MEDS: ASPIRIN 81 MG CHEW TAB PO SCH (09:05)
[2021-08-09] MEDS: BUMETANIDE 1 MG TAB PO SCH (09:05)
[2021-08-09] MEDS: ATORVASTATIN 20 MG TAB PO SCH (09:05)
[2021-08-09 10:20] LABS: ABG PH 7.26 (7.35-7.45)
[2021-08-09 10:21] LABS: ABG HCO3 32 mmol/L (22-26); ABG PCO2 72 mmHg (35-45); ABG PO2 57 mmHg (80-105); ABG TCO2 35
[2021-08-09] MEDS: DEXTROSE 5% 1,000 ML IV SCH ×2 (11:37→21:04)
[2021-08-09] MEDS: LEVOFLOXACIN 500MG/D5W 100ML 100 ML IV SCH (14:44)
[2021-08-10] VITALS (26 sets, daily range): BP systolic 115–150; BP diastolic 45–82
[2021-08-10] MEDS: DEXTROSE 5% 1,000 ML IV SCH (03:39)
[2021-08-10 05:45] LABS: BASOPHILS % 0.3 % (0.0-1.0); EOSINOPHILS # (AUTO) 0.1 (0.0-0.4); EOSINOPHILS % 3.5 % (0.0-6.0); HEMOGLOBIN 9.4 g/dL (14.0-18.0); LYMPHOCYTES # (AUTO) 0.9 (1.0-3.2); LYMPHOCYTES % 23.8 % (18.0-39.1); MEAN CORPUSCULAR HEMOGLOBIN 29.7 pg (28-32); MEAN CORPUSCULAR HGB CONC 30.3 g/dL (31-35); MEAN CORPUSCULAR VOLUME 97.8 fL (81-99); MONOCYTES # (AUTO) 0.6 (0.2-0.8); MONOCYTES % 15.4 % (4.4-11.3); NEUTROPHILS # (AUTO) 2.2 (2.1-6.9); NEUTROPHILS % 56.2 % (38.7-80.0); PLATELET COUNT 174 x10e3/uL (140-360); RED BLOOD COUNT 3.17 x10e6/uL (4.3-5.7); RED CELL DISTRIBUTION WIDTH 16.9 % (11.7-14.4)
[2021-08-10 06:10] LABS: ALBUMIN 2.8 g/dL (3.5-5.0); ALBUMIN/GLOBULIN RATIO 0.6 (0.8-2.0); ANION GAP 11.7 mmol/L (8-16); CALCIUM 8.9 mg/dL (8.4-10.2); CHOL/HDL RATIO 3.5 (3.9-4.7); CREATININE, SERUM 1.24 mg/dL (0.72-1.25); POTASSIUM 3.7 mmol/L (3.5-5.1)
[2021-08-10 06:32] LABS: THYROID STIMULATING HORMONE 3.825 uIU/mL (0.350-4.940)
[2021-08-10] MEDS: ATORVASTATIN 20 MG TAB PO SCH (09:55)
[2021-08-10] MEDS: BUMETANIDE 1 MG TAB PO SCH (09:55)
[2021-08-10] MEDS: ASPIRIN 81 MG CHEW TAB PO SCH (09:55)
[2021-08-10] MEDS: LEVOFLOXACIN 500MG/D5W 100ML 100 ML IV SCH (15:09)
[2021-08-10 16:17] LABS: ABG PH 7.35 (7.35-7.45)
[2021-08-10 16:18] LABS: ABG HCO3 36 mmol/L (22-26); ABG PCO2 67 mmHg (35-45); ABG PO2 257 mmHg (80-105); ABG TCO2 38
[2021-08-10] MEDS ORDERED: BENZONATATE 100 MG CAP PO PRN (22:45)
[2021-08-11] VITALS (20 sets, daily range): BP systolic 101–161; BP diastolic 40–80
[2021-08-11 03:59] LABS: BASOPHILS % 0.2 % (0.0-1.0); EOSINOPHILS # (AUTO) 0.2 (0.0-0.4); EOSINOPHILS % 3.3 % (0.0-6.0); HEMATOCRIT 31.1 % (38.2-49.6); HEMOGLOBIN 9.4 g/dL (14.0-18.0); LYMPHOCYTES # (AUTO) 1.1 (1.0-3.2); LYMPHOCYTES % 23.3 % (18.0-39.1); MEAN CORPUSCULAR HEMOGLOBIN 29.6 pg (28-32); MEAN CORPUSCULAR HGB CONC 30.2 g/dL (31-35); MEAN CORPUSCULAR VOLUME 97.8 fL (81-99); MONOCYTES # (AUTO) 0.6 (0.2-0.8); MONOCYTES % 13.7 % (4.4-11.3); NEUTROPHILS # (AUTO) 2.7 (2.1-6.9); NEUTROPHILS % 58.8 % (38.7-80.0); PLATELET COUNT 185 x10e3/uL (140-360); RED BLOOD COUNT 3.18 x10e6/uL (4.3-5.7); RED CELL DISTRIBUTION WIDTH 16.6 % (11.7-14.4)
[2021-08-11 04:15] LABS: ALBUMIN 2.8 g/dL (3.5-5.0); ALBUMIN/GLOBULIN RATIO 0.6 (0.8-2.0); ANION GAP 12.7 mmol/L (8-16); CREATININE, SERUM 1.36 mg/dL (0.72-1.25); POTASSIUM 3.7 mmol/L (3.5-5.1)
[2021-08-11] MEDS: BUMETANIDE 1 MG TAB PO SCH (08:35)
[2021-08-11] MEDS: ATORVASTATIN 20 MG TAB PO SCH (08:35)
[2021-08-11] MEDS ORDERED: POTASSIUM CHLORIDE 20 MEQ TAB CR PO STA (10:12)
[2021-08-11] MEDS: LEVOFLOXACIN 500MG/D5W 100ML 100 ML IV SCH (15:52)
[2021-08-12] VITALS (9 sets, daily range): BP systolic 131–163; BP diastolic 63–100
[2021-08-12 06:38] LABS: ANION GAP 14.5 mmol/L (8-16); CALCIUM 8.8 mg/dL (8.4-10.2); CREATININE, SERUM 1.37 mg/dL (0.72-1.25); MAGNESIUM 1.8 MG/DL (1.3-2.1); POTASSIUM 3.5 mmol/L (3.5-5.1)
[2021-08-12] MEDS: PANTOPRAZOLE SOD 40 MG TABEC PO SCH (09:00)
[2021-08-12] MEDS: ASPIRIN 81 MG CHEW TAB PO SCH ×2 (09:00→09:06)
[2021-08-12] MEDS ORDERED: GEMFIBROZIL 600 MG TAB PO SCH (09:00)
[2021-08-12] MEDS: FERROUS SULFATE 325 MG TAB PO SCH (09:06)
[2021-08-12] MEDS: GABAPENTIN 100 MG CAP PO SCH ×2 (09:07→18:03)
[2021-08-12] MEDS: MULTIVITAMINS/MINERALS TAB PO SCH (09:07)
[2021-08-12] MEDS: ATORVASTATIN 20 MG TAB PO SCH (09:08)
[2021-08-12] MEDS: BUMETANIDE 1 MG TAB PO SCH (09:08)
[2021-08-12] MEDS: GEMFIBROZIL 600 MG TAB PO SCH ×2 (11:02→17:00)
[2021-08-12] MEDS: LEVOFLOXACIN 500MG/D5W 100ML 100 ML IV SCH (14:50)
[2021-08-12] MEDS: HYDRALAZINE HCL 25 MG TAB PO SCH ×2 (14:50→22:50)
[2021-08-12] MEDS: TRAZODONE HCL 50 MG TAB PO SCH (21:07)
[2021-08-13] VITALS (10 sets, daily range): BP systolic 107–169; BP diastolic 60–100
[2021-08-13] MEDS: HYDRALAZINE HCL 25 MG TAB PO SCH ×3 (06:00→20:53)
[2021-08-13] MEDS: BUMETANIDE 1 MG TAB PO SCH (08:59)
[2021-08-13] MEDS: GABAPENTIN 100 MG CAP PO SCH ×3 (08:59→18:28)
[2021-08-13] MEDS: ATORVASTATIN 20 MG TAB PO SCH (08:59)
[2021-08-13] MEDS: ASPIRIN 81 MG CHEW TAB PO SCH (08:59)
[2021-08-13] MEDS: PANTOPRAZOLE SOD 40 MG TABEC PO SCH (08:59)
[2021-08-13] MEDS: FERROUS SULFATE 325 MG TAB PO SCH (08:59)
[2021-08-13] MEDS: MULTIVITAMINS/MINERALS TAB PO SCH (08:59)
[2021-08-13] MEDS: MAGNESIUM SULFATE 2GM/50ML 50 ML IV ONE ×2 (11:33→12:24)
[2021-08-13] MEDS: GEMFIBROZIL 600 MG TAB PO SCH ×3 (11:33→18:28)
[2021-08-13] MEDS ORDERED: POTASSIUM CHLORIDE 20 MEQ TAB CR PO ONE (12:00)
[2021-08-13] MEDS: LEVOFLOXACIN 250 MG TAB PO SCH (14:32)
[2021-08-13] MEDS ORDERED: MIDAZOLAM HCL 2 MG/2 ML VIAL ONE (15:50)
[2021-08-13] MEDS ORDERED: GENTAMICIN SULFATE 40 MG/ML 2 ML VIAL ONE (15:50)
[2021-08-13] MEDS ORDERED: SODIUM CHLORIDE 0.9% 250ML 250 ML ONE (15:51)
[2021-08-13] MEDS ORDERED: FENTANYL CITRATE/PF 100MCG/2 ML INJ ONE (15:51)
[2021-08-13] MEDS ORDERED: SODIUM CHLORIDE 0.9% 1000ML 2,000 ML ONE (15:51)
[2021-08-13] MEDS ORDERED: Vancomycin IV 1 GM VIAL ONE (15:51)
[2021-08-13] MEDS ORDERED: SODIUM CHLORIDE 0.9% 500ML 500 ML ONE (15:51)
[2021-08-13] MEDS ORDERED: LIDOCAINE HCL 2% LOCAL 20 ML VIAL ONE (15:51)
[2021-08-13] MEDS: TRAZODONE HCL 50 MG TAB PO SCH (20:53)
[2021-08-14] VITALS (12 sets, daily range): BP systolic 129–174; BP diastolic 64–86
[2021-08-14] MEDS: HYDRALAZINE HCL 25 MG TAB PO SCH ×3 (06:24→20:37)
[2021-08-14] MEDS: ASPIRIN 81 MG CHEW TAB PO SCH (08:04)
[2021-08-14] MEDS: ATORVASTATIN 20 MG TAB PO SCH (08:04)
[2021-08-14] MEDS: FERROUS SULFATE 325 MG TAB PO SCH (08:04)
[2021-08-14] MEDS: MULTIVITAMINS/MINERALS TAB PO SCH (08:04)
[2021-08-14] MEDS: BUMETANIDE 1 MG TAB PO SCH (08:04)
[2021-08-14] MEDS: PANTOPRAZOLE SOD 40 MG TABEC PO SCH (08:05)
[2021-08-14] MEDS ORDERED: CARVEDILOL 12.5 MG TAB PO SCH (09:15)
[2021-08-14] MEDS: AMLODIPINE BESYLATE 5 MG TAB PO SCH (09:59)
[2021-08-14] MEDS: LEVOFLOXACIN 250 MG TAB PO SCH (14:26)
[2021-08-14] MEDS: GABAPENTIN 100 MG CAP PO SCH (17:02)
[2021-08-14] MEDS: GEMFIBROZIL 600 MG TAB PO SCH (17:02)
[2021-08-14] MEDS: TRAZODONE HCL 50 MG TAB PO SCH (20:38)
[2021-08-15] VITALS (10 sets, daily range): BP systolic 103–168; BP diastolic 49–85
[2021-08-15] MEDS: HYDRALAZINE HCL 25 MG TAB PO SCH ×2 (06:00→14:26)
[2021-08-15 08:29] LABS: BASOPHILS % 0.4 % (0.0-1.0); EOSINOPHILS # (AUTO) 0.2 (0.0-0.4); HEMATOCRIT 34.9 % (38.2-49.6); HEMOGLOBIN 10.5 g/dL (14.0-18.0); LYMPHOCYTES # (AUTO) 1.3 (1.0-3.2); LYMPHOCYTES % 18.4 % (18.0-39.1); MEAN CORPUSCULAR HEMOGLOBIN 29.6 pg (28-32); MEAN CORPUSCULAR HGB CONC 30.1 g/dL (31-35); MEAN CORPUSCULAR VOLUME 98.3 fL (81-99); MONOCYTES # (AUTO) 0.6 (0.2-0.8); MONOCYTES % 8.5 % (4.4-11.3); NEUTROPHILS # (AUTO) 4.9 (2.1-6.9); PLATELET COUNT 180 x10e3/uL (140-360); RED BLOOD COUNT 3.55 x10e6/uL (4.3-5.7); RED CELL DISTRIBUTION WIDTH 16.9 % (11.7-14.4)
[2021-08-15 08:48] LABS: ANION GAP 16.3 mmol/L (8-16); CALCIUM 8.9 mg/dL (8.4-10.2); CREATININE, SERUM 1.62 mg/dL (0.72-1.25); POTASSIUM 3.3 mmol/L (3.5-5.1)
[2021-08-15] MEDS: FERROUS SULFATE 325 MG TAB PO SCH (08:53)
[2021-08-15] MEDS: BUMETANIDE 1 MG TAB PO SCH (08:53)
[2021-08-15] MEDS: GABAPENTIN 100 MG CAP PO SCH (08:54)
[2021-08-15] MEDS: ATORVASTATIN 20 MG TAB PO SCH (08:54)
[2021-08-15] MEDS: AMLODIPINE BESYLATE 5 MG TAB PO SCH (08:54)
[2021-08-15] MEDS: GEMFIBROZIL 600 MG TAB PO SCH (08:54)
[2021-08-15] MEDS: MULTIVITAMINS/MINERALS TAB PO SCH (08:54)
[2021-08-15] MEDS: ASPIRIN 81 MG CHEW TAB PO SCH (08:54)
[2021-08-15] MEDS: PANTOPRAZOLE SOD 40 MG TABEC PO SCH (08:55)
[2021-08-15] MEDS ORDERED: POTASSIUM CHLORIDE 40 MEQ in DEXTROSE 5% 1,000 ML IV SCH (12:00)
[2021-08-15] MEDS: LEVOFLOXACIN 250 MG TAB PO SCH (14:31)
[2021-08-15] MEDS ORDERED: NIFEDIPINE CR 30 MG TAB PO SCH (15:45)
== END 2021-08-15 18:00 | DRG 242 ==
LOC: ER 10:02 → ERHOLD 15:00 → IMCU 19:20 → ICU 08-09 02:12 → IMCU 08-11 17:09
PROVIDERS: ADMIT Family Medicine; ATTEND Family Medicine
PROC: 02HV33Z Insertion of Infusion Device into Superior Vena Cava, Percutaneous Approach (ICD-10-PCS; 2021-08-08)
PROC: 0JH604Z Insertion of Pacemaker, Single Chamber into Chest Subcutaneous Tissue and Fascia, Open Approach (ICD-10-PCS; principal; 2021-08-13)
PROC: 02HK3JZ Insertion of Pacemaker Lead into Right Ventricle, Percutaneous Approach (ICD-10-PCS; 2021-08-13)
DX: I48.19 Other persistent atrial fibrillation (principal); J18.9 Pneumonia, unspecified organism; J96.21 Acute and chronic respiratory failure with hypoxia; J96.22 Acute and chronic respiratory failure with hypercapnia; I50.33 Acute on chronic diastolic (congestive) heart failure; N17.0 Acute kidney failure with tubular necrosis; N17.9 Acute kidney failure, unspecified; E66.2 Morbid (severe) obesity with alveolar hypoventilation; E87.0 Hyperosmolality and hypernatremia; I13.0 Hypertensive heart and chronic kidney disease with heart failure and stage 1 through stage 4 chronic kidney disease, or unspecified chronic kidney disease; G82.22 Paraplegia, incomplete; Z68.41 Body mass index [BMI] 40.0-44.9, adult; E78.5 Hyperlipidemia, unspecified; I49.5 Sick sinus syndrome; E87.70 Fluid overload, unspecified; B96.4 Proteus (mirabilis) (morganii) as the cause of diseases classified elsewhere; N18.31 Chronic kidney disease, stage 3a; D64.9 Anemia, unspecified; Z88.0 Allergy status to penicillin; Z87.440 Personal history of urinary (tract) infections; N31.9 Neuromuscular dysfunction of bladder, unspecified
CPT/HCPCS: 33207; 36415; 36569; 36600; 71045; 71260; 76770; 80048; 80053; 80061; 81001; 82550; 82553; 82805; 83605; 83735; 83880; 84443; 84484; 85025; 85379; 85610; 87040; 87070; 87086; 87186; 87205; 93005; 93306; 94660; 94760; 97139; 99152; 99153; 99251; 99285; C1769; J1580; J1940; J1956; J2001; J2250; J3010; J3370; J3475; J3480; J7030; J7040; J7050; J7070; U0002

== ENCOUNTER 2021-09-10 16:51 | Inpatient (IN) | payer MEDICARE ==
[~2021-09-10] VITALS: Ht 185.4 cm; Wt 148.4 kg
[2021-09-10] MEDS ORDERED: SODIUM CHLORIDE 0.9% 1000ML 1,000 ML IV STA (16:56)
[2021-09-10 17:34] LABS: BASOPHILS % 0.4 % (0.0-1.0); EOSINOPHILS % 0.1 % (0.0-6.0); HEMATOCRIT 30.5 % (38.2-49.6); HEMOGLOBIN 9.5 g/dL (14.0-18.0); LYMPHOCYTES # (AUTO) 0.5 (1.0-3.2); LYMPHOCYTES % 5.1 % (18.0-39.1); MEAN CORPUSCULAR HEMOGLOBIN 29.7 pg (28-32); MEAN CORPUSCULAR HGB CONC 31.1 g/dL (31-35); MEAN CORPUSCULAR VOLUME 95.3 fL (81-99); MONOCYTES # (AUTO) 0.7 (0.2-0.8); MONOCYTES % 7.1 % (4.4-11.3); NEUTROPHILS # (AUTO) 8.1 (2.1-6.9); NEUTROPHILS % 81.7 % (38.7-80.0); PLATELET COUNT 185 x10e3/uL (140-360); RED CELL DISTRIBUTION WIDTH 18.4 % (11.7-14.4)
[2021-09-10 17:50] LABS: ABG HCO3 24 mmol/L (22-26); ABG PCO2 64 mmHg (35-45); ABG PH 7.19 (7.35-7.45); ABG PO2 258 mmHg (80-105); ABG TCO2 26
[2021-09-10 18:02] LABS: ALBUMIN 3.1 g/dL (3.5-5.0); ALBUMIN/GLOBULIN RATIO 0.6 (0.8-2.0); ANION GAP 19.3 mmol/L (8-16); CALCIUM 8.4 mg/dL (8.4-10.2); CREATININE, SERUM 3.93 mg/dL (0.72-1.25); POTASSIUM 3.3 mmol/L (3.5-5.1)
[2021-09-10 18:10] LABS: CREATINE KINASE MB 10.5 ng/mL (0-5.0)
[2021-09-10 18:22] LABS: COLOR,URINE YELLOW (YELLOW)
[2021-09-10 18:24] LABS: CLARITY,URINE HAZY (CLEAR); KETONES,URINE NEGATIVE (NEGATIVE); LEUKOCYTE ESTERASE ,URINE LARGE (NEGATIVE); NITRITE,URINE POSITIVE (NEGATIVE); PROTEIN,URINE DIPSTICK 1+ (NEGATIVE); URINE UROBILINOGEN 0.2 mg/dL (0.2 - 1)
[2021-09-10] MEDS: METRONIDAZOLE 500MG/NS 100ML 100 ML IV SCH (18:31)
[2021-09-10 18:37] LABS: WBC,URINE (MAN) >50 /HPF (0-5)
[2021-09-10 18:38] LABS: BACTERIA,URINE MANY /HPF; EPITHELIAL CELLS,URINE FEW /LPF; RENAL EPITHELIAL CELLS,URINE FEW; TRANSITIONAL EPI CELLS,URINE MODERATE
[2021-09-10 18:39] LABS: RBC,URINE 21-50 /HPF (0-5)
[2021-09-10 21:11] VITALS: BP 126/62
[2021-09-10] MEDS ORDERED: IPRAT-ALBUT 0.5-3 ML INH (21:40)
[2021-09-10] MEDS ORDERED: CYCLOBENZAPRINE10 MG PO (21:40)
[2021-09-10] MEDS ORDERED: NIFEDIPINE ER30 M1 PO (21:40)
[2021-09-10] MEDS ORDERED: SENOKOTXTRA17.2 MG PO (21:40)
[2021-09-10] MEDS ORDERED: FENOFIBRATE134 MG PO (21:40)
[2021-09-11] VITALS (9 sets, daily range): BP systolic 108–139; BP diastolic 59–90
[2021-09-11] MEDS: METRONIDAZOLE 500MG/NS 100ML 100 ML IV SCH ×4 (00:06→17:10)
[2021-09-11] MEDS ORDERED: LEVOFLOXACIN 500MG/D5W 100ML 100 ML IV SCH ×2 (01:30→02:00)
[2021-09-11] MEDS ORDERED: LEVOFLOXACIN 500MG/D5W 100ML 100 ML IV ONE (01:45)
[2021-09-11 02:17] LABS: CREATINE KINASE MB 9.9 ng/mL (0-5.0)
[2021-09-11 04:48] LABS: BASOPHILS % 0.3 % (0.0-1.0); HEMATOCRIT 26.7 % (38.2-49.6); HEMOGLOBIN 8.5 g/dL (14.0-18.0); LYMPHOCYTES # (AUTO) 0.4 (1.0-3.2); LYMPHOCYTES % 6.1 % (18.0-39.1); MEAN CORPUSCULAR HEMOGLOBIN 29.9 pg (28-32); MEAN CORPUSCULAR HGB CONC 31.8 g/dL (31-35); MONOCYTES # (AUTO) 0.5 (0.2-0.8); MONOCYTES % 7.4 % (4.4-11.3); NEUTROPHILS # (AUTO) 5.8 (2.1-6.9); NEUTROPHILS % 80.2 % (38.7-80.0); PLATELET COUNT 158 x10e3/uL (140-360); RED BLOOD COUNT 2.84 x10e6/uL (4.3-5.7); RED CELL DISTRIBUTION WIDTH 18.3 % (11.7-14.4)
[2021-09-11] MEDS ORDERED: ALBUTEROL/IPRATROPIUM 3 ML NEB INH PRN (07:15)
[2021-09-11 07:56] LABS: ALBUMIN 2.7 g/dL (3.5-5.0); ALBUMIN/GLOBULIN RATIO 0.6 (0.8-2.0); CALCIUM 7.9 mg/dL (8.4-10.2); CREATININE, SERUM 3.85 mg/dL (0.72-1.25)
[2021-09-11] MEDS: MULTIVITAMINS/MINERALS TAB PO SCH (08:22)
[2021-09-11] MEDS: PANTOPRAZOLE SOD 40 MG TABEC PO SCH (08:22)
[2021-09-11] MEDS: ATORVASTATIN 20 MG TAB PO SCH (08:22)
[2021-09-11] MEDS: ASPIRIN 81 MG CHEW TAB PO SCH (08:22)
[2021-09-11] MEDS ORDERED: POTASSIUM CHLORIDE 20 MEQ TAB CR PO ONE (12:30)
[2021-09-11] MEDS ORDERED: HYDRALAZINE HCL 20 MG/ML VIAL IV PRN (17:00)
[2021-09-11] MEDS ORDERED: METOPROLOL TARTRATE INJ 1 MG/ML VIAL IV PRN (17:00)
[2021-09-11] MEDS: GABAPENTIN 100 MG CAP PO SCH (17:10)
[2021-09-11] MEDS: METOPROLOL TARTRATE 25 MG TAB PO SCH (17:10)
[2021-09-11 19:18] LABS: CREATINE KINASE MB 8.6 ng/mL (0-5.0)
[2021-09-11] MEDS: SENNOSIDES 8.6 MG TAB PO SCH (20:23)
[2021-09-11] MEDS ORDERED: SENNOSIDES 17.2 MG PO SCH (21:00)
[2021-09-11] MEDS: METRONIDAZOLE 500 MG TAB PO SCH (23:28)
[2021-09-12] VITALS (10 sets, daily range): BP systolic 97–125; BP diastolic 64–80
[2021-09-12 04:58] LABS: BASOPHILS % 0.3 % (0.0-1.0); EOSINOPHILS % 0.3 % (0.0-6.0); HEMOGLOBIN 8.6 g/dL (14.0-18.0); LYMPHOCYTES # (AUTO) 0.5 (1.0-3.2); LYMPHOCYTES % 5.8 % (18.0-39.1); MEAN CORPUSCULAR HEMOGLOBIN 29.6 pg (28-32); MEAN CORPUSCULAR HGB CONC 31.9 g/dL (31-35); MEAN CORPUSCULAR VOLUME 92.8 fL (81-99); MONOCYTES # (AUTO) 0.6 (0.2-0.8); MONOCYTES % 7.3 % (4.4-11.3); NEUTROPHILS # (AUTO) 6.5 (2.1-6.9); NEUTROPHILS % 81.4 % (38.7-80.0); PLATELET COUNT 192 x10e3/uL (140-360); RED BLOOD COUNT 2.91 x10e6/uL (4.3-5.7); RED CELL DISTRIBUTION WIDTH 18.2 % (11.7-14.4)
[2021-09-12 05:27] LABS: ALBUMIN 2.5 g/dL (3.5-5.0); ALBUMIN/GLOBULIN RATIO 0.5 (0.8-2.0); ANION GAP 17.1 mmol/L (8-16); CALCIUM 7.9 mg/dL (8.4-10.2); CREATININE, SERUM 3.34 mg/dL (0.72-1.25); POTASSIUM 3.1 mmol/L (3.5-5.1)
[2021-09-12] MEDS: METRONIDAZOLE 500 MG TAB PO SCH ×3 (05:30→18:13)
[2021-09-12] MEDS ORDERED: POTASSIUM CHLORIDE 20 MEQ TAB CR PO ONE ×2 (08:30→15:30)
[2021-09-12] MEDS: PANTOPRAZOLE SOD 40 MG TABEC PO SCH (08:43)
[2021-09-12] MEDS ORDERED: POLYETHYLENE GLYCOL 3350 17 GM PACK PO SCH (09:00)
[2021-09-12] MEDS: METOPROLOL TARTRATE 25 MG TAB PO SCH ×2 (10:24→18:14)
[2021-09-12] MEDS: GABAPENTIN 100 MG CAP PO SCH ×2 (10:24→18:13)
[2021-09-12] MEDS: MULTIVITAMINS/MINERALS TAB PO SCH (10:24)
[2021-09-12] MEDS: ATORVASTATIN 20 MG TAB PO SCH (10:25)
[2021-09-12] MEDS: ASPIRIN 81 MG CHEW TAB PO SCH (10:25)
[2021-09-12] MEDS: FERROUS SULFATE 325 MG TAB PO SCH (10:25)
[2021-09-12] MEDS: BALSAM PERU/CASTOR OIL 60 GM OINT...G. TP SCH (14:18)
[2021-09-12] MEDS ORDERED: POTASSIUM CHLORIDE 20MEQ/100ML 200 ML IV ONE (15:15)
[2021-09-12] MEDS ORDERED: FUROSEMIDE INJ 10 MG/ML 4 ML VIAL IV ONE ×2 (15:15→15:30)
[2021-09-12] MEDS ORDERED: SODIUM CHLORIDE 0.9% 500ML 500 ML ONE (16:22)
[2021-09-12] MEDS: SODIUM BICARBONATE 650 MG TAB PO SCH (18:13)
[2021-09-12] MEDS: POLYETHYLENE GLYCOL 3350 17 GM PACK PO SCH (20:36)
[2021-09-12] MEDS: SENNOSIDES 8.6 MG TAB PO SCH (20:37)
[2021-09-13] VITALS (7 sets, daily range): BP systolic 112–131; BP diastolic 70–83
[2021-09-13] MEDS: METRONIDAZOLE 500 MG TAB PO SCH ×5 (01:27→17:40)
[2021-09-13] MEDS ORDERED: LEVOFLOXACIN 250MG/D5W 50ML 50 ML IV SCH (02:00)
[2021-09-13] MEDS: PANTOPRAZOLE SOD 40 MG TABEC PO SCH (06:31)
[2021-09-13 06:57] LABS: ALBUMIN 2.5 g/dL (3.5-5.0); ALBUMIN/GLOBULIN RATIO 0.5 (0.8-2.0); ANION GAP 17.6 mmol/L (8-16); CALCIUM 8.2 mg/dL (8.4-10.2); CREATININE, SERUM 3.01 mg/dL (0.72-1.25); POTASSIUM 3.6 mmol/L (3.5-5.1)
[2021-09-13] MEDS ORDERED: MAGNESIUM HYDROXIDE 30 ML UDC PO PRN (08:30)
[2021-09-13] MEDS ORDERED: POLYETHYLENE GLYCOL 3350 17 GM PACK PO PRN (08:30)
[2021-09-13] MEDS ORDERED: CITRATE OF MAGNESIA 300ML BOTTLE PO ONE (09:00)
[2021-09-13] MEDS ORDERED: MAGNESIUM HYDROXIDE 30 ML UDC PO ONE (09:00)
[2021-09-13] MEDS: ASPIRIN 81 MG CHEW TAB PO SCH (09:05)
[2021-09-13] MEDS: FERROUS SULFATE 325 MG TAB PO SCH (09:05)
[2021-09-13] MEDS: ATORVASTATIN 20 MG TAB PO SCH (09:05)
[2021-09-13] MEDS: GABAPENTIN 100 MG CAP PO SCH ×2 (09:06→17:40)
[2021-09-13] MEDS: METOPROLOL TARTRATE 25 MG TAB PO SCH ×2 (09:06→17:40)
[2021-09-13] MEDS: BALSAM PERU/CASTOR OIL 60 GM OINT...G. TP SCH (09:06)
[2021-09-13] MEDS: SODIUM BICARBONATE 650 MG TAB PO SCH ×2 (09:06→17:40)
[2021-09-13] MEDS: MULTIVITAMINS/MINERALS TAB PO SCH (09:06)
[2021-09-13] MEDS: DOCUSATE SODIUM 100 MG CAP PO SCH ×2 (09:14→17:39)
[2021-09-13 10:58] LABS: ABG HCO3 25 mmol/L (22-26); ABG PCO2 55 mmHg (35-45); ABG PH 7.26 (7.35-7.45); ABG PO2 41 mmHg (80-105); ABG TCO2 27
[2021-09-13] MEDS: BUMETANIDE INJ 0.25MG/ML 4ML VIAL IV SCH ×2 (14:00→22:11)
[2021-09-13] MEDS: POLYETHYLENE GLYCOL 3350 17 GM PACK PO SCH (22:11)
[2021-09-13] MEDS: SENNOSIDES 8.6 MG TAB PO SCH (22:11)
[2021-09-14] MEDS: METRONIDAZOLE 500 MG TAB PO SCH ×4 (01:55→16:33)
[2021-09-14 04:00] VITALS: BP 112/65
[2021-09-14 05:59] LABS: BASOPHILS # (AUTO) 0.1 (0.0-0.1); EOSINOPHILS # (AUTO) 0.2 (0.0-0.4); EOSINOPHILS % 1.9 % (0.0-6.0); HEMATOCRIT 29.9 % (38.2-49.6); HEMOGLOBIN 9.3 g/dL (14.0-18.0); LYMPHOCYTES # (AUTO) 0.9 (1.0-3.2); LYMPHOCYTES % 11.3 % (18.0-39.1); MEAN CORPUSCULAR HEMOGLOBIN 29.5 pg (28-32); MEAN CORPUSCULAR HGB CONC 31.1 g/dL (31-35); MEAN CORPUSCULAR VOLUME 94.9 fL (81-99); MONOCYTES # (AUTO) 0.8 (0.2-0.8); MONOCYTES % 9.8 % (4.4-11.3); NEUTROPHILS # (AUTO) 5.3 (2.1-6.9); PLATELET COUNT 277 x10e3/uL (140-360); RED BLOOD COUNT 3.15 x10e6/uL (4.3-5.7)
[2021-09-14] MEDS: BUMETANIDE INJ 0.25MG/ML 4ML VIAL IV SCH (06:15)
[2021-09-14 06:30] LABS: ANION GAP 14.5 mmol/L (8-16); CALCIUM 8.8 mg/dL (8.4-10.2); CREATININE, SERUM 2.82 mg/dL (0.72-1.25); POTASSIUM 3.5 mmol/L (3.5-5.1)
[2021-09-14] MEDS: PANTOPRAZOLE SOD 40 MG TABEC PO SCH (07:30)
[2021-09-14 08:23] VITALS: BP 100/66
[2021-09-14] MEDS: FERROUS SULFATE 325 MG TAB PO SCH (08:48)
[2021-09-14] MEDS: ASPIRIN 81 MG CHEW TAB PO SCH (08:48)
[2021-09-14] MEDS: ATORVASTATIN 20 MG TAB PO SCH (08:48)
[2021-09-14] MEDS: DOCUSATE SODIUM 100 MG CAP PO SCH ×2 (08:48→16:32)
[2021-09-14] MEDS: GABAPENTIN 100 MG CAP PO SCH (08:49)
[2021-09-14] MEDS: MULTIVITAMINS/MINERALS TAB PO SCH (08:49)
[2021-09-14] MEDS: METOPROLOL TARTRATE 25 MG TAB PO SCH ×2 (08:49→16:33)
[2021-09-14] MEDS: BALSAM PERU/CASTOR OIL 60 GM OINT...G. TP SCH (08:49)
[2021-09-14] MEDS: SODIUM BICARBONATE 650 MG TAB PO SCH ×2 (08:49→16:33)
[2021-09-14] MEDS ORDERED: POTASSIUM CHLORIDE 20 MEQ TAB CR PO ONE (11:30)
[2021-09-14 12:23] VITALS: BP 121/71
[2021-09-14] MEDS: CEFTRIAXONE 1 GM in SODIUM CHLORIDE 0.9% 50ML 50 ML IV SCH (13:30)
[2021-09-14] MEDS: APIXAB 2.5 MG TABLET PO SCH (16:32)
[2021-09-14 16:33] VITALS: BP 118/67
[2021-09-14 19:56] VITALS: BP 125/74
[2021-09-14 21:00] VITALS: BP 125/74
[2021-09-14] MEDS: POLYETHYLENE GLYCOL 3350 17 GM PACK PO SCH (21:24)
[2021-09-14] MEDS: SENNOSIDES 8.6 MG TAB PO SCH (21:24)
[2021-09-15 00:23] VITALS: BP 119/79
[2021-09-15] MEDS ORDERED: MELATONIN 5 MG TABLET PO SCH (01:15)
[2021-09-15] MEDS: CEFTRIAXONE 1 GM in SODIUM CHLORIDE 0.9% 50ML 50 ML IV SCH ×2 (01:30→13:34)
[2021-09-15] MEDS: METRONIDAZOLE 500 MG TAB PO SCH ×3 (01:30→13:34)
[2021-09-15 04:51] VITALS: BP 111/59
[2021-09-15] MEDS: PANTOPRAZOLE SOD 40 MG TABEC PO SCH (06:00)
[2021-09-15 07:13] LABS: ALBUMIN 2.5 g/dL (3.5-5.0); ALBUMIN/GLOBULIN RATIO 0.5 (0.8-2.0); ANION GAP 15.6 mmol/L (8-16); CALCIUM 8.8 mg/dL (8.4-10.2); CREATININE, SERUM 2.35 mg/dL (0.72-1.25); POTASSIUM 3.6 mmol/L (3.5-5.1)
[2021-09-15 08:15] VITALS: BP 111/59
[2021-09-15 08:17] VITALS: BP 119/70
[2021-09-15] MEDS ORDERED: BUMETANIDE INJ 0.25MG/ML 4ML VIAL IV SCH (09:00)
[2021-09-15] MEDS ORDERED: ALLOPURINOL 100 MG TAB PO SCH (09:00)
[2021-09-15] MEDS: DOCUSATE SODIUM 100 MG CAP PO SCH (10:06)
[2021-09-15] MEDS: FERROUS SULFATE 325 MG TAB PO SCH (10:06)
[2021-09-15] MEDS: APIXAB 2.5 MG TABLET PO SCH (10:06)
[2021-09-15] MEDS: ASPIRIN 81 MG CHEW TAB PO SCH (10:06)
[2021-09-15] MEDS: SODIUM BICARBONATE 650 MG TAB PO SCH (10:07)
[2021-09-15] MEDS: ATORVASTATIN 20 MG TAB PO SCH (10:07)
[2021-09-15] MEDS: MULTIVITAMINS/MINERALS TAB PO SCH (10:07)
[2021-09-15] MEDS: METOPROLOL TARTRATE 25 MG TAB PO SCH (10:07)
[2021-09-15 12:13] VITALS: BP 139/83
[2021-09-15 16:11] VITALS: BP 128/73
== END 2021-09-15 16:09 | DRG 698 ==
LOC: ER 16:55 → ERHOLD 19:47 → IMCU 21:02 → MED/SURG3 09-12 15:52
PROVIDERS: ADMIT Family Medicine; ATTEND Family Medicine
PROC: 5A0935A Assistance with Respiratory Ventilation, Less than 24 Consecutive Hours, High Flow/Velocity Cannula (ICD-10-PCS; principal; 2021-09-12)
DX: T83.511A Infection and inflammatory reaction due to indwelling urethral catheter, initial encounter (principal); J96.21 Acute and chronic respiratory failure with hypoxia; N17.0 Acute kidney failure with tubular necrosis; J18.9 Pneumonia, unspecified organism; A41.9 Sepsis, unspecified organism; R65.20 Severe sepsis without septic shock; J96.22 Acute and chronic respiratory failure with hypercapnia; G82.20 Paraplegia, unspecified; I13.0 Hypertensive heart and chronic kidney disease with heart failure and stage 1 through stage 4 chronic kidney disease, or unspecified chronic kidney disease; N18.4 Chronic kidney disease, stage 4 (severe); J44.0 Chronic obstructive pulmonary disease with (acute) lower respiratory infection; Z68.41 Body mass index [BMI] 40.0-44.9, adult; N13.30 Unspecified hydronephrosis; E87.2 Acidosis; I50.32 Chronic diastolic (congestive) heart failure; D63.8 Anemia in other chronic diseases classified elsewhere; Z20.822 Contact with and (suspected) exposure to COVID-19; N13.9 Obstructive and reflux uropathy, unspecified; B96.4 Proteus (mirabilis) (morganii) as the cause of diseases classified elsewhere; C62.90 Malignant neoplasm of unspecified testis, unspecified whether descended or undescended; I48.91 Unspecified atrial fibrillation; G47.33 Obstructive sleep apnea (adult) (pediatric); I49.5 Sick sinus syndrome; E66.01 Morbid (severe) obesity due to excess calories; G62.9 Polyneuropathy, unspecified; K80.80 Other cholelithiasis without obstruction; T83.021A Displacement of indwelling urethral catheter, initial encounter; Z95.0 Presence of cardiac pacemaker; Z74.01 Bed confinement status; N31.9 Neuromuscular dysfunction of bladder, unspecified
CPT/HCPCS: 36415; 36600; 70450; 71045; 71260; 74018; 74019; 74177; 80048; 80053; 81001; 82550; 82553; 82805; 83605; 83690; 83880; 84484; 84550; 85025; 87040; 87070; 87086; 87186; 87205; 93005; 93306; 94640; 94660; 94799; 97139; 99251; 99283; J0696; J1940; J1956; J3480; J7030; J7040; U0002